=== PATIENT | female | born 1945 | race Caucasian/White ===

== ENCOUNTER 2023-01-17 17:56 | Emergency (ER) | payer MEDICARE, SELFPAY ==
--- NOTE | ~2023-01-17 | XR_ITS ---
EXAMINATION: XR hand RT min 3V INDICATION: Right hand pain TECHNIQUE: Three views of the right hand are obtained. COMPARISON: None available FINDINGS: No fracture is identified. 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 There is questionable scapholunate advanced collapse of the wrist. IMPRESSION: 1. No acute osseous abnormality. Reviewed, dictated and finalized at location F.
[2023-01-17 18:13] VITALS: BP 139/66; PULSE 92; RESP 18; TEMP 37; O2SAT 94
--- NOTE | 2023-01-17 18:23 | ED.FALL ---
HPI - Fall General Chief Complaint: Fall Stated Complaint: Fall Injury/Finger Injury Time Seen by Provider: 01/17/23 18:23 Source: patient Mode of arrival: ambulatory Limitations: no limitations History of Present Illness HPI Narrative: 77-year-old female presents with pain, swelling and bruising to middle and ring finger of right hand. Patient reports approximately 1 hour prior to arrival she was walking through [employer] to get hose and tripped. States she put right hand out in front of her to catch her fall. Denies hitting head. Also has a small abrasion to left knee. Was able to get up on her own. Ambulatory with steady gait. All systems reviewed and negative except as noted above. Related Data Home Medications Medication Instructions Recorded Confirmed amitriptyline 75 mg tablet 75 mg PO QHS 01/17/23 01/17/23 atorvastatin 20 mg tablet 20 mg PO QPM 01/17/23 01/17/23 citalopram 10 mg tablet 10 mg PO DAILY 01/17/23 01/17/23 losartan 50 mg tablet 50 mg PO DAILY 01/17/23 01/17/23 omeprazole 20 mg capsule,delayed 20 mg PO DAILY 01/17/23 01/17/23 release ropinirole 0.5 mg tablet 0.5 mg PO QPM 01/17/23 01/17/23 warfarin 2 mg tablet 1 mg PO DAILY 01/17/23 01/17/23 Allergies Allergy/AdvReac Type Severity Reaction Status Date / Time codeine AdvReac Mild Itching Verified 01/17/23 18:26 Review of Systems Review of Systems: CONSTITUTIONAL: Denies fever, chills, or sweats. EYES: Denies visual changes, redness, or discharge. ENT: Denies rhinorrhea, congestion, sore throat, or otalgia. CARDIOVASCULAR: Denies chest pain, palpitations, or edema. RESPIRATORY: Denies cough or dyspnea. GASTROINTESTINAL: Denies abdominal pain, nausea, vomiting, or diarrhea. GENITOURINARY: Denies dysuria or hematuria. SKIN: Denies rash or itching. MUSCULOSKELETAL: Reports pain and swelling to middle and ring finger of right hand. NEUROLOGIC: Denies headache, numbness, or weakness. PSYCHIATRIC: Denies anxiety or depression. All other systems reviewed are negative, except as documented in HPI. [facility] Comments At time of signature, agree with nursing past medical, surgical, social and family history. There is no relevant family history pertinent to the presenting complaint. Exam Narrative: GENERAL: This is a well-nourished, well-developed patient, in no apparent distress. HEAD: normocephalic, atraumatic. EYES: PERRL. Sclera clear/white. Vision is grossly intact. EARS: External ears normal NOSE: External nose normal NECK: Neck supple, non-tender without lymphadenopathy, masses or thyromegaly. CARDIOVASCULAR: Regular rate and rhythm without murmurs, gallops, or rubs. RESPIRATORY: Clear to auscultation. Breath sounds equal bilaterally. No wheezes, rales, or rhonchi. SKIN: warm, Dry, intact with no suspicious lesions or rash, good texture and turgor. NEURO: awake, alert, and oriented to person, place and time. There were no obvious focal neurologic abnormalities. EXTREMITIES: tenderness to proximal phalanx and PIP of middle and ring finger of R hand with bruising and swelling. no deformity noted. Course Course Level of Care: Express Care Visit Vital Signs Vital signs: Vital Signs Temperature 37.0 C 01/17/23 18:13 Pulse Rate 92 01/17/23 18:13 Respiratory Rate 18 01/17/23 18:13 Blood Pressure 139/66 01/17/23 18:13 Pulse Oximetry 94 01/17/23 18:13 Oxygen Delivery Room Air 01/17/23 18:13 Temperature 37.0 C 01/17/23 18:13 Pulse Rate 92 01/17/23 18:13 Respiratory Rate 18 01/17/23 18:13 Blood Pressure 139/66 01/17/23 18:13 Pulse Oximetry 94 01/17/23 18:13 Oxygen Delivery Room Air 01/17/23 18:13 Reviewed MDM - Fall MDM Narrative Medical decision making narrative: Patient is aware of diagnosis, understands and agrees to treatment plan. Anticipatory guidance given. Patient agrees to follow-up as directed and is aware of reasons to seek care at the emergency department. Por
[2023-01-17 18:25] VITALS: BP 139/66; PULSE 92; RESP 18; TEMP 37; O2SAT 94
== END 2023-01-17 19:05 | disposition home or self-care (01) ==
PROVIDERS: Emergency Provider Nurse Practitioner Family; PCP Internal Medicine Infectious Disease
DX: S80.212A Abrasion, left knee, initial encounter (principal); S63.612A Unspecified sprain of right middle finger, initial encounter; S63.614A Unspecified sprain of right ring finger, initial encounter; W01.0XXA Fall on same level from slipping, tripping and stumbling without subsequent striking against object, initial encounter; E78.00 Pure hypercholesterolemia, unspecified; I10 Essential (primary) hypertension; K21.9 Gastro-esophageal reflux disease without esophagitis; G25.81 Restless legs syndrome; Z95.5 Presence of coronary angioplasty implant and graft; F41.9 Anxiety disorder, unspecified; F32.A Depression, unspecified; Z79.01 Long term (current) use of anticoagulants
CPT/HCPCS: 29130 ×2; 73130; 99213; G0463

== ENCOUNTER 2023-05-25 17:22 | Emergency (ER) | payer MEDICARE, SELFPAY ==
--- NOTE | ~2023-05-25 | XR_ITS ---
EXAMINATION: XR ribs RT 2V DATE: 05/25/2023 18:05 INDICATION: Right rib pain. TECHNIQUE: 2 views of the right ribs on 4 radiographs were obtained. COMPARISON: None. FINDINGS: There is a diffuse interstitial pattern in the lungs. No right-sided pleural effusion or pn eumothorax. There are changes of heart valve replacement. There is a suture anchor in right humeral h ead. There is no rib fracture. IMPRESSION: 1. No rib fracture. 2. Diffuse interstitial pattern in the lungs, likely chronic interstitial lung disease. Reviewed, dictated and finalized at location E.
--- NOTE | ~2023-05-25 | XR_ITS ---
EXAMINATION: XR shoulder RT min 2V DATE: 05/25/2023 18:04 INDICATION: Right shoulder injury. TECHNIQUE: 4 views of right shoulder were obtained. COMPARISON: None. FINDINGS: Bone alignment is normal. There are likely changes of distal clavicle resection. There is m ild osteoarthritis of glenohumeral joint. There is a suture anchor in humeral head. There are changes of heart valve replacement. There is a diffuse interstitial pattern in the lungs. IMPRESSION: 1. Mild osteoarthritis of glenohumeral joint. 2. Diffuse interstitial pattern in the lungs, likely chronic interstitial lung disease. Reviewed, dictated and finalized at location E.
--- NOTE | 2023-05-25 17:28 | ED.UPPEXIN ---
HPI - Extremity Injury (Upper) General Chief Complaint: Extremity Injury, Upper Stated Complaint: Fall Injury/Right Shoulder Time Seen by Provider: 05/25/23 17:24 Source: patient Mode of arrival: ambulatory Limitations: no limitations History of Present Illness HPI narrative: Mallika is a 77-year-old female patient presenting to clinic today with complaints of right shoulder/right posterior ribs pain after falling. She reports she fell out of bed on Thursday when she went to reach for something off the bedside table. Is on Coumadin so as she does have some old bruising noted. Reports that the ribs hurt when she takes a deep breath and coughs. Is on Coumadin. Denies hitting her head or any loss of consciousness. History of rotator cuff repair on the right shoulder Related Data Home Medications Medication Instructions Recorded Confirmed amitriptyline 75 mg tablet 75 mg PO QHS 01/17/23 05/25/23 atorvastatin 20 mg tablet 20 mg PO QPM 01/17/23 05/25/23 citalopram 10 mg tablet 10 mg PO DAILY 01/17/23 05/25/23 losartan 50 mg tablet 50 mg PO DAILY 01/17/23 05/25/23 omeprazole 20 mg capsule,delayed 20 mg PO DAILY 01/17/23 05/25/23 release ropinirole 0.5 mg tablet 0.5 mg PO QPM 01/17/23 05/25/23 warfarin 2 mg tablet 1 mg PO DAILY 01/17/23 05/25/23 ergocalciferol (vitamin D2) 1,250 1,250 mcg PO DIRECTED 05/25/23 05/25/23 mcg (50,000 unit) capsule Allergies Allergy/AdvReac Type Severity Reaction Status Date / Time codeine AdvReac Mild Itching Verified 05/25/23 17:23 Review of Systems Review of Systems: Pertinent positives per HPI. Patient denies any fever, chills, rash, headache, visual changes, dizziness, cough, runny nose, sore throat, shortness of breath, chest pain, palpitations, nausea, vomiting, diarrhea, constipation, abdominal pain, or any urinary issues. [facility] Comments At the time of my signature, I reviewed and agree with the nursing past medical, surgical, social, and family history. There is no relevant family history pertinent to the patient complaint. Exam Narrative: General: Well-developed, overweight, in no apparent distress, frail appearing Head: Normocephalic, atraumatic. Cardio: Regular rate and rhythm, s1 and s2 normal, no murmur appreciated. Resp: Clear to auscultation bilaterally, no rhonchi, rales, wheezing or rubs. Musculoskeletal: No deformity, tender to palpation over the right upper posterior ribs and the right shoulder, old bruising noted over the right posterior ribs and the right lateral shoulder, grossly normal range of motion, muscle strength strong and equal, peripheral pulse strong, no edema, no cyanosis, normal gait and station Course Course Emergency Course: Portions of this record may have been created with voice recognition software. Level of Care: Express Care Visit Vital Signs Vital signs: Vital Signs Temperature 37.0 C 05/25/23 17:44 Pulse Rate 70 05/25/23 17:44 Respiratory Rate 20 05/25/23 17:44 Blood Pressure 144/71 H 05/25/23 17:44 Pulse Oximetry 98 05/25/23 17:44 Oxygen Delivery Room Air 05/25/23 17:44 Temperature 37.0 C 05/25/23 17:44 Pulse Rate 70 05/25/23 17:44 Respiratory Rate 20 05/25/23 17:44 Blood Pressure 144/71 H 05/25/23 17:44 Pulse Oximetry 98 05/25/23 17:44 Oxygen Delivery Room Air 05/25/23 17:44 Vital signs reviewed MDM - Extremity Injury (Upper) MDM Narrative Medical decision making narrative: At the time of visit patient is resting comfortably on the exam table. X-ray of the right shoulder and right ribs was performed and is negative for any sign of fracture or malalignment. I suspect patient has contusion to the right shoulder and ribs with strain of the shoulder. Supportive measures were discussed with the patient and the family member they voiced understanding the discharge instructions and agreed to the treatment plan. Differential Diagnosis Differential diagnosis: Likely dislocation of
[2023-05-25 17:44] VITALS: BP 144/71; PULSE 70; RESP 20; TEMP 37; O2SAT 98
== END 2023-05-25 18:22 | disposition home or self-care (01) ==
PROVIDERS: Emergency Provider Nurse Practitioner Family; PCP Internal Medicine Infectious Disease
DX: M25.511 Pain in right shoulder (principal); M19.011 Primary osteoarthritis, right shoulder; R07.81 Pleurodynia; Z79.01 Long term (current) use of anticoagulants; G25.81 Restless legs syndrome; E78.00 Pure hypercholesterolemia, unspecified; I10 Essential (primary) hypertension; K21.9 Gastro-esophageal reflux disease without esophagitis; I25.10 Atherosclerotic heart disease of native coronary artery without angina pectoris; Z95.5 Presence of coronary angioplasty implant and graft; F41.9 Anxiety disorder, unspecified; F32.A Depression, unspecified
CPT/HCPCS: 71100; 73030; 99214; G0463

== ENCOUNTER 2025-01-13 19:09 | Emergency (ER) | payer MEDICARE, SELFPAY ==
--- NOTE | 2025-01-13 19:11 | ED.WOUNDLAC ---
HPI - Wound/Laceration General Chief Complaint: Skin/Abscess/Foreign Body Stated Complaint: skin tear right hand Time Seen by Provider: 01/13/25 19:11 Source: patient Mode of arrival: ambulatory Limitations: no limitations History of Present Illness HPI narrative: Mallika is an 79-year-old female patient presenting to the clinic today with complaints of a skin tear to the right hand. Patient states that she hit the back of her hand with a door and this caused the skin tear. Tetanus shot up-to-date per patient-thinks she got one 4 years ago. Has a flap v-shaped skin tear. Bleeding is controlled. Related Data Home Medications ?Medication ?Instructions ?Recorded ?Confirmed ?Last Taken ?Type amitriptyline 75 mg tablet 75 mg PO QHS 01/17/23 05/25/23 Unknown History atorvastatin 20 mg tablet 20 mg PO QPM 01/17/23 05/25/23 Unknown History citalopram 10 mg tablet 10 mg PO DAILY 01/17/23 05/25/23 Unknown History losartan 50 mg tablet 50 mg PO DAILY 01/17/23 05/25/23 Unknown History omeprazole 20 mg capsule,delayed 20 mg PO DAILY 01/17/23 05/25/23 Unknown History release ropinirole 0.5 mg tablet 0.5 mg PO QPM 01/17/23 05/25/23 Unknown History warfarin 2 mg tablet 1 mg PO DAILY 01/17/23 05/25/23 Unknown History ergocalciferol (vitamin D2) 1,250 1,250 mcg PO DIRECTED 05/25/23 05/25/23 Unknown History mcg (50,000 unit) capsule carvedilol 3.125 mg tablet mg 01/13/25 Unknown History furosemide 20 mg tablet mg 01/13/25 Unknown History metolazone 2.5 mg tablet mg 01/13/25 Unknown History ropinirole 0.25 mg tablet mg 01/13/25 Unknown History Allergies Allergy/AdvReac Type Severity Reaction Status Date / Time codeine AdvReac Mild Itching Verified 01/13/25 19:21 Review of Systems Review of Systems: Pertinent positives per HPI. Patient denies any fever, chills, rash, headache, visual changes, dizziness, cough, runny nose, sore throat, shortness of breath, chest pain, palpitations, nausea, vomiting, diarrhea, constipation, abdominal pain, or any urinary issues. [facility] Comments At the time of my signature, I reviewed and agree with the nursing past medical, surgical, social, and family history. There is no relevant family history pertinent to the patient complaint. Exam Narrative: General: Well-developed, well nourished, in no apparent distress Head: Normocephalic, atraumatic. Cardio: Regular rate and rhythm, s1 and s2 normal, no murmur appreciated. Resp: Clear to auscultation bilaterally, no rhonchi, rales, wheezing or rubs. Integumentary: [place], warm, and dry, flapped v-shaped skin tear to the dorsal right hand Course Course Emergency Course: Portions of this record may have been created with voice recognition software. Level of Care: Express Care Visit Vital Signs Vital signs: Vital Signs Temperature 36.4 C 01/13/25 19:18 Pulse Rate 69 01/13/25 19:18 Respiratory Rate 16 01/13/25 19:18 Blood Pressure 137/75 01/13/25 19:18 Pulse Oximetry 98 01/13/25 19:18 Oxygen Delivery Room Air 01/13/25 19:18 Temperature 36.4 C 01/13/25 19:18 Pulse Rate 69 01/13/25 19:18 Respiratory Rate 16 01/13/25 19:18 Blood Pressure 137/75 01/13/25 19:18 Pulse Oximetry 98 01/13/25 19:18 Oxygen Delivery Room Air 01/13/25 19:18 Vital signs reviewed MDM - Wound/Laceration MDM Narrative Medical decision making narrative: At the time of visit patient is resting comfortably on the exam table. Patient appears to be nontoxic. Procedures: Wound was cleansed with antiseptic wound wash. Laceration repair was performed placing 3 Steri-Strips bringing wound edges well approximate. Patient tolerated well. Telfa and Coban applied Plan: Patient has V flap skin tear. Repair was performed using Steri-Strips. Patient tolerated well Supportive measures were discussed with the patient and they voiced understanding discharge instructions and agrees to treatment plan. Return precautions reviewed Differential Diagnosis Differential diagnosis: Likely laceration, abscess, abrasion, avulsion of skin and other (Skin tear) Discharge Plan Discharge Clinical Impression: Skin tear of right hand without complication Qualifiers: Encounter type: initial encounter Qualified Code(s): S61.411A - Laceration without foreign body of right hand, initial encounter Patient Disposition: Home Condition: Stable Instructions: Antibiotic Form, Skin Tear (ED) Additional Instructions: Leave bandage on for 24 hours then may remove and apply band aide covering as needed. Keep wound clean and dry Try to avoid getting hand wet Leave Steri-Strips in place and allow them to fall off on their own If Steri-Strips are starting to peel up may trim them using a pair of scissors Watch for signs and symptoms of infection-fever not controlled by Tylenol or Motrin, redness, streaking, swelling, purulent discharge, or increase in pain. Follow up with your PCP in 3 days for wound check Patient Language: Tuvaluan Prescriptions: No Action ergocalciferol (vitamin D2) 1,250 mcg (50,000 unit) capsule 1,250 mcg PO DIRECTED losartan 50 mg tablet 50 mg PO DAILY amitriptyline 75 mg tablet 75 mg PO QHS warfarin 2 mg tablet 1 mg PO DAILY omeprazole 20 mg capsule,delayed release(DR/EC) 20 mg PO DAILY atorvastatin 20 mg tablet 20 mg PO QPM citalopram 10 mg tablet 10 mg PO DAILY ropinirole 0.5 mg tablet 0.5 mg PO QPM metolazone 2.5 mg tablet carvedilol 3.125 mg tablet ropinirole 0.25 mg tablet furosemide 20 mg tablet Follow-up/Referrals: Lance,Ebenezer Dutton MD [Primary Care Provider] - Time of Disposition: 19:34 Quality NIHSS Nursing Documentation ED NIHSS nursing documentation: reviewed/agree
--- OUTSIDE RECORDS SUMMARY | 2025-01-13 19:12 | XMS_ITS | Encounter Summary ---
Author Organization [facility] Healthcare Address [address] [place] [address] Care Team Providers Care Production Finisher Name Role Phone Ebenezer Lucas MD Primary Care Provider [phone] Frank Webster MD Unavailable [phone] Aron Rodrigues MD Unavailable [phone] Conor Lala MD Unavailable [phone] Laura Renee MD Unavailable Marie Mendez MD Unavailable Marvin Isbell MD Unavailable [phone] Encounter Details Date Type Department Care Team (Late st Contact Info) Description 01/04/2025 Results Follow-Up [facility] [address] [place] [phone] Shahnaz Coleman MA Protime-INR Social History Tobacco Use Types Packs/Day Years Used Date Smoking Tobacco: Former Cigarettes 0.5 43 0 02/07/1965 - 02/08/2008 Smokeless Tobacco: Never Alcohol Use Standard Drinks/Week Comments No 0 (1 standard drink = 0.6 oz pur e alcohol) AUDIT-C Answer Date Recorded Q1: How often do you have a drink containing alc ohol? Monthly or less 04/20/2024 Q2: How many drinks containi ng alcohol do you have on a typical day when you are drinking? 1 or 2 04/20/2024 Q3: How often do you have si x or more drinks on one occasion? Never 04/20/2024 PHQ-2 Answer Date Recorded PHQ-2 Total Score (If total score is 3 or more points, staff should administer the PHQ-9) 0 04/20/2024 Personal Safety Answer Date Recorded Have you ever been in or are you currently in a harmful physical or emotional relationship or is someone making you feel afraid or unsafe? 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 Gender Identity Not on file Sexual Orientation Not on file Occupation Industry Job Start Date Job End Date Retired Not on file Not on file Not on file documented as of this encounter Plan of Treatment Not on file documented as of this encounter Visit Diagnoses Not on filedocumented in this encounter Care Teams Production Finisher Relationship Specialty Start Date End Date Ebenezer Lucas MD [address] [place] [address] PCP - General Internal Medicine 12/05/23 Frank Webster MD [address] [place] [address] Consulting Physician Cardiology 09/06/19 Aron Rodrigues MD [address] [place] [address] Surgeon Cardiothoracic Surgery 07/09/20 [place] [address] [address] [address] Consulting Physician Pulmonary Disease 05/23/20 Laura Renee MD [address] [place] [address] Locker Plant Attendant Obstetrics and Gynecology 06/10/23 Marie Mendez MD [address] [facility] [place] [address] Consulting Physician Sleep Medicine 10/12/23 Marvin Isbell MD [address] [place] [address] Surgeon Anesthesiology 03/10/24 documented as of this encounter
--- OUTSIDE RECORDS SUMMARY | 2025-01-13 19:12 | XMS_ITS | Clinical Summary ---
Author Organization [facility] Address [address] [place] [address] Phone Care Team Providers Care Straight Ruling Machine Operator Name Role Phone Dean Ewing MD Primary Care Provider [phone] Allergies Active Allergy Reactions Criticality Noted Date Comments Hydrocodone-Acetaminophen Unknown Montelukast Hives High 04/23/2012 Medications CITALOPRAM HYDROBROMIDE (CITALOPRAM ORAL) Take by mouth. Active ZOLPIDEM TARTRATE (AMBIEN ORAL) Take by mouth. Active aspirin (ECOTRIN EC) 81 mg Oral TbEC Take 81 mg by mouth. Active CARVEDILOL ORAL Take by mouth. Active lisinopril (PRINIVIL) 10 mg Oral tablet 03/19/2013 Active DIPHENHYDRAMINE HCL (BENADRYL ALLERGY ORAL) Take by mouth. 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 Family History Medical History Relation Name Comments Cancer Brother 1 Cancer Brother 2 Healthy Daughter Cancer Father Healthy Son Relation Name Status Comments Brother 1 Brother 2 Brother 3 Alive Brother 4 Alive Daughter Alive Father Alive Maternal Grandfather Maternal Grandmother Mother Alive Paternal Grandfather Paternal Grandmother Son Alive Social History Tobacco Use Types Packs/Day Years Used Date Smoking Tobacco: Former Smokeless Tobacco: Never Tobacco Cessation:Counseling Given: No Alcohol Use Standard Drinks/Week Comments No 0 (1 standard drink = 0.6 oz pur e alcohol) Comments No Sex and Gender Information Value Date Recorded Sex Assigned at Not on file Legal Sex Female 6:06 AM INSURANCE ACCOUNT REPRESENTATIVE Gender Identity Not on file Sexual Orientation Not on file Occupation Industry Job Start Date Job End Date Not on file Not on file Not on file Not on file Last Filed Vital Signs Vital Sign Reading Time Taken Comments Blood Pressure 137/70 08/24/2014 2:12 PM INSURANCE ACCOUNT REPRESENTATIVE Pulse 58 08/24/2014 2:12 PM INSURANCE ACCOUNT REPRESENTATIVE Temperature - - Respiratory Rate - - Oxygen Saturation - - Inhaled Oxygen Concentration - - Weight 61.2 kg (135 lb) 08/24/2014 2:12 PM INSURANCE ACCOUNT REPRESENTATIVE Height 153.7 cm (5' 0.5) 08/24/2014 2:12 PM INSURANCE ACCOUNT REPRESENTATIVE Body Mass Index 25.93 08/24/2014 2:12 PM INSURANCE ACCOUNT REPRESENTATIVE Plan of Treatment Health Maintenance Due Date Last Done Comments DTAP/TDAP/TD VACCINES (1 - Tdap) 10/23/1962 PNEUMOCOCCAL VACCINE 50+ YEARS (1 of 1 - PCV) 10/23/18 94 ZOSTER VACCINE (1 of 2) 10/23/1993 OSTEOPOROSIS SCREENING 10/23/2008 RSV VACCINE (60+ or ) (1 - 1-dose 75+ series) 10/23/2018 INFLUENZA VACCINE (#1) 2024 Insurance MEDICARE PART A AND B [facility] Care Teams Straight Ruling Machine Operator Relationship Specialty [place] [address] [place] [address] PCP - General Internal Medicine 10/23/11
--- OUTSIDE RECORDS SUMMARY | 2025-01-13 19:12 | XMS_ITS | Encounter Summary ---
Author Organization [facility] Healthcare Address [address] [place] [address] Care Team Providers Care Lunch Cook Name Role Phone Ebenezer Lucas MD Primary Care Provider [phone] Frank Webster MD Unavailable [phone] Aron Rodrigues MD Unavailable Conor Lala MD Unavailable [phone] Laura Renee MD Unavailable Marie Mendez MD Unavailable Marvin Isbell MD Unavailable Encounter Details Date Type Department Care Team (Late st Contact Info) Description 12/03/2024 Results Follow-Up [facility] [address] [place] [address] Ebenezer Lucas MD [address] [place] [address] Basic metabolic panel, Pro B-type natriuretic peptide, eGFR, US Arterial Doppler Lower Extremity Bilateral Social History Tobacco Use Types Packs/Day Years [...] on file 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 Gender Identity Not on file Sexual Orientation Not on file Occupation Industry Job Start Date Job End Date Retired Not on file Not on file Not on file documented as of this encounter Plan of Treatment Not on file documented as of this encounter Visit Diagnoses Not on filedocumented in this encounter Care Teams Lunch Cook Relationship Specialty Start Date End Date Ebenezer Lucas MD [address] [place] [address] PCP - General Internal Medicine 12/05/23 Frank Webster MD [address] [place] [address] Consulting Physician Cardiology 09/06/19 Aron Rodrigues MD [address] [place] [address] Surgeon Cardiothoracic Surgery 07/09/20 [place] [address] [address] Consulting Physician Pulmonary Disease 05/23/20 Laura Renee MD [address] [address] Manager Of Supply Chain Obstetrics and Gynecology 06/10/23 Marie Mendez MD [address] [facility] [place] [address] Consulting Physician Sleep Medicine 10/12/23 Marvin Isbell MD [address] [place] [address] Surgeon Anesthesiology 03/10/24 documented as of this encounter
--- OUTSIDE RECORDS SUMMARY | 2025-01-13 19:12 | XMS_ITS | Encounter Summary ---
Author Organization [facility] Healthcare Address [address] [place] [address] Care Team Providers Care Over The Horizon Targeting Supervisor Name Role Phone Ebenezer Lucas MD Primary Care Provider [phone] Frank Webster MD Unavailable [phone] Aron Rodrigues MD Unavailable [phone] Conor Lala MD Unavailable [phone] Laura Renee MD Unavailable Marie Mendez MD Unavailable Marvin Isbell MD Unavailable [phone] Encounter Details Date Type Department Care Team (Late st Contact Info) Description 12/19/2024 Results Follow-Up [facility] [employer] [facility] [address] [place] [address] Shahnaz Coleman MA Protime-INR Social History [...] on file 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 Gender Identity Not on file Sexual Orientation Not on file Occupation Industry Job Start Date Job End Date Retired Not on file Not on file Not on file documented as of this encounter Plan of Treatment Not on file documented as of this encounter Visit Diagnoses Not on filedocumented in this encounter Care Teams Over [employer] Horizon Targeting Supervisor Relationship Specialty Start Date End Date Ebenezer Lucas MD [address] [place] [address] PCP - General Internal Medicine 12/05/23 Frank Webster MD [address] [place] [address] Consulting Physician Cardiology 09/06/19 Aron Rodrigues MD [address] [place] [address] Surgeon Cardiothoracic Surgery 07/09/20 [place] [address] [address] [address] Consulting Physician Pulmonary Disease 05/23/20 Laura Renee MD [address] [place] [address] Circular Saw Edge Fuser Obstetrics and Gynecology 06/10/23 Marie Mendez MD [address] [facility] [place] [address] Consulting Physician Sleep Medicine 10/12/23 Marvin Isbell MD [address] [place] [address] Surgeon Anesthesiology 03/10/24 documented as of this encounter
--- OUTSIDE RECORDS SUMMARY | 2025-01-13 19:12 | XMS_ITS | Encounter Summary ---
Author Organization [facility] Healthcare Address [address] [place] [address] Care Team Providers Care Appellate Court Judge Name Role Phone Ebenezer Lucas MD Primary Care Provider [phone] Frank Webster MD Unavailable [phone] Aron Rodrigues MD Unavailable [phone] Conor Lala MD Unavailable [phone] Laura Renee MD Unavailable Marie Mendez MD Unavailable Marvin Isbell MD Unavailable [phone] Encounter Details Date Type Department Care Team (Late st Contact Info) Description 12/12/2024 Results Follow-Up [place] [facility] Research Worker [address] [place] [phone] Shahnaz Coleman MA Protime-INR Social History [...] on file 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 Gender Identity Not on file Sexual Orientation Not on file Occupation Industry Job Start Date Job End Date Retired Not on file Not on file Not on file documented as of this encounter Plan of Treatment Not on file documented as of this encounter Visit Diagnoses Not on filedocumented in this encounter Care Teams Appellate Court Judge Relationship Specialty Start Date End Date Ebenezer Lucas MD [address] [place] [address] PCP - General Internal Medicine 12/05/23 Frank Webster MD [address] [place] [address] Consulting Physician Cardiology 09/06/19 Aron Rodrigues MD [address] [place] [address] Surgeon Cardiothoracic Surgery 07/09/20 [place] [address] [address] [address] Consulting Physician Pulmonary Disease 05/23/20 Laura Renee MD [address] [place] [address] Pest Controller Obstetrics and Gynecology 06/10/23 Marie Mendez MD [address] [facility] [address] Consulting Physician Sleep Medicine 10/12/23 Marvin Isbell MD [address] [place] [address] Surgeon Anesthesiology 03/10/24 documented as of this encounter
--- OUTSIDE RECORDS SUMMARY | 2025-01-13 19:12 | XMS_ITS | Encounter Summary ---
Author Organization [facility] Healthcare Address [address] [place] [address] Care Team Providers Care Full Time Staff Interpreter Name Role Phone Ebenezer Lucas MD Primary Care Provider Frank Webster MD Unavailable [phone] Aron Rodrigues MD Unavailable [phone] Conor Lala MD Unavailable Laura Renee MD Unavailable Marie Mendez MD Unavailable Marvin Isbell MD Unavailable Encounter Details Date Type Department Care Team (Late st Contact Info) Description 12/09/2024 Results Follow-Up [facility] [address] [place] [address] Ebenezer Lucas MD [address] [place] [address] Basic metabolic panel, Pro B-type natriuretic peptide, eGFR Social History Tobacco Use Types Packs/Day Years [...] on file 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 Gender Identity Not on file Sexual Orientation Not on file Occupation Industry Job Start Date Job End Date Retired Not on file Not on file Not on file documented as of this encounter Plan of Treatment Not on file documented as of this encounter Visit Diagnoses Not on filedocumented in this encounter Care Teams Full Time Staff Interpreter Relationship Specialty Start Date End Date Ebenezer Lucas MD [address] [place] [address] PCP - General Internal Medicine 12/05/23 Frank Webster MD [address] [place] [address] Consulting Physician Cardiology 09/06/19 Aron Rodrigues MD [address] [place] [address] Surgeon Cardiothoracic Surgery 07/09/20 [place] [address] [address] [address] Consulting Physician Pulmonary Disease 05/23/20 Laura Renee MD [address] [place] [address] Glue Line Operator Obstetrics and Gynecology 06/10/23 Marie Mendez MD [address] [place] [address] Consulting Physician Sleep Medicine 10/12/23 Marvin Isbell MD [address] [place] [address] Surgeon Anesthesiology 03/10/24 documented as of this encounter
--- OUTSIDE RECORDS SUMMARY | 2025-01-13 19:12 | XMS_ITS | Continuity of Care Document ---
Author Organization [employer] Address [address] [place] [address] Phone Care Team Providers Care Trucker Hand Name Role Phone Dean Ewing MD Unavailable Unavailable Allergies, Adverse Reactions, Alerts Substance Reaction Status Criticality MONTELUKAST SODIUM Rash Active No Inform ation furosemide Other Active No Information diclofenac Other Active No Information Medications Medication Instructions Dosage Effective Dates (start - stop) Status Comments Gita 50,000 unit Cap take 1 capsule ([id number]) by oral route every week No Longer [...] Diagnoses Date Provider Providers Copied on Encounter [employer], [address], [place], [place], [address] , tel: [phone] [facility] No Information [address] Gild[address] Moran. [address] [place] [address], [address], [place], [place], [address], . tel:[phone] [employer] [facility], [address], [place], [place], [address] , tel: [phone] [facility] HeadacheNEED FOR PROPHYLACTIC VACCINATION AND INOCULATION, INFLUENZAElevated blood pressure reading without diagnosisInsomnia, unspecifiedDysthymi c disorder 2 Xavier Maria Del Rosario. [address] [facility] [address], [place], [place], [address]. tel:[phone] Referring Provider: Dean Ewing, [address] [place] [address] [address], [place], [address] . tel:[phone] [employer], [address], [place], [place], [address] , tel: [phone] [facility] Toe laceration 2 Gildardo Moran. [address] [place] [address], [address], [place], [place], [address], . tel:[phone] Referring Provider: Dean Ewing, [address] [place] [address] [address], [place], [address] . tel:[phone] [employer], [address], [place], [place], [address] , tel: [phone] [facility] OsteoporosisInsomni a, unspecifiedDysthymi c disorderOther primary cardiomyopathiesUns pecified late effects of cerebrovascular diseasePartial bilateral paralysis of vocal cords 2 Dave Sampson. [address] [place] [address], [address], [place], [place], [address], . tel:[phone] Referring Provider: Dean Ewing, [address] [place] [address] [address], [place], [address] . tel:[phone] [employer], [address], [place], [place], [address] , tel: [phone] [facility] Congestive heart failureDysthymic disorderUnspecified late effects of cerebrovascular diseaseInsomnia, unspecified 2 Dave Sampson. [address] [facility] [address], [place], [place], [address], . tel:[phone] [employer], [address], [place], [place], [address] , tel: [phone] [facility] Chest pain, localizedOsteoporos is, unspecified Apr-0 2 Dave Sampson. [address] [facility] [address], [place], [place], [address], . tel:[phone] Referring Provider: Dean Ewing, [address] [place] [address] [address], [place], [address] . tel:[phone] [employer], [address], [place], [address] , tel: [phone] [facility] Routine general medical examination at a health care facilityRoutine gynecological examinationPartial bilateral paralysis of vocal cordsInsomnia, unspecifiedOther and unspecified hyperlipidemiaDepre ssive disorder, not elsewhere classifiedAllergic rhinitis, cause unspecifiedOther nonspecific findings on examination of urineRoutine general medical examination at a health care facility 1 Dave Sampson. [address] [facility] [address], [place], [place], [address], . tel:[phone] Referring Provider: Dean Ewing, [address] [place] [address] [address], [place], [address] . tel:[phone] [employer], [address], [place], [place], [address] , tel: [phone] [facility] Partial bilateral paralysis of vocal cordsCongestive heart failureUnspecified late effects of cerebrovascular diseasePartial bilateral paralysis of vocal cordsHEMATURIA NOS 1 Gildardo Moran. [address] [place] [address], [address], [place], [place], [address], . tel:[phone] Referring Provider: Dean Ewing, [address] [place] [address] [address], [place], [address] . tel:[phone] [employer], [address], [place], [place], [address] , tel: [phone] [facility] Congestive heart failureDM Controlled, No ComplicationDepress slime disorder, not elsewhere classified 1 Gildardo Moran. [address] [place] [address], [address] , [place], [place], [address], . tel:[phone] Referring Provider: Dean Ewing, [address] [place] [address] [address], [place], [address] . tel:[phone] [employer], [address], [place], [place], [address] , tel: [phone] [facility] Disorder of bone and cartilage, unspecifiedDM Controlled, No Complication 1 Gildardo Moran. [address] [place] [address], [address] , [place], [place], [address], . tel:[phone] [employer], [address], [place], [place], [address] , tel: [phone] [facility] ACUTE URI NOS 1 Conversion Doctor. [address] [place] [address], [facility], . [employer], [address], [place], [place], [address] , tel: [phone] [facility] CHF NOSLATE EFFECT CV DIS NOSDEPRESSIVE DISORDER NECINSOMNIA NOS 1 Gildardo Moran. [address] [place] [address], [address] , [place], [place], [address], . tel:[phone] Family History Family Member Type Diagnosis Age At Onset Mother Problem (finding) congestive heart failur e Brother Problem (finding) cancer of colon Father Problem (finding) malignant neoplasm of p harynx Immunizations Vaccine Date Status Comments Fluzone administered Source: New Imm unization Record pneumo (2 yrs or older) (PPV23) administered Source: New Immuniza tion Record Payers Payer name Insurance type Covered republican ID Authoriza tion(s) MEDICARE [place] [id number] [facility] [id number] Social History Type Description Quantity Date Captured [...]
--- OUTSIDE RECORDS SUMMARY | 2025-01-13 19:13 | XMS_ITS | Encounter Summary ---
Author Organization [facility] Healthcare Address [address] [place] [address] Care Team Providers Care Medicare Nurse Name Role Phone Ebenezer Lucas MD Primary Care Provider [phone] Frank Webster MD Unavailable [phone] Aron Rodrigues MD Unavailable [phone] Conor Lala MD Unavailable [phone] Laura Renee MD Unavailable Marie Mendez MD Unavailable Marvin Isbell MD Unavailable [phone] Encounter Details Date Type Department Care Team (Late st Contact Info) Description 01/12/2025 2:35 PM CDT Lab [facility] [address] [place] [id number] Atrial fibrillation, unspecified type (HCC) Social History Tobacco Use Types Packs/Day Years [...] on file 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 Gender Identity Not on file Sexual Orientation Not on file Occupation Industry Job Start Date Job End Date Retired Not on file Not on file Not on file documented as of this encounter Plan of Treatment Not on file documented as of this encounter Procedures Procedure Name Priority Date/Time Associated Diagnosis Comments PROTIME-INR Routine 01/12/2025 2:34 PM CDT Atrial fibrillation, unspecified type (HCC) documented in this encounter Results * (ABNORMAL) Protime-INR (01/12/2025 2:34 PM CDT) PT 25.8(H) 9.7 - 13.0 sec Comment:Testing performed by : [address] [address] INR 2.35(H) 0.90 - 1.20 [facility] ([place]) Comment: Interpretive data Oral anticoagulant therapeutic ranges: Venous thromboembolism prophylaxis or treatment: 2.0-3.0 CARDIOLOGY Standard range: 2.0-3.0 High-intensity range: 2.5-3.5 Refer to indication-specific guidelines for appropriate target ranges for prosthetic heart valve replacement. Current interpretive data was last revised on 2019. Testing performed by: [address] [address] Blood 01/12/2025 2:34 PM CDT 01/13/2025 10:43 AM CDT Frank Webster MD LAB BLOOD ORDERABLES Final Res ult [facility] ([place]) 1 [facility] Department [place] [address] documented in this encounter Visit Diagnoses Diagnosis Atrial fibrillation, unspecified type (HCC) documented in this encounter Care Teams Medicare Nurse Relationship Specialty Start Date End Date Ebenezer Lucas MD [address] [place] [address] PCP - General Internal Medicine 12/05/23 Frank Webster MD [address] [place] [address] Consulting Physician Cardiology 09/06/19 Aron Rodrigues MD [address] [place] [address] Surgeon Cardiothoracic Surgery 07/09/20 [place] [address] [address] Consulting Physician Pulmonary Disease 05/23/20 Laura Renee MD [address] [place] [address] Metalizing Supervisor Obstetrics and Gynecology 06/10/23 Marie Mendez MD [address] [facility] [address] [place] [address] Consulting Physician Sleep Medicine 10/12/23 Marvin Isbell MD [address] [place] [address] Surgeon Anesthesiology 03/10/24 documented as of this encounter
--- OUTSIDE RECORDS SUMMARY | 2025-01-13 19:13 | XMS_ITS | Continuity of Care Document ---
Author Organization [employer] 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 Name Role Phone Maty MAURICE, Margaret Unavailable Unavailable Allergies, Adverse Reactions, Alerts Substance Reaction Status Criticality amlodipine Active No Information diclofenac Active No Information diphenhydramine Active No Informati on MONTELUKAST SODIUM Active No Inform ation HYDROCODONE BITARTRATE Active No In formation acetaminophen Active No Information Medications Medication Instructions Dosage Effective Dates (start - stop) Status Comments polyethylene glycol 1000 (bulk) powder once daily - Active benzonatate 200 mg capsule take 1 capsule by oral route 3 times every day as needed for cough 200 MG - Active acetaminophen 500 mg tablet take 2 tablet by oral route every 6 hours as needed 1000 MG - Active atorvastatin 20 mg tablet take 1 tablet by oral route every day 20 MG - Active biotin 2,500 mcg capsule take 1 capsule by oral route every day 1 capsule - Active calcium carb-vit D3-minerals 600 mg calcium-400 unit tablet once daily - Active cyanocobalamin (vitamin B-12) 1,000 mcg capsule once daily - Active ergocalciferol (vitamin D2) 1,250 mcg (50,000 unit) capsule take 1 capsule by oral route every week 1 capsule - Active losartan 25 mg tablet take 1 tablet by oral route every day 25 MG - Active omeprazole 20 mg capsule,delayed release take 1 capsule by oral route every day 30 minutes to 1 hour before a meal 20 MG - Active melatonin 5 mg capsule once daily - Active potassium chloride ER 20 mEq tablet,extended release take 1 tablet by oral route every day with food 20 MEQ - Active amitriptyline 75 mg tablet take 1 tablet by oral route every day at bedtime 75 MG - Active citalopram 40 mg tablet take 1 tablet (40MG) by oral route every day 40 MG - Active aspirin 81 mg tablet,delayed release take 1 tablet (81MG) by oral route every day 81 MG - Active Procedures Procedure Date No Charge Optomap Fundus Photos 024 Eye Exam, New Patient No Charge Refraction No Charge Refraction Eye Exam & Treatment No Charge Refraction Eye Exam & Treatment Eye Exam & Treatment Eye Exam & Treatment Eye Exam & Treatment Eye Exam & Treatment Post-op Follow-up Visit After Cataract Laser Surgery Eye Exam & Treatment Visual Field Examination(s) Eye Exam & Treatment Advance Directives Directive Yes / No Effective Date File Name No Information Encounters Encounter Description Practice Location Reason(s) For Visit Diagnoses Date Provider Providers Copied on [facility]counter [facility], [id number], [place], [place], [address], [place] tel:[phone] SEC J [place] Professional Complete Exam (chief complaint) Dry eyes, bilateralAlle rgic conjunctiviti s of both eyesCongenita l hypertrophy of retinal pigment epithelium of left eyeAsteroid hyalosis of left eyeBilateral artificial lens implantAnteri or basement membrane dystrophy of both eyes 4 Maty OD Margaret. [address], [address], [place], [place], [address], [place]. tel:[phone] Pb Webster. [facility], [address], [place], [place], [address], [place] tel:[phone] SEC [place] No Information 4 Maty OD Margaret. [id number] [place] [address], [address], [place], [place], [address], . tel:[phone] Specialist : Pb Orta, [address] [facility], [place], [address] . tel:[phone] cialist: Frank Webster, [address] [facility], [address] [place], [address]. tel:[phone] [facility], [address] [place] [address] [address], [place], [place], [address], tel:[phone] SEC J [place] Professional Refraction only (chief complaint) Bilateral artificial lens implant Oct- 8 Trevino Eladia. [address] [place], [address], . tel:[phone] Referring Provider: Pb Houser, [address] [place], [address] . tel:[phone] [facility], [address] [place] [address] [address], [place], [place], [address], tel:[phone] SEC [place] Professional Complete Exam (chief complaint) Pseudophakia of both eyesDry eyes, bilateralAste roid hyalosis of left eye 8 Trevino Eladia. [address] [place], [place], [facility], . tel:[phone] Referring Provider: Pb Houser, [address] [facility] [place], [address] . tel:[phone] [facility], [address] [place] [address] [address], [place], [place], [address], tel:[phone] SEC [place] Professional Complete Exam (chief complaint) Bilateral artificial lens implantPuncta te keratitis of left eye 6 You Ambriz. [address] [facility], [place], [address], . tel:[phone] Referring Provider: Pbsushma Teranjamarijayla Houser, [address] [facility] [address], [place], [address] . tel:[phone] [facility], [address], [place], [place], [address], [place] tel:[phone] SEC [place] Professional No Information 6 You Ambriz. [address] [facility], [address] [place], [address], . tel:[phone] [facility], [address], [place], [place], [address], tel:[phone] SEC [place] Professional Difficulty reading (chief complaint) No Information 5 You Ambriz. [address] [facility], [facility] [place], [address], . tel:[phone] Referring Provider: Pbsushma Houser, [address] [facility] [place], [address] . tel:[phone] [facility], [address], [place], [place], [address], [place] tel:[phone] SEC [place] Professional tearing and burning (chief complaint) No Information 0 4 You Ambriz. [address] [facility], [address] [place], [address], . tel:[phone] Referring Provider: Pbsushma Teranjamarijayla Houser, [address] [facility] [place], [address] . tel:[phone] [facility], [address], [place], [place], [address], [place] tel:[phone] SEC [place] Professional No Information 3 Wankjayla Ambriz. [address], [place], [place], [address], [place]. tel:[phone] Referring Provider: Pb Houser, [address], [place], [address] . tel:[phone] [facility], [address], [place], [place], [address], [place] tel:[phone] SEC J [place] Professional No Information 3 Wankum Pb. [address] [facility] [address], [address] [place], [address], [place]. tel:[phone] [facility], [address], [place], [place], [address], [place] tel:[phone] SEC J [place] Professional No Information 2 Wankjayla Ambriz. [address] [facility], [address] [place], [address], [place]. tel:[phone] Referring Provider: Pb Houser, [address], [place], [address] . tel:[phone] [facility], [address], [place], [place], [address], [place] tel:[phone] SEC J [place] Professional No Information 1 Wankjayla Pb. [address], [address] [place], [address], [place]. tel:[phone] Referring Provider: Pb Houser, [address], [place], [address] . tel:[phone] [facility], [address], [place], [place], [address], [place] tel:[phone] SEC J Carlos [place] Professional No Information 5-201 0 You Ambriz. [address] [place], [place], [address], . tel:[phone] Referring Provider: Pbsushma Houser, [address] [place], [address] . tel:[phone] [facility], [address] [place] [address] [address], [place], [address], tel:[phone] SEC J [place] Professional No Information 6-201 0 You Ambriz. [address] [place], [place], [address], . tel:[phone] Referring Provider: Pb Houser, [address] [place], [address] . tel:[phone] [facility], [address], [place], [address], tel:[phone] SEC J [place] Professional No Information 9-200 8 You Ambriz. [address] [facility], [facility] [place], [address], . tel:[phone] Family History Family Member Type Diagnosis Age At Onset No Information Payers Payer name Insurance type Covered green party ID Tatiana randhawa(s) [place] [id number] [facility] [id number] Social History Type Description Quantity Date Captured Comments Alcohol Use Details No Caffeine Use Details 1 cup per day Tobacco Use Status Ex-cigarette smoker 024 Smoking Status Former smoker Smoking Tobacco Use Details Cigarette: Age Started: 16, Age Stopped: 21, Years Used 5 Cigarette: No Details Available Sex Female Chief Complaint And Reason For Visit From encounter dated '02/03/2024 14:30'. Complete Exam (chief complaint). Description: The 78 year old patient presents for a complete exam ou. Patient is pseudo ou with yag caps ou. Patient c/o OS itches a lot x 3 weeks and patient states she is putting an OTC drop in and it helps. Patient is unsure what the drop is called. Reason For Referral Reason For Referral No Information Plan Of Treatment Date Type Action Status Goal Tobacco cessation counseling completed Goal Tobacco cessation counseling completed Appointment Carmen Ruggiero BOOKED Patient Education Dry Eyes: Care Instruct ions completed History Of Present Illness Encounter Date Complaint History Of Prese nt Illness Complete Exam The 78 year old patient presents for a complete exam ou. Patient is pseudo ou with yag caps ou. Patient c/o OS itches a lot x 3 weeks and patient states she is putting an OTC drop in and it helps. Patient is unsure what the drop is called. Refraction only The 71 year old female presents for evaluation of Refraction only in the right eye and left eye. Hx of PCIOL OU, YAG PC OU, MDG OU, KRIS OU, and Asteroid Hyalosis OS. Pt reports she has been using AFT TID OU, since last appt. Pt reports she would like to go get new gls. Pt reports she has been having a hard time reading small print up close, OU, x 6-12 mos. Complete Exam The 71 year old female presents for Complete Exam in the right eye and left eye. Patient is pseudo ou with yag caps ou. Patient c/o harder to read small print. Patient doesn't use any drops. Complete Exam The 70 year old female presents for Complete Exam in the right eye and left eye. Hx Phaco w/PCIOL, Yag PC. Pt states no changes to vision. Pt states her left eye feels like there is something in it, pt states its itcy, red and painful. Difficulty reading The 69 year o ld female presents for a complete exam. Patient is pseudo ou with yag caps ou. Patient c/o OS feels itchy in the am. tearing and burning Patient pres ents for a complete exam. Patient complains eyes water alot and c/o eyes are sore. Functional Status Date Functional Assessmen t No Information Instructions Date Instruction Additional Infor mariusz Impression/Plan Impression/Plan Return in 1 year helena Trevino M.D. for Complete Exam. Related to Pseudophakia of both eyes Pseudophakia of both eyes - Educational material provided Related to Pseudophakia of both eyes Impression/Plan - Re commend artificial tears QID OU. Related to Dry eyes, bilateral Impression/Plan - Co ndition appears stable OS, will monitor. 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 for Complete Exam. Related to Pseudophakia of both eyes Impression/Plan - Di scussed exam findings with patient. IOL's in good position. IOP is stable OU. RTC 1 year for complete exam or sooner with problems. Related to Pseudophakia of both eyes Follow up - Return i n 1 year with Pb Orta M.D. for Complete Exam. Impression/Plan - Di scussed diagnosis in detail with patient. IOL's in good position, open pc. No FB seen OS. SPK OS discussed in detail. Recommend artificial tears several times a day, start Pred 1% 1gtt OS QID x 5 days, BID x 5 days, then stop. ERx to [facility]. If still bothers patient return to clinic in 2 weeks. Otherwise return to clinic in 1 year for complete exam or sooner with any problems. I do not recommend rx for glasses today due to SPK OS. If patient would like to get rx in future will need refraction. Punctate keratitis o f left eye - Educational material provided Related to Punctate keratitis of left eye - Discussed stable I OLs and ocular health. Zaditor or Alaway were recommended for itching. RTC 1 year complete exam. 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
--- OUTSIDE RECORDS SUMMARY | 2025-01-13 19:13 | XMS_ITS | CONTINUITY OF CARE DOCUMENT ---
Author Name letha monae Address Unknown Organization [facility] Address [address] [facility] [address] [place] [address] Phone [phone] Care Team Providers Care Segmental Wall Installer Name Role Phone letha monae Unavailable Unavailable INSURANCE PROVIDERS Payer name Policy type / Coverage type [employer] red democrat ID [facility] [facility] HMO Other [id number]
--- OUTSIDE RECORDS SUMMARY | 2025-01-13 19:13 | XMS_ITS | Encounter Summary ---
Author Organization [facility] Address [address] [place] [address] Care Team Providers Care Animal Husbandry Teacher Name Role Phone Ebenezer Lucas MD Primary Care Provider [phone] Frank Webster MD Unavailable [phone] Aron Rodrigues MD Unavailable [phone] Conor Lala MD Unavailable [phone] Laura Renee MD Unavailable Marie Mendez MD Unavailable Marvin Isbell MD Unavailable [phone] Encounter Details Date Type Department Care Team (Late st Contact Info) Description 01/13/2025 Results Follow-Up [facility] Automatic Folder Seamer at [address] [place] [address] Shahnaz Coleman MA [employer] Social History Tobacco [...] on file 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 Gender Identity Not on file Sexual Orientation Not on file Occupation Industry Job Start Date Job End Date Retired Not on file Not on file Not on file documented as of this encounter Plan of Treatment Not on file documented as of this encounter Visit Diagnoses Not on filedocumented in this encounter Care Teams Animal Husbandry Teacher Relationship Specialty Start Date End Date Ebenezer Lucas MD [address] [place] [address] PCP - General Internal Medicine 12/05/23 Frank Webster MD [address] [place] [address] Consulting Physician Cardiology 09/06/19 Aron Rodrigues MD [address] [place] [address] Surgeon Cardiothoracic Surgery 07/09/20 [place] [address] [address] Consulting Physician Pulmonary Disease 05/23/20 Laura Renee MD [address] [place] [address] Marine Service Manager Obstetrics and Gynecology 06/10/23 Marie Mendez MD [address] [place] [address] Consulting Physician Sleep Medicine 10/12/23 Marvin Isbell MD [address] [place] [address] Surgeon Anesthesiology 03/10/24 documented as of this encounter
--- OUTSIDE RECORDS SUMMARY | 2025-01-13 19:13 | XMS_ITS | Clinical Summary ---
Author Organization [facility] al Address [address] [place] [address] Care Team Providers Care Assisted Living Associate Name Role Phone Sammy Fabian MD Primary Care Provider [phone] Khris Webster MD Unavailable [phone] Aron Rodrigues MD Unavailable Conor Lala MD Unavailable [phone] Laura Renee MD Unavailable Marie Mendez MD Unavailable Marvin Isbell MD Unavailable [phone] Allergies Active Allergy Reactions Criticality Noted Date Comments Amlodipine Itching Low Reaction: itching, Diclofenac Rash High Diclofenac Rash Medium 12/05/2023 Hydrocodone Itching,Other (See comments) Low Reaction: hands swelled, itching, , , Hydrocodone Itching Low 12/05/2023 Montelukast Itching,Rash,Swellin g,Hi ves High 04/23/2012 Reaction: itching, rash, swelling, , Montelukast Itching,Swelling Medium 12/05/2023 Medications polyethylene glycol (MIRALAX) 17 gram/dose powderIndicatio ns:Chronic constipation Take 17 g by mouth daily. 850 g 3 07/18/20 18 Active cyanocobalamin (Vitamin B-12) 1,000 mcg tabletIndicatio ns:Prevention of Vitamin B12 Deficiency Take 1 tablet (1,000 mcg total) by mouth daily Active biotin 2,500 mcg capsule Take 2,500 mcg by mouth daily Active calcium carbonate-vit D3-min 600 mg calcium- 200 unit tablet Take 1 tablet by mouth Active acetaminophen 500 mg capsule Take 2 capsules (1,000 mg total) by mouth every 6 (six) hours as needed for pain 30 tablet 07/20/20 20 Active traMADoL (ULTRAM) 50 mg tabletIndicatio ns:Acute pain of right shoulder Take 1 tablet (50 mg total) by mouth every 6 (six) hours as needed for pain 28 tablet 1 05/28/20 23 Active naloxone (NARCAN) 4 mg/actuation spray,non-aeros olIndications:r isk mitigation for opioid overdose Administer 1 spray into affected nostril(s) as needed for opioid reversal or respiratory depression Call 911. Administer a single spray in one nostril. Repeat every 3 minutes as needed if no or minimal response. 1 each 12/14/19 24 Active atorvastatin (LIPITOR) 20 mg tablet Take 1 tablet (20 mg total) by mouth nightly 90 tablet 3 02/29/20 24 025 Active carvediloL (COREG) 3.125 mg tabletIndicatio ns:Cerebrovascu lar accident (CVA) due to embolism of precerebral artery (HCC) Take 1 tablet (3.125 mg total) by mouth 2 (two) times a day with meals 180 tablet 3 03/15/20 24 025 Active furosemide (LASIX) 20 mg tabletIndicatio ns:Chronic combined systolic and diastolic heart failure (HCC) Take 1 tablet (20 mg total) by mouth daily as needed (Leg swelling.) 30 tablet 5 04/20/20 24 Active denosumab (PROLIA) 60 mg/mL syringeIndicati ons:Age-related osteoporosis with current pathological fracture with routine healing Inject 1 ml (60 mg total) under skin x 1 dose. Repeat every 6 months for 2 total injections in 12 month period. 1 mL 1 05/18/20 24 Active albuterol HFA (PROVENTIL HFA,VENTOLIN HFA,PROAIR HFA) 90 mcg/actuation inhalerIndicati ons:Bronchospas tic Pulmonary Disease Inhale 2 puffs every 6 (six) hours as needed for wheezing 07/01/20 24 Active melatonin 5 mg capsule Take 5 mg by mouth nightly Active warfarin (COUMADIN) 2 mg tabletIndicatio ns:Paroxysmal atrial fibrillation (HCC) Take 1.5 tablets (3 mg total) by mouth daily 45 tablet 11 07/22/20 24 025 Active amitriptyline (ELAVIL) 75 mg tablet Take 1 tablet (75 mg total) by mouth nightly 90 tablet 3 10/12/19 25 Active rOPINIRole (REQUIP) 0.25 mg tabletIndicatio ns:Periodic limb movement disorder Take 2 tablets (0.5 mg total) by mouth nightly as needed (Resless legs) 90 tablet 3 10/12/19 25 Active citalopram (CeleXA) 10 mg tablet Take 1 tablet (10 mg total) by mouth daily 90 tablet 1 11/01/19 25 Active omeprazole (PriLOSEC) 20 mg capsule Take 1 capsule (20 mg total) by mouth daily 90 capsule 1 11/01/19 25 Active ergocalciferol (VITAMIN D) 50,000 unit capsuleIndicati ons:Vitamin D deficiency Take 1 capsule by mouth once a week 12 capsule 11/04/19 25 Active metOLazone (ZAROXOLYN) 2.5 mg tabletIndicatio ns:Chronic combined systolic and diastolic heart failure (HCC) Take 1 tablet (2.5 mg total) by mouth every other day Take metolazone about 30 minutes before dose of furosemide. 15 tablet 1 12/04/19 25 Active losartan (COZAAR) 50 mg tablet Take 1 tablet by mouth once daily 90 tablet 3 01/11/20 25 Active losartan (COZAAR) 50 mg tablet Take 1 tablet by mouth once daily 90 tablet 3 01/05/20 24 025 Discontinued Active Problems Problem Noted Date Diagnosed Date Edema of both lower legs 12/01/2024 Assessment & Plan (12/01/2024 1:05 PM CDT): New complaint, but I believe she has dealt with some subacute to chronic swelling recently. Currently the swelling is a little more tense in the left leg than the right leg and there are early changes of chronic stasis, especially in the left leg including a small vesicle over the left lower byers and some mild inflammatory changes in both lower legs. There is no fever or warmth in the legs. We discussed the likely cause of her leg swelling (combined chronic systolic and diastolic heart failure.) A higher dose of her furosemide diuretic may be appropriate. We ordered a baseline basic metabolic panel to start with along with a BNP. It may also be appropriate to have her wear support hose for possible associated venous insufficiency, but she has no palpable pulses in the feet so we are getting arterial Dopplers first. Return early as needed, otherwise as scheduled in about two months. Arm bruise, right, subsequent encounter 07/01/20 Overview (07/01/2024): Mid-dorsal surface, associated with spreading ecchymosis, no history of trauma. On warfarin. Assessment & Plan (07/09/2024 3:39 PM ASSISTANT DISTRICT ATTORNEY): New problem as of about two weeks ago. The patient's arm bruise is essentially completely resolved with no residual discoloration and only a small subcutaneous nodule remaining. We will monitor clinically. Assessment & Plan (06/19/2024 6:27 AM ASSISTANT DISTRICT ATTORNEY): New problem, appears to be stable, although I did have recommendations for improved control. She developed a slightly tender swelling on the right midforearm dorsal surface about two weeks ago. There is no history of trauma or phlebotomy at this site. Over time some spreading ecchymosis developed. There is no redness or warmth. Exam shows a localized ballotable hematoma or possibly dilated vein. There is no significant tenderness. There is surrounding ecchymosis as described. No redness, induration or warmth suggestive of cellulitis. We recommended applying Coban as needed to keep pressure on the area. Follow-up in two weeks if not improving. 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 Age-related osteoporosis wit h current pathological fracture with routine healing 12/07/2023 Overview (05/07/2024): Fall at home with L2 compression fracture with retropulsion of bony fragments, [facility]. DEXA on 05/06/2024: LUMBAR SPINE L3-L4 T-score is -2.2, LEFT HIP T-score is - 2.0, FEMORAL NECK T-score is -2.6. Similar to DEXA from 2021. Assessment & Plan (10/21/2024 6:27 AM CDT): Chronic, diagnosed about a year ago, recommend continuing denosumab infusions. Assessment & Plan (05/15/2024 1:35 PM CDT): Chronic, present for decades. She reports taking Fosamax ordered by Dr. Cardona many years ago. She does not remember how long she took it. She did have a recent fall at home with a lumbar compression fracture. We discussed options going forward. Vitamin-D level recently is normal. We ordered denosumab to be given every six months at the infusion center, risks of medication discussed. She understands that this treatment is basically a lifelong commitment due to accelerated loss of calcium from the bones if treatment is discontinued. Assessment & Plan (04/24/2024 1:32 PM CDT): The osteoporotic fracture is a new diagnosis as of earlier this year. She fell at home and developed an L2 compression fracture treated with local injections. She has had partial pain relief. We recommended that she consider taking a medicine for osteoporosis such as alendronate. However, there could be contraindications given her history of heartburn requiring a PPI. We discussed this today and that there are other options. The decision is complicated so we will give her some time to think about it. In the meantime, she is on high-dose vitamin-D and a calcium replacement. We ordered a follow up DEXA scan. Assessment & Plan (12/12/2023 2:07 PM CDT): Chronic, unstable. She previously relied on calcium and vitamin-D to treat osteoporosis, and per endocrinology there was a slight improvement between her latest two DEXA scans. However, now she has had a fragility fracture (L2 compression) from a ground level fall and she should consider starting a medication to reduce the risk of further fragility fractures. We discussed this today but made no definite decisions pending further evaluation and treatment of the acute problem. Assessment & Plan (02/13/2023 11:55 AM CDT): History of osteoporosis treated with Fosamax for few years- duration unknown No fracture history. She is on calcium and vitamin D Bone density on 12/09/21 Spine -2.1 Hip -1.9 . Neck of femur -2.7 ( was -3.0) Labs on 11/28/22 GFR 52. Calcium 9.7 Vitamin D 50 Plan: Bone density and labs reviewed with patient Options of active treatment vs monitoring explained. Patient opted for continued monitoring since bone density relatively stable Continue calcium and vitamin D Repeat bone density in one year. Assessment & Plan (12/12/2022 12:00 PM CDT): Her bone density appears stable. She says she took Fosamax many years ago, but the duration of therapy is not known. She wondered about taking Reclast, but if she had the recommended duration of bisphosphonate therapy, I am uncertain of any additional benefit to be gained. We discussed all of this today. We referred her to endocrinology for their opinion and advice. Vitamin-D level checked recently was normal. She also takes a calcium supplement. Assessment & Plan (12/02/2021 2:06 PM CDT): She is no longer taking high-dose vitamin-D, but she does take an [id number] calcium and vitamin D3 supplement. Continue same. We will order a follow-up bone density. Assessment & Plan (05/23/2021 1:35 PM CDT): She is on high-dose vitamin-D replacement. We encouraged adequate calcium in her diet. Assessment & Plan (11/15/2020 3:08 PM CDT): She takes high-dose vitamin-D. Continue same, monitor bone density periodically. Assessment & Plan (02/03/2020 2:00 PM CDT): She continues on high-dose vitamin-D as well as a calcium supplement. We will check a vitamin-D level before her next visit in a month. Compression fracture of L2 vertebra with routine healing 12/07/2023 Overview (12/10/2023): Acute L2 compression fracture extending to the right pedicle with mild height loss and no osseous retropulsion. There is an ossific density posterior to the L2 vertebral body which could represent a calcified disc or a bony fragment. Assessment & Plan (12/12/2023 2:11 PM CDT): Acute, uncontrolled due to pain. She fell at home. She got up from her chair and lost her balance, possibly due to feeling dizzy or lightheaded. It is also possible that her foot was stuck on something. Details are a little unclear. She fell into a plant martin and TV stand, and hit her lower back suffering an L2 compression fracture. She also bruised up her left shoulder and arm. Evaluation in the [facility] emergency room was negative for any other serious injury. She was discharged on oxycodone. She took her last dose this morning. She says the pain is partially controlled on twice daily dosing. We increased the dose to oxycodone 5 mg 3 times daily as needed, risks of medication discussed including constipation, which is already a chronic problem for her and for which she uses MiraLax, as well as sedation and physical dependence. Hopefully her pain will improve fairly quickly and we can transition to nonnarcotic analgesics such as Tylenol. I did suggest that she try Tylenol instead of oxycodone if the pain is not too severe. We also discussed possible referral to pain management if severe pain persists, as she might benefit from a vertebroplasty, although data on the benefits of this procedure are somewhat equivocal. I think it is premature to refer her for physical therapy, but I did recommend that she try to stay active as tolerated. Fall with injury 12/04/2023 Overview (12/09/2023): See ER notes. Assessment & Plan (12/12/2023 2:16 PM CDT): New problem, uncontrolled. She had a fall at home described elsewhere. Eventually we will get her in with physical therapy to assess her risk and need for assistive devices such as a cane or walker. Type 2 diabetes mellitus wit h circulatory disorder, without long-term current use of insulin 11/28/2022 Overview (04/20/2024): Mild elevations of blood sugar, transitioned to diabetes as of 11/28/2022. Assessment & Plan (12/01/2024 1:08 PM CDT): New problem as of about 2 years ago, prior to that she had mild elevations of blood sugars. Currently I do not palpate any pulses in any extremity. We ordered arterial Dopplers of the legs to assess arterial circulation in to see if she could tolerate moderately aggressive compression hose. At the present time, clinical perfusion of hands and feet is adequate with no ischemic ulceration or gangrene. There is mild distal coolness in the feet. Additional evaluation of circulation may be appropriate depending on the clinical course. Assessment & Plan (10/21/2024 2:50 PM CDT): Chronic, present for 1-2 or more years, recommend continuing control with diabetic diet and periodic lab monitoring. Lab Results Component Value Date HGBA1C 6.6 (H) 10/20/2024 HGBA1C 6.5 (H) 12/14/2023 HGBA1C 6.6 (H) 11/28/2022 Lab Results Component Value Date LDLCALC 28 10/20/2024 CREATININE 1.19 (H) 10/20/2024 Assessment & Plan (04/24/2024 1:29 PM CDT): Chronic, present for a little over one year. Currently the condition is relatively mild and controllable with diet. She admits to liking sweets and baking a lot of apple cake recently. We encouraged attention to her diet. We ordered labs to be done before her next visit in six months. Lab Results Component Value Date HGBA1C 6.5 (H) 12/14/2023 HGBA1C 6.6 (H) 11/28/2022 HGBA1C 6.4 (H) 11/25/2021 Lab Results Component Value Date LDLCALC 49 12/14/2023 CREATININE 0.95 12/14/2023 Assessment & Plan (06/15/2023 1:29 PM ASSISTANT DISTRICT ATTORNEY): We encouraged attention to her diet. We ordered labs to be done before her next visit in six months. Lab Results Component Value Date HGBA1C 6.6 (H) 11/28/2022 Assessment & Plan (12/12/2022 12:00 PM CDT): Technically, HbA1c is in a diabetic range but we are monitoring as she tries to control this with diet. Lab Results Component Value Date HGBA1C 6.6 (H) 11/28/2022 Assessment & Plan (06/04/2022 2:06 PM CDT): We recommended that she avoid excessive carbohydrates, especially sweets. We will check follow-up labs before her next visit in six months. Assessment & Plan (12/02/2021 2:06 PM CDT): Her recent labs are consistent with borderline diabetes. We will continue to monitor periodically. Lab Results Component Value Date HGBA1C 6.4 (H) 11/25/2021 Assessment & Plan (05/23/2021 1:39 PM CDT): We are monitoring a sometimes mildly elevated blood sugar. We will check again in a week or two. Lab Results Component Value Date GLUCOSE 126 (H) 05/16/2021 CALCIUM 9.0 05/16/2021 SODIUM 137 05/16/2021 POTASSIUM 4.2 05/16/2021 CO2 32 05/16/2021 CHLORIDE 99 05/16/2021 BUNSER 19 05/16/2021 CREATININE 1.29 (H) 05/16/2021 ' Other thrombophilia 06/20/2022 Assessment & Plan (04/24/2024 1:27 PM CDT): Chronic, diagnosis entered into her record more than a year ago although details are currently lacking. It could be an erroneous entry. She is on warfarin primarily for paroxysmal atrial fibrillation. We will review the record for more details. Cerebrovascular accident (CV A) due to embolism of precerebral artery 06/20/2022 Assessment & Plan (09/20/2024 1:23 PM ASSISTANT DISTRICT ATTORNEY): Continue warfarin. Assessment & Plan (12/12/2023 2:08 PM CDT): Chronic, controlled. On evaluation of her recent fall and L2 compression fracture, there was concern for possible intracranial hemorrhage or new stroke due to warfarin. CT head only showed multiple old small strokes. Continue current therapy. Bilateral carotid artery stenosis 05/29/2022 Assessment & Plan (06/04/2022 2:09 PM CDT): She had carotid Dopplers recently showing a right greater than left stenosis, but nothing critical on carotid Dopplers. She saw a surgeon at [facility] who recommended a follow-up carotid Doppler in about six months. We discussed the signs and symptoms of TIA and stroke that she should look for, as any symptomatic manifestation might be an indication for surgery. Assessment & Plan (05/29/2022 11:31 AM CDT): Impression: Asymptomatic bilateral internal carotid artery stenosis right greater than left. Plan: No surgical intervention currently needed. Recommend following up in 6 months for re-evaluation with repeat carotid duplex surveillance. Dizziness 03/04/2022 Assessment & Plan (12/12/2023 2:14 PM CDT): Chronic, uncontrolled. She has a history of dizzy spells, possibly due to vertigo or orthostatic hypotension. Furosemide was continued in the recent past (due to concerns for intravascular volume depletion? ), but she is now experiencing some possible symptoms of fluid overload including increased shortness of breath and coughing as well as swelling in the right leg. There are some basilar crackles. We put her back on a low dose of furosemide for seven days. She has a follow-up with her securities trader, Dr. Webster, in early March. Assessment & Plan (03/04/2022 4:31 PM CDT): The patient reports this gait where she trips to the right. This led to her most recent fall. Check CT of the head. Mixed diabetic hyperlipidemi a associated with type 2 diabetes mellitus 03/04/2022 Assessment & Plan (10/21/2024 6:29 AM CDT): Chronic, present for many years, recommend continuing low saturated fat diet and atorvastatin 20 mg daily. Assessment & Plan (09/20/2024 1:24 PM ASSISTANT DISTRICT ATTORNEY): Continue atorvastatin. Assessment & Plan (04/20/2024 12:07 PM CDT): Chronic, controlled on atorvastatin 20 mg daily. We ordered lipids to be done before her next visit in six months. Assessment & Plan (03/15/2024 3:57 PM CDT): LDL goal is less than or equal to 70. Continue atorvastatin. Assessment & Plan (09/15/2023 4:43 PM ASSISTANT DISTRICT ATTORNEY): Continue atorvastatin. Assessment & Plan (06/15/2023 1:33 PM ASSISTANT DISTRICT ATTORNEY): She continues on Lipitor, tolerating well. We will check fasting lipids before her next visit in six months. Assessment & Plan (12/19/2022 12:53 PM CDT): Continue atorvastatin. Assessment & Plan (12/12/2022 12:02 PM CDT): She is tolerating generic Lipitor. Continue same. Lab Results Component Value Date CHOL 138 11/28/2022 CHOL 128 11/25/2021 CHOL 133 10/04/2020 Lab Results Component Value Date HDL 81 11/28/2022 HDL 73 11/25/2021 HDL 77 10/04/2020 Lab Results Component Value Date LDLCALC 46 11/28/2022 LDLCALC 46 11/25/2021 LDLCALC 41 10/04/2020 LDL 114 (H) 08/27/2018 LDL 110 (H) 09/09/2017 LDL 123 08/12/2016 LDLDIRECT 108 08/30/2012 Lab Results Component Value Date TRIG 56 11/28/2022 TRIG 47 11/25/2021 TRIG 74 10/04/2020 Lab Results Component Value Date ALT 14 11/28/2022 AST 26 11/28/2022 ALKPHOS 88 11/28/2022 BILITOT 0.6 11/28/2022 Assessment & Plan (09/09/2022 1:25 PM ASSISTANT DISTRICT ATTORNEY): Her last cholesterol was 128. Continue atorvastatin. Assessment & Plan (06/20/2022 10:34 AM ASSISTANT DISTRICT ATTORNEY): Continue atorvastatin. Assessment & Plan (06/04/2022 2:09 PM CDT): She is on generic Lipitor, tolerating well. Continue same and check lipids before her next visit in six months. Assessment & Plan (03/04/2022 4:32 PM CDT): Continue atorvastatin. Cellulitis of left lower extremity 10/15/2021 Assessment & Plan (10/15/2021 12:33 PM ASSISTANT DISTRICT ATTORNEY): Patient has area of warmth and erythema of LLE from the ankle to mid LE. She has started antibiotic therapy on 10/12/21 per urgent care for cellulitis. Patient reports pain and erythema have improved with antibiotic. She will complete antibiotic as prescribed and return for recheck early next week or sooner if needed. Cough 05/09/2021 Assessment & Plan (12/01/2024 1:02 PM CDT): Chronic, present for many years. She notes a cough especially in the evening. No fever. Her lung exam is at baseline and there is no fever. Oxygen saturation is adequate. Last CT imaging of her chest was about six months ago. She is a visit with her senior asic engineer, Dr. Hidalgo, in about a month. Assessment & Plan (06/04/2022 2:07 PM CDT): She has a somewhat chronic cough which has been a little worse lately. It is likely due to a number of different factors which can be reviewed in her chart including some chronic pulmonary fibrosis. Tessalon usually helps, so we sent in a refill. Assessment & Plan (12/22/2021 8:04 PM CDT): She has a somewhat chronic cough. She brings up yellowish phlegm. She denies fever or hemoptysis. Lungs are clear. She had an albuterol inhaler in the past when she had a pneumonia, and we refilled it today thinking it might help her cough up the phlegm a little better. She says Mucinex does not really help. I also suggested a follow- up with Dr. Wynn, her senior asic engineer. She has not seen him for awhile. Assessment & Plan (05/23/2021 1:38 PM CDT): She has a cough that developed about three weeks ago. She occasionally brings up clear sputum. There is no fever. She does have chronic heartburn. The famotidine is not controlling it. We will switch her to omeprazole. We will check with her in another week or two. She does have an issue with chronic sinus problems and was tested in the past for allergies. Only ragweed turned positive. It bothers her primarily in the late summer. She currently denies any sinus pain or drainage. She does have known pulmonary fibrosis of unknown cause. It is stable and mild. Oxygenation is normal. Consider referral to Pulmonary Medicine if the cough persists. LBBB (left bundle branch block) 10/26/2020 Assessment & Plan (03/15/2024 3:57 PM CDT): Stable no signs of complete heart block. Atrial fibrillation 10/26/2020 Overview (12/10/2023): Single episode after cardiac surgery in 2019. Event monitor in 2021 negative for Afib, but did show 17 beat run of Vtach. EKG at time of fall and L2 compression fracture, 12/07/2023: Likely atrial fibrillation with slow ventricular response, 45 BPM. Assessment & Plan (10/21/2024 2:47 PM CDT): Chronic, present for four or more years, recommend continue warfarin with periodic INR monitoring. Heart rhythm is currently regular. Assessment & Plan (09/20/2024 1:23 PM ASSISTANT DISTRICT ATTORNEY): Continue warfarin . Assessment & Plan (06/15/2024 1:52 PM ASSISTANT DISTRICT ATTORNEY): Chronic, present for four years, currently on warfarin and last INR was in the therapeutic range. I do not think we need to hold the warfarin for the current area of bruising on her right forearm. Lab Results Component Value Date INR 2.40 (H) 06/08/2024 INR 3.07 (H) 05/09/2024 INR 2.72 (H) 04/13/2024 Assessment & Plan (04/24/2024 1:24 PM CDT): Chronic, diagnosed more than four years ago. She is on warfarin managed by her securities trader, Dr. Webster. She also takes carvedilol 3.125 mg twice daily. Heart rhythm is regular today. Continue same. Assessment & Plan (12/12/2023 2:08 PM CDT): Chronic, uncontrolled. She has a history of atrial fibrillation during cardiac surgery in 2019. Event monitor in 2021 was negative for AFib. At her ER evaluation for a fall and L2 compression fracture, EKG was notable for l ikely atrial fibrillation with slow ventricular response of 45 beats per minute. This raises the possibility of sick sinus syndrome and the need for a pacemaker. I reviewed the matter with her securities trader Dr. Webster, who reviewed the ER EKG and states this is probably second-degree AV block. He will arrange for a 48 hour Holter monitor to see if there is severe bradycardia requiring a pacemaker. Assessment & Plan (06/15/2023 1:28 PM ASSISTANT DISTRICT ATTORNEY): She remains on warfarin for an episode of paroxysmal atrial fibrillation. Today heart rhythm is regular. She will keep her follow ups with Cardiology, Dr. Webster. Assessment & Plan (03/10/2023 1:23 PM CDT): In sinus rhythm today. Continue warfarin. Assessment & Plan (12/19/2022 12:55 PM CDT): Check INR. Assessment & Plan (09/09/2022 1:24 PM ASSISTANT DISTRICT ATTORNEY): The patient now is on Eliquis and doing well with no neurologic events. No changes recommended. Assessment & Plan (06/20/2022 10:35 AM ASSISTANT DISTRICT ATTORNEY): The patient's most recent 14 day monitor showed 1 brief run of atrial tachycardia but no atrial fibrillation. Again the distribution of her abnormalities on CT scan suggest am embolic source. She did have atrial fibrillation postop she is agreeable now to being on Eliquis 5 mg b.i.d.. Assessment & Plan (06/04/2022 2:05 PM CDT): She was noted to have a short run of atrial fibrillation on a monitor. We discussed the nature of atrial fibrillation and its treatment. She sees Dr. Webster in two weeks. We deferred any changes in therapy for now. Assessment & Plan (04/25/2022 2:43 PM CDT): The only documented atrial fibrillation was a day after heart surgery. She had been previously recommended Eliquis for an indeterminate rhythm a year ago but she never started due to the cost of the drug. I will place a 14 day monitor on the patient today and we again discussed the probable indication for oral anticoagulation. Assessment & Plan (10/26/2020 11:21 AM CDT): Recent ECG was of indeterminant rhythm. Eliquis was recommended but never started Today's ECG is SR with LBBB Will check 7 monitor with ZioXT SOB (shortness of breath) 10/04/2020 Assessment & Plan (06/04/2023 3:32 PM CDT): She is more short of breath than usual, mostly with exertion. At rest on room air oxygen saturation is 92%. Assessment & Plan (11/24/2020 4:45 PM CDT): She seems to be at her baseline. There is a question of possible atrial fibrillation recently as a contributing factor to shortness of breath. However, a recent event monitor was negative for atrial fibrillation. It showed normal rate and variability with some episodes of sinus tachycardia, PVCs, bigeminy, and two short runs of nonsustained V-tach. She is not taking Eliquis. None of this requires anticoagulation. She is still on Plavix and aspirin. She will keep her follow up with Dr. Webster next week. Assessment & Plan (10/04/2020 12:19 PM ASSISTANT DISTRICT ATTORNEY): Patient is reporting cough and shortness of breath. She has chronic shortness of breath, but she feels it may be worse recently. On exam lungs diminished in the bases and oxygen saturation was 90%, did recover to 95% with rest. Patient has had associated fever, chills and nausea. She was tested for COVID today in office and rapid test negative. She was sent for CXR which was reviewed with Dr. Fabian, and on preliminary review findings are suspicious for LLL pneumonia. Antibiotic therapy will be sent, recommendation is for levaquin which can cause QT prolongation in combination with celexa. Given that she is on very low dose of celexa she will hold it while on antibiotic. She will follow up in [address] Fabian or sooner if needed. Will have repeat imaging prior to that visit. History of atrial fibrillation 07/10/2020 Overview (10/13/2020): Seen on post-operative EKG, apparently evidence of SSS on telemetry as well, pacemaker scheduled but then cancelled when she improved. Assessment & Plan (03/15/2024 3:57 PM CDT): Continue oral anticoagulation with warfarin. Assessment & Plan (09/15/2023 4:43 PM ASSISTANT DISTRICT ATTORNEY): The patient is on warfarin for thromboembolic prophylaxis. S/P MVR (mitral valve repair) 07/09/2020 Overview (11/15/2020): DARIELA, 07/09/2020. Post repair echo: no significant MR. Assessment & Plan (03/15/2024 3:58 PM CDT): Continue to follow with annual echocardiograms. Hx of CABG 07/09/2020 Overview (09/05/2020): CABG x 1 and MV repair, DARIELA Carreon. Nonrheumatic aortic valve insufficiency 03/02/20 20 Overview (03/07/2020): See [facility] office echo report. Assessment & Plan (09/03/2021 1:14 PM ASSISTANT DISTRICT ATTORNEY): Stable. Assessment & Plan (03/07/2020 9:52 AM CDT): The recent echocardiogram in [facility] offices showed mild to moderate aortic insufficiency. No murmur is audible on exam. She will keep her follow ups with Cardiology. Normocytic anemia 01/26/2020 Overview (09/05/2020): Likely due to acute illness (CAP), see hospital records. Persists post CABG. Assessment & Plan (09/05/2020 11:18 AM ASSISTANT DISTRICT ATTORNEY): She has had a mild normocytic anemia since being in the hospital with pneumonia last January. It was probably somewhat exacerbated by her recent coronary artery bypass and mitral valve repair two months ago. The last CBC was stable. We will check another one before her follow-up in about three months. Lab Results Component Value Date WBC 8.1 07/25/2020 HGB 10.9 (L) 07/25/2020 HCT 34.2 (L) 07/25/2020 MCV 99.1 (H) 07/25/2020 LABPLAT 473 (H) 07/25/2020 Assessment & Plan (02/03/2020 2:03 PM CDT): She had a mild normocytic anemia in the hospital. It is likely due to the acute illness. We will check a follow-up at appropriate intervals. Pulmonary fibrosis 01/24/2020 Overview (07/01/2024): CT 06/22/2024 stable: Scattered subsegmental atelectasis and scarring, which is most significant the lung bases. No definite evidence of focal consolidation. Redemonstration of scattered reticulations with interlobular septal thickening and mild honeycombing, which is most significant in the periphery of the bilateral lower lobes, and overall grossly similar to the prior study, and findings remain concerning for chronic interstitial changes such as UIP. Redemonstration of multiple hypoattenuating thyroid nodules, which overall grossly unchanged in comparison to the prior study. Assessment & Plan (10/21/2024 2:48 PM CDT): Chronic, present for 4-5 or more years, recommend continuing albuterol 90 mcg rescue inhaler q.6 hours as needed and periodic follow-up with Pulmonary Medicine. Assessment & Plan (07/09/2024 3:40 PM ASSISTANT DISTRICT ATTORNEY): Chronic, present for more than four years, stable although she is significantly impaired from his condition. She had a follow-up CT recently that was stable overall. She uses an albuterol inhaler as needed and follows up with pulmonology at [facility]. Assessment & Plan (04/24/2024 1:29 PM CDT): Chronic, diagnosed four or five years ago, uncontrolled with persistent if not possibly progressive findings on imaging. She sees Dr. Hidalgo. A follow-up CT scan is planned before her next visit in Pulmonary Medicine. Currently lungs exhibit diffusely scattered rhonchi which is her baseline. Oxygen saturation at rest on room air is adequate at 95%. Assessment & Plan (12/12/2023 2:17 PM CDT): Chronic, uncontrolled with wheezing and borderline low oxygen saturation. She has chronic pulmonary fibrosis of uncertain cause. She saw her senior asic engineer, Dr. Griggs, recently. Currently she has moderate diffuse wheezing, but is not using her albuterol inhaler which may be e xpired . I sent in refills and encouraged her to use the inhaler. An early follow-up with Pulmonary Medicine may be appropriate. Assessment & Plan (06/28/2023 7:44 PM ASSISTANT DISTRICT ATTORNEY): We saw her last week for increasing pulmonary symptoms. Chest x-ray suggested increasing pulmonary fibrosis. This was confirmed on CT scan. There is nothing to suggest an infectious etiology in that she has no fever, although a chronic infection of some kind is possible such as mycobacterium avium complex. However, the process seems fairly indolent and probably not infectious. Oxygen saturation on room air is adequate. She has a follow-up with Pulmonary Medicine in about one month. Assessment & Plan (06/13/2023 6:19 AM CDT): She is coughing more than usual. It is nonproductive. Oxygen saturations are on the low side on room air. She has dyspnea on exertion. There is no fever or hemoptysis. She does have pleuritic type pain from falling out of bed about two weeks ago. Exam shows diffuse wheezes crackles and rhonchi but no friction rub. Chest x-ray last week showed increased pulmonary fibrosis. She is scheduled to follow-up with Pulmonary Medicine about one month from now. We will get a CT chest for better definition of possible progressive pulmonary fibrosis. Consider other testing such as pulmonary function studies. We will see her back in two weeks. Assessment & Plan (05/29/2023 10:19 AM CDT): Persistent cough noticed during appointment today. Patient is being seen in the office today for shoulder pain and says coughing is painful for her shoulder. Fine crackles noted throughout lung hsu on exam today. Chest xray today shows worsening scarring changes of the lungs. Patient has previously been diagnosed with pulmonary fibrosis, saw Dr. Griggs several years ago and would like to see him again. Referral initiated today. Rx for albuterol inhaler as she states this has provided some relief in the past. Rx for tramadol for shoulder pain Follow-up with Dr. SEBASTIAN 06/04 Assessment & Plan (03/18/2020 11:54 AM CDT): She has scattered pulmonary crackles in the mid to lower lung hsu. She was seen in Pulmonary Medicine recently and multiple serologies were obtained which are negative. She is oxygenating well. A follow-up chest x-ray shows no change. She will keep her follow ups with Pulmonary Medicine. Assessment & Plan (02/03/2020 2:04 PM CDT): She has had some chronic mild interstitial fibrosis for past seven years or so. It does not seem to be rapidly progressive, but on the recent imaging during her hospitalization there was a question of possible worsening of the chronic changes. We are referring her to Pulmonary Medicine for further evaluation. Assessment & Plan (01/24/2020 9:00 AM CDT): Seen on CT chest, also has changes potentially consistent with interstitial lung disease versus sarcoidosis. Will need outpatient pulmonology follow-up. Heart burn 05/10/2019 Overview (09/07/2019): Waterbrash, belching. Certain foods make it worse, deserts. Assessment & Plan (12/22/2021 8:05 PM CDT): She takes omeprazole daily. Continue same. Assessment & Plan (05/23/2021 1:38 PM CDT): Heartburn is not well controlled with Pepcid. We will switch her to omeprazole. We will check in with her in a couple weeks to see how she is doing. Assessment & Plan (09/18/2019 5:30 AM ASSISTANT DISTRICT ATTORNEY): For the past several months, she has been experiencing more heartburn than usual. It occurs intermittently as a bad taste in the back of her mouth and lots of belching. She takes Tums occasionally as needed which seems to help. She denies trouble swallowing. We will have her start taking some Pepcid as needed. We also discussed the foods that can make heartburn worse, but these do not seem to be a problem. She thinks her weight is part of the problem and she plans to discuss the ropinirole therapy with Dr. Mendez which she thinks is causing her to keep her weight high. 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 Dry eyes 09/28/2017 Overview (12/10/2023): [facility]ision. Pseudophakia of both eyes 09/28/2017 Overview (12/10/2023): [facility] Abnormal cytological findings in female genital organs 08/25/2017 Chronic constipation 09/10/2016 Overview (02/24/2018): Due to amitriptyline. Assessment & Plan (01/24/2020 9:01 AM CDT): Continue home Miralax. Assessment & Plan (03/13/2018 11:05 AM CDT): Since starting amitriptyline, she has had trouble with constipation. This is kept under control with MiraLax which she has been buying herself. It might be covered by her insurance, so we sent in a prescription. Punctate keratitis 07/08/2016 Overview (12/10/2023): SureVision. Bilateral artificial lens implant 07/08/2016 Overview (12/10/2023): Surevision Chronic combined systolic and diastolic heart fa ilure 11/16/2015 Overview (12/13/2022): Echo on 07/18/2020 post CABG and MV repair: Mild enlargement of left ventricle cavity. Mild concentric left ventricular hypertrophy. Moderate global left ventricular systolic dysfunction. Diastolic dysfunction is present. Ejection fraction is visually estimated at 35 %. Echo on 09/03/2021 in cardiology, report in progress note: Echo( 09/03/21): - Estimated ejection fraction 40% (mildly depressed) - Left ventricular chamber size is minimally enlarged. - The left atrium is mildly enlarged. - Mild aortic valve regurgitation. - An annular repair ring is visualized. - Mild mitral valve regurgitation. - Mild mitral stenosis, Mean Gradient 5 mm Hg. ALLAN 2.3 cm^2 - Moderate tricuspid valve regurgitation. - Mild pulmonary hypertension. Echo 12/05/2022: Normal left ventricular size. Mild concentric left ventricular hypertrophy. Moderate global left ventricular systolic dysfunction. Ejection fraction is measured at 33 %. There was wall motion abnormality in the left anterior descending artery territory, with akinesia of the anterior wall as well as distal septum. [place] is poorly visualized. Inferior wall and lateral wall are abl better. Normal right ventricular size. Normal right ventricular systolic function. There is mild enlargement of left atrium. Mitral valve leaflets appear mildly thickened. Annular region thickened with prior annuloplasty. Trivial regurgitation of the mitral valve. No evidence of hemodynamically significant aortic stenosis by Doppler. Aortic cusps appear mildly sclerotic. Trileaflet aortic valve. Mild aortic valve regurgitation. Normal structure of the tricuspid valve. Moderate pulmonary hypertension based on right ventricular systolic pressure. Estimated peak RVSP is 51 mmHg. Moderate tricuspid regurgitation. Normal pericardium with no significant pericardial effusion. Technically difficult study with suboptimal visualization. Valves in general are poorly visualized. Patient appears to be in atrial fibrillation during this study. Assessment & Plan (12/01/2024 1:01 PM CDT): Likely contributes to the swelling in her legs. She has an echocardiogram scheduled with her securities trader, Dr. Webster, in a few months. We ordered a BNP, consider additional evaluation early as needed. Assessment & Plan (10/21/2024 2:50 PM CDT): Chronic, present for 10 or more years, continue furosemide 20 mg daily as needed. Recent labs suggests a slight increase in creatinine compared to her baseline, possibly due to more regular use of furosemide for perceived increase in swelling. Exam shows trace bilateral pretibial pitting edema. Recommend she cut back on the diuretic and repeat a BMP before her next visit in about three months. Lab Results Component Value Date GLUCOSE 103 10/20/2024 CALCIUM 9.1 10/20/2024 SODIUM 140 10/20/2024 POTASSIUM 4.3 10/20/2024 CO2 27 10/20/2024 CHLORIDE 101 10/20/2024 BUNSER 24 10/20/2024 CREATININE 1.19 (H) 10/20/2024 Assessment & Plan (09/20/2024 1:24 PM ASSISTANT DISTRICT ATTORNEY): Last echocardiogram showed ejection fraction 40%. Continue carvedilol, losartan. Assessment & Plan (04/24/2024 1:25 PM CDT): Chronic, diagnosed a number of years ago, controlled on carvedilol 3.125 mg twice daily and losartan 50 mg daily. She has some trace edema in her legs. She just saw her securities trader, Dr. Webster, and forgot to ask about a diuretic. We had previously prescribed a short course to treat fluid accumulation in the legs. We sent in a refill of furosemide 20 mg daily as needed. Return in six months. Assessment & Plan (03/15/2024 3:58 PM CDT): Compensated. Continue carvedilol and losartan. Assessment & Plan (12/12/2023 2:09 PM CDT): Chronic, uncontrolled, worse. She reports feeling short of breath and having swelling in her right leg. Findings are confirmed on today's exam. DVT and PE are unlikely because she is on warfarin. However, there could be an exacerbation of heart failure. Diuretics were discontinued in the recent past, exact reasons unclear. We put her back on a low dose of furosemide for a week or so to see if this improves the swelling and shortness of breath. Assessment & Plan (09/15/2023 4:43 PM ASSISTANT DISTRICT ATTORNEY): No signs or symptoms of congestive heart failure. Continue losartan and carvedilol. Assessment & Plan (06/28/2023 7:41 PM ASSISTANT DISTRICT ATTORNEY): She has trace ankle and lower pretibial pitting edema. Echocardiogram about six months ago showed LV ejection fraction of about 33%. She does not currently take a beta-jovanny or diuretic. We will discuss with her securities trader, Dr. Webster. On the same echocardiogram, peak RVSP was 51 mmHg suggesting a degree of pulmonary hypertension which could be contributing to the edema. She had a sleep study that did show mild obstructive sleep apnea in addition to restless legs syndrome. She does not want a CPAP mask. She has a follow-up with Pulmonary Medicine in early July. Assessment & Plan (12/12/2022 12:01 PM CDT): She is well compensated on current therapy. She follows up with Dr. Webster next week. Assessment & Plan (06/20/2022 10:34 AM ASSISTANT DISTRICT ATTORNEY): Compensated. Assessment & Plan (06/04/2022 2:06 PM CDT): She seems to be pretty well compensated on current therapy with no swelling in her legs. Oxygen saturation is adequate. Assessment & Plan (05/23/2021 1:35 PM CDT): There is no swelling in her legs. She denies chest pains. She gets a little short of breath with exertion, but seems well compensated. Assessment & Plan (09/05/2020 11:24 AM ASSISTANT DISTRICT ATTORNEY): Her most recent echocardiogram shows an ejection fraction of about 35%. There is mild concentric LV hypertrophy. She does have a little swelling in her ankles later in the day. Currently there is no significant ankle edema. Lungs show scattered crackles as before, probably from scarring. Oxygen saturation on room air is normal. Continue current therapy. Assessment & Plan (03/07/2020 9:47 AM CDT): She had a recent echocardiogram in her securities trader's office. Ejection fraction was 40-50%. A follow-up stress test is planned. Currently she seems well compensated on carvedilol 6.25 mg twice a day and losartan 25 mg a day. Assessment & Plan (02/03/2020 2:00 PM CDT): She seems to be well compensated on beta-jovanny and losartan. She sees Dr. Wan periodically as well. Continue same. Assessment & Plan (01/24/2020 9:00 AM CDT): Continue home Coreg (well controlled as an outpatient, follows with Dr. Webster). Assessment & Plan (09/07/2019 9:25 AM ASSISTANT DISTRICT ATTORNEY): She seems to be well compensated on current therapy. She sees Dr. Sla about once a year. Continue same. Assessment & Plan (03/09/2019 11:49 AM CDT): She is doing well. No new symptoms reported. She sees Dr. Webster periodically. We are changing her afterload reduction from lisinopril to losartan because of a cough, otherwise continue current medications and follow up in six months. Assessment & Plan (09/01/2018 11:09 AM ASSISTANT DISTRICT ATTORNEY): She seems well compensated. She is on a good medical regimen. Labs are stable. She sees Dr. Webster periodically. Continue same. Assessment & Plan (08/26/2017 12:43 PM ASSISTANT DISTRICT ATTORNEY): She has mild systolic dysfunction on a recent echocardiogram done about a year ago in Dr. Webster's office. She takes Coreg, and this seems to be helping control if not potentially reverse her cardiomyopathy. Continue same. Psychophysiological insomnia 05/29/2015 Overview (11/13/2016): Psychophysiological insomnia Assessment & Plan (08/26/2017 12:39 PM ASSISTANT DISTRICT ATTORNEY): She is sleeping well now. She does occasionally have trouble with her restless legs, but the ropinirole helps. She ran out so we gave her a refill. She will keep her follow ups with Dr. Mendez. Currently, she does not use a CPAP mask, but uses position in bed to avoid obstructive sleep apnea symptoms. Cobalamin deficiency 05/29/2015 Overview (11/13/2016): B12 deficiency Periodic limb movement disorder 05/29/2015 Overview (09/05/2020): Sees Dr. Mendez, uses ropinirole as needed. Assessment & Plan (12/12/2023 2:16 PM CDT): Chronic, controlled. She uses ropinirole at nighttime only as needed. We corrected the medication list. Assessment & Plan (09/05/2020 11:17 AM ASSISTANT DISTRICT ATTORNEY): She is doing well. She takes ropinirole as needed. Continue same. Assessment & Plan (01/24/2020 9:02 AM CDT): Continue home ropinirole. Assessment & Plan (03/09/2019 11:51 AM CDT): She uses ropinirole if she senses that her restless legs are going to bother her. Continue same. Assessment & Plan (09/01/2018 11:11 AM ASSISTANT DISTRICT ATTORNEY): She continues on ropinirole. Tolerating well. Assessment & Plan (08/26/2017 12:40 PM ASSISTANT DISTRICT ATTORNEY): She does see Dr. Mendez periodically, but ran out of her Requip, so we gave her a refill today. She should keep her follow ups with Dr. Mendez. Obstructive sleep apnea syndrome 02/19/2015 Overview (03/08/2019): Sleep study read by Dr. Mendez: 1. Slight reduction in sleep efficiency. 2. Mild obstructive sleep apnea syndrome. This is primarily in the supine position dependent. 3. Mild to moderate intermittent snoring was noted. 4. Mild to moderate periodic limb movements are evident. Assessment & Plan (06/04/2022 2:09 PM CDT): She is not using CPAP. She did see Dr. Mendez recently. We discussed that untreated sleep apnea is a risk factor for atrial fibrillation. Assessment & Plan (03/09/2019 11:50 AM CDT): Her sleep apnea was mild, she does not use a CPAP. She does use ropinirole for restless leg syndrome, but not every day. Continue same. Vitamin B12 deficiency without anemia 01/12/2015 Overview (11/13/2016): Non anemic vitamin B12 deficiency Assessment & Plan (09/11/2020 12:41 PM ASSISTANT DISTRICT ATTORNEY): She takes daily oral vitamin B12. Vitamin D deficiency 01/12/2015 Overview (11/13/2016): Vitamin D deficiency Assessment & Plan (09/11/2020 12:41 PM ASSISTANT DISTRICT ATTORNEY): She takes high dose weekly vitamin D. Assessment & Plan (03/07/2020 9:57 AM CDT): She has been on high-dose replacement, and her vitamin-D level did come up to just above the normal threshold. We will keep her on the high-dose for another six months or so and then transition her back to [id number] maintenance. I did ask her to make sure she gets enough calcium in her diet ([id number] mg daily). Assessment & Plan (02/12/2020 11:14 AM CDT): She has been on high dose replacement. We are checking a follow up level before her next visit. Assessment & Plan (01/24/2020 9:02 AM CDT): Continue home vitamin-D supplement. Atopic rhinitis 04/24/2014 Overview (05/23/2021): Allergic rhinitis, tested, allergic to ragweed, allergy shots and nasal sprays did not help. Adjustment disorder with anxious mood 12/13/2013 Overview (11/14/2016): Adjustment disorder with anxious mood Assessment & Plan (03/13/2018 11:05 AM CDT): She is doing much better on amitriptyline taken at bedtime. It helps her sleep. It has controlled her headaches. She feels much better. Even though it is not necessarily recommended at her age, we will continue same. Headache 11/25/2013 Overview (11/14/2016): Headache Multiple thyroid nodules 09/02/2013 Overview (07/01/2024): Incidentally noted on CT: Heterogeneity of the thyroid gland with the focal nodular area of diminished attenuation in the left lobe. Confirmed on ultrasound. Fine- needle aspirate of 2.3 cm left thyroid nodule near isthmus 09/22/2013 negative for atypical cells. Assessment & Plan (07/09/2024 3:40 PM ASSISTANT DISTRICT ATTORNEY): Chronic, stable. Her recent chest CT for pulmonary fibrosis reported multiple thyroid nodules which are unchanged compared to prior scans. The thyroid nodules were evaluated about 10 years ago with a fine-needle aspirate of the largest 2.3 cm left thyroid nodule near the isthmus which was negative for atypical cells. We will continue to monitor clinically. Coronary artery disease invo lving [place] coronary artery of [place] heart without angina pectoris 05/09/2010 Overview (10/20/2024 4:52 AM CDT): On medical therapy. >>OVERVIEW FOR ISCHEMIC HEART DISEASE DUE TO CORONARY ARTERY OBSTRUCTION (HCC) WRITTEN ON 07/09/2020 8:29 AM BY SAMMY FABIAN MD [place] with cardiogenic shock, see [facility] records. Cardiac catheterization on 05/09/2010: 1. Left ventricular enlargement with severe left ventricular dysfunction. Ejection fraction is 30%. 2. Moderately severe mitral regurgitation. 3. Coronary artery disease with severe obstruction of the distal right coronary artery. Medical therapy recommended. Doing well. Sees Dr. Webster, Dr. Wan. Cardiac Cath 03/22/20): 1. Mild LV dysfunction due to wall motion abnormalities as described above. 2. One-vessel coronary artery disease 3. Grade 3/4 mitral insufficiency. 4. Mild aortic insufficiency. 5. Normal right heart hemodynamics. 6. No evidence of intracardiac shunt by oximetry. Assessment & Plan (10/21/2024 6:28 AM CDT): Chronic, present for many years, recommend continuing carvedilol 3.125 mg twice daily and atorvastatin 20 mg nightly. Antiplatelet therapy is contraindicated due to being on warfarin for atrial fibrillation. Assessment & Plan (10/20/2024 4:52 AM CDT): >>ASSESSMENT AND PLAN FOR ISCHEMIC HEART DISEASE DUE TO CORONARY ARTERY OBSTRUCTION (HCC) WRITTEN ON 08/26/2017 12:43 PM BY SAMMY FABIAN MD She sees Dr. Webster periodically. She is on minimal medication, primarily aspirin. I believe in the past she has failed statin therapy due to side effects. We will review the records. Currently she has no complaints of chest pain, and seems to be quite stable. Continue to monitor. Assessment & Plan (10/20/2024 4:52 AM CDT): >>ASSESSMENT AND PLAN FOR ISCHEMIC HEART DISEASE DUE TO CORONARY ARTERY OBSTRUCTION (HCC) WRITTEN ON 02/24/2018 10:53 AM BY SAMMY FABIAN MD She sees Dr. Webster. She gets occasional fleeting chest pains, nothing that concerns her. She is on a good medical regimen although not currently taking a cholesterol medicine, I believe because of past intolerance. Her HDL is quite high giving her some protection and other numbers look pretty good, so she is doing well with her diet. Continue same. Assessment & Plan (10/20/2024 4:52 AM CDT): >>ASSESSMENT AND PLAN FOR ISCHEMIC HEART DISEASE DUE TO CORONARY ARTERY OBSTRUCTION (HCC) WRITTEN ON 09/07/2019 9:33 AM BY SAMMY FABIAN MD She has known severe distal RCA disease which was not stented due to the anatomy. There was also LV systolic dysfunction. She has been successfully treated with medical therapy. She denies having chest pain. She will keep her follow ups with Dr. Webster annually. Assessment & Plan (10/20/2024 4:52 AM CDT): >>ASSESSMENT AND PLAN FOR ISCHEMIC HEART DISEASE DUE TO CORONARY ARTERY OBSTRUCTION (HCC) WRITTEN ON 01/24/2020 9:01 AM BY FRANCO BARON JR., MD Continue home cardiac regimen. Assessment & Plan (10/20/2024 4:52 AM CDT): >>ASSESSMENT AND PLAN FOR ISCHEMIC HEART DISEASE DUE TO CORONARY ARTERY OBSTRUCTION (HCC) WRITTEN ON 02/03/2020 2:02 PM BY SAMMY FABIAN MD Continue medical therapy. Follow-up with Dr. Wan as scheduled. Assessment & Plan (10/20/2024 4:52 AM CDT): >>ASSESSMENT AND PLAN FOR ISCHEMIC HEART DISEASE DUE TO CORONARY ARTERY OBSTRUCTION (HCC) WRITTEN ON 03/07/2020 9:49 AM BY SAMMY FABIAN MD She had a heart attack about 10 years ago. At that time she had moderate to severe LV dysfunction which has improved with medical therapy. No stents were placed due to the coronary anatomy at the time showing obstruction of the distal right coronary artery. A follow-up stress test is planned for next week. Currently she denies having any chest pain. She does have shortness of breath, especially with exertion. Assessment & Plan (10/20/2024 4:52 AM CDT): >>ASSESSMENT AND PLAN FOR ISCHEMIC HEART DISEASE DUE TO CORONARY ARTERY OBSTRUCTION (HCC) WRITTEN ON 09/05/2020 11:19 AM BY SAMMY FABIAN MD She recently underwent coronary artery bypass grafting at [facility]. She did amazingly well. Continue medical therapy. Assessment & Plan (10/20/2024 4:52 AM CDT): >>ASSESSMENT AND PLAN FOR ISCHEMIC HEART DISEASE DUE TO CORONARY ARTERY OBSTRUCTION (HCC) WRITTEN ON 11/15/2020 3:08 PM BY SAMMY FABIAN MD She had single-vessel bypass grafting several months ago. She denies chest pain or pressure. Continue medical therapy. Assessment & Plan (10/20/2024 4:52 AM CDT): >>ASSESSMENT AND PLAN FOR ISCHEMIC HEART DISEASE DUE TO CORONARY ARTERY OBSTRUCTION (HCC) WRITTEN ON 05/23/2021 1:39 PM BY SAMMY FABIAN MD She is doing well after mitral valve repair and coronary artery bypass last fall. She denies chest pain or pressure. Continue medical therapy. Assessment & Plan (10/20/2024 4:52 AM CDT): >>ASSESSMENT AND PLAN FOR ISCHEMIC HEART DISEASE DUE TO CORONARY ARTERY OBSTRUCTION (HCC) WRITTEN ON 12/02/2021 2:04 PM BY SAMMY FABIAN MD She is doing well on medical therapy. She denies any chest pain or pressure. She sees Dr. Webster and Dr. Rodrigues on a periodic basis. Assessment & Plan (10/20/2024 4:52 AM CDT): >>ASSESSMENT AND PLAN FOR ISCHEMIC HEART DISEASE DUE TO CORONARY ARTERY OBSTRUCTION (HCC) WRITTEN ON 06/04/2022 2:08 PM BY SAMMY FABIAN MD She denies chest pain or pressure. She is a good medical regimen. Continue same. Assessment & Plan (10/20/2024 4:52 AM CDT): >>ASSESSMENT AND PLAN FOR ISCHEMIC HEART DISEASE DUE TO CORONARY ARTERY OBSTRUCTION (HCC) WRITTEN ON 06/20/2022 10:34 AM BY KHRIS WEBSTER MD No angina. Assessment & Plan (10/20/2024 4:52 AM CDT): >>ASSESSMENT AND PLAN FOR ISCHEMIC HEART DISEASE DUE TO CORONARY ARTERY OBSTRUCTION (HCC) WRITTEN ON 09/09/2022 1:24 PM BY KHRIS WEBSTER MD The patient remains angina free. Continue aspirin 81 mg daily. Assessment & Plan (10/20/2024 4:52 AM CDT): >>ASSESSMENT AND PLAN FOR ISCHEMIC HEART DISEASE DUE TO CORONARY ARTERY OBSTRUCTION (HCC) WRITTEN ON 12/12/2022 12:01 PM BY SAMMY FABIAN MD She denies chest pain or pressure. She is on a decent medical regimen. She does not take anti-platelet medication due to being on warfarin for atrial fibrillation. Assessment & Plan (10/20/2024 4:52 AM CDT): >>ASSESSMENT AND PLAN FOR ISCHEMIC HEART DISEASE DUE TO CORONARY ARTERY OBSTRUCTION (HCC) WRITTEN ON 06/04/2023 3:30 PM BY SAMMY FABIAN MD She has some chest wall pain from falling out of bed about two weeks ago, but nothing that sounds anginal. Continue medical therapy. She is on warfarin, so she is not currently on anti-platelet medications. Assessment & Plan (10/20/2024 4:52 AM CDT): >>ASSESSMENT AND PLAN FOR ISCHEMIC HEART DISEASE DUE TO CORONARY ARTERY OBSTRUCTION (HCC) WRITTEN ON 06/15/2023 1:33 PM BY SAMMY FABIAN MD She denies chest pain or pressure. She is on generic Lipitor. She does not take aspirin due to being on warfarin. Assessment & Plan (06/14/2024 8:19 PM ASSISTANT DISTRICT ATTORNEY): Chronic, present for more than four years, being managed medically. Aspirin and other antiplatelet therapy is relatively contraindicated due to being on warfarin for atrial fibrillation. Assessment & Plan (04/20/2024 12:06 PM CDT): Chronic, diagnosed four or five years ago, controlled on medical therapy including atorvastatin 20 mg daily. Antiplatelet therapy is relatively contraindicated due to use of warfarin for atrial fibrillation. Assessment & Plan (03/10/2023 1:22 PM CDT): No angina status post coronary bypass grafting x1. Continue same medical therapy. Assessment & Plan (03/04/2022 4:31 PM CDT): She denies angina. Continue same meds. Assessment & Plan (09/03/2021 1:17 PM ASSISTANT DISTRICT ATTORNEY): No angina. Assessment & Plan (02/26/2021 6:50 PM CDT): Doing well with no symptoms of angina. I have recommended no change in her medical therapy. Assessment & Plan (10/26/2020 11:18 AM CDT): No angina. Vocal cord palsy 04/07/2010 Overview (11/13/2016): Vocal cord paralysis Nonrheumatic mitral valve regurgitation 02/08/20 10 Overview (11/15/2020): See scanned echo report, [facility], moderate to severe mitral regurgitation. Follow up 06/26/20, [facility] office, see scanned report for details: 1. Normal left ventricular systolic function. LV mildly enlarged with Grade 1 diastolic dysfunction 2. Mild aortic insufficiency. 3. Moderate mitral insufficiency. 4. Mild tricuspid insufficiency. Mitral valve repair, 07/09/2020, [facility]. Assessment & Plan (03/10/2023 1:22 PM CDT): Status post mitral valve repair. She is doing well with no symptoms of congestive heart failure.. Assessment & Plan (12/19/2022 12:52 PM CDT): Status post repair. Echo shows no significant MR. Assessment & Plan (09/09/2022 1:25 PM ASSISTANT DISTRICT ATTORNEY): The patient is status post mitral valve repair. She has no signs or symptoms of congestive heart failure. No changes recommended. Assessment & Plan (04/25/2022 2:42 PM CDT): Stable. Assessment & Plan (03/04/2022 4:30 PM CDT): Stable status post MV repair. Continue current therapy. Assessment & Plan (09/03/2021 1:16 PM ASSISTANT DISTRICT ATTORNEY): Mild MR by echo today Assessment & Plan (02/26/2021 6:51 PM CDT): Doing well now 8 months status post mitral valve repair. We will repeat the echocardiogram in 6 months. Assessment & Plan (11/15/2020 3:07 PM CDT): She had a mitral valve repair several months ago along with a single-vessel bypass graft. So far she has not noticed much improvement in exercise tolerance, but hopefully this will be realized over time. Continue current medical therapy. Assessment & Plan (10/26/2020 11:18 AM CDT): S/P MV repair. Stable/ Assessment & Plan (03/07/2020 9:51 AM CDT): She has a history moderate to severe mitral regurgitation which is not audible on exam. She seems to be well compensated. A follow-up echocardiogram about a week ago shows no overall change. History of stroke 08/20/2007 Overview (09/01/2018): Stroke at time of myocardial infarction with good recovery overall. Assessment & Plan (09/01/2018 11:10 AM ASSISTANT DISTRICT ATTORNEY): She has a minimal residual from a stroke about 10 years ago at the time of acute [place]. She takes a baby aspirin daily. Continue same. Assessment & Plan (08/30/2017 4:38 PM ASSISTANT DISTRICT ATTORNEY): She had multiple areas of stroke a number of years ago related to acute heart attack and other cardiac complications. She has made a very good recovery, but notes since her last visit that she tends to drift to the right when she walks. She has had several falls. Exam today shows no major ataxia. Perhaps there is a slight unsteadiness in her gait. I recommended that she walk with a cane to reduce the risk of falling, but she is not currently open to that option. I asked her to be very careful, and we will monitor periodically. She should call for early follow up of any new problems. Hypertension associated with type 2 diabetes indira litus 08/20/2007 Overview (11/14/2016): Hypertension Assessment & Plan (10/21/2024 6:29 AM CDT): Chronic, present for 15-20 years, recommend continuing losartan 50 mg daily and other medications listed elsewhere. Recommend checking follow-up labs periodically. Assessment & Plan (05/15/2024 1:39 PM CDT): Chronic, typically controlled at home, but systolic blood pressure readings have been running a little bit high in medical settings including initial BP in the office today. However, a follow up BP in the office is normal on her current regimen which includes carvedilol 3.125 mg twice daily, losartan 50 mg daily, and furosemide 20 mg daily as needed for leg swelling. Continue same. Assessment & Plan (04/24/2024 1:27 PM CDT): Chronic, diagnosed more than 15 years ago, generally acceptable, although systolic today is not at goal of less than 140 mm Hg. We are putting her on a low dose of furosemide to use as needed for fluid retention in her legs, and this may help lower blood pressure. She also takes carvedilol 3.125 mg twice daily and losartan 50 mg daily. Continue same and follow-up in six months. BP: 142/62 Assessment & Plan (06/28/2023 7:43 PM ASSISTANT DISTRICT ATTORNEY): Blood pressure is in a good range on current therapy consisting of losartan 50 mg daily. Continue same. We might add a beta jovanny, mostly for the low LVEF on her most recent echo, depending on cardiology input. Assessment & Plan (06/04/2023 3:30 PM CDT): Blood pressure is in a reasonable range. Continue current therapy. Assessment & Plan (03/10/2023 1:23 PM CDT): Continue losartan. Assessment & Plan (02/13/2023 11:56 AM CDT): Controlled with medication - continue current plan per PCP Assessment & Plan (12/12/2022 12:01 PM CDT): Blood pressure is well controlled. Kidney function stable. Continue same. Lab Results Component Value Date GLUCOSE 121 11/28/2022 CALCIUM 9.7 11/28/2022 SODIUM 141 11/28/2022 POTASSIUM 4.7 11/28/2022 CO2 29 11/28/2022 CHLORIDE 101 11/28/2022 BUNSER 18 11/28/2022 CREATININE 1.08 11/28/2022 Assessment & Plan (06/04/2022 2:07 PM CDT): Systolic blood pressure is borderline elevated. She may need a dose adjustment of losartan or other medication which we are deferring to her securities trader, Dr. Webster. She sees him in two weeks. Assessment & Plan (05/29/2022 11:31 AM CDT): Impression: Stable chronic hypertension. Plan: Medications reviewed and recommend continuing daily antihypertensive regimen as directed by patient's primary care physician. Assessment & Plan (12/02/2021 2:04 PM CDT): Blood pressure is in a good range on current therapy. Continue same. Follow-up in six months. Lab Results Component Value Date GLUCOSE 135 11/25/2021 CALCIUM 9.4 11/25/2021 SODIUM 141 11/25/2021 POTASSIUM 4.3 11/25/2021 CO2 25 11/25/2021 CHLORIDE 104 11/25/2021 BUNSER 12 11/25/2021 CREATININE 0.87 11/25/2021 Assessment & Plan (05/23/2021 1:38 PM CDT): Blood pressure is in a normal range on current therapy. Continue same. Follow-up in six months. Assessment & Plan (02/26/2021 6:51 PM CDT): Controlled on current medications. Assessment & Plan (09/05/2020 11:21 AM ASSISTANT DISTRICT ATTORNEY): Systolic blood pressure is mildly elevated. She is currently on losartan 50 mg daily and furosemide 40 mg daily. We will call her in a week or so to see what BP is running at home. She will have a follow-up cardiothoracic surgery in month or so so we will have another BP check at that time. Assessment & Plan (03/18/2020 11:51 AM CDT): Blood pressure is in a good range on current therapy. Recent labs are stable. We will see her back in six months. Lab Results Component Value Date GLUCOSE 106 01/28/2020 CALCIUM 9.0 01/28/2020 SODIUM 141 01/28/2020 POTASSIUM 3.9 01/28/2020 CO2 31 01/28/2020 CHLORIDE 101 01/28/2020 BUNSER 12 01/28/2020 CREATININE 0.79 01/28/2020 Assessment & Plan (02/03/2020 2:02 PM CDT): Blood pressure is in a good range. We refilled her carvedilol. She has adequate losartan supplies. Assessment & Plan (01/24/2020 9:01 AM CDT): Continue home losartan and Coreg. Assessment & Plan (09/07/2019 9:29 AM ASSISTANT DISTRICT ATTORNEY): Blood pressure is in a good range at this time. Continue current therapy. Check follow-up labs and return in six months. Assessment & Plan (03/09/2019 11:50 AM CDT): Blood pressure today is in a low normal range. When she checks at home, she usually gets 120-130 systolic over 70-80. This is certainly acceptable. We are changing from lisinopril to losartan because of a cough. She will report if the cough does not improve. Otherwise follow-up in six months with labs. Assessment & Plan (09/01/2018 11:09 AM ASSISTANT DISTRICT ATTORNEY): Blood pressure is in a good range. She is tolerating her medications. Labs are stable. Continue same. Assessment & Plan (02/24/2018 10:54 AM CDT): Blood pressure is in a good range. She has had some intermittent transient lightheadedness recently, but has checked her blood pressure and pulse at the time, and they are normal. She had a 24 hr Holter monitor which was normal. She saw Dr. Webster who said that if symptoms recur, he would order additional evaluation. She does describe the dizziness or lightheadedness like a near syncope, but there may be a spinning component as well, so it might be more vestibular in origin. She will keep in touch with me and/or Cardiology. Assessment & Plan (08/30/2017 4:37 PM ASSISTANT DISTRICT ATTORNEY): Blood pressure in the office today is somewhat borderline. She checks it at home and says that it fluctuates, sometimes normal, sometimes mildly elevated. She sees Dr. Erik Webster periodically for follow-up of her heart. I think for now, blood pressure control is adequate, but if there are any trends in her home blood pressure, she should let us know so we can adjust medications as needed. Chronic sinusitis 08/20/2007 Overview (11/14/2016): Sinusitis, chronic Persistent mood disorder 08/20/1989 Overview (11/14/2016): Depression Assessment & Plan (04/24/2024 1:28 PM CDT): Chronic, present for 30 or more years, currently controlled on low-dose amitriptyline 75 mg at bedtime which she also takes for insomnia. Continue same and follow-up in six months. Assessment & Plan (06/15/2023 1:33 PM ASSISTANT DISTRICT ATTORNEY): She says her mood is good on Celexa 10 mg daily. Assessment & Plan (12/02/2021 2:03 PM CDT): She says her mood is good. She is on Celexa. She also takes amitriptyline at nighttime which controls headaches. Assessment & Plan (05/23/2021 1:40 PM CDT): Her mood seems pretty positive. Continue medication and supportive care. Assessment & Plan (03/07/2020 9:52 AM CDT): She seems to be doing well on Celexa 10 mg daily. Continue same. Assessment & Plan (09/07/2019 9:33 AM ASSISTANT DISTRICT ATTORNEY): She has had trouble with depression in the past. Currently she is doing well on a low-dose of amitriptyline which she also takes for her headaches. Continue same. Assessment & Plan (03/09/2019 11:51 AM CDT): She is doing well on Elavil and Celexa. Mood seems quite stable and positive. Continue same. Assessment & Plan (09/01/2018 11:11 AM ASSISTANT DISTRICT ATTORNEY): She is on Celexa. Mood is cheerful in the office. She also takes amitriptyline to help control headaches. It is working well for her. Assessment & Plan (08/26/2017 12:39 PM ASSISTANT DISTRICT ATTORNEY): Her mood is quite cheerful. She has no new symptoms of concern. We will have her continue the Celexa. Resolved Problems Problem Noted Date Diagnosed Date Resolved Date Acute pain of right shoulder 05/22/2023 12/16/2023 Overview (05/28/2023): Due to a fall, seen at [facility]. Assessment & Plan (05/29/2023 9:16 AM CDT): Patient presents for right shoulder pain from a fall a week ago. See above documented HPI and PE. Patient reports right shoulder xray performed 05/22 at [facility] negative for fracture. She has limited use of her arm and is sleeping in recliner due to pain. Bruising is noted on top of shoulder and shoulder blade. During appointment, patient is observed to have a persistent cough. She says coughing is very painful. Has been using tylenol and ice with limited relief. Rx for tramadol for pain control Left leg pain 10/15/2021 12/16/2023 Overview (12/16/2023): Due to cellulitis, saw JEOVANY Mccoy. Improved with treatment. Assessment & Plan (12/02/2021 2:04 PM CDT): She saw JEOVANY Mccoy recently for cellulitis of the left lower leg after bumping her byers. It is much better. There is some swelling in both legs, likely due to her cardiac and/or pulmonary conditions. We will monitor clinically. Assessment & Plan (10/21/2021 9:50 AM CDT): Patient returns for follow up on LLE cellulitis and hematoma. Cellulitis appears resolved. No redness, warmth or pain noted. She has completed antibiotic. Small hematoma persistent of LLE mid tibial aspect. She has US at visit last week that showed, No sonographic evidence of deep or superficial venous thrombosis. Probable small subcutaneous hematoma within the medial and anterior lower leg measuring up to 2.6 cm. She has full ROM noted on exam and pain is improving each week. She was encourage to keep leg elevated at rest, wear compression and use ice. She will return as scheduled or sooner if needed. Assessment & Plan (10/15/2021 12:32 PM ASSISTANT DISTRICT ATTORNEY): Patient has left leg pain and swelling post fall and in the setting of cellulitis. She has an area of mild edema with possible hematoma noted above area of cellulitis. We will do US to r/o any possible DVT or abscess. She will continue with tylenol for pain. She will elevate leg at rest and use ice as needed. Elevated serum creatinine 05/15/2021 Overview (11/26/2021): Resolved on subsequent labs. Assessment & Plan (05/23/2021 1:41 PM CDT): She had a mild elevation of creatinine on her recent BMP. She has been having some cramps in her right foot, less often in the left foot. They happen unpredictably, perhaps every 2-3 weeks. Calcium and potassium were normal. We asked her to stay well hydrated and we will check a follow-up renal panel and magnesium in a week or so. Acute bilateral thoracic back pain 10/09/2020 12/16/2023 Overview (12/16/2023): Probably due to pneumonia, treated and resolved. Assessment & Plan (11/15/2020 3:09 PM CDT): She was seen about a month ago with acute bilateral thoracic pain. We ordered a CT of her chest which did not show any aneurysm or other major pathology. There was some possible new infiltrate. We treated her empirically and she has improved significantly. She will be seeing Dr. Webster next week. Dr. Rodrigues appointment follows thereafter. Assessment & Plan (10/09/2020 3:35 PM ASSISTANT DISTRICT ATTORNEY): Since her visit last week patient is reporting pain that is in between the shoulder blades that radiates to the left shoulder. Pain does not appear musculoskeletal as it is not made worse with movement, cough or palpation. EKG was done given her extensive cardiac history. EKG shows LBBB which is not new and appears to have a regular rate, no acute changes noted. Etiology of pain unclear at this time. There is concern for possible PE vs effusion vs pneumonia that could be contributing to her symptoms. Have discussed with Dr. Fabian who recommends CT of chest with contrast if BUN/Cr are stable. Further recommendations pending CT results. If no acute findings will refer back to cardiology for earlier follow up. She has follow up with pulmonary scheduled for next week which she will keep. Patient will follow up this week post testing. COVID-19 ruled out 10/04/2020 Overview (11/15/2020): See office note, JEOVANY Albarado. Assessment & Plan (10/04/2020 11:48 AM ASSISTANT DISTRICT ATTORNEY): Concern for COVID 19 with associated symptoms. Rapid testing completed and negative. Fever 10/04/2020 11/15/2020 Overview (11/15/2020): See office note and CT chest, resolving pneumonia. Assessment & Plan (10/04/2020 11:48 AM ASSISTANT DISTRICT ATTORNEY): Patient is reporting low grade fevers with associated chills, etiology unclear, but most likely viral in nature. We will do CBC to look for any leukocytosis and BMP to look for any dehydration or electrolyte disturbance. As noted rapid COVID testing negative. She is scheduled for COVID vaccine today and patient was recommended to delay, until symptoms improved. She will continue symptom management with tylenol and fluids. Will call or go to ER with worsening or persistent symptoms. Contusion of left foot 08/22/202011/15 Overview (11/15/2020): See office note. Assessment & Plan (09/11/2020 12:43 PM ASSISTANT DISTRICT ATTORNEY): She bumped her left foot dorsum going around the corner at the grocery store about two weeks ago. It was tender, bruised, and swollen for awhile. It is still somewhat discolored with a mild diffuse redness and warmth. She has not run a fever. There is no lymphangitis. There are also a few small superficial excoriated ulcers of the left foot and lower leg, probably were she is scratching at night. Findings in the left foot are consistent with a mild contusion, but there is no pain with weight- bearing so I do not think there is a fracture. We will monitor clinically. She will report any changes of concern before her next visit in three months. Mitral valve insufficiency 06/18/2020 0 11/26/2021 Overview (11/26/2021): Added automatically from request for surgery [id number], S/P MITRAL VALVE REPAIR; CORONARY ARTERY BYPASS [email or web address], DARIELA Carreon, 07/09/2020. Coronary artery disease invo lving tanacross heart without angina pectoris 06/18/2020 09/05/2020 Overview (09/05/2020): Added automatically from request for surgery [id number], CABG x 1 and MV repair on 07/09/2020, DARIELA Carreon. SSS (sick sinus syndrome) 06/18/2020 Overview (09/05/2020): Added automatically from request for surgery [id number], originally scheduled for pacemaker, but cancelled. Transient Afib post CABG. Coronary artery disease invo lving tanacross coronary artery of tanacross heart without angina pectoris 03/20/2020 09/05/2020 Overview (09/05/2020): Added automatically from request for surgery [id number], CABG x 1 and MV repair on 07/09/2020, DARIELA Carreon. Community acquired pneumonia 01/24/2020 03/06/2020 Overview (03/06/2020): See hospital and office notes, resolved. Assessment & Plan (02/12/2020 11:12 AM CDT): She became ill on Thursday with fever and chills. She had a cough and was bringing up yellow phlegm. She did not want to go to the emergency room but called the office on Thursday. We sent her to urgent care where her COVID -19 test was negative. Chest x-ray did show some patchy interstitial infiltrates. Due to significant symptoms, she was referred to the emergency room and admitted to the hospital. She received IV antibiotics. All of her microbiology and serology was negative for any identified pathogen. She is feeling improved. She is still coughing up fairly clear phlegm now. Oxygen saturation is adequate. She has completed her antibiotics. Follow-up in one month, or sooner if needed. Assessment & Plan (01/24/2020 9:03 AM CDT): Most likely Gram-positive. Presence of fever, chills, cough productive of yellow/green sputum, leukocytosis, and imaging findings are all consistent with diagnosis of pneumonia. COVID-19 test in the ED he was negative. Follow blood culture results. Will check urine bacterial antigens. Can de-escalate Zosyn to Rocephin and azithromycin. Supportive care. Osteopenia of multiple sites 03/13/2017 10/05/2019 Overview (10/05/2019): Progressed to osteoporosis of both hip and spine as of September 2019. Alteration in consciousness described by patient as funny turn 05/29/2015 02/23/2018 Overview (11/13/2016): Paroxysmal spells Encounters Date Type Department Care Team Description 01/13/2025 Results Follow-Up [place] [facility] at [address] [place] [phone] Shahnaz Coleman MA Protime-INR 01/12/2025 2:35 PM CDT Lab [facility] [address] [place] [address] Atrial fibrillation, unspecified type (HCC) 01/04/2025 Results Follow-Up [facility] [address] [place] [address] [place] [phone] Shahnaz Coleman MA Protime-INR 01/04/2025 Anticoagulation Visit [facility] [address] [place] [address] [address] [place] [address] Shahnaz Coleman MA Paroxysmal atrial fibrillation (HCC) (Primary Dx) 12/29/2024 1:05 PM CDT Lab [facility] [address] [employer] [place] [address] Atrial fibrillation, unspecified type (HCC) 12/19/2024 Results Follow-Up [facility] [address] [place] [address] [address] [place] [address] Shahnaz Coleman MA Protime-INR 12/19/2024 Anticoagulation Visit [facility] [address] [place] [address] [place] [phone] Shahnaz Coleman MA Paroxysmal atrial fibrillation (HCC) (Primary Dx) 12/15/2024 1:15 PM CDT Lab [facility] [address] [place] [address] Atrial fibrillation, unspecified type (HCC) 12/12/2024 Results Follow-Up [facility] [address] [place] [phone] Shahnaz Coleman MA Protime-INR 12/12/2024 Anticoagulation Visit [facility] [address] [place] [phone] Shahnaz Coleman MA Paroxysmal atrial fibrillation (HCC) (Primary Dx) 12/09/2024 Telephone [facility] [address] [place] [address] Sammy Fabian MD 12/09/2024 Results Follow-Up [facility] [address] [place] [address] Sammy Fabian MD Basic metabolic panel, Pro B-type natriuretic peptide, eGFR 12/08/2024 1:35 PM CDT Lab [facility] [address] [place] [address] Chronic combined systolic and diastolic heart failure (HCC) 12/08/2024 1:20 PM CDT Lab [facility] [address] [place] [phone] Atrial fibrillation, unspecified type (HCC) 12/03/2024 Telephone [facility] [address] [place] [address] Sammy Fabian MD 12/03/2024 Results Follow-Up [facility] [address] [place] [address] Sammy Fabian MD Basic metabolic panel, Pro B-type natriuretic peptide, eGFR, US Arterial Doppler Lower Extremity Bilateral 12/01/2024 3:00 PM CDT Ancillary Procedure [facility] at [address] [place] [address] Absent pedal pulses 12/01/2024 1:20 PM CDT Lab [facility] [address] [place] [address] Type 2 diabetes mellitus with other circulatory complication, without long-term current use of insulin (HCC); Edema of both lower legs 12/01/2024 11:45 AM CDT Office Visit [facility] [address] [facility] [address] [place] [address] Sammy Fabian MD Edema of both lower legs (Primary Dx); Chronic combined systolic and diastolic heart failure (HCC); Type 2 diabetes mellitus with other circulatory complication, without long-term current use of insulin (HCC); Other cough; Absent pedal pulses 11/25/2024 2:30 PM CDT Clinical Support [facility] [address] [facility] [address] [place] [address] Other osteoporosis with current pathological fracture, other site, subsequent encounter for fracture with routine healing (Primary Dx) 11/10/2024 Results Follow-Up [facility] [address] [facility] [address] [place] [address] Shahnaz Coleman MA Protime-INR 11/10/2024 Anticoagulation Visit [facility] [address] [place] [address] [address] [place] [address] Shahnaz Coleman MA Paroxysmal atrial fibrillation (HCC) (Primary Dx) 11/03/2024 1:15 PM CDT Lab [facility] [address] [place] [address] Atrial fibrillation, unspecified type (HCC) 10/25/2024 Results Follow-Up [facility] [address] [place] [address] [place] [phone] Shahnaz Coleman MA Protime-INR 10/25/2024 Anticoagulation Visit [facility] [address] [place] [phone] Shahnaz Coleman MA Paroxysmal atrial fibrillation (HCC) (Primary Dx) 10/22/2024 Results Follow-Up [facility] [address] [place] [phone] Sammy Fabian MD Hepatitis B core antibody, total Blood, Hepatitis B surface antibody (immune status) Blood, Hepatitis B Surface Antigen Blood, Additional followed-up results: 5 10/21/2024 2:00 PM CDT Office Visit [facility] [address] [place] [phone] Sammy Fabian MD Type 2 diabetes mellitus with other circulatory complication, without long-term current use of insulin (HCC) (Primary Dx); Coronary artery disease involving tanacross coronary artery of tanacross heart without angina pectoris; Paroxysmal atrial fibrillation (HCC); Age-related osteoporosis with current pathological fracture with routine healing; Hypertension associated with type 2 diabetes mellitus (HCC); Mixed diabetic hyperlipidemia associated with type 2 diabetes mellitus (HCC); Pulmonary fibrosis (HCC); Chronic combined systolic and diastolic heart failure (HCC) 10/20/2024 2:05 PM CDT Lab [facility] [address] [place] [address] Medicare annual wellness visit, subsequent; Need for hepatitis B screening test; Type 2 diabetes mellitus with other circulatory complication, without long-term current use of insulin (HCC); Mixed hyperlipidemia; Essential hypertension 10/20/2024 1:50 PM CDT Lab [facility] [address] [place] [phone] Atrial fibrillation, unspecified type (HCC) from Last 3 Months Immunizations Immunization Administration Dates Next Due Influenza, Quadrivalent, Hig h Dose, Preservative Free, Intrr 06/04/2023,06/04/2022,05/23/2021,05/29 Influenza, Split 08/29/2013 Influenza, Trivalent, High D ose, Split, Preservative Free, Intramuscular 04/20/2024,09/07/2019,06/07/2012 Influenza, Trivalent, IM (MDV) 06/26/2014,2013 Moderna SARS-CoV-2 Monovalen t Vaccination (12+ YRS) 11/07/2020,10/12/2020 Pneumococcal Conjugate PCV 13 02/19/2016 Pneumococcal Polysaccharide PPV23 03/10/2010 Tdap 03/07/2020 ZOSTER Recombinant 02/16/2023 Surgical History Surgery Date Site/Laterality Comments CHOLECYSTECTOMY 08/10/1986 - 08/09/1987 Cholecystectomy ROTATOR CUFF REPAIR 08/10/2008 - 08/09/2009 Right Details lacking COLPOSCOPY 08/10/2010 - 08/09/2011 LSIL: Colposcopy - ANNI I followed by negative Pap WRIST SURGERY Right Wrist fracture: removal of bone, details lacking GASTROSTOMY Feeding tube 2009 MAMMOGRAPHY 04/14/2018 Normal, [facility]. COLONOSCOPY 06/24/2011 Normal, Dr. Palomino, [facility]. CERVICAL BIOPSY W/ LOOP ELECTRODE EXCISION 08/10/2018 - 08/09/2019 ANNI 2 MAMMOGRAPHY 05/04/2019 Bilateral Negative, [facility]. CARDIAC CATHETERIZATION 05/09/2010 Left Severe distal RCA disease, severe LV dysfunction, moderate to severe mitral regurgitation. Dr. Lopes, [facility]. DEXA SCAN 10/04/2019 Osteoporosis at hip, see report, [facility]. DEXA SCAN 07/08/2011 Osteopenia of hip, osteoporosis of spine (-3.1). CATARACT EXTRACTION, BILATERAL CERVIX LESION DESTRUCTION CARDIAC CATHETERIZATION 03/22/2020 1. Mild LV dysfunction due to wall motion abnormalities as described above. 2. One-vessel coronary artery disease 3. Grade 3/4 mitral insufficiency. 4. Mild aortic insufficiency. 5. Normal right heart hemodynamics. 6. No evidence of intracardiac shunt by oximetry. MITRAL VALVE REPAIR 07/09/2020 MITRAL VALVE REPAIR; CORONARY ARTERY BYPASS [email or web address], Dr. Rodrigues, DARIELA CORONARY ARTERY BYPASS GRAFT 07/09/2020 MV repair and CABG x 1, DARIELA. MAMMOGRAPHY 05/16/2020 Bilateral Negative, [facility]. PAP SMEAR WITH HPV 05/10/2021 ASCUS, HPV+, Dr. Renee. MAMMOGRAPHY 05/21/2021 Bilateral Negative, [facility] CERVICAL BIOPSY 06/10/2021 Negative for malignancy, PAP SMEAR WITH HPV 05/14/2022 N/A Negative cytology, POSITIVE for one or more HPV types, Dr. Renee, [facility]. MAMMOGRAPHY 05/23/2022 Bilateral Negative, [facility]. PAP SMEAR WITH HPV 05/19/2023 HPV positive, Negative for intraepithelial lesion or malignancy, Dr. Renee. MAMMOGRAPHY 06/10/2023 Bilateral Negative, [facility]. ENDOMETRIAL BIOPSY 06/10/2023 N/A Endocervix with squamous metaplasia, Dr. Renee. CARDIAC SURGERY BIOPSY DEEP BONE 12/22/2023 Benign L2 biopsy, Dr. Isbell. DEXA SCAN 05/06/2024 N/A Osteoporosis at femoral neck. Medical History Medical History Date Comments Hypertension Hypertension Tension headache Headache, tensi on Sinusitis Sinusitis Alteration in consciousness described by patient as funny turn 05/29/2015 Paroxysmal spells Wrist fracture 1965 Details lacking. Migraine headache Cardiogenic shock (HCC) Cardioge dana shock Vocal cord paralysis Due to intu bation Chronic coronary artery disease Abnormal Pap smear of cervix LSI L; Comments: RED 03/04/2016 - Restless leg syndrome B12 deficiency Chicken pox 1950 Osteopenia of multiple sites 03/13/2017 Pro gressed to osteoporosis of both hip and spine as of September 2019. Community acquired pneumonia 01/24/2020 See hospital and office notes, resolved. Coronary artery disease invo lving tanacross coronary artery of tanacross heart without angina pectoris 05/09/2010 On medical therapy. Sleep apnea GERD (gastroesophageal reflux disease) Cataract Arthritis Mitral valve disorder Cerebrovascular accident (CVA) (HCC) 2009 Stroke w/ right sided weakness Myocardial infarction ([facility]) 2010 Myoc ardial infarction Coronary artery disease invo lving tanacross heart without angina pectoris 06/18/2020 Added automatical ly from request for surgery [id number], CABG x 1 and MV repair on 07/09/2020, DARIELA Carreon. Coronary artery disease invo lving tanacross coronary artery of tanacross heart without angina pectoris 03/20/2020 Added automatically from req uest for surgery [id number], CABG x 1 and MV repair on 07/09/2020, DARIELA Carreon. SSS (sick sinus syndrome) ([facility]) 06/18/2020 Added automatically from request for surgery [id number], originally scheduled for pacemaker, but cancelled. Transient Afib post CABG. COVID-19 ruled out 10/04/2020 See office no teVerena, JEOVANY. Fever 10/04/2020 See office note and CT chest, resolving pneumonia. Contusion of left foot 08/22/2020 See offic e note. Hyperglycemia 08/12/2016 Mild elevations of blood sugar Elevated serum creatinine 05/15/2021 Resolv ed on subsequent labs. Mitral valve insufficiency 06/18/2020 Added automatically from request for surgery [id number], S/P MITRAL VALVE REPAIR; CORONARY ARTERY BYPASS [email or web address], DARIELA Carreon, 07/09/2020. Age-related osteoporosis wit hout current pathological fracture 07/08/2011 Dexa at [facility], 10/04/2019, compared to study in 2010: LEFT FEMORAL NECK: T-score -3.0 LEFT TOTAL HIP: T-score -1.6 LUMBAR SPINE: T-score been a 0.3 (Typo, correction requested.) Dex at [facility], 07/08/2011: DXA LEFT HIP RESULTS SUMMARY:BMD (g/cm'b2) T-score Z-score Neck 0.587 -2.4 -0.7 Total 0.746 -1.6 -0.2 DXA L-SPINE RESULTS SUMMARY:BMD (g/cm'b2) T-score Z-score L1 0.633 -3.2 -1.5 L2 0.7 Acute bilateral thoracic back pain 10/09/2020 Probably due to pneumonia, treated and resolved. Acute pain of right shoulder 05/22/2023 Due to a fall, seen at [facility]. Left leg pain 10/15/2021 Due to celluliti s, saw JEOVANY Mccoy. Improved with treatment. Borderline diabetes 08/12/2016 Mild elevati ons of blood sugar Arm bruise, right, initial encounter 06/14/2024 Mid-dorsal surface, associated with spreading ecchymosis, no history of trauma. On warfarin. Family History Medical History Relation Name Comments Alcohol abuse Brother 2 #1 Alcoholism; Ca use of : Alcoholism Other Brother 3 #2 Cancer, metasta tic; Cause of : Cancer, metastatic Pancreatic cancer Brother 4 #3 Cancer, pa ncreas; Cause of : Cancer, pancreas Other Brother 5 #4 Cancer, stomach v. colon; Cause of : Cancer, stomach v. colon Pancreatic cancer Brother 6 Cancer, pa ncreas; Other Brother 7 stomach; Heart attack Brother 8 Myocardial infa rction; Cause of : Myocardial infarction Cancer Brother 9 Cancer, unknown ; Throat cancer Father Cancer -throat ; Cause of : Cancer -throat/Cancer, throat; Coronary artery disease Mother Bi nary artery disease; Cause of : Coronary artery disease Heart attack Mother Myocardial infa rction; Cause of : Myocardial infarction Hypertension Mother Hypertension; Migraines Mother migraines; Stroke Other Family history of Stroke; Relation Name Status Comments Brother 1 Brother 2 #1 (Age 45) Brother 3 #2 (Age 81) Brother 4 #3 (Age 30) Brother 5 #4 Brother 6 Brother 7 Brother 8 Brother 9 Father (Age 50) Mother Other Social History Tobacco Use Types Packs/Day Years Used Date Smoking Tobacco: Former Cigarettes 0.5 43 0 02/07/1965 - 02/08/2008 Smokeless Tobacco: Never Tobacco Cessation:Counseling Given: Not Answered Alcohol Use Standard Drinks/Week Comments No 0 [...] on file Legal Sex Female 9:25 AM [employer] Gender Identity Not on file Sexual Orientation Not on file Occupation Industry Job Start Date Job End Date Retired Not on file Not on file Not on file Obstetrics History Para Term AB IAB SAB Ectopic Multiple Livin g Live Births 2 2 2 0 0 0 0 0 Date Outcome GA Total Labor Labor//3rd Weight Sex Type Anes PTL Serena A1 A5 Name Clin Term Term Last Filed Vital Signs Vital Sign Reading Time Taken Comments Blood Pressure 124/54 12/01/2024 11:33 AM CDT Pulse 75 12/01/2024 11:33 AM CDT Temperature 36.5 C (97.7 F) 12/01/2024 11:33 AM CDT Respiratory Rate 16 12/01/2024 11:33 AM CDT Oxygen Saturation 95% 12/01/2024 11:33 AM CDT Inhaled Oxygen Concentration - - Weight 64.4 kg (142 lb) 12/01/2024 11:33 AM CDT Height 152.4 cm (5') 12/01/2024 11:33 AM CDT Body Mass Index 27.73 12/01/2024 11:33 AM CDT Plan of Treatment Health Maintenance Due Date Last Done Comments Dilated Eye Exam 1945 Zoster Vaccine (2 of 2) 04/13/2023 02/16/2023 Covid-19 Vaccine ( - 2023-2 5 season) 2024 11/21/2022, 09/10/2021, 11/07/2020, Additional history exists Depression Screening 04/20/2025 04/20/2024, 12/12/2022, 12/02/2021, Additional history exists Fall Risk Assessment 04/20/2025 04/20/2024, 12/12/2022, 12/02/2021, Additional history exists Well Visit 65+ 04/20/2025 04/20/2024, 05/0 12/2022, 12/02/2021, Additional history exists Hemoglobin A1C 04/22/2025 10/20/2024, 050 01/2024, 11/28/2022, Additional history exists Albumin Creatinine Ratio, Urine 10/20/2025 Lipid Panel 10/20/2025 10/20/2024, 05/0 01/2024, 11/28/2022, Additional history exists Foot Exam 10/21/2025 10/21/2024, 04/20/2024 eGFR 12/08/2025 12/08/2024, 11/09, 10/20/2024, Additional history exists Osteoporosis Screening-Bone Density Scan 05/06/2026 05/06/2024, 12/09/2021, 10/04/2019 DTaP/Tdap/Td Vaccine (2 - Td or Tdap) 03/07/2030 03/07/2020 Pneumococcal vaccine 65+ Completed 02/19/2016, 08/2009 Influenza Vaccine Completed 04/20/2024, , 06/04/2022, Additional history exists Hepatitis B Screening Completed 10/20/2024 Medical Devices Implanted Type Area Package Crimper Device Identifier Shelf Expiration Date Model / Serial / Lot [employer] [id number] hy-Cleary Imr Etlogix 28mm 3d Reduced Curvature - [id number] - [id number] Implanted:Qty: 1 on 07/09/2020 by Aron Rodrigues MD at [facility] N/A: Heart [employer] 04/22/2025 [id number] / [id number] / Procedures Procedure Name Priority Date/Time Associated Diagnosis Comments PROTIME-INR Routine 01/12/2025 2:34 PM CDT Atrial fibrillation, unspecified type (HCC) PROTIME-INR Routine 12/29/2024 1:07 PM CDT Atrial fibrillation, unspecified type (HCC) PROTIME-INR Routine 12/15/2024 1:11 PM CDT Atrial fibrillation, unspecified type (HCC) EGFR Routine 12/08/2024 1:21 PM CDT Chronic combined systolic and diastolic heart failure (HCC) PRO B-TYPE NATRIURETIC PEPTIDE Routine 12/08/2024 1:21 PM CDT Chronic combined systolic and diastolic heart failure (HCC) BASIC METABOLIC PANEL Routine 12/08/2024 1:21 PM CDT Chronic combined systolic and diastolic heart failure (HCC) PROTIME-INR Routine 12/08/2024 1:19 PM CDT Atrial fibrillation, unspecified type (HCC) US ARTERIAL DOPPLER LOWER EXTREMITY BILATERAL Schedule LOUIS, Read LOUIS (Appt Today, Awaiting Results) 12/01/2024 3:43 PM CDT Absent pedal pulses EGFR Routine 12/01/2024 1:51 PM CDT Type 2 diabetes mellitus with other circulatory complication, without long-term current use of insulin (HCC) PRO B-TYPE NATRIURETIC PEPTIDE Routine 12/01/2024 1:51 PM CDT Edema of both lower legs BASIC METABOLIC PANEL Routine 12/01/2024 1:51 PM CDT Type 2 diabetes mellitus with other circulatory complication, without long-term current use of insulin (HCC) PROTIME-INR Routine 11/03/2024 1:17 PM CDT Atrial fibrillation, unspecified type (HCC) EGFR Routine 10/20/2024 1:53 PM CDT Medicare annual wellness visit, subsequent Essential hypertension ALBUMIN CREATININE RATIO, URINE Routine 10/20/2024 1:53 PM CDT Medicare annual wellness visit, subsequent Type 2 diabetes mellitus with other circulatory complication, without long-term current use of insulin (HCC) COMPREHENSIVE METABOLIC PANEL Routine 10/20/2024 1:53 PM CDT Medicare annual wellness visit, subsequent Essential hypertension LIPID PANEL Routine 10/20/2024 1:53 PM CDT Medicare annual wellness visit, subsequent Mixed hyperlipidemia HEMOGLOBIN A1C Routine 10/20/2024 1:53 PM CDT Medicare annual wellness visit, subsequent Type 2 diabetes mellitus with other circulatory complication, without long-term current use of insulin (HCC) HEPATITIS B SURFACE ANTIGEN Routine 10/20/2024 1:53 PM CDT Medicare annual wellness visit, subsequent Need for hepatitis B screening test HEPATITIS B SURFACE ANTIBODY (IMMUNE STATUS) Routine 10/20/2024 1:53 PM CDT Medicare annual wellness visit, subsequent Need for hepatitis B screening test HEPATITIS B CORE ANTIBODY, TOTAL Routine 10/20/2024 1:53 PM CDT Medicare annual wellness visit, subsequent Need for hepatitis B screening test PROTIME-INR Routine 10/20/2024 1:47 PM CDT Atrial fibrillation, unspecified type (HCC) DEXA AXIAL SKELETON BONE DENSITY 1 OR MORE SITES Schedule Routine, Read Routine (OP Routine) 05/06/2024 2:02 PM CDT Age-related osteoporosis with current pathological fracture with routine healing Menopause from Last 3 Months or Most Recently Relevant to Health Maintenance Results * (ABNORMAL) Protime-INR (01/12/2025 2:34 PM CDT) PT 25.8(H) 9.7 - 13.0 sec Comment:Testing performed by : [address] [place] [address] INR 2.35(H) 0.90 - 1.20 TA THOMAS (TIFFANY) Comment: Interpretive data Oral anticoagulant therapeutic ranges: Venous thromboembolism prophylaxis or treatment: 2.0-3.0 CARDIOLOGY Standard range: 2.0-3.0 High-intensity range: 2.5-3.5 Refer to indication-specific guidelines for appropriate target ranges for prosthetic heart valve replacement. Current interpretive data was last revised on 2019. Testing performed by: [address] [place] [address] Blood 01/12/2025 2:34 PM CDT 01/13/2025 10:43 AM CDT Khris Webster MD LAB BLOOD ORDERABLES Final Res ult Performing Organization Address [facility] Co de Phone Number TA THOMAS (TIFFANY) [address] [facility] [place] [address] * (ABNORMAL) Protime-INR (12/29/2024 1:07 PM CDT) PT 28.1(H) 9.7 - 13.0 sec Comment:Testing performed by : [facility], [address] [place] [address], [id number] INR 2.55(H) 0.90 - 1.20 TA THOMAS (TIFFANY) Comment: Interpretive data Oral anticoagulant therapeutic ranges: Venous thromboembolism prophylaxis or treatment: 2.0-3.0 CARDIOLOGY Standard range: 2.0-3.0 High-intensity range: 2.5-3.5 Refer to indication-specific guidelines for appropriate target ranges for prosthetic heart valve replacement. Current interpretive data was last revised on 2019. Testing performed by: [facility], [address] [place] [address], [address] Blood 12/29/2024 1:07 PM CDT 12/29/2024 6:17 PM CDT Khris Webster MD LAB BLOOD ORDERABLES Final Res ult Performing Organization Address [facility] Co de Phone Number TA THOMAS (TIFFANY) [address] [place] [address] * (ABNORMAL) Protime-INR (12/15/2024 1:11 PM CDT) PT 19.1(H) 9.7 - 13.0 sec Comment:Testing performed by : [address], [address] INR 1.75(H) 0.90 - 1.20 TA THOMAS (TIFFANY) Comment: Interpretive data Oral anticoagulant therapeutic ranges: Venous thromboembolism prophylaxis or treatment: 2.0-3.0 CARDIOLOGY Standard range: 2.0-3.0 High-intensity range: 2.5-3.5 Refer to indication-specific guidelines for appropriate target ranges for prosthetic heart valve replacement. Current interpretive data was last revised on 2019. Testing performed by: [facility], [address] [place] [address]., [address] Blood 12/15/2024 1:11 PM CDT 12/15/2024 5:19 PM CDT us Khris Webster MD LAB BLOOD ORDERABLES Final Res ult TA WILLIAM (TIFFANY) [address] [facility] Department [place] [address] * (ABNORMAL) eGFR (12/08/2024 1:21 PM CDT) eGFR 47(L) >=60 mL/min/1. 73 m2 Comment: Interpretive Data Reference Interval Normal >/= 90 mL/min/1.73m2 Mildly decreased* 60 - 89 mL/min/1.73m2 Mildly to moderately decreased 45 - 59 mL/min/1.73m2 Moderately to severely decreased 30 - 44 mL/min/1.73m2 Severely decreased 15 - 29 mL/min/1.73m2 Kidney Failure < 15 mL/min/1.73m2 *Relative to young adult level Estimated glomerular filtration rate is determined by the 2020 CKD-EPI equation recommended by the National Kidney Foundation (A Unifying Approach to GFR Estimation: Recommendations of the NKF-ASK Task Force on Reassessing the Inclusion of Race in Diagnosing Kidney Disease, JASN 202). The CKD-EPI equation should not be used for patients with unstable renal function and has not been validated in children and those over 70. Current interpretive data was last reviewed 2021. Testing performed by: [address] [place] [address] Blood 12/08/2024 1:21 PM CDT 12/08/2024 5:46 PM CDT us Sammy Fabian MD LAB BLOOD ORDERABLES Final Re sult [facility] ([place]) 2 [facility] Department [place] [address] * (ABNORMAL) Pro B-type natriuretic peptide (12/08/2024 1:21 PM CDT) NT-proBNP 3,039(H) <=450 pg/mL Comment: Interpretive Comments: A. Dyspnea in Acute Care Setting All Ages: < 300 pg/ml, acute heart failure unlikely. < 50 yrs: 300 - 450 pg/ml, further investigation warranted. > 450 pg/ml, acute heart failure likely. 50 - 74 yrs: 300 - 900 pg/ml, further investigation warranted. > 900 pg/ml, acute heart failure likely . > or = 75 yrs: 450 - 1800 pg/ml, further investigation warranted. > 1800 pg/ml, acute heart failure likely. B. Non-acute Setting < 75 yrs < 125 pg/ml, rules out heart failure. > or = 125 pg/ml, further investigation warranted. > or = 75 yrs < 450 pg/ml, rules out heart failure. > or = 450 pg/ml, further investigation warranted. - Knowledge of each individual patient's NT-proBNP range may be more useful than using similar cut-points for every patient. Please note that marked elevations in NT-proBNP levels may be observed in state other than Left Ventricular Congestive Failure, including: acute coronary syndromes, right heart strain/failure (including pulmonary embolism and cor pulmonale), critical illness, renal failure, as well as advanced age. - References: 1. Karen SHEPARD et.al. Eur Heart J. 2006:27:330-337. 2. Keiko RW, Mahesh AM. J. AM Ed Cardiol: Cardiovasc Imag. 2009;2: 216- 225. Interpretive Data Last Revised Date: 2018. Testing performed by: [facility], [address] [place] [address], [place]., [address] Blood 12/08/2024 1:21 PM CDT 12/08/2024 5:44 PM CDT us Sammy Fabian MD LAB BLOOD ORDERABLES Final Re sult [facility] ([place]) 1 [facility] Department [place] [address] * (ABNORMAL) Basic metabolic panel (12/08/2024 1:21 PM CDT) Sodium 141 135 - 145 mmol/L Comment:Testing performed by : [facility], [address] [place] [address]., [address] Potassium, pl 4.1 3.3 - 4.9 mmol/L [facility] ([place]) Comment:Testing performed by : [facility], [address] [place] [address]., [address] Chloride 98 97 - 110 mmol/L [facility] ([place]) Comment:Testing performed by : [facility], [address] [place] [address]., [address] CO2 34(H) 22 - 32 mmol/L [facility] ([place]) Comment:Testing performed by : [facility], [address] [place] [address]., [address] Anion gap 9 2 - 15 mmol/L [facility] ([place]) Comment:Testing performed by : [facility], [address] [place] [address]., [address] BUN 26(H) 6 - 25 mg/dL [facility] ([place]) Comment:Testing performed by : [facility], [address] [place] [address]., [address] Creatinine 1.17(H) 0.60 - 1.10 mg/dL [facility] ([place]) Comment:Testing performed by : [address], [address] Glucose 124 70 - 199 mg/dL [facility] Comment: Interpretive Data Fasting glucose >/= 126 mg/dl is diagnostic for diabetes. Fasting is defined as no caloric intake for at least 8 hours. Fasting glucose between 100 mg/dl to 125 mg/dl is diagnostic of prediabetes. In a patient with classic symptoms of hyperglycemia or hyperglycemic crisis, a random glucose >/= 200 mg/dl is diagnostic for diabetes. In the absence of unequivocal hyperglycemia, results should be confirmed by repeat testing. The classification and Diagnosis of Diabetes Diabetes Care 2021; 46: S19-S40. Current interpretive data was last revised 2022. Testing performed by: [facility], [address] [place] [address]., [address] Calcium 9.9 8.5 - 10.3 mg/dL [facility] ([place]) Comment:Testing performed by : [facility], [address] [place] [address]., [address] Blood 12/08/2024 1:21 PM CDT 12/08/2024 5:44 PM CDT Narrative [facility] ([place]) - 12/08/2024 6:41 PM CDT Has the patient fasted?->No us Sammy Fabian MD LAB BLOOD ORDERABLES Final Re sult Performing Organization Address [facility]/ZIP Co de Phone Number [facility] ([place]) 1 [facility] Department [place] [address] * (ABNORMAL) Protime-INR (12/08/2024 1:19 PM CDT) PT 21.7(H) 9.7 - 13.0 sec Comment:Testing performed by : [facility], [address] [place] [address]., [address] INR 1.98(H) 0.90 - 1.20 [facility] ([place]) Comment: Interpretive data Oral anticoagulant therapeutic ranges: Venous thromboembolism prophylaxis or treatment: 2.0-3.0 CARDIOLOGY Standard range: 2.0-3.0 High-intensity range: 2.5-3.5 Refer to indication-specific guidelines for appropriate target ranges for prosthetic heart valve replacement. Current interpretive data was last revised on 2019. Testing performed by: [facility], [address] [place] [address]., [address] Blood 12/08/2024 1:19 PM CDT 12/08/2024 5:44 PM CDT us Khris Webster MD LAB BLOOD ORDERABLES Final Res ult [facility] [address] Department [place] [address] * US Arterial Doppler Lower Extremity Bilateral (12/01/2024 3:43 PM CDT) Anatomical Region Laterality Modality Vascular Bilateral Ultrasound 12/01/2024 3:08 PM CDT Narrative 12/02/2024 8:24 AM CDT [facility] [address] [facility] 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 INDICATIONS: Absent pulses. HISTORY: HTN. HLD. DM. CAD S/P CABG. Afib. CVA. Former smoker. COMPARISONS: No previous exams. MEASUREMENTS: Right Value Left Value Rt Brachial Pressure 179 mmHg Lt Brachial Pressure 169 mmHg Rt FEATHER SEPARATOR Pressure 176 mmHg Lt FEATHER SEPARATOR Pressure 175 mmHg Rt DPA Pressure 163 mmHg Lt DPA Pressure 164 mmHg Rt 1st Digit Pressure 51 mmHg Lt 1st Digit Pressure 71 mmHg Rt PT MANUELA Resting 0.98 Lt PT MANUELA Resting 0.98 Rt DP MANUELA Resting 0.91 Lt DP MANUELA Resting 0.92 Rt Digit 1/Arm Index 0.28 Lt Digit 1/Arm Index 0.4 FINDINGS: Right Common Femoral Artery Analysis: The common femoral artery waveform is triphasic. Right Popliteal Artery Analysis: The popliteal waveform is triphasic. Right Posterior Tibial Artery Analysis: The posterior tibial waveform is triphasic. Right Anterior Tibial Artery Analysis: The anterior tibial waveform is triphasic. Right Digits: The right digit waveform is dampened. Left Common Femoral Artery Analysis: The common femoral artery waveform is triphasic. Left Popliteal Artery Analysis: The popliteal waveform is triphasic. Left Posterior Tibial Artery Analysis: The posterior tibial waveform is triphasic. Left Anterior Tibial Artery Analysis: The anterior tibial waveform is biphasic. Left Digits: The left digit waveform is dampened. Provider Notification: Results called to Dr. Fabian at 15:40. CONCLUSIONS: 1. Ankle-brachial index of 0.9-1.3 is within normal limits in the bilateral lower extremities. ATTESTATION: I have reviewed and interpreted the pertinent images and measurements of this study. I attest to the conclusions in the final report that is provided above. Electronically Signed By: Juanito Syed MD 12/02/2024 8:24:02 AM CDT Procedure Note Juanito Syed MD - 12/02/2024 Vascular [facility] Ve[facility] [address] [place] [address] Lower Extremity Arterial Doppler Report Patient Name: CARMNE CORONA F : 1945 Study Date: 12/01/2024 3:08:00 PM Gender: F Air Traffic Control Manager: Theresa Holman Zayda Location: [facility] Provider: SAMMY FABIAN Quality: Adequate Order Provider: SAMMY FABIAN PROCEDURES: Arterial Report: Bilateral lower extremity arterial Doppler exam at rest. INDICATIONS: Absent pulses. HISTORY: HTN. HLD. DM. CAD S/P CABG. Afib. CVA. Former smoker. COMPARISONS: No previous exams. MEASUREMENTS: Right Value Left Value Rt Brachial Pressure 179 mmHg Lt Brachial Pressure 169 mmHg Rt FEATHER SEPARATOR Pressure 176 mmHg Lt FEATHER SEPARATOR Pressure 175 mmHg Rt DPA Pressure 163 mmHg Lt DPA Pressure 164 mmHg Rt 1st Digit Pressure 51 mmHg Lt 1st Digit Pressure 71 mmHg Rt PT MANUELA Resting 0.98 Lt PT MANUELA Resting 0.98 Rt DP MANUELA Resting 0.91 Lt DP MANUELA Resting 0.92 Rt Digit 1/Arm Index 0.28 Lt Digit 1/Arm Index 0.4 FINDINGS: Right Common Femoral Artery Analysis: The common femoral artery waveform is triphasic. Right Popliteal Artery Analysis: The popliteal waveform is triphasic. Right Posterior Tibial Artery Analysis: The posterior tibial waveform is triphasic. Right Anterior Tibial Artery Analysis: The anterior tibial waveform is triphasic. Right Digits: The right digit waveform is dampened. Left Common Femoral Artery Analysis: The common femoral artery waveform is triphasic. Left Popliteal Artery Analysis: The popliteal waveform is triphasic. Left Posterior Tibial Artery Analysis: The posterior tibial waveform is triphasic. Left Anterior Tibial Artery Analysis: The anterior tibial waveform is biphasic. Left Digits: The left digit waveform is dampened. Provider Notification: Results called to Dr. Fabian at 15:40. CONCLUSIONS: 1. Ankle-brachial index of 0.9-1.3 is within normal limits in thebilateral lower extremities. ATTESTATION: I have reviewed and interpreted the pertinent images and measurements ofthis study. I attest to the conclusions in the final report that is provided above. Electronically Signed By: Juanito Syed MD 12/02/2024 8:24:02 AM CDT Sammy Fabian MD IMG US PROCEDURES Final Resul t * (ABNORMAL) eGFR (12/01/2024 1:51 PM CDT) eGFR 57(L) >=60 mL/min/1. 73 m2 Comment: Interpretive Data Reference Interval Normal >/= 90 mL/min/1.73m2 Mildly decreased* 60 - 89 mL/min/1.73m2 Mildly to moderately decreased 45 - 59 mL/min/1.73m2 Moderately to severely decreased 30 - 44 mL/min/1.73m2 Severely decreased 15 - 29 mL/min/1.73m2 Kidney Failure < 15 mL/min/1.73m2 *Relative to young adult level Estimated glomerular filtration rate is determined by the 2020 CKD-EPI equation recommended by the National Kidney Foundation (A Unifying Approach to GFR Estimation: Recommendations of the NKF-ASK Task Force on Reassessing the Inclusion of Race in Diagnosing Kidney Disease, JASN 2020). The CKD-EPI equation should not be used for patients with unstable renal function and has not been validated in children and those over 70. Current interpretive data was last reviewed 2021. Testing performed by: [facility], [address] [place] [address]., [address] Blood 12/01/2024 1:51 PM CDT 12/01/2024 7:46 PM CDT Sammy Fabian MD LAB BLOOD ORDERABLES Final Re sult [facility] [address] [facility] [place] [address] * (ABNORMAL) Pro B-type natriuretic peptide (12/01/2024 1:51 PM CDT) NT-proBNP 3,155(H) <=450 pg/mL Comment: Interpretive Comments: A. Dyspnea in Acute Care Setting All Ages: < 300 pg/ml, acute heart failure unlikely. < 50 yrs: 300 - 450 pg/ml, further investigation warranted. > 450 pg/ml, acute heart failure likely. 50 - 74 yrs: 300 - 900 pg/ml, further investigation warranted. > 900 pg/ml, acute heart failure likely . > or = 75 yrs: 450 - 1800 pg/ml, further investigation warranted. > 1800 pg/ml, acute heart failure likely. B. Non-acute Setting < 75 yrs < 125 pg/ml, rules out heart failure. > or = 125 pg/ml, further investigation warranted. > or = 75 yrs < 450 pg/ml, rules out heart failure. > or = 450 pg/ml, further investigation warranted. - Knowledge of each individual patient's NT-proBNP range may be more useful than using similar cut-points for every patient. Please note that marked elevations in NT-proBNP levels may be observed in state other than Left Ventricular Congestive Failure, including: acute coronary syndromes, right heart strain/failure (including pulmonary embolism and cor pulmonale), critical illness, renal failure, as well as advanced age. - References: 1. Karen SHEPARD et.al. Eur Heart J. 2006:27:330-337. 2. Keiko RW, Mahesh AM. J. AM Ed Cardiol: Cardiovasc Imag. 2009;2: 216- 225. Interpretive Data Last Revised Date: 2018. Testing performed by: [address] [address] Blood 12/01/2024 1:51 PM CDT 12/01/2024 7:38 PM CDT us Sammy Fabian MD LAB BLOOD ORDERABLES Final Re sult [address] Department [place] [address] * (ABNORMAL) Basic metabolic panel (12/01/2024 1:51 PM CDT) Sodium 142 135 - 145 mmol/L Comment:Testing performed by : [address] [address] Potassium, pl 5.2(H) 3.3 - 4.9 mmol/L TA Comment:Testing performed by : [address] [address] Chloride 106 97 - 110 mmol/L TA Comment:Testing performed by : [address] [address] CO2 28 22 - 32 mmol/L [facility] Comment:Testing performed by : [address] [address] Anion gap 8 2 - 15 mmol/L [facility] Comment:Testing performed by : [address] [address] BUN 23 6 - 25 mg/dL [facility] Comment:Testing performed by : [address], [address] Creatinine 1.00 0.60 - 1.10 mg/dL [facility] Comment:Testing performed by : [address], [address] Glucose 74 70 - 199 mg/dL [facility] Comment: Interpretive Data Fasting glucose >/= 126 mg/dl is diagnostic for diabetes. Fasting is defined as no caloric intake for at least 8 hours. Fasting glucose between 100 mg/dl to 125 mg/dl is diagnostic of prediabetes. In a patient with classic symptoms of hyperglycemia or hyperglycemic crisis, a random glucose >/= 200 mg/dl is diagnostic for diabetes. In the absence of unequivocal hyperglycemia, results should be confirmed by repeat testing. The classification and Diagnosis of Diabetes Diabetes Care 202; 46: S19-S40. Current interpretive data was last revised 2022. Testing performed by: [address] [address] Calcium 9.1 8.5 - 10.3 mg/dL [facility] Comment:Testing performed by : [address], [address] Blood 12/01/2024 1:51 PM CDT 12/01/2024 7:38 PM CDT Narrative [facility] - 12/01/2024 8:12 PM CDT [facility] [place] us Sammy Fabian MD LAB BLOOD ORDERABLES Final Re sult [address] [place] [address] * (ABNORMAL) Protime-INR (11/03/2024 1:17 PM CDT) PT 24.0(H) 9.7 - 13.0 sec Comment:Testing performed by : [facility], [address] [place] [address]., [address] INR 2.19(H) 0.90 - 1.20 [facility] ([place]) Comment: Interpretive data Oral anticoagulant therapeutic ranges: Venous thromboembolism prophylaxis or treatment: 2.0-3.0 CARDIOLOGY Standard range: 2.0-3.0 High-intensity range: 2.5-3.5 Refer to indication-specific guidelines for appropriate target ranges for prosthetic heart valve replacement. Current interpretive data was last revised on 2019. Testing performed by: [facility], [address] [place] [address]., [address] Blood 11/03/2024 1:17 PM CDT 11/03/2024 6:08 PM CDT Khris Webster MD LAB BLOOD ORDERABLES Final Res ult [facility] ([place]) 1 [facility] Department [place] [address] * (ABNORMAL) eGFR (10/20/2024 1:53 PM CDT) eGFR 46(L) >=60 mL/min/1. 73 m2 Comment: Interpretive Data Reference Interval Normal >/= 90 mL/min/1.73m2 Mildly decreased* 60 - 89 mL/min/1.73m2 Mildly to moderately decreased 45 - 59 mL/min/1.73m2 Moderately to severely decreased 30 - 44 mL/min/1.73m2 Severely decreased 15 - 29 mL/min/1.73m2 Kidney Failure < 15 mL/min/1.73m2 *Relative to young adult level Estimated glomerular filtration rate is determined by the 2020 CKD-EPI equation recommended by the National Kidney Foundation (A Unifying Approach to GFR Estimation: Recommendations of the NKF-ASK Task Force on Reassessing the Inclusion of Race in Diagnosing Kidney Disease, JASN 2020). The CKD-EPI equation should not be used for patients with unstable renal function and has not been validated in children and those over 70. Current interpretive data was last reviewed 2021. Testing performed by: [facility], [address] [place] [address]., [address] Blood 10/20/2024 1:53 PM CDT 10/20/2024 7:16 PM CDT Sammy Fabian MD LAB BLOOD ORDERABLES Final Re sult Performing Organization Address City/[facility] Co de Phone Number TA [facility]OM[facility] ([place]) [address] [facility] [employer] [address] * (ABNORMAL) Albumin Creatinine Ratio, Urine (10/20/2024 1:53 PM CDT) Pathologist [facility] Albumin Ur 47.4 mg/L Comment: Interpretive Data No reference range established. Current interpretive data was last revised 2018. Testing performed by: [facility], [address] [place] [address]., [address] Creatinine Ur 66.1 mg/dL [facility] ([place]) Comment: Interpretive Data No reference range established. Current interpretive data was last revised 2018. Testing performed by: [facility], [address] [place] [address]., [address] Albumin Creatinine Ratio, Ur 72(H) 1 - 29 mg/g [facility] ([place]) Comment:Testing performed by : [facility], [address] [place] [address]., [address] Urine 10/20/2024 1:53 PM CDT 10/20/2024 6:58 PM CDT Sammy Fabian MD LAB URINE ORDERABLES Final Re sult Performing Organization Address [facility] Co de Phone Number TA [facility] ([place]) [address] [facility] [employer] [address] * Hepatitis B core antibody, total Blood (10/20/2024 1:53 PM CDT) Hep B core IgG/IgM Nonreactive Nonreactive Comment:Testing performed by : [facility], [address] [facility] [address] Blood 10/20/2024 1:53 PM CDT 10/20/2024 11:55 PM CDT Sammy Fabian MD LAB MICROBIOLOGY - GENERAL OR DERABLES Final Result Performing Organization Address City/[facility] Co de Phone Number [facility] ([place]) 1 [facility] [employer] [address] * Hepatitis B surface antibody (immune status) Blood (10/20/2024 1:53 PM CDT) HBsAb (immune status) Nonreactive Comment: Interpretive Data Nonreactive: This result is consistent with a lack of immunity to Hepatitis B Virus when used in the setting of routine screening. Equivocal: The immune status of the individual should be further assessed, if appropriate, after consideration of clinical status, risk factors, and additional diagnostic information. Reactive: This result is consistent with immunity to Hepatitis B Virus when used in the setting of routine screening. Current interpretive data was last revised on 19. Testing performed by: [address], [address] Blood 10/20/2024 1:53 PM CDT 10/20/2024 6:58 PM CDT us Sammy Fabian MD LAB MICROBIOLOGY - GENERAL OR DERABLES Final Result Performing Organization Address City/[facility] Co de Phone Number [facility] ([place]) 1 [facility] [employer] [address] * Hepatitis B Surface Antigen Blood (10/20/2024 1:53 PM CDT) HepBsAg Nonreactive Nonreactive Comment:Testing performed by : [address], [address] Blood 10/20/2024 1:53 PM CDT 10/20/2024 6:58 PM CDT Sammy Fabian MD LAB MICROBIOLOGY - GENERAL OR DERABLES Final Result [facility] ([place]) 1 [place] [address] * (ABNORMAL) Hemoglobin A1c (10/20/2024 1:53 PM CDT) Hgb A1C 6.6(H) 4.0 - 5.6 % Comment:Testing performed by : [address] [address] Estimated Average Glucose 143 mg/dL [facility] ([place]) Comment: The ADA recommends reporting an estimated Average Glucose (eAG) with all Hemoglobin A1c results using the equation derived from a study of 507 normal and diabetic adults. Minority populations were underrepresented and children were not included. (Diabetes Care 31:9337-3185, 2008). The eAG is not equivalent to a fasting glucose. Testing performed by: [facility], [address] [place] [address], [address] Blood 10/20/2024 1:53 PM CDT 10/20/2024 6:58 PM CDT Sammy Fabian MD LAB BLOOD ORDERABLES Final Re sult Performing Organization Address City/[facility]/ZIP Co de Phone Number TA [facility] ([place]) 1 [place] [address] * Lipid panel (10/20/2024 1:53 PM CDT) Cholesterol 113 30 - 199 mg/dL Comment: Interpretive Data Ages < or = 19 years Acceptable: <170 mg/dL Borderline high: 170-199 mg/dL High: >or= 200 mg/dL Ages > or = 20 years Desirable: <200 mg/dL Borderline high: 200-239 mg/dL High: >or= 240 mg/dL Literature References: 1. Expert Panel on Integrated Guidelines for Cardiovascular Health and Risk Reduction in Children and Adolescents. Pediatrics 2011;128:S213 2. NCEP Expert Panel. Circulation 2004;110:227 Current Interpretive Data was last revised on 2018. Testing performed by: [facility], [address] [place] [address]., [address] Triglycerides 66 <=149 mg/dL [facility] ([place]) Comment: Interpretive Data Ages < or = 9 years Acceptable: <75 mg/dL Borderline high: 75-99 mg/dL High: >or= 100 mg/dL Ages 10 to 20 years Acceptable: <90 mg/dL Borderline high: 90-129 mg/dL High: >or= 130 mg/dL Ages > or = 20 years Desirable: <150 mg/dL Borderline high: 150-199 mg/dL High: 200-499 mg/dL Very high: >or= 499 mg/dL Literature References: 1. Expert Panel on Integrated Guidelines for Cardiovascular Health and Risk Reduction in Children and Adolescents. Pediatrics 2011;128:S213 2. NCEP Expert Panel. Circulation 2004;110:227 Current Interpretive Data was last revised on 2018. Testing performed by: [facility], [address] [place] [address]., [address] HDL 71 >=40 mg/dL [facility] ([place]) Comment: Interpretive Data Ages < or = 19 years Acceptable: >45 mg/dL Borderline low: 40-45 mg/dL Low: <40 mg/dL Ages > or = 20 years Desirable: >or= 60 mg/dL Low: <40 mg/dL Literature References: 1. Expert Panel on Integrated Guidelines for Cardiovascular Health and Risk Reduction in Children and Adolescents. Pediatrics 2011;128:S213 2. NCEP Expert Panel. Circulation 2004;110:227 Current Interpretive Data was last revised on 2018. Testing performed by: [facility], [address] [place] [address]., [address] LDL, calculated 28 <=129 mg/dL [facility] ([place]) Comment: Interpretive Data Ages < or = 19 years Acceptable: <110 mg/dL Borderline high: 110-129 mg/dL High: >or= 130 mg/dL Ages > or = 20 years Optimal: <100 mg/dL Near optimal: 100-129 mg/dL Borderline high: 130-159 mg/dL High: >160 mg/dL Calculated using the Parmar LDL-C estimating equation. This equation was implemented on 2024. Prior to this date LDL-C was estimated using the Friedewald equation. Literature References: 1. Expert Panel on Integrated Guidelines for Cardiovascular Health and Risk Reduction in Children and Adolescents. Pediatrics 2011;128:S213 2. NCEP Expert Panel. Circulation 2004;110:227 3. Ghulam M et al. BRE Cardiol. 2020 December 08;5(5):540-548. doi: 10.1001/[email or web address].2020.0013 Current Interpretive Data was last revised on 2024. Testing performed by: [address] [address] Non-HDL Cholesterol 42 mg/dL [facility] ([place]) Comment: Interpretive Data Ages < or = 19 years Acceptable: <120 mg/dL Borderline high: 120-144 mg/dL High: >145 mg/dL Ages > or = 20 years When triglycerides are >200 mg/dL, Non-HDL cholesterol is a secondary target of therapy with treatment goals that are 30 mg/dL greater than the LDL cholesterol target. Literature References: 1. Expert Panel on Integrated Guidelines for Cardiovascular Health and Risk Reduction in Children and Adolescents. Pediatrics 2011;128:S213 2. NCEP Expert Panel. Circulation 2004;110:227 Current Interpretive Data was last revised on 2018. Testing performed by: [address] [address] Chol/HDL ratio 2 BHAVYA THOMAS ([place]FF[place]) Comment:Testing performed by : [address] [address] Blood 10/20/2024 1:53 PM CDT 10/20/2024 6:58 PM CDT us Sammy Fabian MD LAB BLOOD ORDERABLES Final Re sult TA THOMAS ([place]FF[place]) 1 [facility] Department of Laboratories [place], [place] [id number] * (ABNORMAL) Comprehensive metabolic panel (10/20/2024 1:53 PM CDT) Sodium 140 135 - 145 mmol/L Comment:Testing performed by : [address] [address] Potassium, pl 4.3 3.3 - 4.9 mmol/L [facility] ([place]) Comment:Testing performed by : [facility], [address] [place] [address]., [address] Chloride 101 97 - 110 mmol/L [facility] ([place]) Comment:Testing performed by : [facility], [address] [place] [address]., [address] CO2 27 22 - 32 mmol/L [facility] ([place]) Comment:Testing performed by : [address], [address] Anion gap 12 2 - 15 mmol/L [facility] ([place]) Comment:Testing performed by : [facility], [address] [place] [address], [address] BUN 24 6 - 25 mg/dL [facility] ([place]) Comment:Testing performed by : [facility], [address] [place] [address], [address] Creatinine 1.19(H) 0.60 - 1.10 mg/dL [facility] ([place]) Comment:Testing performed by : [address], [address] Glucose 103 70 - 199 mg/dL [facility] ([place]) Comment: Interpretive Data Fasting glucose >/= 126 mg/dl is diagnostic for diabetes. Fasting is defined as no caloric intake for at least 8 hours. Fasting glucose between 100 mg/dl to 125 mg/dl is diagnostic of prediabetes. In a patient with classic symptoms of hyperglycemia or hyperglycemic crisis, a random glucose >/= 200 mg/dl is diagnostic for diabetes. In the absence of unequivocal hyperglycemia, results should be confirmed by repeat testing. The classification and Diagnosis of Diabetes Diabetes Care 2021; 46: S19-S40. Current interpretive data was last revised 2022. Testing performed by: [facility], [address] [place] [address]., [address] Calcium 9.1 8.5 - 10.3 mg/dL [facility] ([place]) Comment:Testing performed by : [address] [address] Bilirubin, total 0.7 0.1 - 1.2 mg/dL [facility] ([place]) Comment:Testing performed by : [address] [address] Protein, pl 7.5 6.5 - 8.5 g/dL [facility] ([place]) Comment:Testing performed by : [facility], [address] [place] [address], [address] Albumin 3.9 3.5 - 5.0 g/dL [facility] ([place]) Comment:Testing performed by : [facility], [address] [place] [address], [address] Alk phos 85 40 - 130 Units/L [facility] ([place]FF[place]) Comment:Testing performed by : [facility], [address] [place] [address], [address] ALT 11 7 - 45 Units/L [facility] ([place]) Comment:Testing performed by : [address], [address] AST 19 10 - 45 Units/L [facility] ([place]) Comment:Testing performed by : [address], [address] Blood 10/20/2024 1:53 PM CDT 10/20/2024 6:58 PM CDT us Sammy Fabian MD LAB BLOOD ORDERABLES Final Re sult TA THOMAS ([place]) 1 [facility] Department [place] [address] * (ABNORMAL) Protime-INR (10/20/2024 1:47 PM CDT) PT 21.2(H) 9.7 - 13.0 sec Comment:Testing performed by : [address], [address] INR 1.94(H) 0.90 - 1.20 [facility] (TIFFANY) Comment: Interpretive data Oral anticoagulant therapeutic ranges: Venous thromboembolism prophylaxis or treatment: 2.0-3.0 CARDIOLOGY Standard range: 2.0-3.0 High-intensity range: 2.5-3.5 Refer to indication-specific guidelines for appropriate target ranges for prosthetic heart valve replacement. Current interpretive data was last revised on 2019. Testing performed by: [address] [place] [address] Blood 10/20/2024 1:47 PM CDT 10/20/2024 6:49 PM CDT us Khris Webster MD LAB BLOOD ORDERABLES Final Res ult TA [facility]OMAS [place] 1 [facility] Department [place] [employer] [place] [address] * Dexa Axial Skeleton Bone Density 1 or 2 Site (05/06/2024 2:02 PM CDT) Anatomical Region Laterality Modality Body N/A Other 05/06/2024 9:52 PM CDT Narrative 05/06/2024 10:09 PM CDT EXAM DESCRIPTION: DEXA AXIAL SKELETON BONE DENSITY 1 OR MORE SITES REASON FOR STUDY: 78 y/o year old F with given history of: menopause screening Package Crimper/Model: [employer] (S/N [id number]) CLINICAL INFORMATION: Current height: 58.3 inches Maximum height: 60 inches Weight: 141 pounds Risk factors: Postmenopausal COMPARISON: 12/09/2021 Dissimilar scan types or analysis methods precludes assessment for calculating a significant change. FINDINGS: AP LUMBAR SPINE L3-L4: Total BMD is 0.854 g/cm2 T-score is -2.2 LEFT HIP: Total BMD is 0.693 g/cm2 T-score is -2.0 Femoral neck BMD is 0.566 g/cm2 T-score is -2.6 FRAX: FRAX not reported due to T-scores of hip, femoral neck and/or spine being at or below -2.5 (Osteoporosis). IMPRESSION: Osteoporosis. REFERENCE: Bone mineral density: T-Score: Normal (T-score above or = -1.0) Low bone mass (T-score between -1.0 and -2.5) replaces the previously used term osteopenia Osteoporosis (T-score = or below -2.5) Z-Score: Within the expected range for age (Z-score above -2.0) Below the expected range for age (Z-score is -2.0 or below) Please see below follow up recommendations. Medical evaluation for secondary causes of low bone mineral density may be appropriate. FRAX is a World Health Organization validated fracture risk assessment tool that calculates a person's 10 year probability of a major osteoporosis related fracture and hip fracture. According to the National Osteoporosis Foundation guidelines, postmenopausal women and men age 50 or older with low bone mass and a 10 year probability of a major osteoporosis related fracture = or greater than 20% or a 10 year probability of a hip fracture = or greater than 3% should be considered for pharmacological treatment for the prevention of osteoporosis. For further information, including treatment recommendations, please refer to the 2019 ISCD Official Positions (http://www.iscd.org) and the NOF's Clinician's Guide to Prevention and Treatment of Osteoporosis (http://www.nof.org/professionals/clinical-guidelines) THIS IS AN ELECTRONICALLY VERIFIED FINAL REPORT 05/06/2024 10:09 PM - Electronically signed by Zach Barrios M.D. MF: DYLON Report ID: [id number] Reading Location: [id number] Procedure Note Zach Barrios MD - 05/06/2024 EXAM DESCRIPTION: DEXA AXIAL SKELETON BONE DENSITY 1 OR MORE SITES REASON FOR STUDY: 78 y/o year old F with given history of: menopause screening Package Crimper/Model: [employer] (S/N [id number]) CLINICAL INFORMATION: Current height: 58.3 inches Maximum height: 60 inches Weight: 141 pounds Risk factors: Postmenopausal COMPARISON: 12/09/2021 Dissimilar scan types or analysis methods precludes assessment for calculating a significant change. FINDINGS: AP LUMBAR SPINE L3-L4: Total BMD is 0.854 g/cm2 T-score is -2.2 LEFT HIP: Total BMD is 0.693 g/cm2 T-score is -2.0 Femoral neck BMD is 0.566 g/cm2 T-score is -2.6 FRAX: FRAX not reported due to T-scores of hip, femoral neck and/or spine beingat or below -2.5 (Osteoporosis). IMPRESSION: Osteoporosis. REFERENCE: Bone mineral density: T-Score: Normal (T-score above or = -1.0) Low bone mass (T-score between -1.0 and -2.5) replaces thepreviously used term osteopenia Osteoporosis (T-score = or below -2.5) Z-Score: Within the expected range for age (Z-score above -2.0) Below the expected range for age (Z-score is -2.0 or below) Please see below follow up recommendations. Medical evaluation forsecondary causes of low bone mineral density may be appropriate. FRAX is a World Health Organization validated fracture risk assessmenttool that calculates a person's 10 year probability of a major osteoporosisrelated fracture and hip fracture. According to the National OsteoporosisFoundation guidelines, postmenopausal women and men age 50 or older with low bonemass and a 10 year probability of a major osteoporosis related fracture = or greater than 20% or a 10 year probability of a hip fracture = or greaterthan 3% should be considered for pharmacological treatment for the preventionof osteoporosis. For further information, including treatment recommendations, please referto the 2019 ISCD Official Positions (http://www.iscd.org) and the NOF's Clinician's Guide to Prevention and Treatment of Osteoporosis (http://www.nof.org/professionals/clinical-guidelines) THIS IS AN ELECTRONICALLY VERIFIED FINAL REPORT 05/06/2024 10:09 PM - Electronically signed by Zach Barrios M.D. MF: DYLON Report ID: [id number] Reading Location: [place] [address] Sammy Fabian MD IM DXA PROCEDURES Final Resu lt from Last 3 Months or Most Recently Relevant to Health Maintenance [place] [id number] COMMERCIAL GENERIC MEDICARE MEDICARE COMMERCIAL [facility] MEDICARE COMMERCIAL GENERIC MEDICARE [facility] INSURANCE MEDICARE COMMERCIAL [facility] MEDICARE MEDICARE COMMERCIAL GENERIC MEDICARE Advance Directives For more information, please contact: [phone] * Full Code (Latest Code Status on File) Date Activated Date Inactivated Comments 07/09/2020 3:57 PM 07/20/2020 4:29 PM * Full Code Date Activated Date Inactivated Comments 01/23/2020 4:22 PM 01/28/2020 4:33 PM Care Teams Assisted Living Associate Relationship Specialty Start Date End Date Sammy Fabian MD [address] [place] [address] PCP - General Internal Medicine 12/05/23 Khris Webster MD [address] [place] [id number] Consulting Physician Cardiology 09/06/19 Aron Rodrigues MD [address] [place] [id number] Surgeon Cardiothoracic Surgery 07/09/20 [place] [id number] [address] Consulting Physician Pulmonary Disease 05/23/20 Laura Renee MD [address] [place] [id number] [employer] Paralegal Obstetrics and Gynecology 06/10/23 Marie Mendez MD [address] [facility] [place] [id number] Consulting Physician Sleep Medicine 10/12/23 Marvin Isbell MD [address] [place] [id number] Surgeon Anesthesiology 03/10/24
--- OUTSIDE RECORDS SUMMARY | 2025-01-13 19:13 | XMS_ITS | Referral Summary ---
Author Organization [facility] al Address [address] [place] [address] Care Team Providers Care Packing Machine Pilot Can Router Name Role Phone Sammy Fabian MD Primary Care Provider [phone] Khris Webster MD Unavailable [phone] Aron Rodrigues MD Unavailable Conor Lala MD Unavailable Laura Renee MD Unavailable Marie Mendez MD Unavailable Marvin Isbell MD Unavailable [phone] Encounters Date Type Department Care Team Description 01/13/2025 Results Follow-Up [facility] at [address] [place] [address] Shahnaz Coleman MA Protime-INR 01/12/2025 2:35 PM CDT Lab [facility] [address] [place] [address] Atrial fibrillation, unspecified type (HCC) 01/04/2025 Results Follow-Up [facility] [address] [facility] [address] [place] [address] Shahnaz Coleman MA Protime-INR 01/04/2025 Anticoagulation Visit [facility] [address] [place] [phone] Shahnaz Coleman MA Paroxysmal atrial fibrillation (HCC) (Primary Dx) 12/29/2024 1:05 PM CDT Lab [facility] [address] [place] [address] Atrial fibrillation, unspecified type (HCC) 12/19/2024 Results Follow-Up [facility] [address] [place] [address] [place] [phone] Shahnaz Coleman MA Protime-INR 12/19/2024 Anticoagulation Visit [facility] [address] [place] [phone] Shahnaz Coleman MA Paroxysmal atrial fibrillation (HCC) (Primary Dx) 12/15/2024 1:15 PM CDT Lab [facility] [address] [place] [address] Atrial fibrillation, unspecified type (HCC) 12/12/2024 Results Follow-Up [facility] [address] [place] [phone] Shahnaz Coleman MA Protime-INR 12/12/2024 Anticoagulation Visit [facility] [address] [place] [phone] Shahnaz Coleman MA Paroxysmal atrial fibrillation (HCC) (Primary Dx) 12/09/2024 Telephone [facility] [address] [place] [phone] Sammy Fabian MD 12/09/2024 Results Follow-Up [facility] [address] [place] [phone] Sammy Fabian MD Basic metabolic panel, Pro B-type natriuretic peptide, eGFR 12/08/2024 1:35 PM CDT Lab [facility] [address] [place] [address] Chronic combined systolic and diastolic heart failure (HCC) 12/08/2024 1:20 PM CDT Lab [facility] [address] [place] [address] Atrial fibrillation, unspecified type (HCC) 12/03/2024 Telephone [facility] [address] [place] [address] Sammy Fabian MD 12/03/2024 Results Follow-Up [facility] [address] [place] [address] Sammy Fabian MD Basic metabolic panel, Pro B-type natriuretic peptide, eGFR, US Arterial Doppler Lower Extremity Bilateral 12/01/2024 1:20 PM CDT Lab [facility] [address] [facility] [address] [place] [address] Type 2 diabetes mellitus with other circulatory complication, without long-term current use of insulin (HCC); Edema of both lower legs 12/01/2024 3:00 PM CDT Ancillary Procedure [facility] at [address] [place] [address] Absent pedal pulses 12/01/2024 11:45 AM CDT Office Visit [facility] [address] [facility] [address] [place] [address] Sammy Fabian MD Edema of both lower legs (Primary Dx); Chronic combined systolic and diastolic heart failure (HCC); Type 2 diabetes mellitus with other circulatory complication, without long-term current use of insulin (HCC); Other cough; Absent pedal pulses 11/25/2024 2:30 PM CDT Clinical Support [facility] [address] [facility] [address] [place] [address] Other osteoporosis with current pathological fracture, other site, subsequent encounter for fracture with routine healing (Primary Dx) 11/10/2024 Results Follow-Up [facility] [address] [place] [phone] Shahnaz Coleman MA Protime-INR 11/10/2024 Anticoagulation Visit [facility] [address] [place] [phone] Shahnaz Coleman MA Paroxysmal atrial fibrillation (HCC) (Primary Dx) 11/03/2024 1:15 PM CDT Lab [facility] [address] [place] [address] Atrial fibrillation, unspecified type (HCC) 10/25/2024 Results Follow-Up [facility] [address] [place] [phone] Shahnaz Coleman MA Protime-INR 10/25/2024 Anticoagulation Visit [facility] [address] [place] [phone] Shahnaz Coleman MA Paroxysmal atrial fibrillation (HCC) (Primary Dx) 10/22/2024 Results Follow-Up [facility] [address] [place] [phone] Sammy Fabian MD Hepatitis B core antibody, total Blood, Hepatitis B surface antibody (immune status) Blood, Hepatitis B Surface Antigen Blood, Additional followed-up results: 5 10/21/2024 2:00 PM CDT Office Visit [facility] [address] [place] [phone] Sammy Fabian MD Type 2 diabetes mellitus with other circulatory complication, without long-term current use of insulin (HCC) (Primary Dx); Coronary artery disease involving dot lake coronary artery of dot lake heart without angina pectoris; Paroxysmal atrial fibrillation (HCC); Age-related osteoporosis with current pathological fracture with routine healing; Hypertension associated with type 2 diabetes mellitus (HCC); Mixed diabetic hyperlipidemia associated with type 2 diabetes mellitus (HCC); Pulmonary fibrosis (HCC); Chronic combined systolic and diastolic heart failure (HCC) 10/20/2024 2:05 PM CDT Lab [facility] [address] [place] [address] Medicare annual wellness visit, subsequent; Need for hepatitis B screening test; Type 2 diabetes mellitus with other circulatory complication, without long-term current use of insulin (HCC); Mixed hyperlipidemia; Essential hypertension 10/20/2024 1:50 PM CDT Lab [facility] [address] [place] [address] Atrial fibrillation, unspecified type (HCC) from Last 3 Months Allergies Active Allergy Reactions Criticality Noted Date [...] g by mouth daily. 850 g 3 02/25/20 18 Active cyanocobalamin (Vitamin B-12) 1,000 mcg [...] a small vesicle over the left lower byres and some mild inflammatory changes in both [...] warfarin. Assessment & Plan (07/09/2024 3:39 PM ONLINE SERVICES MANAGER): New problem as of about two weeks ago. The patient's arm bruise is essentially completely resolved with no residual discoloration and only a small subcutaneous nodule remaining. We will monitor clinically. Assessment & Plan (06/19/2024 6:27 AM ONLINE SERVICES MANAGER): New problem, appears to be stable, although [...] compression fracture with retropulsion of bony fragments, [facility]. DEXA on 05/06/2024: LUMBAR SPINE L3-L4 T-score [...] femur -2.7 ( was -3.0) Labs on 4/21/23 GFR 52. Calcium 9.7 Vitamin D 50 [...] high-dose vitamin-D, but she does take an dyfk-byy-zqpnkak calcium and vitamin D3 supplement. Continue same. [...] left shoulder and arm. Evaluation in the [facility] emergency room was negative for any other [...] 12/14/2023 Assessment & Plan (06/15/2023 1:29 PM ONLINE SERVICES MANAGER): We encouraged attention to her diet. We [...] 06/20/2022 Assessment & Plan (09/20/2024 1:23 PM ONLINE SERVICES MANAGER): Continue warfarin. Assessment & Plan (12/12/2023 2:08 [...] carotid Dopplers. She saw a surgeon at [facility] who recommended a follow-up carotid Doppler [...] days. She has a follow-up with her cloth sander, Dr. Webster, in early March. Assessment & [...] daily. Assessment & Plan (09/20/2024 1:24 PM ONLINE SERVICES MANAGER): Continue atorvastatin. Assessment & Plan (04/20/2024 12:07 PM CDT): Chronic, controlled on atorvastatin 20 mg daily. We ordered lipids to be done before her next visit in six months. Assessment & Plan (03/15/2024 3:57 PM CDT): LDL goal is less than or equal to 70. Continue atorvastatin. Assessment & Plan (09/15/2023 4:43 PM ONLINE SERVICES MANAGER): Continue atorvastatin. Assessment & Plan (06/15/2023 1:33 PM ONLINE SERVICES MANAGER): She continues on Lipitor, tolerating well. We [...] 11/28/2022 Assessment & Plan (09/09/2022 1:25 PM ONLINE SERVICES MANAGER): Her last cholesterol was 128. Continue atorvastatin. Assessment & Plan (06/20/2022 10:34 AM ONLINE SERVICES MANAGER): Continue atorvastatin. Assessment & Plan (06/04/2022 2:09 PM CDT): She is on generic Lipitor, tolerating well. Continue same and check lipids before her next visit in six months. Assessment & Plan (03/04/2022 4:32 PM CDT): Continue atorvastatin. Cellulitis of left lower extremity 10/15/2021 Assessment & Plan (10/15/2021 12:33 PM ONLINE SERVICES MANAGER): Patient has area of warmth and erythema [...] ago. She is a visit with her assessment specialist, Dr. Hidalgo, in about a month. Assessment [...] a follow- up with Dr. Wynn, her assessment specialist. She has not seen him for awhile. [...] regular. Assessment & Plan (09/20/2024 1:23 PM ONLINE SERVICES MANAGER): Continue warfarin . Assessment & Plan (06/15/2024 1:52 PM ONLINE SERVICES MANAGER): Chronic, present for four years, currently on [...] She is on warfarin managed by her cloth sander, Dr. Webster. She also takes carvedilol 3.125 [...] pacemaker. I reviewed the matter with her cloth sander Dr. Webster, who reviewed the ER EKG and states this is probably second-degree AV block. He will arrange for a 48 hour Holter monitor to see if there is severe bradycardia requiring a pacemaker. Assessment & Plan (06/15/2023 1:28 PM ONLINE SERVICES MANAGER): She remains on warfarin for an episode of paroxysmal atrial fibrillation. Today heart rhythm is regular. She will keep her follow ups with Cardiology, Dr. Webster. Assessment & Plan (03/10/2023 1:23 PM CDT): In sinus rhythm today. Continue warfarin. Assessment & Plan (12/19/2022 12:55 PM CDT): Check INR. Assessment & Plan (09/09/2022 1:24 PM ONLINE SERVICES MANAGER): The patient now is on Eliquis and doing well with no neurologic events. No changes recommended. Assessment & Plan (06/20/2022 10:35 AM ONLINE SERVICES MANAGER): The patient's most recent 14 day monitor [...] week. Assessment & Plan (10/04/2020 12:19 PM ONLINE SERVICES MANAGER): Patient is reporting cough and shortness of [...] warfarin. Assessment & Plan (09/15/2023 4:43 PM ONLINE SERVICES MANAGER): The patient is on warfarin for thromboembolic prophylaxis. S/P MVR (mitral valve repair) 07/09/2020 Overview (11/15/2020): DARIELA, 07/09/2020. Post repair echo: no significant MR. Assessment & Plan (03/15/2024 3:58 PM CDT): Continue to follow with annual echocardiograms. Hx of CABG 07/09/2020 Overview (09/05/2020): CABG x 1 and MV repair, DARIELA Carreon. Nonrheumatic aortic valve insufficiency 03/02/20 20 Overview (03/07/2020): See [facility] office echo report. Assessment & Plan (09/03/2021 1:14 PM ONLINE SERVICES MANAGER): Stable. Assessment & Plan (03/07/2020 9:52 AM CDT): The recent echocardiogram in [facility] offices showed mild to moderate aortic insufficiency. No murmur is audible on exam. She will keep her follow ups with Cardiology. Normocytic anemia 01/26/2020 Overview (09/05/2020): Likely due to acute illness (CAP), see hospital records. Persists post CABG. Assessment & Plan (09/05/2020 11:18 AM ONLINE SERVICES MANAGER): She has had a mild normocytic anemia [...] Medicine. Assessment & Plan (07/09/2024 3:40 PM ONLINE SERVICES MANAGER): Chronic, present for more than four years, stable although she is significantly impaired from his condition. She had a follow-up CT recently that was stable overall. She uses an albuterol inhaler as needed and follows up with pulmonology at [facility]. Assessment & Plan (04/24/2024 1:29 PM [...] fibrosis of uncertain cause. She saw her assessment specialist, Dr. Griggs, recently. Currently she has moderate diffuse wheezing, but is not using her albuterol inhaler which may be e xpired . I sent in refills and encouraged her to use the inhaler. An early follow-up with Pulmonary Medicine may be appropriate. Assessment & Plan (06/28/2023 7:44 PM ONLINE SERVICES MANAGER): We saw her last week for increasing [...] doing. Assessment & Plan (09/18/2019 5:30 AM ONLINE SERVICES MANAGER): For the past several months, she has [...] anterior wall as well as distal septum. [place] is poorly visualized. Inferior wall and lateral wall are bal better. Normal right ventricular size. Normal right [...] She has an echocardiogram scheduled with her cloth sander, Dr. Webster, in a few months. We [...] 10/20/2024 Assessment & Plan (09/20/2024 1:24 PM ONLINE SERVICES MANAGER): Last echocardiogram showed ejection fraction 40%. Continue carvedilol, losartan. Assessment & Plan (04/24/2024 1:25 PM CDT): Chronic, diagnosed a number of years ago, controlled on carvedilol 3.125 mg twice daily and losartan 50 mg daily. She has some trace edema in her legs. She just saw her cloth sander, Dr. Webster, and forgot to ask about [...] breath. Assessment & Plan (09/15/2023 4:43 PM ONLINE SERVICES MANAGER): No signs or symptoms of congestive heart failure. Continue losartan and carvedilol. Assessment & Plan (06/28/2023 7:41 PM ONLINE SERVICES MANAGER): She has trace ankle and lower pretibial pitting edema. Echocardiogram about six months ago showed LV ejection fraction of about 33%. She does not currently take a beta-jovanny or diuretic. We will discuss with her cloth sander, Dr. Webster. On the same echocardiogram, peak [...] week. Assessment & Plan (06/20/2022 10:34 AM ONLINE SERVICES MANAGER): Compensated. Assessment & Plan (06/04/2022 2:06 PM [...] compensated. Assessment & Plan (09/05/2020 11:24 AM ONLINE SERVICES MANAGER): Her most recent echocardiogram shows an ejection [...] She had a recent echocardiogram in her cloth sander's office. Ejection fraction was 40-50%. A follow-up [...] Webster). Assessment & Plan (09/07/2019 9:25 AM ONLINE SERVICES MANAGER): She seems to be well compensated on current therapy. She sees Dr. Sal about once a year. Continue same. Assessment & Plan (03/09/2019 11:49 AM CDT): She is doing well. No new symptoms reported. She sees Dr. Webster periodically. We are changing her afterload reduction from lisinopril to losartan because of a cough, otherwise continue current medications and follow up in six months. Assessment & Plan (09/01/2018 11:09 AM ONLINE SERVICES MANAGER): She seems well compensated. She is on a good medical regimen. Labs are stable. She sees Dr. Webster periodically. Continue same. Assessment & Plan (08/26/2017 12:43 PM ONLINE SERVICES MANAGER): She has mild systolic dysfunction on a recent echocardiogram done about a year ago in Dr. Webster's office. She takes Coreg, and this seems to be helping control if not potentially reverse her cardiomyopathy. Continue same. Psychophysiological insomnia 05/29/2015 Overview (11/13/2016): Psychophysiological insomnia Assessment & Plan (08/26/2017 12:39 PM ONLINE SERVICES MANAGER): She is sleeping well now. She does [...] list. Assessment & Plan (09/05/2020 11:17 AM ONLINE SERVICES MANAGER): She is doing well. She takes ropinirole as needed. Continue same. Assessment & Plan (01/24/2020 9:02 AM CDT): Continue home ropinirole. Assessment & Plan (03/09/2019 11:51 AM CDT): She uses ropinirole if she senses that her restless legs are going to bother her. Continue same. Assessment & Plan (09/01/2018 11:11 AM ONLINE SERVICES MANAGER): She continues on ropinirole. Tolerating well. Assessment & Plan (08/26/2017 12:40 PM ONLINE SERVICES MANAGER): She does see Dr. Mendez periodically, but [...] deficiency Assessment & Plan (09/11/2020 12:41 PM ONLINE SERVICES MANAGER): She takes daily oral vitamin B12. Vitamin D deficiency 01/12/2015 Overview (11/13/2016): Vitamin D deficiency Assessment & Plan (09/11/2020 12:41 PM ONLINE SERVICES MANAGER): She takes high dose weekly vitamin D. Assessment & Plan (03/07/2020 9:57 AM CDT): She has been on high-dose replacement, and her vitamin-D level did come up to just above the normal threshold. We will keep her on the high-dose for another six months or so and then transition her back to vouq-eka-tldzzbt maintenance. I did ask her to make sure she gets enough calcium in her diet (6902-0286 mg daily). Assessment & Plan (02/12/2020 11:14 [...] cells. Assessment & Plan (07/09/2024 3:40 PM ONLINE SERVICES MANAGER): Chronic, stable. Her recent chest CT for pulmonary fibrosis reported multiple thyroid nodules which are unchanged compared to prior scans. The thyroid nodules were evaluated about 10 years ago with a fine-needle aspirate of the largest 2.3 cm left thyroid nodule near the isthmus which was negative for atypical cells. We will continue to monitor clinically. Coronary artery disease invo lving dot lake coronary artery of [place] heart without angina pectoris 05/09/2010 Overview (10/20/2024 4:52 AM CDT): On medical therapy. >>OVERVIEW FOR ISCHEMIC HEART DISEASE DUE TO CORONARY ARTERY OBSTRUCTION (HCC) WRITTEN ON 07/09/2020 8:29 AM BY SAMMY FABIAN MD [place] with cardiogenic shock, see [facility] records. Cardiac catheterization on 05/09/2010: 1. Left ventricular enlargement with severe left ventricular dysfunction. Ejection fraction is 30%. 2. Moderately severe mitral regurgitation. 3. Coronary artery disease with severe obstruction of the distal right coronary artery. Medical therapy recommended. Doing well. Sees Dr. Savage Soto. Cardiac Cath 03/22/20): 1. Mild LV dysfunction [...] recently underwent coronary artery bypass grafting at [facility]. She did amazingly well. Continue medical [...] warfarin. Assessment & Plan (06/14/2024 8:19 PM ONLINE SERVICES MANAGER): Chronic, present for more than four years, [...] meds. Assessment & Plan (09/03/2021 1:17 PM ONLINE SERVICES MANAGER): No angina. Assessment & Plan (02/26/2021 6:50 PM CDT): Doing well with no symptoms of angina. I have recommended no change in her medical therapy. Assessment & Plan (10/26/2020 11:18 AM CDT): No angina. Vocal cord palsy 04/07/2010 Overview (11/13/2016): Vocal cord paralysis Nonrheumatic mitral valve regurgitation 02/08/20 10 Overview (11/15/2020): See scanned echo report, [facility], moderate to severe mitral regurgitation. Follow up 06/26/20, [facility] office, see scanned report for details: [...] MR. Assessment & Plan (09/09/2022 1:25 PM ONLINE SERVICES MANAGER): The patient is status post mitral valve repair. She has no signs or symptoms of congestive heart failure. No changes recommended. Assessment & Plan (04/25/2022 2:42 PM CDT): Stable. Assessment & Plan (03/04/2022 4:30 PM CDT): Stable status post MV repair. Continue current therapy. Assessment & Plan (09/03/2021 1:16 PM ONLINE SERVICES MANAGER): Mild MR by echo today Assessment & [...] overall. Assessment & Plan (09/01/2018 11:10 AM ONLINE SERVICES MANAGER): She has a minimal residual from a stroke about 10 years ago at the time of acute [place]. She takes a baby aspirin daily. Continue same. Assessment & Plan (08/30/2017 4:38 PM ONLINE SERVICES MANAGER): She had multiple areas of stroke a [...] Hypertension associated with type 2 diabetes indira clarisa 08/20/2007 Overview (11/14/2016): Hypertension Assessment & Plan [...] 142/62 Assessment & Plan (06/28/2023 7:43 PM ONLINE SERVICES MANAGER): Blood pressure is in a good range [...] medication which we are deferring to her cloth sander, Dr. Webster. She sees him in two [...] medications. Assessment & Plan (09/05/2020 11:21 AM ONLINE SERVICES MANAGER): Systolic blood pressure is mildly elevated. She [...] Coreg. Assessment & Plan (09/07/2019 9:29 AM ONLINE SERVICES MANAGER): Blood pressure is in a good range [...] labs. Assessment & Plan (09/01/2018 11:09 AM ONLINE SERVICES MANAGER): Blood pressure is in a good range. [...] Cardiology. Assessment & Plan (08/30/2017 4:37 PM ONLINE SERVICES MANAGER): Blood pressure in the office today is [...] months. Assessment & Plan (06/15/2023 1:33 PM ONLINE SERVICES MANAGER): She says her mood is good on [...] same. Assessment & Plan (09/07/2019 9:33 AM ONLINE SERVICES MANAGER): She has had trouble with depression in the past. Currently she is doing well on a low-dose of amitriptyline which she also takes for her headaches. Continue same. Assessment & Plan (03/09/2019 11:51 AM CDT): She is doing well on Elavil and Celexa. Mood seems quite stable and positive. Continue same. Assessment & Plan (09/01/2018 11:11 AM ONLINE SERVICES MANAGER): She is on Celexa. Mood is cheerful in the office. She also takes amitriptyline to help control headaches. It is working well for her. Assessment & Plan (08/26/2017 12:39 PM ONLINE SERVICES MANAGER): Her mood is quite cheerful. She has no new symptoms of concern. We will have her continue the Celexa. Resolved Problems Problem Noted Date Diagnosed Date Resolved Date Acute pain of right shoulder 05/22/2023 12/16/2023 Overview (05/28/2023): Due to a fall, seen at [facility] [place]. Assessment & Plan (05/29/2023 9:16 AM CDT): Patient presents for right shoulder pain from a fall a week ago. See above documented HPI and PE. Patient reports right shoulder xray performed 05/22 at [facility] [place] negative for fracture. She has limited use [...] needed. Assessment & Plan (10/15/2021 12:32 PM ONLINE SERVICES MANAGER): Patient has left leg pain and swelling [...] thereafter. Assessment & Plan (10/09/2020 3:35 PM ONLINE SERVICES MANAGER): Since her visit last week patient is [...] Albarado. Assessment & Plan (10/04/2020 11:48 AM ONLINE SERVICES MANAGER): Concern for COVID 19 with associated symptoms. Rapid testing completed and negative. Fever 10/04/2020 11/15/2020 Overview (11/15/2020): See office note and CT chest, resolving pneumonia. Assessment & Plan (10/04/2020 11:48 AM ONLINE SERVICES MANAGER): Patient is reporting low grade fevers with [...] note. Assessment & Plan (09/11/2020 12:43 PM ONLINE SERVICES MANAGER): She bumped her left foot dorsum going [...] (11/26/2021): Added automatically from request for surgery [id number], S/P MITRAL VALVE REPAIR; CORONARY ARTERY BYPASS [id number], DARIELA Carreon, 07/09/2020. Coronary artery disease invo lving [place] heart without angina pectoris 06/18/2020 09/05/2020 Overview (09/05/2020): Added automatically from request for surgery [id number], CABG x 1 and MV repair on 07/09/2020, DARIELA Carreon. SSS (sick sinus syndrome) 06/18/2020 Overview (09/05/2020): Added automatically from request for surgery [id number], originally scheduled for pacemaker, but cancelled. Transient Afib post CABG. Coronary artery disease invo lving [place] coronary artery of [place] heart without angina pectoris 03/20/2020 09/05/2020 Overview (09/05/2020): Added automatically from request for surgery [id number], CABG x 1 and MV repair on [...] turn 05/29/2015 02/23/2018 Overview (11/13/2016): Paroxysmal spells Immunizations Immunization Administration Dates Next Due Influenza, Quadrivalent, Hig h Dose, Preservative Free, Intrr 06/04/2023,06/04/2022,05/23/2021,05/29 Influenza, Split 08/29/2013 Influenza, Trivalent, High D ose, Split, Preservative Free, Intramuscular 04/20/2024,09/07/2019,06/07/2012 Influenza, Trivalent, IM (MDV) 06/26/2014,2013 Moderna SARS-CoV-2 Monovalen t Vaccination (12+ YRS) 11/07/2020,10/12/2020 Pneumococcal Conjugate PCV 13 02/19/2016 Pneumococcal Polysaccharide PPV23 03/10/2010 Tdap 03/07/2020 ZOSTER Recombinant 02/16/2023 Social History Tobacco Use Types Packs/Day Years [...] on file Legal Sex Female 9:25 AM ONLINE SERVICES MANAGER Gender Identity Not on file Sexual [...] 12/01/2024 11:33 AM CDT Plan of Treatment Not on file Medical Devices Implanted 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 Device Identifier Shelf Expiration Date Model / Serial / Lot [employer]ite[employer] Lif[employer]iences [id number] Louise-Harish hy-Cleary Imr Etlogix 28mm 3d Reduced Curvature - [id number] - [id number] Implanted:Qty: 1 on 07/09/2020 by Aron Rodrigues MD at [facility] N/A: Heart [employer] 04/22/2025 [id number] / [id number] / Procedures Procedure Name Priority Date/Time Associated [...] - 13.0 sec Comment:Testing performed by : [facility], [address] [place] [address]., [address] INR 2.35(H) 0.90 - 1.20 TA THOMAS (TIFFANY) Comment: Interpretive data Oral anticoagulant therapeutic ranges: Venous thromboembolism prophylaxis or treatment: 2.0-3.0 CARDIOLOGY Standard range: 2.0-3.0 High-intensity range: 2.5-3.5 Refer to indication-specific guidelines for appropriate target ranges for prosthetic heart valve replacement. Current interpretive data was last revised on 2019. Testing performed by: [facility], [address] [place] [address]., [address] Blood 01/12/2025 2:34 PM CDT 01/13/2025 10:43 AM CDT Khris Webster MD LAB BLOOD ORDERABLES Final Res ult TA THOMAS (TIFFANY) 1 [facility] [place] [address] * (ABNORMAL) Protime-INR (12/29/2024 1:07 PM CDT) PT 28.1(H) 9.7 - 13.0 sec Comment:Testing performed by : [address], [address] INR 2.55(H) 0.90 - 1.20 TA THOMAS (TIFFANY) Comment: Interpretive data Oral anticoagulant therapeutic ranges: Venous thromboembolism prophylaxis or treatment: 2.0-3.0 CARDIOLOGY Standard range: 2.0-3.0 High-intensity range: 2.5-3.5 Refer to indication-specific guidelines for appropriate target ranges for prosthetic heart valve replacement. Current interpretive data was last revised on 2019. Testing performed by: [address], [address] Blood 12/29/2024 1:07 PM CDT 12/29/2024 6:17 PM CDT Khris Webster MD LAB BLOOD ORDERABLES Final Res ult Performing Organization Address City/[facility]/ZIP Co de Phone Number TA THOMAS (CORAL) 1 [facility] [place] [address] * (ABNORMAL) Protime-INR (12/15/2024 1:11 PM CDT) PT 19.1(H) 9.7 - 13.0 sec Comment:Testing performed by : [address], [address] INR 1.75(H) 0.90 - 1.20 TA THOMAS (TIFFANY) Comment: Interpretive data Oral anticoagulant therapeutic ranges: Venous thromboembolism prophylaxis or treatment: 2.0-3.0 CARDIOLOGY Standard range: 2.0-3.0 High-intensity range: 2.5-3.5 Refer to indication-specific guidelines for appropriate target ranges for prosthetic heart valve replacement. Current interpretive data was last revised on 2019. Testing performed by: [facility], [address] [place] [address]., [address] Blood 12/15/2024 1:11 PM CDT 12/15/2024 5:19 PM CDT us Khris Webster MD LAB BLOOD ORDERABLES Final Res ult Performing Organization Address [facility] de Phone Number [facility] (TIFFANY) [address] [place] [address] Department [place] [address] * (ABNORMAL) eGFR (12/08/2024 1:21 PM CDT) [...] was last reviewed 2021. Testing performed by: [facility], [address] [place] [address], [place]., [address] Blood 12/08/2024 1:21 PM CDT 12/08/2024 5:46 PM CDT us Sammy Fabian MD LAB BLOOD ORDERABLES Final Re sult Performing Organization Address [facility] Co de Phone Number TA WILLIAM (TIFFANY) 1 [facility] Department [place] [address] * (ABNORMAL) Pro B-type natriuretic peptide (12/08/2024 [...] Heart J. 2006:27:330-337. 2. Keiko RW, Mahesh MOTLEY. J. AM Ed Cardiol: Cardiovasc Imag. 2009;2: 216- 225. Interpretive Data Last Revised Date: 2018. Testing performed by: [facility], [address] [place] [address], [place]., [address] Blood 12/08/2024 1:21 PM CDT 12/08/2024 5:44 PM CDT us Sammy Fabian MD LAB BLOOD ORDERABLES Final Re sult TA THOMAS (CORAL) 1 [facility] Department [place] [address] * (ABNORMAL) Basic metabolic panel (12/08/2024 1:21 PM CDT) Sodium 141 135 - 145 mmol/L Comment:Testing performed by : [facility], [address] [place] [address]., [address] Potassium, pl 4.1 3.3 - 4.9 mmol/L [facility] (TIFFANY) Comment:Testing performed by : [facility], [address] [place] [address]., [address] Chloride 98 97 - 110 mmol/L [facility] (ITFF[place]) Comment:Testing performed by : [facility], [address] [place] [address]., [address] CO2 34(H) 22 - 32 mmol/L [facility] (TIFF[place]) Comment:Testing performed by : [address], [address] Anion gap 9 2 - 15 mmol/L [facility] (TIFFANY) Comment:Testing performed by : [facility], [address] [place] [address]., [address] BUN 26(H) 6 - 25 mg/dL [facility] (TIFF[place]) Comment:Testing performed by : [address] [address] Creatinine 1.17(H) 0.60 - 1.10 mg/dL [facility] ([place]FF[place]) Comment:Testing performed by : [address] [address] Glucose 124 70 - 199 mg/dL [facility] (TIFFANY) [...] was last revised 2022. Testing performed by: [address], [address] Calcium 9.9 8.5 - 10.3 mg/dL TA THOMAS (TIFFANY) Comment:Testing performed by : [facility], [address] [place] [address], [address] Blood 12/08/2024 1:21 PM CDT 12/08/2024 5:44 PM CDT Narrative TA THOMAS (TIFFANY) - 12/08/2024 6:41 PM CDT Has the patient fasted?->No us Sammy Fabian MD LAB BLOOD ORDERABLES Final Re sult Performing Organization Address City/[facility]/ZIP Co de Phone Number TA [facility] (CORAL) 1 [facility] [place] [address] * (ABNORMAL) Protime-INR (12/08/2024 1:19 PM CDT) PT 21.7(H) 9.7 - 13.0 sec Comment:Testing performed by : [facility], [address] [place] [address], [address] INR 1.98(H) 0.90 - 1.20 TA THOMAS (TIFFANY) Comment: Interpretive data Oral anticoagulant therapeutic ranges: Venous thromboembolism prophylaxis or treatment: 2.0-3.0 CARDIOLOGY Standard range: 2.0-3.0 High-intensity range: 2.5-3.5 Refer to indication-specific guidelines for appropriate target ranges for prosthetic heart valve replacement. Current interpretive data was last revised on 2019. Testing performed by: [facility], [address] [place] [address], [address] Blood 12/08/2024 1:19 PM CDT 12/08/2024 5:44 PM CDT Khris Webster MD LAB BLOOD ORDERABLES Final Res ult TA THOMAS (CORAL) 1 [facility] [place] [address] * US Arterial Doppler Lower Extremity Bilateral (12/01/2024 3:43 PM CDT) Anatomical Region Laterality Modality Vascular Bilateral Ultrasound 12/01/2024 3:08 PM CDT Narrative 12/02/2024 8:24 AM CDT Vascular & Vein Surgery [address] [facility] [place] [address] Lower Extremity Arterial Doppler Report Patient Name: CARMEN CORONA F : 1945 Study Date: 12/01/2024 3:08:00 PM Gender: F Driver Supervisor: Theresa Holman RVZayda Location: [facility] Ref Provider: SAMMY FABIAN Quality: Adequate Order Provider: SAMMY FABIAN PROCEDURES: Arterial Report: Bilateral lower extremity arterial Doppler exam at rest. INDICATIONS: Absent pulses. HISTORY: HTN. HLD. DM. CAD S/P CABG. Afib. CVA. Former smoker. COMPARISONS: No previous exams. MEASUREMENTS: Right Value Left Value Rt Brachial Pressure 179 mmHg Lt Brachial Pressure 169 mmHg Rt GENETICS PHYSICIAN Pressure 176 mmHg Lt GENETICS PHYSICIAN Pressure 175 mmHg Rt DPA Pressure 163 [...] MD - 12/02/2024 Vascular & Vein Surgery [address] [place] [address] Lower Extremity Arterial Doppler Report Patient Name: CARMEN CORONA F : 1945 Study Date: 12/01/2024 3:08:00 PM Gender: F Driver Supervisor: Theresa Holman T Location: [facility] Provider: SAMMY FABIAN Quality: Adequate Order Provider: SAMMY FABIAN PROCEDURES: Arterial Report: Bilateral lower extremity arterial Doppler exam at rest. INDICATIONS: Absent pulses. HISTORY: HTN. HLD. DM. CAD S/P CABG. Afib. CVA. Former smoker. COMPARISONS: No previous exams. MEASUREMENTS: Right Value Left Value Rt Brachial Pressure 179 mmHg Lt Brachial Pressure 169 mmHg Rt GENETICS PHYSICIAN Pressure 176 mmHg Lt GENETICS PHYSICIAN Pressure 175 mmHg Rt DPA Pressure 163 [...] Juanito Syed MD 12/02/2024 8:24:02 AM CDT us Sammy Fabian MD IM US PROCEDURES Final Resul t * (ABNORMAL) [...] was last reviewed 2021. Testing performed by: [facility], [address] [place] [address]., [facility] Blood 12/01/2024 1:51 PM CDT 12/01/2024 7:46 PM CDT us Sammy Fabian MD [place] [address] [facility] [place] [address] * (ABNORMAL) Pro B-type natriuretic peptide (12/01/2024 [...] Heart J. 2006:27:330-337. 2. Keiko RW, Mahesh MOTLEY. J. AM Ed Cardiol: Cardiovasc Imag. 2009;2: 216- 225. Interpretive Data Last Revised Date: 2018. Testing performed by: [address] [address] Blood 12/01/2024 1:51 PM CDT 12/01/2024 7:38 PM CDT us Sammy Fabian MD LAB BLOOD ORDERABLES Final Re sult [address] [place] [address] * (ABNORMAL) Basic metabolic panel (12/01/2024 1:51 PM CDT) Sodium 142 135 - 145 mmol/L Comment:Testing performed by : [address] [address] Potassium, pl 5.2(H) 3.3 - 4.9 mmol/L TA Comment:Testing performed by : [address], [address] Chloride 106 97 - 110 mmol/L TA Comment:Testing performed by : [address], [address] CO2 28 22 - 32 mmol/L TA Comment:Testing performed by : [address], [address] Anion gap 8 2 - 15 mmol/L [facility] Comment:Testing performed by : [address] [address] BUN 23 6 - 25 mg/dL [facility] Comment:Testing performed by : [address] [address] Creatinine 1.00 0.60 - 1.10 mg/dL [facility] Comment:Testing performed by : [address] [address] Glucose 74 70 - 199 mg/dL [facility] Comment: Interpretive Data Fasting glucose >/= 126 [...] was last revised 2022. Testing performed by: [address] [address] Calcium 9.1 8.5 - 10.3 mg/dL [facility] Comment:Testing performed by : [address] [address] Blood 12/01/2024 1:51 PM CDT 12/01/2024 7:38 PM CDT Narrative [facility] - 12/01/2024 8:12 PM CDT [facility] Eidson us Sammy Fabian MD LAB BLOOD ORDERABLES Final Re sult [address] [place] [address] * (ABNORMAL) Protime-INR (11/03/2024 1:17 PM CDT) PT 24.0(H) 9.7 - 13.0 sec Comment:Testing performed by : [address] [address] INR 2.19(H) 0.90 - 1.20 TA THOMAS (CORAL) Comment: Interpretive data Oral anticoagulant therapeutic ranges: Venous thromboembolism prophylaxis or treatment: 2.0-3.0 CARDIOLOGY Standard range: 2.0-3.0 High-intensity range: 2.5-3.5 Refer to indication-specific guidelines for appropriate target ranges for prosthetic heart valve replacement. Current interpretive data was last revised on 2019. Testing performed by: [address] [address] Blood 11/03/2024 1:17 PM CDT 11/03/2024 6:08 PM CDT us Khris Webster MD LAB BLOOD ORDERABLES Final Res ult TA THOMAS (CORAL) 1 [facility] Department [place] [address] * (ABNORMAL) eGFR (10/20/2024 1:53 PM CDT) [...] was last reviewed 2021. Testing performed by: [address] [address] Blood 10/20/2024 1:53 PM CDT 10/20/2024 7:16 PM CDT Sammy Fabian MD LAB BLOOD ORDERABLES Final Re sult Performing Organization Address [facility] Co de Phone Number TA THOMAS (TIFFANY) 1 [place] [address] * (ABNORMAL) Albumin Creatinine Ratio, Urine (10/20/2024 1:53 PM CDT) Pathologist [facility] Albumin Ur 47.4 mg/L Comment: Interpretive Data No reference range established. Current interpretive data was last revised 2018. Testing performed by: [facility], [address] [place] [address], [address] Creatinine Ur 66.1 mg/dL [facility] (TIFFANY) Comment: Interpretive Data No reference range established. Current interpretive data was last revised 2018. Testing performed by: [facility], [address] [place] [address]., [address] Albumin Creatinine Ratio, Ur 72(H) 1 - 29 mg/g [facility] (TIFFANY) Comment:Testing performed by : [facility], [address] [place] [address]., [address] Urine 10/20/2024 1:53 PM CDT 10/20/2024 6:58 PM CDT Sammy Fabian MD LAB URINE ORDERABLES Final Re sult Performing Organization Address [facility]/ZIP Co de Phone Number TA THOMAS (TIFFANY) 1 [facility] [place] [address] * Hepatitis B core antibody, total Blood (10/20/2024 1:53 PM CDT) Pathologist [facility] Hep B core IgG/IgM Nonreactive Nonreactive Comment:Testing performed by : [facility], [address] [place]., [address] Blood 10/20/2024 1:53 PM CDT 10/20/2024 11:55 PM CDT Sammy Fabian MD LAB MICROBIOLOGY - GENERAL OR DERABLES Final Result TA THOMAS (CORAL) 1 [facility] [place] [address] * Hepatitis B surface antibody (immune status) [...] last revised on 19. Testing performed by: [address] [address] Blood 10/20/2024 1:53 PM CDT 10/20/2024 6:58 PM CDT Sammy Fabian MD LAB MICROBIOLOGY - GENERAL OR DERABLES Final Result Performing Organization Address [facility] Co de Phone Number TA THOMAS (CORAL) 1 [facility] [place] [address] * Hepatitis B Surface Antigen Blood (10/20/2024 1:53 PM CDT) HepBsAg Nonreactive Nonreactive Comment:Testing performed by : [address] [address] Blood 10/20/2024 1:53 PM CDT 10/20/2024 6:58 PM CDT Sammy Fabian MD LAB MICROBIOLOGY - GENERAL OR DERABLES Final Result TA THOMAS (CORAL) 1 [facility] [place] [address] * (ABNORMAL) Hemoglobin A1c (10/20/2024 1:53 PM CDT) Hgb A1C 6.6(H) 4.0 - 5.6 % Comment:Testing performed by : [facility], [address] [place] [address]., [address] Estimated Average Glucose 143 mg/dL TA THOMAS (TIFFANY) Comment: The ADA recommends reporting an estimated Average Glucose (eAG) with all Hemoglobin A1c results using the equation derived from a study of 507 normal and diabetic adults. Minority populations were underrepresented and children were not included. (Diabetes Care 31:2267-3225, 2008). The eAG is not equivalent to a fasting glucose. Testing performed by: [facility], [address] [place] [address]., [address] Blood 10/20/2024 1:53 PM CDT 10/20/2024 6:58 PM CDT Sammy Fabian MD LAB BLOOD ORDERABLES Final Re sult [facility] (CORAL) 1 [place] [address] * Lipid panel (10/20/2024 1:53 PM CDT) [facility] Cholesterol 113 30 - 199 mg/dL Comment: [...] last revised on 2018. Testing performed by: [facility], [address] [place] [address], [place]., [address] Triglycerides 66 <=149 mg/dL TA THOMAS (TIFFANY) [...] last revised on 2018. Testing performed by: [facility], [address] [place] [address]., [address] HDL 71 >=40 mg/dL TA [facility] (TIFFANY) [...] last revised on 2018. Testing performed by: [facility], [address] [place] [address]., [address] LDL, calculated 28 <=129 mg/dL TA THOMAS (TIFFANY) Comment: Interpretive Data Ages < or = 19 years Acceptable: <110 mg/dL Borderline high: 110-129 mg/dL High: >or= 130 mg/dL Ages > or = 20 years Optimal: <100 mg/dL Near optimal: 100-129 mg/dL Borderline high: 130-159 mg/dL High: >160 mg/dL Calculated using the Ghulam LDL-C estimating equation. This equation was implemented on 2024. Prior to this date LDL-C was estimated using the Friedewald equation. Literature References: 1. Expert Panel on Integrated Guidelines for Cardiovascular Health and Risk Reduction in Children and Adolescents. Pediatrics 2011;128:S213 2. NCEP Expert Panel. Circulation 2004;110:227 3. Ghulam Calderon et al. BRE Cardiol. 2020 December 08;5(5):540-548. doi: 10.1001/jamacardio.2020.0013 Current Interpretive Data was last revised on 2024. Testing performed by: [address] [address] Non-HDL Cholesterol 42 mg/dL TA THOMAS (TIFFANY) [...] last revised on 2018. Testing performed by: [address] [address] Chol/HDL ratio 2 BHAVYA THOMAS (TIFFANY) Comment:Testing performed by : [address] [address] Blood 10/20/2024 1:53 PM CDT 10/20/2024 6:58 PM CDT us Sammy Fabian MD LAB BLOOD ORDERABLES Final Re sult TA THOMAS (TIFFANY) 1 [facility] Department [place] [address] * (ABNORMAL) Comprehensive metabolic panel (10/20/2024 1:53 PM CDT) Sodium 140 135 - 145 mmol/L Comment:Testing performed by : [address] [address] Potassium, pl 4.3 3.3 - 4.9 mmol/L TA THOMAS (TIFFANY) Comment:Testing performed by : [address] [address] Chloride 101 97 - 110 mmol/L [facility] (TIFF[place]) Comment:Testing performed by : [facility], [address] [place] [address]., [address] CO2 27 22 - 32 mmol/L [facility] (TIFF[place]) Comment:Testing performed by : [facility], [address] [place] [address]., [address] Anion gap 12 2 - 15 mmol/L [facility] (TIFF[place]) Comment:Testing performed by : [address] [address] BUN 24 6 - 25 mg/dL [facility] ([place]) Comment:Testing performed by : [address] [address] Creatinine 1.19(H) 0.60 - 1.10 mg/dL [facility] (TIFF[place]) Comment:Testing performed by : [address], [address] Glucose 103 70 - 199 mg/dL CERNER [...] was last revised 2022. Testing performed by: [address] [address] Calcium 9.1 8.5 - 10.3 mg/dL [facility] (TIFF[place]) Comment:Testing performed by : [address] [address] Bilirubin, total 0.7 0.1 - 1.2 mg/dL [facility] (TI[place]) Comment:Testing performed by : [address] [address] Protein, pl 7.5 6.5 - 8.5 g/dL [facility] (TIFF[place]) Comment:Testing performed by : [address] [address] Albumin 3.9 3.5 - 5.0 g/dL [facility] (TIFF[place]) Comment:Testing performed by : [facility], [address] [place] [address], [address] Alk phos 85 40 - 130 Units/L [facility] (TIFFANY) Comment:Testing performed by : [facility], [address] [place] [address], [address] ALT 11 7 - 45 Units/L [facility] (TIFFANY) Comment:Testing performed by : [facility], [address] [place] [address], [address] AST 19 10 - 45 Units/L [facility] (TIFFANY) Comment:Testing performed by : [address], [address] Blood 10/20/2024 1:53 PM CDT 10/20/2024 6:58 PM CDT Sammy Fabian MD LAB BLOOD ORDERABLES Final Re sult TA WILLIAM (CORAL) 1 [facility] Department [place] [address] * (ABNORMAL) Protime-INR (10/20/2024 1:47 PM CDT) PT 21.2(H) 9.7 - 13.0 sec Comment:Testing performed by : [address], [address] INR 1.94(H) 0.90 - 1.20 TA THOM[facility] (TIFFANY) Comment: Interpretive data Oral anticoagulant therapeutic ranges: Venous thromboembolism prophylaxis or treatment: 2.0-3.0 CARDIOLOGY Standard range: 2.0-3.0 High-intensity range: 2.5-3.5 Refer to indication-specific guidelines for appropriate target ranges for prosthetic heart valve replacement. Current interpretive data was last revised on 2019. 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 MF: DYLON Report ID: [id number] Reading Location: [place] [address] Sammy Fabian MD IMG DXA PROCEDURES Final Resu lt from Last 3 Months or Most Recently Relevant to Health Maintenance Insurance COMMERCIAL GENERIC MEDICARE MEDICARE COMMERCIAL GENERIC MEDICARE COMMERCIAL GENERIC MEDICARE [facility] INSURANCE MEDICARE COMMERCIAL GENERIC MEDICARE MEDICARE COMMERCIAL GENERIC MEDICARE Advance Directives For more information, please contact: [phone] * Full Code (Latest Code Status on File) Date Activated Date Inactivated Comments 07/09/2020 3:57 PM 07/20/2020 4:29 PM * Full Code Date Activated Date Inactivated Comments 01/23/2020 4:22 PM 01/28/2020 4:33 PM Care Teams Packing Machine Pilot Can Router Relationship Specialty Start Date End Date Sammy Fabian MD [address] [id number] PCP - General Internal Medicine 12/05/23 Khris Webster MD [address] [address] Consulting Physician Cardiology 09/06/19 Aron Rodrigues MD [address] [place] [address] Surgeon Cardiothoracic Surgery 07/09/20 [place] [address] [address] Consulting Physician Pulmonary Disease 05/23/20 Laura Renee MD [address] [place] [address] Reception Specialist Obstetrics and Gynecology 06/10/23 Marie Mendez MD [address] [facility] [place] [address] Consulting Physician Sleep Medicine 10/12/23 Marvin Isbell MD [address] [place] [address] Surgeon Anesthesiology 03/10/24
--- OUTSIDE RECORDS SUMMARY | 2025-01-13 19:13 | XMS_ITS | Encounter Summary ---
Author Organization [facility] Address [address] [place] [address] Phone Care Team Providers Care Airplane Pilot Crop Dusting Name Role Phone Ebenezer Lucas MD Primary Care Provider [phone] Frank Webster MD Unavailable [phone] Aron Rodrigues MD Unavailable [phone] Conor Lala MD Unavailable [phone] Laura Renee MD Unavailable Marie Mendez MD Unavailable Marvin Isbell MD Unavailable [phone] Encounter Details Date Type Department Care Team (Late st Contact Info) Description 01/11/2024 Treatment [facility] Ophthalmology [facility] 3rd Floor [address] [place] [address] Davina Hinds MD [address] [place] [address] [address] [place] [address] ERRONEOUS ENCOUNTER--DISREGARD (Primary Dx) Social History Tobacco Use Types Packs/Day Years Used Date Smoking Tobacco: Former Cigarettes 0.5 43 0 02/07/1965 - 02/08/2008 Smokeless Tobacco: Never Alcohol Use Standard Drinks/Week Comments No 0 (1 standard drink = 0.6 oz pur e alcohol) PHQ-2 Answer Date Recorded PHQ-2 Total Score (If total score is 3 or more points, staff should administer the PHQ-9) 0 12/12/2022 Personal Safety Answer Date Recorded Have you ever been in or are you currently in a harmful physical or emotional relationship or is someone making you feel afraid or unsafe? 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 Gender Identity Not on file Sexual Orientation Not on file Occupation Industry Job Start Date Job End Date Retired Not on file Not on file Not on file documented as of this encounter Plan of Treatment Not on file documented as of this encounter Visit Diagnoses Diagnosis ERRONEOUS ENCOUNTER--DISREGARD- Primary documented in this encounter Eye Exam Visual Acuity Right eye Left eye Dist sc btl btl Tonometry (Palpation) Right eye Left eye Pressure soft soft Pupils Dilated, no dyscoria Care Teams Airplane Pilot Crop Dusting Relationship Specialty Start Date End Date Ebenezer Lucas MD [address] [place] [address] PCP - General Internal Medicine 12/05/23 Frank Webster MD [address] [place] [address] Consulting Physician Cardiology 09/06/19 Aron Rodrigues MD [address] [place] [address] Surgeon Cardiothoracic Surgery 07/09/20 [place] [address] [address] Consulting Physician Pulmonary Disease 05/23/20 Laura Renee MD [address] [place] [address] Buggy Man Obstetrics and Gynecology 06/10/23 Marie Mendez MD [address] [facility] [place] [address] Consulting Physician Sleep Medicine 10/12/23 Marvin Isbell MD [address] [place] [address] Surgeon Anesthesiology 03/10/24 documented as of this encounter
--- OUTSIDE RECORDS SUMMARY | 2025-01-13 19:16 | XMS_ITS | Continuity of Care Document ---
Author Organization [employer] [facility] Address [address] [facility] [address] [place] [address] Phone Care Team Providers Care Newspaper Library Manager Name Role Phone Maty MAURICE, Margaret Unavailable [...] Diagnoses Date Provider Providers Copied on [facility]counter [facility], [address], [place], [place], [address], [place] tel:[phone] SEC J Carlos [place] Professional Complete Exam (chief complaint) Dry eyes, bilateralAlle rgic conjunctiviti s of both eyesCongenita l hypertrophy of retinal pigment epithelium of left eyeAsteroid hyalosis of left eyeBilateral artificial lens implantAnteri or basement membrane dystrophy of both eyes 4 Maty OD Margaret. [address], [address], [place], [place], [address], [place]. tel:[phone] Pb Webster. [facility], [address], [place], [place], [address], [place] tel:[phone] SEC [place] No Information 4 Maty OD Margaret. [address] [place] [address], [address], [place], [place], [address], . tel:[phone] Specialist : Pb Orta, [address] [facility], [place], [address] . tel:[phone] cialist: Frank Webster, [address] [facility], [address] [place], [address]. tel:[phone] [facility], [address] [place] [address] [address], [place], [place], [address], tel:[phone] SEC J [place] Professional Refraction only (chief complaint) Bilateral artificial lens implant Oct- 8 Trevino Eladia. [address] [place], [address], . tel:[phone] Referring Provider: Pb Houser, [address] [place], [address] . tel:[phone] [facility], [address] [place] [address] [address], [place], [place], [address], tel:[phone] SEC J [place] Professional Complete Exam (chief complaint) Pseudophakia of both eyesDry eyes, bilateralAste roid hyalosis of left eye 8 Trevino Eladia. [address] [place], [place], [facility], . tel:[phone] Referring Provider: Pb Houser, [address] [facility] [place], [address] . tel:[phone] [facility], [address] [place] [address] [address], [place], [place], [address], tel:[phone] SEC J [place] Professional Complete Exam (chief complaint) Bilateral artificial lens implantPuncta te keratitis of left eye 6 You Ambriz. [address] [facility], [place], [address], . tel:[phone] Referring Provider: Pbsushma Teranjamarijayla Houser, [address] [facility] [address], [place], [address] . tel:[phone] [facility], [address], [place], [place], [address], [place] tel:[phone] SEC [place] Professional No Information 6 You Ambriz. [address] [facility], [address] [place], [address], . tel:[phone] [facility], [address], [place], [place], [address], tel:[phone] SEC J [place] Professional Difficulty reading (chief complaint) No Information 5 You Ambriz. [address] [facility], [facility] [place], [address], . tel:[phone] Referring Provider: Pbsushma Houser, [address] [facility] [place], [address] . tel:[phone] [facility], [address], [place], [place], [address], [place] tel:[phone] SEC [place] Professional tearing and burning (chief complaint) No Information 0 4 You Ambriz. [address] [facility], [address] [place], [address], . tel:[phone] Referring Provider: Pbsushma Teranjamarijayla Houser, [address] [facility] [place], [address] . tel:[phone] [facility], [address], [place], [place], [address], [place] tel:[phone] SEC J [place] Professional No Information 3 Wankjayla Ambriz. [address], [place], [place], [address], [place]. tel:[phone] Referring Provider: Pb Houser, [address], [place], [address] . tel:[phone] [facility], [address], [place], [place], [address], [place] tel:[phone] SEC J Carlos [place] Professional No Information 3 Wankum Pb. [address] [facility], [address] [place], [address], [place]. tel:[phone] [facility], [address], [place], [place], [address], [place] tel:[phone] SEC J Carlos [place] Professional No Information 2 Wankjayla Ambriz. [address] [facility], [address] [place], [address], [place]. tel:[phone] Referring Provider: Pb Houser, [address], [place], [address] . tel:[phone] [facility], [address], [place], [place], [address], [place] tel:[phone] SEC J Carlos [place] Professional No Information 1 Wankjayla Pb. [address], [address] [place], [address], [place]. tel:[phone] Referring Provider: Pb Houser, [address], [place], [address] . tel:[phone] [facility], [address], [place], [place], [address], [place] tel:[phone] SEC J Carlos NGUYEN Professional No Information 5-201 0 You Ambriz. [address] [place], [place], [address], . tel:[phone] Referring Provider: Pbsushma Houser, [address] [place], [address] . tel:[phone] [facility], [address] [place] [address] [address], [place], [address], tel:[phone] SEC J Carlos [place] Professional No Information 6-201 0 You Ambriz. [address] [place], [place], [address], . tel:[phone] Referring Provider: Pb Houser, [address] [place], [address] . tel:[phone] [facility], [address], [place], [address], tel:[phone] SEC J Carlos [place] Professional No Information 9-200 8 You Ambriz. [address] [facility], [facility] [place], [address], . tel:[phone] Family History Family Member Type Diagnosis Age At Onset No Information Payers Payer name Insurance type Covered republican ID Tatiana randhawa(s) [place] [id number] [facility] [id number] Social History Type Description Quantity Date Captured [...] x 5 days, then stop. ERx to [facility]. If still bothers patient return to [...]
--- OUTSIDE RECORDS SUMMARY | 2025-01-13 19:16 | XMS_ITS | Continuity of Care Document ---
Author Organization [employer] Address [address] [place] [address] Phone Care Team Providers Care Economic Analyst Name Role Phone Dean Ewing MD Unavailable Unavailable Allergies, Adverse Reactions, Alerts Substance Reaction Status Criticality MONTELUKAST SODIUM Rash Active No Inform ation furosemide Other Active No Information diclofenac Other Active No Information Medications Medication Instructions Dosage Effective Dates (start - stop) Status Comments Gita 50,000 unit Cap take 1 capsule ([id number]) by oral route every week No Longer [...] Diagnoses Date Provider Providers Copied on Encounter [employer], [address], [place], [place], [address] , tel: [phone] [facility] No Information 4 Gildardo Moran. [address] [place] [address], [address], [place], [place], [address], . tel:[phone] [employer], [address], [place], [place], [address] , tel: [phone] [facility] HeadacheNEED FOR PROPHYLACTIC VACCINATION AND INOCULATION, INFLUENZAElevated blood pressure reading without diagnosisInsomnia, unspecifiedDysthymi c disorder 2 Xavier Maria Del Rosario. [address] [facility], [place], [place], [address]. tel:[phone] Referring Provider: Dean Ewing, [address] [place] [address] [address], [place], [address] . tel:[phone] [employer], [address], [place], [place], [address] , tel: [phone] [facility] Toe laceration 2 Gildardo Moran. [address] [place] [address], [address], [place], [place], [address], . tel:[phone] Referring Provider: Dean Ewing, [address] [place] [address] [address], [place], [address] . tel:[phone] [employer], [address], [place], [place], [address] , tel: [phone] [facility] OsteoporosisInsomni a, unspecifiedDysthymi c disorderOther primary cardiomyopathiesUns pecified late effects of cerebrovascular diseasePartial bilateral paralysis of vocal cords 2 Dave Sampson. [address] [place] [address], [address], [place], [place], [address], . tel:[phone] Referring Provider: Dean Ewing, [address] [place] [address] [address], [place], [address] . tel:[phone] [employer], [address], [place], [place], [address] , tel: [phone] [facility] Congestive heart failureDysthymic disorderUnspecified late effects of cerebrovascular diseaseInsomnia, unspecified 2 Dave Sampson. [address] [facility], [address], [place], [place], [address], . tel:[phone] [employer], [address], [place], [place], [address] , tel: [phone] [facility] Chest pain, localizedOsteoporos is, unspecified Apr-0 2 Dave Sampson. [address] [facility], [address], [place], [place], [address], . tel:[phone] Referring Provider: Dean Ewing, [address] [place] [address] [address], [place], [address] . tel:[phone] [employer], [address], [place], [place], [address] , tel: [phone] [facility] Routine general medical examination at a health care facilityRoutine gynecological examinationPartial bilateral paralysis of vocal cordsInsomnia, unspecifiedOther and unspecified hyperlipidemiaDepre ssive disorder, not elsewhere classifiedAllergic rhinitis, cause unspecifiedOther nonspecific findings on examination of urineRoutine general medical examination at a health care facility 1 Dave Sampson. [address] [facility], [address], [place], [place], [address], . tel:[phone] Referring Provider: Dean Ewing, [address] [place] [address] [address], [place], [address] . tel:[phone] [employer], [address], [place], [place], [address] , tel: [phone] [facility] Partial bilateral paralysis of vocal cordsCongestive heart failureUnspecified late effects of cerebrovascular diseasePartial bilateral paralysis of vocal cordsHEMATURIA NOS 1 Gildardo Moran. [address] [place] [address], [address], [place], [place], [address], . tel:[phone] Referring Provider: Dean Ewing, [address] [place] [address] [address], [place], [address] . tel:[phone] [employer], [address], [place], [place], [address] , tel: [phone] [facility] Congestive heart failureDM Controlled, No ComplicationDepress slime disorder, not elsewhere classified 1 Gildardo Moran. [address] [place] [address], [address] , [place], [place], [address], . tel:[phone] Referring Provider: Dean Ewing, [address] [place] [address] [address], [place], [address] . tel:[phone] [employer], [address], [place], [place], [address] , tel: [phone] [facility] Disorder of bone and cartilage, unspecifiedDM Controlled, No Complication 1 Gildardo Moran. [address] [place] [address], [address] , [place], [place], [address], . tel:[phone] [employer], [address], [place], [place], [address] , tel: [phone] [facility] ACUTE URI NOS 1 Conversion Doctor. [address] [place] [address], [facility], . [employer], [address], [place], [place], [address] , tel: [phone] [facility] CHF NOSLATE EFFECT CV DIS NOSDEPRESSIVE DISORDER NECINSOMNIA NOS 1 Gildardo Moran. [address] [place] [address], [address] , [place], [place], [address], . tel:[phone] Family History Family Member Type Diagnosis Age At Onset Mother Problem (finding) congestive heart failur e Brother Problem (finding) cancer of colon Father Problem (finding) malignant neoplasm of p harynx Immunizations Vaccine Date Status Comments Fluzone administered Source: New Imm unization Record pneumo (2 yrs or older) (PPV23) administered Source: New Immuniza tion Record Payers Payer name Insurance type Covered alliance party ID Authoriza tion(s) MEDICARE [place] [id number] [facility] [place] [id number] Social History Type Description Quantity Date Captured [...]
--- OUTSIDE RECORDS SUMMARY | 2025-01-13 19:17 | XMS_ITS | CONTINUITY OF CARE DOCUMENT ---
Author Name letha monae Address Unknown Organization [facility] Address [address] [facility] [address] [place] [address] Phone [phone] Care Team Providers Care Educational Programming Director Name Role Phone letha monae Unavailable Unavailable INSURANCE PROVIDERS Payer name Policy type / Coverage type Webster red republican ID [facility] H[facility] Other [id number]
[2025-01-13 19:18] VITALS: BP 137/75; PULSE 69; RESP 16; TEMP 36.4; O2SAT 98
== END 2025-01-13 19:38 | disposition home or self-care (01) ==
PROVIDERS: Emergency Provider Nurse Practitioner Family; PCP Internal Medicine Infectious Disease
DX: S61.411A Laceration without foreign body of right hand, initial encounter (principal); W22.8XXA Striking against or struck by other objects, initial encounter; I10 Essential (primary) hypertension; E78.00 Pure hypercholesterolemia, unspecified; K21.9 Gastro-esophageal reflux disease without esophagitis; G25.81 Restless legs syndrome; F41.9 Anxiety disorder, unspecified; F32.A Depression, unspecified; Z95.5 Presence of coronary angioplasty implant and graft
CPT/HCPCS: 99212; G0463

== ENCOUNTER 2025-03-31 19:10 | Emergency (ER) | payer MEDICARE, SELFPAY ==
--- OUTSIDE RECORDS SUMMARY | 2013-12-09 08:35 | XMS_ITS | Continuity of Care Document ---
Author Organization [facility] Address [address] [place] [address] Phone Care Team Providers Care [employer] Supervisor Name Role Phone Dean Ewing MD Unavailable Unavailable Allergies, Adverse Reactions, Alerts Substance Reaction Status Criticality MONTELUKAST SODIUM Rash Active No Inform ation furosemide Other Active No Information diclofenac Other Active No Information Medications Medication Instructions Dosage Effective Dates (start - stop) Status Comments Gita 50,000 unit Cap take 1 capsule ([id number]) by oral route every week No Longer Active aspirin 81 mg tablet,delayed release take 1 tablet (81MG) by oral route every day 81 MG No Longer Active Ambien 10 mg Tab take 1 tablet (10MG) by oral route every day at bedtime 10 MG No Longer Active losartan 25 mg tablet take 1 tablet (25MG) by oral route every day 25 MG No Longer Active carvedilol 6.25 mg tablet take 1 tablet (6.25MG) by oral route 2 times every day No Longer Active citalopram 40 mg tablet take 1 tablet (40MG) by oral route every day 40 MG No Longer Active Advance Directives Directive Yes / No Effective Date File Name No Information Encounters Encounter Description Practice Location Reason(s) For Visit Diagnoses Date Provider Providers Copied on Encounter [facility], [address], [place], [place], [id number] , tel: [phone] [facility] No Information 4 Gildardo Moran. [address] [place] [address], [address], [place], [place], [address], . tel:[phone] [employer] [facility] [employer], [address], [place], [place], [address] , tel: [phone] [facility] HeadacheNEED FOR PROPHYLACTIC VACCINATION AND INOCULATION, INFLUENZAElevated blood pressure reading without diagnosisInsomnia, unspecifiedDysthymi c disorder 2 Xavier Maria Del Rosario. [address] [facility], [address], [place], [place], [address]. tel:[phone] Referring Provider: Dean Ewing, [address] [place] [address] [address], [place], [address] . tel:[phone] [employer], [address], [place], [place], [address] , tel: [phone] [facility] Toe laceration 2 Gildardo Moran. [address] [place] [address], [address], [place], [place], [address], . tel:[phone] Referring Provider: Dean Ewing, [address] [place] [address] [address], [place], [address] . tel:[phone] [facility], [address], [place], [place], [address] , tel: [phone] [facility] OsteoporosisInsomni a, unspecifiedDysthymi c disorderOther primary cardiomyopathiesUns pecified late effects of cerebrovascular diseasePartial bilateral paralysis of vocal cords 2 Dave Sampson. [address] [place] [address], [address], [place], [place], [address], . tel:[phone] Referring Provider: Dean Ewing, [address] [place] [address] [address], [place], [address] . tel:[phone] [facility], [address], [place], [place], [address] , tel: [phone] [facility] Congestive heart failureDysthymic disorderUnspecified late effects of cerebrovascular diseaseInsomnia, unspecified 2 Dave Sampson. [address] [facility], [address], [place], [place], [address], . tel:[phone] [facility], [address], [place], [place], [address] , tel: [phone] [facility] Chest pain, localizedOsteoporos is, unspecified Apr-0 2 Dave Sampson. [address] [facility], [address], [place], [place], [address], . tel:[phone] Referring Provider: Dean Ewing, [address] [place] [address] [address], [place], [address] . tel:[phone] [facility], [address], [place], [place], [address] , tel: [phone] [facility] Routine general medical examination at a health care facilityRoutine gynecological examinationPartial bilateral paralysis of vocal cordsInsomnia, unspecifiedOther and unspecified hyperlipidemiaDepre ssive disorder, not elsewhere classifiedAllergic rhinitis, cause unspecifiedOther nonspecific findings on examination of urineRoutine general medical examination at a health care facility 1 Dave Sampson. [address] [facility], [address], [place], [place], [address], . tel:[phone] Referring Provider: Dean Ewing, [address] [place] [address] [address], [place], [address] . tel:[phone] [facility], [address], [place], [place], [address] , tel: [phone] [facility] Partial bilateral paralysis of vocal cordsCongestive heart failureUnspecified late effects of cerebrovascular diseasePartial bilateral paralysis of vocal cordsHEMATURIA NOS 1 Gildardo Moran. [address] [place] [address], [address], [place], [place], [address], . tel:[phone] Referring Provider: Dean Ewing, [address] [place] [address] [address], [place], [address] . tel:[phone] [facility], [address], [place], [place], [address] , tel: [phone] [facility] Congestive heart failureDM Controlled, No ComplicationDepress slime disorder, not elsewhere classified 1 Gildardo Moran. [address] [place] [address], [address] , [place], [place], [address], . tel:[phone] Referring Provider: Dean Ewing, [address] [place] [address] [address], [place], [address] . tel:[phone] [facility], [address], [place], [place], [address] , tel: [phone] [facility] Disorder of bone and cartilage, unspecifiedDM Controlled, No Complication 1 Gildardo Moran. [address] [place] [address], [address] , [place], [place], [address], . tel:[phone] [facility], [address], [place], [place], [address] , tel: [phone] [facility] ACUTE URI NOS 1 [facility]. [address] [place] [address], [facility], . [facility], [address], [place], [place], [address] , tel: [phone] [facility] CHF NOSLATE EFFECT CV DIS NOSDEPRESSIVE DISORDER NECINSOMNIA NOS 1 Gildardo Moran. [address] [place] [address], [address] , [place], [place], [address], . tel:[phone] Family History Family Member Type Diagnosis Age At Onset Mother Problem (finding) congestive heart failur e Brother Problem (finding) cancer of colon Father Problem (finding) malignant neoplasm of p harynx Immunizations Vaccine Date Status Comments Fluzone administered Source: New Imm unization Record pneumo (2 yrs or older) (PPV23) administered Source: New Immuniza tion Record Payers Payer name Insurance type Covered green party ID Authoriza tion(s) MEDICARE [place] [id number] [facility] [id number] Social History Type Description Quantity Date Captured Comments Alcohol Use Details Unknown Caffeine Use Details Unknown Tobacco Use Status No Information Smoking Status Never smoker Sex Female Chief Complaint And Reason For Visit No Information Reason For Referral Reason For Referral No Information History Of Present Illness Encounter Date Complaint History Of Prese nt Illness No Information Functional Status Date Functional Assessmen t No Information Instructions Date Instruction Additional Infor mation No Information Assessments Type Assessment Date No Information Patient Care Teams Name Effective Dates (start - stop) Status Members No Information
--- OUTSIDE RECORDS SUMMARY | 2025-02-03 05:00 | XMS_ITS | Continuity of Care Document ---
Author Organization [employer] Address [address] [facility] utitadeo Reid [address] [place] [phone] Phone Care Team Providers Care Stamp Classifier Name Role Phone Maty MAURICE, Margaret Unavailable [...] - Active Procedures Procedure Date No Charge Refraction No Charge GDX Retina No Charge Optomap Fundus Photos 025 Eye Exam & Treatment No Charge Optomap Fundus Photos 024 Eye [...] Yes / No Effective Date File Name Other Directive No N/A N/A WARNING:The information contained in this section is historical and is provided for information only and does not constitute a legal document or any assurance that the information is still accurate. Please verify the information with the martin of the legal document before using it for clinical purposes. Encounters Encounter Description Practice Location Reason(s) For Visit Diagnoses Date Provider Providers Copied on Encounter [facility], [address], [place], [place], [address], [place] tel:[phone] SEC J Carlos NGUYEN Professional Complete Exam (chief complaint) Dry eyes, bilateralAlle rgic conjunctiviti s of both eyesCongenita l hypertrophy of retinal pigment epithelium of left eyeAsteroid hyalosis of left eyePseudophak ia of both eyesAnterior basement membrane dystrophy of both eyesUnspecifi ed visual loss 5 Maty OD Margaret. [address] [place], [place] [address]cre[employer] [facility], [address], [place], [place], [address], . tel:[phone] Pb Orta.Ángel Webster. [facility], [address] [place] [address] [address], [place], [place], [address], [place] tel:[phone] SEC [place] Professional Complete Exam (chief complaint) Dry eyes, bilateralAlle rgic conjunctiviti s of both eyesCongenita l hypertrophy of retinal pigment epithelium of left eyeAsteroid hyalosis of left eyeBilateral artificial lens implantAnteri or basement membrane dystrophy of both eyes 4 Maty OD Margaret. [address] [place], [place] [address]cre[employer] [facility], [address], [place], [place], [address], [place]. tel:[phone] Pb Webster. [facility], [address] [place] [address] [address], [place], [place], [address], [place] tel:[phone] [place] No Information Oct- 4 Maty OD Margaret. [address] [place] [address] [employer] [facility], [address], [place], [place], [address], [place]. tel:[phone] Specialist : Pb Orta, [address] [place] [address], [address] . tel:[phone] cialist: Frank Webster, [address] [facility], [address] [place], [address]. tel:[phone] [facility], [address] [place] [address] [address], [place], [place], [address], [place] tel:[phone] SEC J [place] Professional Refraction only (chief complaint) Bilateral artificial lens implant Mar-0 - 8 Trevino Eladia. [address] [place] [address], [address], . tel:[phone] Referring Provider: Pb Houser [address] [facility] A, [place], [address] . tel:[phone] [facility], [address], [place], [place], [address], [place] tel:[phone] SEC [place] Professional Complete Exam (chief complaint) Pseudophakia of both eyesDry eyes, bilateralAste roid hyalosis of left eye 8 Uriel Montilla. [address] [facility], [place], [address], . tel:[phone] Referring Provider: Pb Houser, [address] [place] [address] A, [place], [address] . tel:[phone] [facility], [address], [place], [place], [address], [phone] [place] Professional Complete Exam (chief complaint) Bilateral artificial lens implantPuncta te keratitis of left eye 6 You Ambriz. [address] [facility] [place], [place], [address], [place]. tel:[phone] Referring Provider: Pb Houser, [address] [facility] [address], [place], [address] . tel:[phone] [facility], [address], [place], [place], [address], [place] [phone] SEC [place] Professional No Information 6 Wankum Pb. [address] [facility] [address], [place], [place], [address], [place]. tel:[phone] [facility], [address], [place], [place], [address], [place] [phone] [place] Professional Difficulty reading (chief complaint) No Information 5 Wankum Pb. [address] [facility], Suite [place], [address], . tel:[phone] Referring Provider: Pb Houser, [address] [facility] A, [place], [address] . tel:[phone] [facility], [address], [place], [place], [address], tel:[phone] SEC [place] Professional tearing and burning (chief complaint) No Information 0 4 You Ambriz. [address] [facility], [facility] [place], [place], [address], . tel:[phone] Referring Provider: Pb Houser, [address] [facility] [place], [address] . tel:[phone] [facility], [address], [place], [place], [address], tel:[phone] [place] Professional No Information 3 You Ambriz. [address] [facility], [facility] [place], [place], [address], . tel:[phone] Referring Provider: Pb Houser, [address] [facility] [place], [address] . tel:[phone] [facility], [address], [place], [place], [address], [place] tel:[phone] [place] Professional No Information 3 You Ambriz. [address] [facility], [facility] [place], [address], . tel:[phone] [facility], [address], [place], [place], [address], [place] tel:[phone] SEC J [place] Professional No Information 2 You Ambriz. [address] [facility], Suite [place], [address], . tel:[phone] Referring Provider: Pb Houser, [address], [place], [address] . tel:[phone] [facility], [address], [place], [place], [address], tel:[phone] SEC J Carlos NGUYEN Professional No Information 1 Wandarin Ambriz. [address] [facility], Suite [place], [address], . tel:[phone] Referring Provider: Pb Houser, [address] [facility] [place], [address] . tel:[phone] [facility], [address], [place], [place], [address], tel:[phone] SEC J Carlos NGUYEN Professional No Information 0 You Ambriz. [address] [facility], [address] [place], [address], . tel:[phone] Referring Provider: Pb Houser, [address] [facility], [address] . tel:[phone] [facility], [address], [place], [place], [address], tel:[phone] SEC [place] Professional No Information 0 You Ambriz. [address] [facility], [address] [place], [address], . tel:[phone] Referring Provider: Pb Houser, [address] [facility], [address] . tel:[phone] [facility], [address], [place], [place], [address], [place] tel:[phone] SEC J Carlos NGUYEN Professional No Information 200 8 You Ambriz. [address] [facility], [address], [place], [place], [address], [place]. tel:[phone] Family History Family Member Type Diagnosis Age At Onset No Information Payers Payer name Insurance type Covered green party ID Authoriza tion(s) Medicare [facility] [id number] [facility] [id number] Social History Type Description Quantity Date Captured Comments Alcohol Use Details No Caffeine Use Details 1 cup per day Tobacco Use Status Ex-cigarette smoker 025 Smoking Status Former smoker Smoking Tobacco Use Details Cigarette: Age Started: 16, Age Stopped: 21, Years Used 5 Cigarette: No Details Available Sex Female Chief Complaint And Reason For Visit From encounter dated '02/03/2025 10:00'. Complete Exam (chief complaint). Description: The 79 year old patient presents for evaluation of Complete Exam in the right eye and left eye. Pt states no changes in OU since last visit. Pt got new glasses since last visit. Pt using ATs prn OU Reason For Referral Reason For Referral No Information Plan Of Treatment Date Type Action Status Goal Tobacco cessation counseling completed Goal Tobacco cessation counseling completed Goal Tobacco cessation counseling completed Appointment Carmen Ruggiero BOOKED Patient Education Dry Eyes: Care Instruct ions completed Patient Education Dry Eyes: Care Instruct ions completed History Of Present Illness Encounter Date Complaint History Of Prese nt Illness Complete Exam The 79 year old patient presents for evaluation of Complete Exam in the right eye and left eye. Pt states no changes in OU since last visit. Pt got new glasses since last visit. Pt using ATs prn OU Complete Exam The 78 year old patient [...] Date Instruction Additional Infor mariusz Impression/Plan Impression/Plan Impression/Plan Return in 1 year helena [...] x 5 days, then stop. ERx to [facility]. 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
--- OUTSIDE RECORDS SUMMARY | 2025-03-31 19:16 | XMS_ITS | Clinical Summary ---
Author Organization [facility] Facility Address [address] [facility] [place] [address] [place] [address] Care Team Providers Care Hand Tufter Name Role Phone Thompson Lucas MD Primary Care Provider Encounters Date Type Department Care Team Description 01/30/2025 Documentation Only [facility]. [address] [facility] [address] [place] [address] Ebenezer Saavedra MD from Last 3 Months Social History Tobacco Use Types Packs/Day Years Used Date Smoking Tobacco: Never Assessed Comments Unknown Sex and Gender Information Value Date Recorded Sex Assigned at Not on file Legal Sex Female 1:16 PM EDT Gender Identity Not on file Sexual Orientation Not on file Plan of Treatment Health Maintenance Due Date Last Done Comments Diabetes: Hemoglobin A1C 01/30/2025 10/20/2024 Diabetes: Pedal Pulse Checked 01/30/2025 Diabetes: Sensory Foot Exam 01/30/2025 Diabetes: Visual Foot Exam 01/30/2025 Diabetes: Ophthalmology Exam 02/02/2025 02/03/2024 Influenza Vaccine (#1) 2025 4, 09/07/2019, 08/29/2013, Additional history exists Pneumococcal Vaccine: 50+ Years Completed 02/19/2016, 03/10/2010 Hepatitis B Vaccine Aged Out No longe r eligible based on patient's age to complete this topic Care Teams Hand Tufter Relationship Specialty Start Date End Date Thompson Lucas MD [address], [address] [place] [address] PCP - General Infectious Diseases 01/30/25
--- OUTSIDE RECORDS SUMMARY | 2025-03-31 19:16 | XMS_ITS | Encounter Summary ---
Author Organization [facility] Healthcare Address [address] [place] [address] Care Team Providers Care Oracle Hrms Developer Name Role Phone Ebenezer Lucas MD Primary Care Provider [phone] Frank Webster MD Unavailable [phone] Aron Rodrigues MD Unavailable Conor Lala MD Unavailable [phone] Laura Renee MD Unavailable Marie Mendez MD Unavailable Marvin Isbell MD Unavailable [phone] Lucille Tobin RN Unavailable Encounter Details Date Type Department Care Team (Late st Contact Info) Description 03/13/2025 Results Follow-Up [employer] Supervisor [address] [address] Shahnaz Coleman MA Protime-INR Social History Tobacco Use Types Packs/Day Years Used Date Smoking Tobacco: Former Cigarettes 0.5 43 0 02/07/1965 - 02/08/2008 Smokeless Tobacco: Never Alcohol Use Standard Drinks/Week Comments No 0 (1 standard drink = 0.6 oz pur e alcohol) [facility] Utilities Answer Date Recorded In the past 12 months has th e electric, gas, oil, or water [employer] threatened to shut off services in your home? No 02/24/2025 Social Connection and Isolation Panel Answer Date Recorded In a typical week, how many times do you talk on the phone with family, friends, or neighbors? Twice a week 02/24/2025 How often do you get togethe r with friends or relatives? Once a week 02/24/2025 How often do you attend chur or mandaen services? More than 4 times per year 02/24/2025 Do you belong to any clubs o r organizations such as lutheran groups, unions, fraternal or athletic groups, or school groups? No 02/24/2025 How often do you attend meet ings of the clubs or organizations you belong to? Never 02/24/2025 Are you , , di vorced, , never , or living with a partner? 02/24/2025 AUDIT-C Answer Date Recorded Q1: How often do you have a drink containing alcohol? Never 02/21/2025 Q2: How many drinks containi ng alcohol do you have on a typical day when you are drinking? Patient does not drink Q3: How often do you have si x or more drinks on one occasion? Never 02/21/2025 Overall Financial Resource Strain (CARDIA) Answe r Date Recorded How hard is it for you to pa y for the very basics like food, housing, medical care, and heating? Not hard at all 02/24/2025 PHQ-2 Answer Date Recorded PHQ-2 Total Score (If total score is 3 or more points, staff should administer the PHQ-9) 0 03/02/2025 Hunger Vital Sign Answer Date Recorded Within the past 12 months, y ou worried that your food would run out before you got the money to buy more. Never true 02/25/20 25 Within the past 12 months, t he food you bought just didn't last and you didn't have money to get more. Never true 02/24/2025 PRAPARE - Transportation Answer Date Re corded In the past 12 months, has l ack of transportation kept you from medical appointments or from getting medications? No 02/07 In the past 12 months, has l ack of transportation kept you from meetings, work, or from getting things needed for daily living? No 02/24/2025 Housing Stability Vital Sign Answer Rhys e Recorded In the last 12 months, was t here a time when you were not able to pay the mortgage or rent on time? No 02/24/2025 In the past 12 months, how m any times have you moved where you were living? 0 02/24/2025 At any time in the past 12 m [facility], were you homeless or living in a snf (including now)? No 02/24/2025 Personal Safety Answer Date Recorded Have you ever been in or are you currently in a harmful physical or emotional relationship or is someone making you feel afraid or unsafe? 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 Gender Identity Not on file Sexual Orientation Not on file Occupation Industry Job Start Date Job End Date Retired Not on file Not on file Not on file documented as of this encounter Plan of Treatment Not on file documented as of this encounter Visit Diagnoses Not on filedocumented in this encounter Care Teams Oracle Hrms Developer Relationship Specialty Start Date End Date Ebenezer Lucas MD [address] [place] [address] PCP - General Internal Medicine 12/05/23 Frank Webster MD [address] [place] [address] Consulting Physician Cardiology 09/06/19 Aron Rodrigues MD [address] [place] [address] Surgeon Cardiothoracic Surgery 07/09/20 [place] [address] [address] [address] Consulting Physician Pulmonary Disease 05/23/20 Laura Renee MD [address] [place] [address] Nuclear Medicine Officer Obstetrics and Gynecology 06/10/23 Marie Mendez MD [address] [place] [address] Consulting Physician Sleep Medicine 10/12/23 Marvin Isbell MD [address] [place] [address] Surgeon Anesthesiology 03/10/24 Lucille Tobin, RN [address] [place] [address] [address] [place] [address] Tmd Teacher 02/24/25 03/29/25 documented as of this encounter
--- OUTSIDE RECORDS SUMMARY | 2025-03-31 19:16 | XMS_ITS | Clinical Summary ---
Author Organization [facility] Address [address] [place] [address] Phone Care Team Providers Care Hand Molder Meat Name Role Phone Dean Ewing MD Primary Care Provider [phone] Allergies Active Allergy Reactions Criticality Noted Date [...] on file Legal Sex Female 6:06 AM FREQUENCY CHECKER Gender Identity Not on file Sexual Orientation Not on file Occupation Industry Job Start Date Job End Date Not on file Not on file Not on file Not on file Last Filed Vital Signs Vital Sign Reading Time Taken Comments Blood Pressure 137/70 08/24/2014 2:12 PM FREQUENCY CHECKER Pulse 58 08/24/2014 2:12 PM FREQUENCY CHECKER Temperature - - Respiratory Rate - - Oxygen Saturation - - Inhaled Oxygen Concentration - - Weight 61.2 kg (135 lb) 08/24/2014 2:12 PM FREQUENCY CHECKER Height 153.7 cm (5' 0.5) 08/24/2014 2:12 PM FREQUENCY CHECKER Body Mass Index 25.93 08/24/2014 2:12 PM FREQUENCY CHECKER Plan of Treatment Health Maintenance Due Date Last Done Comments DTAP/TDAP/TD VACCINES (1 - Tdap) 10/23/1962 PNEUMOCOCCAL VACCINE 50+ YEARS (1 of 1 - PCV) 10/23/18 94 ZOSTER VACCINE (1 of 2) 10/23/1993 OSTEOPOROSIS SCREENING 10/23/2008 RSV VACCINE (60+ or ) (1 - 1-dose 75+ series) 10/23/2018 INFLUENZA VACCINE (#1) 2025 Insurance MEDICARE PART A AND B [facility] Care Teams Hand Molder Meat Relationship Specialty [place] [address] [place] [address] PCP - General Internal Medicine 10/23/11
--- OUTSIDE RECORDS SUMMARY | 2025-03-31 19:16 | XMS_ITS | Encounter Summary ---
Author Organization [facility] Healthcare Address [address] [place] [address] Care Team Providers Care Steel Placer Name Role Phone Ebenezer Lucas MD Primary Care Provider [phone] Frank Webster MD Unavailable [phone] Aron Rodrigues MD Unavailable [phone] Conor Lala MD Unavailable [phone] Laura Renee MD Unavailable Marie Mendez MD Unavailable Marvin Isbell MD Unavailable [phone] Lucille Tobin RN Unavailable Encounter Details Date Type Department Care Team (Late st Contact Info) Description 01/31/2025 Results Follow-Up [facility] [address] [place] [id number] Ebenezer Lucas MD [address] [place] [address] Urinalysis reflex to microscopic, Basic metabolic panel, Urinalysis, microscopic only, Additional followed-up results: 3 Social History Tobacco Use Types Packs/Day Years [...] on file 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 Gender Identity Not on file Sexual Orientation Not on file Occupation Industry Job Start Date Job End Date Retired Not on file Not on file Not on file documented as of this encounter Plan of Treatment Not on file documented as of this encounter Visit Diagnoses Not on filedocumented in this encounter Care Teams Steel Placer Relationship Specialty Start Date End Date Ebenezer Lucas MD [address] [place] [address] PCP - General Internal Medicine 12/05/23 Frank Webster MD [address] [place] [address] Consulting Physician Cardiology 09/06/19 Aron Rodrigues MD [address] [place] [address] Surgeon Cardiothoracic Surgery 07/09/20 [place] [address] [address] Consulting Physician Pulmonary Disease 05/23/20 Laura Renee MD [address] [place] [address] [employer] Obstetrics and Gynecology 06/10/23 Marie Mendez MD [address] [address] Consulting Physician Sleep Medicine 10/12/23 Marvin Isbell MD [address] [place] [address] Surgeon Anesthesiology 03/10/24 Lucille Tobin, RN [address] [place] [address] [address] [place] [address] Master Rigger 02/24/25 03/29/25 documented as of this encounter
--- OUTSIDE RECORDS SUMMARY | 2025-03-31 19:17 | XMS_ITS | Clinical Summary ---
Author Organization [facility] al Address [address] [place] [address] Care Team Providers Care Assessment Coordinator Name Role Phone Sammy Fabian MD Primary Care Provider [phone] Khris Webster MD Unavailable [phone] Aron Rodrigues MD Unavailable Conor Lala MD Unavailable [phone] Laura Renee MD Unavailable Marie Mendez MD Unavailable Marvin Isbell MD Unavailable [phone] Allergies Active Allergy Reactions Criticality Noted Date Comments Allopurinol Other (See comments) 02/17/2025 Mouth sores Amlodipine Itching Low Reaction: itching, Diclofenac Rash High Diclofenac Rash Medium 12/05/2023 Hydrocodone Itching,Other (See comments) Low Reaction: hands swelled, itching, , , Hydrocodone Itching Low 12/05/2023 Montelukast Itching,Rash,Swellin g,Hi ves High 04/23/2012 Reaction: itching, rash, swelling, , Montelukast Itching,Swelling Medium 12/05/2023 Medications polyethylene glycol (MIRALAX) 17 gram/dose powderIndication s:Chronic constipation Take 17 g by mouth daily. 850 g 3 02/25/20 18 Active cyanocobalamin (Vitamin B-12) 1,000 mcg tabletIndication s:Prevention of Vitamin B12 Deficiency Take 1 tablet (1,000 mcg total) by mouth daily Active biotin 2,500 mcg capsule Take 2,500 mcg by mouth daily Active calcium carbonate-vit D3-min 600 mg calcium- 200 unit tablet Take 1 tablet by mouth Active furosemide (LASIX) 20 mg tabletIndication s:Chronic combined systolic and diastolic heart failure (HCC) Take 1 tablet (20 mg total) by mouth daily as needed (Leg swelling.) 30 tablet 5 04/20/20 24 Active denosumab (PROLIA) 60 mg/mL syringeIndicatio ns:Age-related osteoporosis with current pathological fracture with routine healing Inject 1 ml (60 mg total) under skin x 1 dose. Repeat every 6 months for 2 total injections in 12 month period. 1 mL 1 05/18/20 24 Active albuterol HFA (PROVENTIL HFA,VENTOLIN HFA,PROAIR HFA) 90 mcg/actuation inhalerIndicatio ns:Bronchospasti c Pulmonary Disease Inhale 2 puffs every 6 (six) hours as needed for wheezing 07/01/20 24 Active melatonin 5 mg capsule Take 5 mg by mouth nightly Active warfarin (COUMADIN) 2 mg tabletIndication s:Paroxysmal atrial fibrillation (HCC) Take 1.5 tablets (3 mg total) by mouth daily 45 tablet 11 07/22/20 24 025 Active amitriptyline (ELAVIL) 75 mg tablet Take 1 tablet (75 mg total) by mouth nightly 90 tablet 3 10/12/19 25 Active citalopram (CeleXA) 10 mg tablet Take 1 tablet (10 mg total) by mouth daily 90 tablet 1 11/01/19 25 Active omeprazole (PriLOSEC) 20 mg capsule Take 1 capsule (20 mg total) by mouth daily 90 capsule 1 11/01/19 25 Active acetaminophen (TYLENOL) 500 mg tablet Take 100 mg by mouth every 8 (eight) hours as needed for pain 01/24/20 25 Active rOPINIRole (REQUIP) 0.25 mg tablet Take 2 tablets (0.5 mg total) by mouth nightly Active ergocalciferol (VITAMIN D) 50,000 unit capsule Take 1 capsule (50,000 Units total) by mouth once a week On Sundays Active atorvastatin (LIPITOR) 20 mg tabletIndication s:Coronary artery disease involving [place] coronary artery of [place] heart without angina pectoris Take 1 tablet (20 mg total) by mouth nightly 90 tablet 3 03/02/20 25 026 Active dapagliflozin propanediol (FARXIGA) 10 mg tabletIndication s:Heart Failure Take 1 tablet (10 mg total) by mouth daily 30 tablet 03/06/20 25 Active isosorbide mononitrate ER (IMDUR) 30 mg 24 hr tabletIndication s:Hypertension associated with type 2 diabetes mellitus (HCC) Take 1 tablet (30 mg total) by mouth daily 30 tablet 1 03/09/20 25 Active naloxone (NARCAN) 4 mg/actuation spray,non-aeroso lIndications:ris k mitigation for opioid overdose Administer 1 spray into affected nostril(s) as needed for opioid reversal or respiratory depression Call 911. Administer a single spray in one nostril. Repeat every 3 minutes as needed if no or minimal response. 1 each 12/14/19 24 025 Discontinu ed(No longer taking - Do not display on AVS) atorvastatin (LIPITOR) 20 mg tablet Take 1 tablet (20 mg total) by mouth nightly 90 tablet 3 02/29/20 24 025 Discontinu ed(Reorder ) dapagliflozin propanediol (FARXIGA) 10 mg tabletIndication s:Heart Failure Take 1 tablet (10 mg total) by mouth daily 30 tablet 02/25/20 25 025 Discontinu ed(Reorder ) Active Problems Problem Noted Date Diagnosed Date Acute systolic heart failure 02/23/2025 Gastroesophageal reflux disease without esophagi tis 02/21/2025 Overweight (BMI 25.0-29.9) 02/21/2025 Hyperglycemia 02/21/2025 KALEB (acute kidney injury) 02/21/2025 Anemia 02/21/2025 Biventricular cardiac pacemaker in situ 02/22/20 25 Assessment & Plan (03/20/2025 4:00 PM CDT): Continue quarterly remote pacer checks. Complete heart block 02/17/2025 Assessment & Plan (03/20/2025 4:00 PM CDT): Status post recent pacemaker Assessment & Plan (03/02/2025 2:06 PM CDT): See [facility] HPI/AP. Edema of both lower legs 12/01/2024 Assessment [...] warfarin. Assessment & Plan (07/09/2024 3:39 PM MANAGER BANKING): New problem as of about two weeks ago. The patient's arm bruise is essentially completely resolved with no residual discoloration and only a small subcutaneous nodule remaining. We will monitor clinically. Assessment & Plan (06/19/2024 6:27 AM MANAGER BANKING): New problem, appears to be stable, although [...] compression fracture with retropulsion of bony fragments, [facility]. DEXA on 05/06/2024: LUMBAR SPINE L3-L4 T-score is -2.2, LEFT HIP T-score is - 2.0, FEMORAL NECK T-score is -2.6. Similar to DEXA from 2021. Assessment & Plan (01/23/2025 4:43 AM CDT): See [facility] HPI/AP. Assessment & Plan (10/21/2024 6:27 AM CDT): [...] high-dose vitamin-D, but she does take an [id number] calcium and vitamin D3 supplement. Continue same. [...] left shoulder and arm. Evaluation in the [facility] emergency room was negative for any other [...] diabetes as of 11/28/2022. Assessment & Plan (01/23/2025 4:44 AM CDT): See [facility] HPI/AP. Assessment & Plan (12/01/2024 1:08 PM CDT): [...] 12/14/2023 Assessment & Plan (06/15/2023 1:29 PM MANAGER BANKING): We encouraged attention to her diet. We [...] of precerebral artery 06/20/2022 Assessment & Plan (01/23/2025 4:43 AM CDT): See [facility] HPI/AP. Antiplatelet therapy is relatively contraindicated due to being on warfarin. Assessment & Plan (09/20/2024 1:23 PM MANAGER BANKING): Continue warfarin. Assessment & Plan (12/12/2023 2:08 [...] carotid Dopplers. She saw a surgeon at [facility] who recommended a follow-up carotid Doppler [...] days. She has a follow-up with her construction inspector, Dr. Webster, in early March. Assessment & Plan (03/04/2022 4:31 PM CDT): The patient reports this gait where she trips to the right. This led to her most recent fall. Check CT of the head. Mixed diabetic hyperlipidemi a associated with type 2 diabetes mellitus 03/04/2022 Assessment & Plan (01/23/2025 4:44 AM CDT): See [facility] HPI/AP. Assessment & Plan (10/21/2024 6:29 AM CDT): Chronic, present for many years, recommend continuing low saturated fat diet and atorvastatin 20 mg daily. Assessment & Plan (09/20/2024 1:24 PM MANAGER BANKING): Continue atorvastatin. Assessment & Plan (04/20/2024 12:07 PM CDT): Chronic, controlled on atorvastatin 20 mg daily. We ordered lipids to be done before her next visit in six months. Assessment & Plan (03/15/2024 3:57 PM CDT): LDL goal is less than or equal to 70. Continue atorvastatin. Assessment & Plan (09/15/2023 4:43 PM MANAGER BANKING): Continue atorvastatin. Assessment & Plan (06/15/2023 1:33 PM MANAGER BANKING): She continues on Lipitor, tolerating well. We [...] 11/28/2022 Assessment & Plan (09/09/2022 1:25 PM MANAGER BANKING): Her last cholesterol was 128. Continue atorvastatin. Assessment & Plan (06/20/2022 10:34 AM MANAGER BANKING): Continue atorvastatin. Assessment & Plan (06/04/2022 2:09 PM CDT): She is on generic Lipitor, tolerating well. Continue same and check lipids before her next visit in six months. Assessment & Plan (03/04/2022 4:32 PM CDT): Continue atorvastatin. Cellulitis of left lower extremity 10/15/2021 Assessment & Plan (10/15/2021 12:33 PM MANAGER BANKING): Patient has area of warmth and erythema of LLE from the ankle to mid LE. She has started antibiotic therapy on 10/12/21 per urgent care for cellulitis. Patient reports pain and erythema have improved with antibiotic. She will complete antibiotic as prescribed and return for recheck early next week or sooner if needed. Elevated serum creatinine 05/15/2021 Overview (01/24/2025): Resolved on subsequent labs. Recurrent in 2024 with moderately aggressive diuresis for lower extremity edema, Assessment & Plan (05/23/2021 1:41 PM CDT): [...] and magnesium in a week or so. Cough 05/09/2021 Assessment & Plan (12/01/2024 1:02 PM CDT): Chronic, present for many years. She notes a cough especially in the evening. No fever. Her lung exam is at baseline and there is no fever. Oxygen saturation is adequate. Last CT imaging of her chest was about six months ago. She is a visit with her beverage steward, Dr. Hidalgo, in about a month. Assessment [...] a follow- up with Dr. Wynn, her beverage steward. She has not seen him for awhile. [...] bundle branch block) 10/26/2020 Assessment & Plan (03/20/2025 3:59 PM CDT): Bi V pacing. Assessment & Plan (03/15/2024 3:57 PM CDT): Stable no signs of complete heart block. Atrial fibrillation 10/26/2020 Overview (12/10/2023): Single episode after cardiac surgery in 2019. Event monitor in 2021 negative for Afib, but did show 17 beat run of Vtach. EKG at time of fall and L2 compression fracture, 12/07/2023: Likely atrial fibrillation with slow ventricular response, 45 BPM. Assessment & Plan (03/20/2025 3:59 PM CDT): Continue warfarin Assessment & Plan (03/02/2025 2:06 PM CDT): See [facility] HPI/AP. Assessment & Plan (01/23/2025 4:43 AM CDT): See [facility] HPI/AP. Assessment & Plan (10/21/2024 2:47 PM CDT): Chronic, present for four or more years, recommend continue warfarin with periodic INR monitoring. Heart rhythm is currently regular. Assessment & Plan (09/20/2024 1:23 PM MANAGER BANKING): Continue warfarin . Assessment & Plan (06/15/2024 1:52 PM MANAGER BANKING): Chronic, present for four years, currently on [...] She is on warfarin managed by her construction inspector, Dr. Webster. She also takes carvedilol 3.125 [...] pacemaker. I reviewed the matter with her construction inspector Dr. Webster, who reviewed the ER EKG and states this is probably second-degree AV block. He will arrange for a 48 hour Holter monitor to see if there is severe bradycardia requiring a pacemaker. Assessment & Plan (06/15/2023 1:28 PM MANAGER BANKING): She remains on warfarin for an episode of paroxysmal atrial fibrillation. Today heart rhythm is regular. She will keep her follow ups with Cardiology, Dr. Webster. Assessment & Plan (03/10/2023 1:23 PM CDT): In sinus rhythm today. Continue warfarin. Assessment & Plan (12/19/2022 12:55 PM CDT): Check INR. Assessment & Plan (09/09/2022 1:24 PM MANAGER BANKING): The patient now is on Eliquis and doing well with no neurologic events. No changes recommended. Assessment & Plan (06/20/2022 10:35 AM MANAGER BANKING): The patient's most recent 14 day monitor [...] week. Assessment & Plan (10/04/2020 12:19 PM MANAGER BANKING): Patient is reporting cough and shortness of [...] warfarin. Assessment & Plan (09/15/2023 4:43 PM MANAGER BANKING): The patient is on warfarin for thromboembolic prophylaxis. S/P MVR (mitral valve repair) 07/09/2020 Overview (11/15/2020): DARIELA, 07/09/2020. Post repair echo: no significant MR. Assessment & Plan (03/15/2024 3:58 PM CDT): Continue to follow with annual echocardiograms. Hx of CABG 07/09/2020 Overview (09/05/2020): CABG x 1 and MV repair, DARIELA Carreon. Nonrheumatic aortic valve insufficiency 03/02/20 20 Overview (03/07/2020): See [facility] office echo report. Assessment & Plan (09/03/2021 1:14 PM MANAGER BANKING): Stable. Assessment & Plan (03/07/2020 9:52 AM CDT): The recent echocardiogram in [facility] offices showed mild to moderate aortic insufficiency. No murmur is audible on exam. She will keep her follow ups with Cardiology. Normocytic anemia 01/26/2020 Overview (09/05/2020): Likely due to acute illness (CAP), see hospital records. Persists post CABG. Assessment & Plan (09/05/2020 11:18 AM MANAGER BANKING): She has had a mild normocytic anemia [...] to the prior study. Assessment & Plan (03/02/2025 2:06 PM CDT): See [facility] HPI/AP. Assessment & Plan (10/21/2024 2:48 PM CDT): Chronic, present for 4-5 or more years, recommend continuing albuterol 90 mcg rescue inhaler q.6 hours as needed and periodic follow-up with Pulmonary Medicine. Assessment & Plan (07/09/2024 3:40 PM MANAGER BANKING): Chronic, present for more than four years, stable although she is significantly impaired from his condition. She had a follow-up CT recently that was stable overall. She uses an albuterol inhaler as needed and follows up with pulmonology at [facility]. Assessment & Plan (04/24/2024 1:29 PM CDT): [...] fibrosis of uncertain cause. She saw her beverage steward, Dr. Griggs, recently. Currently she has moderate diffuse wheezing, but is not using her albuterol inhaler which may be e xpired . I sent in refills and encouraged her to use the inhaler. An early follow-up with Pulmonary Medicine may be appropriate. Assessment & Plan (06/28/2023 7:44 PM MANAGER BANKING): We saw her last week for increasing [...] doing. Assessment & Plan (09/18/2019 5:30 AM MANAGER BANKING): For the past several months, she has [...] anterior wall as well as distal septum. Alloway is poorly visualized. Inferior wall and lateral [...] fibrillation during this study. Assessment & Plan (01/23/2025 4:43 AM CDT): See [facility] HPI/AP. Assessment & Plan (12/01/2024 1:01 PM CDT): Likely contributes to the swelling in her legs. She has an echocardiogram scheduled with her construction inspector, Dr. Webster, in a few months. We [...] 10/20/2024 Assessment & Plan (09/20/2024 1:24 PM MANAGER BANKING): Last echocardiogram showed ejection fraction 40%. Continue carvedilol, losartan. Assessment & Plan (04/24/2024 1:25 PM CDT): Chronic, diagnosed a number of years ago, controlled on carvedilol 3.125 mg twice daily and losartan 50 mg daily. She has some trace edema in her legs. She just saw her construction inspector, Dr. Webster, and forgot to ask about [...] breath. Assessment & Plan (09/15/2023 4:43 PM MANAGER BANKING): No signs or symptoms of congestive heart failure. Continue losartan and carvedilol. Assessment & Plan (06/28/2023 7:41 PM MANAGER BANKING): She has trace ankle and lower pretibial pitting edema. Echocardiogram about six months ago showed LV ejection fraction of about 33%. She does not currently take a beta-jovanny or diuretic. We will discuss with her construction inspector, Dr. Webster. On the same echocardiogram, peak [...] week. Assessment & Plan (06/20/2022 10:34 AM MANAGER BANKING): Compensated. Assessment & Plan (06/04/2022 2:06 PM [...] compensated. Assessment & Plan (09/05/2020 11:24 AM MANAGER BANKING): Her most recent echocardiogram shows an ejection [...] She had a recent echocardiogram in her construction inspector's office. Ejection fraction was 40-50%. A follow-up [...] Webster). Assessment & Plan (09/07/2019 9:25 AM MANAGER BANKING): She seems to be well compensated on [...] months. Assessment & Plan (09/01/2018 11:09 AM MANAGER BANKING): She seems well compensated. She is on a good medical regimen. Labs are stable. She sees Dr. Webster periodically. Continue same. Assessment & Plan (08/26/2017 12:43 PM MANAGER BANKING): She has mild systolic dysfunction on a recent echocardiogram done about a year ago in Dr. Webster's office. She takes Coreg, and this seems to be helping control if not potentially reverse her cardiomyopathy. Continue same. Psychophysiological insomnia 05/29/2015 Overview (11/13/2016): Psychophysiological insomnia Assessment & Plan (08/26/2017 12:39 PM MANAGER BANKING): She is sleeping well now. She does [...] list. Assessment & Plan (09/05/2020 11:17 AM MANAGER BANKING): She is doing well. She takes ropinirole as needed. Continue same. Assessment & Plan (01/24/2020 9:02 AM CDT): Continue home ropinirole. Assessment & Plan (03/09/2019 11:51 AM CDT): She uses ropinirole if she senses that her restless legs are going to bother her. Continue same. Assessment & Plan (09/01/2018 11:11 AM MANAGER BANKING): She continues on ropinirole. Tolerating well. Assessment & Plan (08/26/2017 12:40 PM MANAGER BANKING): She does see Dr. Mendez periodically, but [...] deficiency Assessment & Plan (09/11/2020 12:41 PM MANAGER BANKING): She takes daily oral vitamin B12. Vitamin D deficiency 01/12/2015 Overview (11/13/2016): Vitamin D deficiency Assessment & Plan (09/11/2020 12:41 PM MANAGER BANKING): She takes high dose weekly vitamin D. Assessment & Plan (03/07/2020 9:57 AM CDT): She has been on high-dose replacement, and her vitamin-D level did come up to just above the normal threshold. We will keep her on the high-dose for another six months or so and then transition her back to [id number] maintenance. I did ask her to make sure she gets enough calcium in her diet ([id number] mg daily). Assessment & Plan (02/12/2020 11:14 [...] cells. Assessment & Plan (07/09/2024 3:40 PM MANAGER BANKING): Chronic, stable. Her recent chest CT for pulmonary fibrosis reported multiple thyroid nodules which are unchanged compared to prior scans. The thyroid nodules were evaluated about 10 years ago with a fine-needle aspirate of the largest 2.3 cm left thyroid nodule near the isthmus which was negative for atypical cells. We will continue to monitor clinically. Coronary artery disease invo lving [place] coronary artery of [place] heart without angina pectoris 05/09/2010 Overview (10/20/2024 4:52 AM CDT): On medical therapy. >>OVERVIEW FOR ISCHEMIC HEART DISEASE DUE TO CORONARY ARTERY OBSTRUCTION (HCC) WRITTEN ON 07/09/2020 8:29 AM BY SAMMY FABIAN MD [place] with cardiogenic shock, see [place] records. Cardiac catheterization on 05/09/2010: 1. Left [...] intracardiac shunt by oximetry. Assessment & Plan (03/20/2025 4:00 PM CDT): No angina. Continue medical therapy. Assessment & Plan (03/02/2025 2:06 PM CDT): See [facility] HPI/AP. Assessment & Plan (01/23/2025 4:44 AM CDT): See [facility] HPI/AP. Antiplatelet therapy is relatively contraindicated due to being on warfarin. Assessment & Plan (10/21/2024 6:28 AM CDT): [...] recently underwent coronary artery bypass grafting at [facility]. She did amazingly well. Continue medical therapy. [...] warfarin. Assessment & Plan (06/14/2024 8:19 PM MANAGER BANKING): Chronic, present for more than four years, [...] meds. Assessment & Plan (09/03/2021 1:17 PM MANAGER BANKING): No angina. Assessment & Plan (02/26/2021 6:50 PM CDT): Doing well with no symptoms of angina. I have recommended no change in her medical therapy. Assessment & Plan (10/26/2020 11:18 AM CDT): No angina. Vocal cord palsy 04/07/2010 Overview (11/13/2016): Vocal cord paralysis Nonrheumatic mitral valve regurgitation 02/08/20 10 Overview (11/15/2020): See scanned echo report, [facility], moderate to severe mitral regurgitation. Follow up 06/26/20, [facility] office, see scanned report for [...] MR. Assessment & Plan (09/09/2022 1:25 PM MANAGER BANKING): The patient is status post mitral valve repair. She has no signs or symptoms of congestive heart failure. No changes recommended. Assessment & Plan (04/25/2022 2:42 PM CDT): Stable. Assessment & Plan (03/04/2022 4:30 PM CDT): Stable status post MV repair. Continue current therapy. Assessment & Plan (09/03/2021 1:16 PM MANAGER BANKING): Mild MR by echo today Assessment & [...] overall. Assessment & Plan (09/01/2018 11:10 AM MANAGER BANKING): She has a minimal residual from a stroke about 10 years ago at the time of acute [place]. She takes a baby aspirin daily. Continue same. Assessment & Plan (08/30/2017 4:38 PM MANAGER BANKING): She had multiple areas of stroke a [...] 08/20/2007 Overview (11/14/2016): Hypertension Assessment & Plan (01/23/2025 4:44 AM CDT): See [facility] HPI/AP. Assessment & Plan (10/21/2024 6:29 AM CDT): [...] 142/62 Assessment & Plan (06/28/2023 7:43 PM MANAGER BANKING): Blood pressure is in a good range [...] medication which we are deferring to her construction inspector, Dr. Webster. She sees him in two [...] medications. Assessment & Plan (09/05/2020 11:21 AM MANAGER BANKING): Systolic blood pressure is mildly elevated. She [...] Coreg. Assessment & Plan (09/07/2019 9:29 AM MANAGER BANKING): Blood pressure is in a good range [...] labs. Assessment & Plan (09/01/2018 11:09 AM MANAGER BANKING): Blood pressure is in a good range. [...] Cardiology. Assessment & Plan (08/30/2017 4:37 PM MANAGER BANKING): Blood pressure in the office today is [...] months. Assessment & Plan (06/15/2023 1:33 PM MANAGER BANKING): She says her mood is good on [...] same. Assessment & Plan (09/07/2019 9:33 AM MANAGER BANKING): She has had trouble with depression in the past. Currently she is doing well on a low-dose of amitriptyline which she also takes for her headaches. Continue same. Assessment & Plan (03/09/2019 11:51 AM CDT): She is doing well on Elavil and Celexa. Mood seems quite stable and positive. Continue same. Assessment & Plan (09/01/2018 11:11 AM MANAGER BANKING): She is on Celexa. Mood is cheerful in the office. She also takes amitriptyline to help control headaches. It is working well for her. Assessment & Plan (08/26/2017 12:39 PM MANAGER BANKING): Her mood is quite cheerful. She has no new symptoms of concern. We will have her continue the Celexa. Resolved Problems Problem Noted Date Diagnosed Date Resolved Date Acute pain of right shoulder 05/22/2023 12/16/2023 Overview (05/28/2023): Due to a fall, seen at [facility]. Assessment & Plan (05/29/2023 9:16 AM CDT): Patient presents for right shoulder pain from a fall a week ago. See above documented HPI and PE. Patient reports right shoulder xray performed 05/22 at [facility] negative for fracture. She has [...] needed. Assessment & Plan (10/15/2021 12:32 PM MANAGER BANKING): Patient has left leg pain and swelling post fall and in the setting of cellulitis. She has an area of mild edema with possible hematoma noted above area of cellulitis. We will do US to r/o any possible DVT or abscess. She will continue with tylenol for pain. She will elevate leg at rest and use ice as needed. Acute bilateral thoracic back pain 10/09/2020 12/16/2023 [...] thereafter. Assessment & Plan (10/09/2020 3:35 PM MANAGER BANKING): Since her visit last week patient is [...] Albarado. Assessment & Plan (10/04/2020 11:48 AM MANAGER BANKING): Concern for COVID 19 with associated symptoms. Rapid testing completed and negative. Fever 10/04/2020 11/15/2020 Overview (11/15/2020): See office note and CT chest, resolving pneumonia. Assessment & Plan (10/04/2020 11:48 AM MANAGER BANKING): Patient is reporting low grade fevers with [...] note. Assessment & Plan (09/11/2020 12:43 PM MANAGER BANKING): She bumped her left foot dorsum going [...] (11/26/2021): Added automatically from request for surgery [id number], S/P MITRAL VALVE REPAIR; CORONARY ARTERY BYPASS [id number], DARIELA Carreon, 07/09/2020. Coronary artery disease invo lving [place] heart without angina pectoris 06/18/2020 09/05/2020 Overview (09/05/2020): Added automatically from request for surgery [id number], CABG x 1 and MV repair on 07/09/2020, DARIELA Carreon. SSS (sick sinus syndrome) 06/18/2020 Overview (09/05/2020): Added automatically from request for surgery [id number], originally scheduled for pacemaker, but cancelled. Transient Afib post CABG. Coronary artery disease invo lving [place] coronary artery of [place] heart without angina pectoris 03/20/2020 09/05/2020 Overview (09/05/2020): Added automatically from request for surgery [id number], CABG x 1 and MV repair on [...] Encounters Date Type Department Care Team Description 5 1:30 PM CDT Office Visit [place] Supervisor [facility] [address] [place] [phone] Khris Webster MD Paroxysmal atrial fibrillation (HCC) (Primary Dx); LBBB (left bundle branch block); Complete heart block (HCC); Coronary artery disease involving [place] coronary artery of [place] heart without angina pectoris; S/P MVR (mitral valve repair); Biventricular cardiac pacemaker in situ 5 [facility] Outreach [address] [phone] Lucille Tobin RN 5 Anticoagulation Visit [place] [address] [place] [phone] Shahnaz Coleman MA Paroxysmal atrial fibrillation (HCC) (Primary Dx) 5 Results Follow-Up [facility] [address] [place] [phone] Shahnaz Coleman MA Protime-INR 5 3:25 PM CDT Lab [facility] Laboratory [address] [place] [address] History of atrial fibrillation 5 Telephone [facility] [address] [place] [phone] Sammy Fabian MD Hypertension 5 Telephone [facility] [address] [place] [phone] Sammy Fabian MD [facility] paperwork 5 11:45 AM CDT Ancillary Procedure [facility] [address] [place] [phone] Pacemaker reprogramming/chec k (Primary Dx); Paroxysmal atrial fibrillation (HCC); Chronic combined systolic and diastolic heart failure (HCC); LBBB (left bundle branch block); Biventricular cardiac pacemaker in situ 5 11:45 AM CDT Office Visit [place] [id number] [place] [address] [address] [place] [address] Jeferson Gomez MD Chronic combined systolic and diastolic heart failure (HCC) (Primary Dx) 5 Orders Only [facility] [address] [place] [address] [address] [place] [address] Khris Webster MD Atrial fibrillation, unspecified type (HCC) (Primary Dx) 5 2:00 PM CDT Office Visit [facility] [address] [facility] [address] [place] [address] Aron Rordigues MD S/P MVR (mitral valve repair) (Primary Dx) 5 Telephone [facility] [address] [place] [phone] Sammy Fabian MD patient assistance forms [facility] 5 1:30 PM CDT Office Visit [facility] [address] [place] [phone] Sammy Fabian MD Complete heart block (HCC) (Primary Dx); Paroxysmal atrial fibrillation (HCC); Coronary artery disease involving [place] coronary artery of [place] heart without angina pectoris; Pulmonary fibrosis (HCC) 5 ACO Outreach [facility] Accountable Care Organization [address] [place] [phone] Lucille Tobin RN 5 Telephone [facility] [address] [place] [phone] Sammy Fabian MD Spoke With Home Health Provider 5 Orders Only [facility] [phone] [place] [address] [address] [place] [address] Justine Funez MA Paroxysmal atrial fibrillation (HCC) (Primary Dx); Chronic combined systolic and diastolic heart failure (HCC); LBBB (left bundle branch block); Biventricular cardiac pacemaker in situ; Pacemaker reprogramming/chec k 5 1:36 PM CDT Anesthesia Event [facility] Electrophysiology Lab [address] [place] [address] Martin Esposito MD Selimovic, Asmir, JERILYN 5 1:00 PM CDT - 5 4:45 PM CDT Surgery [facility] Electrophysiology Lab [address] [place] [address] Jeferson Gomez MD INSERT LV LEAD FOR PACEMAKER (PPM) OR IMPLANTABLE CARDIOVERTER-DEFIB RILLATOR (ICD) EXISTING DEVICE (+) [id number] 5 7:07 PM CDT - 5 1:55 PM [place] [address] Mayela Griffin MD Paruchuri, Tharun, MD Hultgren, MD Lc Costa Mitchell Joseph, DO Complete heart block (HCC) [I44.2] (Primary Dx); Paroxysmal atrial fibrillation (HCC) [I48.0]; Complete heart block (HCC); Biventricular cardiac pacemaker in situ [Z95.0]; Acute systolic heart failure (HCC) [I50.21]; Weakness Discharge Disposition: Discharge to home, home health skilled care 5 6:15 PM CDT - 5 7:50 PM CDT Surgery [facility] Cardiac Catheterization Lab [address] [place] [address] Alvaro Wan MD INSERTION TEMPORARY PACEMAKER 5 3:19 PM CDT - 5 6:07 PM CDT Emergency [facility] Emergency Department [address] [place] [address] Dean Pineda MD Heart block AV complete (HCC) (Primary Dx); Acute systolic congestive heart failure (HCC) Discharge Disposition: Discharge to a short term hospital for IP 5 3:00 PM CDT - 5 3:15 PM CDT Emergency [facility] Emergency Department [address] [place] [address] Alvaro Wan MD Complete heart block (HCC) [I44.2] (Primary Dx) Discharge Disposition: Discharge to a short term hospital for IP 5 1:50 PM CDT - 5 11:59 PM CDT Hospital Encounter [facility] Emergency, Room R Discharge Disposition: Discharge to home or self care 5 Telephone [facility] [address] [place] [address] Sammy Fabian MD 5 1:25 PM CDT Lab [facility] Laboratory [address] [place] [phone] History of atrial fibrillation 5 Orders Only [facility] [address] [phone] Khris Webster MD History of atrial fibrillation (Primary Dx) 5 Orders Only [facility] [address] [place] [address] Sammy Fabian MD 5 Telephone [facility] [address] [place] [address] Sammy Fabian MD 5 Results Follow-Up [facility] [address] [place] [address] Sammy Fabian MD Urinalysis reflex to microscopic, Basic metabolic panel, Urinalysis, microscopic only, Additional followed-up results: 3 5 4:20 PM CDT Lab [facility] [address] [place] [phone] Elevated serum creatinine; Hyperkalemia; Myoglobinuria 5 3:45 PM CDT Ancillary Procedure [facility] [address] [place] [address] Elevated serum creatinine; Elevated BUN 5 Telephone [facility] [address] [place] [address] Sammy Fabian MD 5 Results Follow-Up [facility] [address] [facility] [address] [place] [phone] Sammy Fabian MD Basic metabolic panel, eGFR 5 2:40 PM CDT Lab [facility] [address] [facility] [address] [place] [phone] Type 2 diabetes mellitus with other circulatory complication, without long-term current use of insulin (HCC); Mixed diabetic hyperlipidemia associated with type 2 diabetes mellitus (HCC); Hypertension associated with type 2 diabetes mellitus (HCC) 5 2:00 PM CDT Office Visit [facility] [address] [facility] [address] [place] [address] Sammy Fabian MD Paroxysmal atrial fibrillation (HCC) (Primary Dx); 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); Chronic combined systolic and diastolic heart failure (HCC); Coronary artery disease involving [place] coronary artery of [place] heart without angina pectoris; Type 2 diabetes mellitus with other circulatory complication, without long-term current use of insulin (HCC); Mixed diabetic hyperlipidemia associated with type 2 diabetes mellitus (HCC); Hypertension associated with type 2 diabetes mellitus (HCC); Age-related osteoporosis with current pathological fracture with routine healing 5 Orders Only [facility] Medicine Surgery [address] [facility] [address] [place] [address] Aron Rodrigues MD Nonrheumatic mitral valve regurgitation (Primary Dx) 5 Anticoagulation Visit [place] [facility] [address] [facility] [address] [place] [address] Shahnaz Coleman MA Paroxysmal atrial fibrillation (HCC) (Primary Dx) 5 Results Follow-Up [place] [facility] at [address] [place] [address] Shahnaz Coleman MA Protime-INR 5 2:35 PM CDT Lab [facility] Laboratory [address] [place] [phone] Atrial fibrillation, unspecified type (HCC) 5 Results Follow-Up [facility] [address] [place] [phone] Shahnaz Coleman MA Protime-INR 5 Anticoagulation Visit [place] [facility] [address] [place] [phone] Shahnaz Coleman MA Paroxysmal atrial fibrillation (HCC) (Primary Dx) 5 1:05 PM CDT Lab [facility] [address] [place] [address] Atrial fibrillation, unspecified type (HCC) from Last 3 Months Immunizations Immunization Administration Dates Next Due Influenza, Quadrivalent, Hig h Dose, Preservative Free, Intrr 06/04/2023,06/04/2022,05/23/2021,05/29 Influenza, Split 08/29/2013 Influenza, Trivalent, High D ose, Split, Preservative Free, Intramuscular 04/20/2024,09/07/2019,06/07/2012 Influenza, Trivalent, IM (MDV) 06/26/2014,2013 Moderna SARS-CoV-2 Monovalen t Vaccination (12+ YRS) 11/07/2020,10/12/2020 Pneumococcal Conjugate PCV 13 02/19/2016 Pneumococcal Polysaccharide PPV23 03/10/2010 RSV Vaccine, Pref, Recombina nt, Subunit, Adjuvanted, PF, IM (Arexvy) 01/14/2025 Tdap 03/07/2020 ZOSTER Recombinant 01/14/2025,02/16/2023 Surgical History Surgery Date Site/Laterality Comments CHOLECYSTECTOMY 08/10/1986 - 08/09/1987 Cholecystectomy ROTATOR CUFF REPAIR 08/10/2008 - 08/09/2009 Right Details lacking COLPOSCOPY 08/10/2010 - 08/09/2011 LSIL: Colposcopy - ANNI I followed by negative Pap WRIST SURGERY Right Wrist fracture: removal of bone, details lacking GASTROSTOMY Feeding tube 2009 MAMMOGRAPHY 04/14/2018 Normal, [facility]. COLONOSCOPY 06/24/2011 Normal, Dr. Palomino, [facility]. CERVICAL BIOPSY W/ LOOP ELECTRODE EXCISION 08/10/2018 - 08/09/2019 ANNI 2 MAMMOGRAPHY 05/04/2019 Bilateral Negative, [facility]. CARDIAC CATHETERIZATION 05/09/2010 Left Severe distal RCA disease, severe LV dysfunction, moderate to severe mitral regurgitation. Dr. Lopes, [facility]. DEXA SCAN 10/04/2019 Osteoporosis at hip, see [...] VALVE REPAIR; CORONARY ARTERY BYPASS [email or web address], Dr. Rodrigues [facility] CORONARY ARTERY BYPASS GRAFT 07/09/2020 MV repair [...] SCAN 05/06/2024 N/A Osteoporosis at femoral neck. CARDIAC ELECTROPHYSIOLOGY PROCEDURE 02/20/2025 Chest/N/A Procedure: INSERT LV LEAD FOR PACEMAKER (PPM) OR IMPLANTABLE CARDIOVERTER-DEFIBRILLATOR (ICD) EXISTING DEVICE (+) [id number]; Surgeon: Jeferson Gomez MD; Location: EP LAB; Service: Cardiovascular; Laterality: N/A; Medical devices from this surgery are in the Medical Devices section. Medical History Medical History Date Comments Hypertension [...] notes, resolved. Coronary artery disease invo lving [place] coronary artery of [place] heart without angina pectoris 05/09/2010 On medical therapy. Sleep apnea GERD (gastroesophageal reflux disease) Cataract Arthritis Mitral valve disorder Cerebrovascular accident (CVA) ([facility]) 2009 Stroke w/ right sided weakness Myocardial infarction ([facility]) 2009 Myoc ardial infarction Coronary artery disease invo lving [place] heart without angina pectoris 06/18/2020 Added automatical ly from request for surgery [id number], CABG x 1 and MV repair on 07/09/2020, DARIELA Carreon. Coronary artery disease invo lving [place] coronary artery of [place] heart without angina pectoris 03/20/2020 Added automatically from re uest for surgery [id number], CABG x 1 and MV repair on 07/09/2020, DARIELA Carreon. SSS (sick sinus syndrome) ([facility]) 06/18/2020 Added automatically from request for surgery [id number], originally scheduled for pacemaker, but cancelled. Transient Afib post CABG. COVID-19 ruled out 10/04/2020 See office no Verena aceves ANP. Fever 10/04/2020 See office note and CT chest, resolving pneumonia. Contusion of left foot 08/22/2020 See offic e note. Hyperglycemia 08/12/2016 Mild elevations of blood sugar Elevated serum creatinine 05/15/2021 Resol ed on subsequent labs. Mitral valve insufficiency 06/18/2020 Added automatically from request for surgery [id number], S/P MITRAL VALVE REPAIR; CORONARY ARTERY BYPASS [email or web address], Dr. Rodrigues EVELIN, 07/09/2020. Age-related osteoporosis wit hout current pathological fracture 07/08/2011 Dexa at [facility], 10/04/2019, compared to study in 2010: LEFT FEMORAL NECK: T-score -3.0 LEFT TOTAL HIP: T-score -1.6 LUMBAR SPINE: T-score been a 0.3 (Typo, correction requested.) Dex at [facility], 07/08/2011: DXA LEFT HIP RESULTS SUMMARY:BMD (g/cm'b2) T-score Z-score Neck 0.587 -2.4 -0.7 Total 0.746 -1.6 -0.2 DXA L-SPINE RESULTS SUMMARY:BMD (g/cm'b2) T-score Z-score L1 0.633 -3.2 -1.5 L2 0.7 Acute bilateral thoracic back pain 10/09/2020 Probably due to pneumonia, treated and resolved. Acute pain of right shoulder 05/22/2023 Due to a fall, seen at [facility]. Left leg pain 10/15/2021 Due [...] drink = 0.6 oz pur e alcohol) [facility] Utilities Answer Date Recorded In the past 12 months has e electric, gas, oil, or water company threatened to shut off services in your home? No 02/24/2025 Social Connection and Isolation Panel Answer Date Recorded In a typical week, how many times do you talk on the phone with family, friends, or neighbors? Twice a week 02/24/2025 How often do you get togethe r with friends or relatives? Once a week 02/24/2025 How often do you attend chur ch or pentecostal services? More than 4 times per year 02/24/2025 Do you belong to any clubs o r organizations such as uatsdin groups, unions, fraternal or athletic groups, or [...] any time in the past 12 [facility], were you homeless or living in a intermediate (including now)? No 02/24/2025 Personal Safety Answer Date Recorded Have you ever been in or are you currently in a harmful physical or emotional relationship or is someone making you feel afraid or unsafe? Denies 02/19/2025 Comments No Sex and Gender Information Value Date Recorded Sex Assigned at Not on file Legal Sex Female 9:25 AM [employer] Gender Identity Not on file Sexual Orientation Not on file Occupation Industry Job Start Date Job End Date Retired Not on file Not on file Not on file Obstetrics History Para Term AB IAB SAB Ectopic Multiple Livin g Live Births 2 2 2 0 0 0 0 0 Date Outcome GA Total Labor Labor/2nd/3rd Weight Sex Type Anes PTL Serena A1 A5 Name Clin Term Term Last Filed Vital Signs Vital Sign Reading Time Taken Comments Blood Pressure 167/64 03/20/2025 1:19 PM CDT Pulse 71 03/20/2025 1:19 PM CDT Temperature 36.5 C (97.7 F) 03/02/2025 1:21 PM CDT Respiratory Rate 16 03/20/2025 1:19 PM CDT Oxygen Saturation 92% 03/20/2025 1:19 PM CDT Inhaled Oxygen Concentration - - Weight 60.8 kg (134 lb) 03/20/2025 1:19 PM CDT Height 152.4 cm (5') 03/07/2025 2:03 PM CDT Body Mass Index 26.17 03/07/2025 2:03 PM CDT Plan of Treatment Health Maintenance Due Date Last Done Comments Dilated Eye Exam 1945 Covid-19 Vaccine (2023-2 5 season) 2024 11/21/2022, 09/10/2021, 11/07/2020, Additional history exists Influenza Vaccine (#1) 2025 , 06/04/2023, 06/04/2022, Additional history exists Well Visit 65+ 04/20/2025 04/20/2024, 05/0 12/2022, 12/02/2021, Additional history exists Hemoglobin A1C 04/22/2025 10/20/2024, 05/0 01/2024, 11/28/2022, Additional history exists Albumin Creatinine Ratio, Urine 10/20/2025 Lipid Panel 10/20/2025 10/20/2024, 05/0 01/2024, 11/28/2022, Additional history exists Foot Exam 10/21/2025 10/21/2024, 04/20/2024 Fall Risk Assessment 02/23/2026 02/23/2025, 04/20/2024, 12/12/2022, Additional history exists eGFR 02/23/2026 02/23/2025, 07/1 01/2025, 02/21/2025, Additional history exists Depression Screening 03/02/2026 03/02/2025, 04/20/2024, 12/12/2022, Additional history exists Osteoporosis Screening-Bone Density Scan 05/06/2026 05/06/2024, 12/09/2021, 10/04/2019 DTaP/Tdap/Td Vaccine (2 - Td or Tdap) 03/07/2030 03/07/2020 Pneumococcal vaccine 65+ Completed 02/19/2016, 08/0 08/2009 Hepatitis B Screening Completed 10/20/2024 Zoster Vaccine Completed 01/14/2025, 02/16/2023 Medical Devices Implanted Type Area Vice President Lending Device Identifier Shelf Expiration Date Model / Serial / Lot Benitez Lifesciences [id number] Louise-Harish hy-Cleary Imr Etlogix 28mm 3d Reduced Curvature - [id number] - [id number] Implanted:Qty: 1 on 07/09/2020 by Aron Rodrigues MD at [facility] N/A: Heart [employer] 04/22/2025 [id number] / [id number] / [employer] Maverick Lead [id number] Endocardial Pacing Mr Is-1 Bipolar Connection 7841 - [id number] - [id number] Implanted:Qty: 1 on 02/20/2025 by Jeferson Gomez MD at [facility] [email or web address] 12/19/2026 [id number] / [id number] / [employer] Maverick Lead [id number] Endocardial Pacing Mr Is-1 Bipolar Connection 7840 - [id number] - [id number] Implanted:Qty: 1 on 02/20/2025 by Jeferson Gomez MD at [facility] [email or web address] 07/12/2025 7840 / [id number] / [employer] Maverick Tined Fixation Coated Andreafski Iridium Is 4 Connector Latex Free Sterile Left Ventricular Left Ventricular Acuity 4675 - [id number] - [id number] Implanted:Qty: 1 on 02/20/2025 by Jeferson Gomez MD at [facility] [email or web address] 12/19/2026 4675 / [id number] / Med[employer] Tyrx Absorbable Antibacterial Envelope Med 2.7x2.5in [id number] - [id number] Implanted:Qty: 1 on 02/20/2025 by Jeferson Gomez MD at [facility] Medtronic [facility] 09/14/2025 [id number] / [id number] [email or web address] Pacemaker Single Chamber Security Controls Assessor P Visionist 0.75x4.45x6.17cm U228 - [id number] - [id number] Implanted:Qty: 1 on 02/20/2025 by Jeferson Gomez MD at [facility] 11/11/2026 [id number] / [id number] / Procedures Procedure Name Priority Date/Time Associated Diagnosis Comments PROTIME-INR Routine 03/10/2025 3:23 PM CDT History of atrial fibrillation DEVICE CHECK - IN OFFICE Routine 03/08/2025 11:37 AM CDT Paroxysmal atrial fibrillation (HCC) Chronic combined systolic and diastolic heart failure (HCC) LBBB (left bundle branch block) Biventricular cardiac pacemaker in situ POCT GLUCOSE DEVICE Routine 02/23/2025 12:55 PM CDT POCT GLUCOSE DEVICE Routine 02/23/2025 9 :17 AM CDT EGFR Routine 02/23/2025 3:34 AM CDT PHOSPHORUS Routine 02/23/2025 3:34 AM CDT MAGNESIUM Routine 02/23/2025 3:34 AM CDT BASIC METABOLIC PANEL Routine 02/23/2025 3:34 AM CDT CBC WITHOUT DIFFERENTIAL Routine 02/23/2025 3:34 AM CDT POCT GLUCOSE DEVICE Routine 02/22/2025 9 :18 PM CDT POCT GLUCOSE DEVICE Routine 02/22/2025 6 :06 PM CDT POCT GLUCOSE DEVICE Routine 02/22/2025 12:59 PM CDT POCT GLUCOSE DEVICE Routine 02/22/2025 7 :24 AM CDT EGFR Routine 02/22/2025 5:08 AM CDT PROTIME-INR Routine 02/22/2025 5:08 AM CDT PHOSPHORUS Routine 02/22/2025 5:08 AM CDT MAGNESIUM Routine 02/22/2025 5:08 AM CDT BASIC METABOLIC PANEL Routine 02/22/2025 5:08 AM CDT CBC WITHOUT DIFFERENTIAL Routine 02/22/2025 5:08 AM CDT POCT GLUCOSE DEVICE Routine 02/21/2025 9 :19 PM CDT POCT GLUCOSE DEVICE Routine 02/21/2025 5 :50 PM CDT POCT GLUCOSE DEVICE Routine 02/21/2025 12:43 PM CDT POCT GLUCOSE DEVICE Routine 02/21/2025 7 :54 AM CDT EGFR Routine 02/21/2025 7:27 AM CDT PROTIME-INR Routine 02/21/2025 7:27 AM CDT PHOSPHORUS Routine 02/21/2025 7:27 AM CDT MAGNESIUM Routine 02/21/2025 7:27 AM CDT BASIC METABOLIC PANEL Routine 02/21/2025 7:27 AM CDT CBC WITHOUT DIFFERENTIAL Routine 02/21/2025 7:27 AM CDT POCT GLUCOSE DEVICE Routine 02/20/2025 8 :27 PM CDT ECG 12-LEAD Routine 02/20/2025 4:02 PM CDT XR CHEST 1 VIEW IP Routine 02/20/2025 3:58 PM CDT INSERT LV LEAD/ EXISTING DEVICE Routine 02/20/2025 3:25 PM CDT Complete heart block (HCC) POCT GLUCOSE DEVICE Routine 02/20/2025 3 :00 PM CDT POCT GLUCOSE DEVICE Routine 02/20/2025 9 :27 AM CDT CRITICAL CARE Routine 02/20/2025 7:00 AM CDT Complete heart block (HCC) [I44.2] EGFR Routine 02/20/2025 4:49 AM CDT PROTIME-INR Routine 02/20/2025 4:49 AM CDT PHOSPHORUS Routine 02/20/2025 4:49 AM CDT MAGNESIUM Routine 02/20/2025 4:49 AM CDT BASIC METABOLIC PANEL Routine 02/20/2025 4:49 AM CDT CBC WITHOUT DIFFERENTIAL Routine 02/20/2025 4:49 AM CDT CRITICAL CARE Routine 02/19/2025 11:57 PM CDT Complete heart block (HCC) [I44.2] POCT GLUCOSE DEVICE Routine 02/19/2025 8 :10 PM CDT POCT GLUCOSE DEVICE Routine 02/19/2025 4 :42 PM CDT POCT GLUCOSE DEVICE Routine 02/19/2025 11:18 AM CDT POCT GLUCOSE DEVICE Routine 02/19/2025 8 :07 AM CDT CRITICAL CARE Routine 02/19/2025 7:00 AM CDT Complete heart block (HCC) [I44.2] EGFR Routine 02/19/2025 4:38 AM CDT PROTIME-INR Routine 02/19/2025 4:38 AM CDT PHOSPHORUS Routine 02/19/2025 4:38 AM CDT MAGNESIUM Routine 02/19/2025 4:38 AM CDT BASIC METABOLIC PANEL Routine 02/19/2025 4:38 AM CDT CBC WITHOUT DIFFERENTIAL Routine 02/19/2025 4:38 AM CDT POCT GLUCOSE DEVICE Routine 02/18/2025 7 :54 PM CDT POCT GLUCOSE DEVICE Routine 02/18/2025 4 :40 PM CDT POCT GLUCOSE DEVICE Routine 02/18/2025 12:04 PM CDT TRANSTHORACIC ECHO (TTE) COMPLETE W DOPPLER/CF W CONTRAST STAT 02/18/2025 11:49 AM CDT POCT GLUCOSE DEVICE Routine 02/18/2025 7 :59 AM CDT CRITICAL CARE Routine 02/18/2025 7:00 AM CDT Complete heart block (HCC) [I44.2] EGFR Routine 02/18/2025 5:40 AM CDT PROTIME-INR Routine 02/18/2025 5:40 AM CDT PHOSPHORUS Routine 02/18/2025 5:40 AM CDT MAGNESIUM Routine 02/18/2025 5:40 AM CDT BASIC METABOLIC PANEL Routine 02/18/2025 5:40 AM CDT CBC WITHOUT DIFFERENTIAL Routine 02/18/2025 5:40 AM CDT URINALYSIS, MICROSCOPIC ONLY STAT 02/18/2025 12:45 AM CDT URINE CULTURE STAT 02/18/2025 12:45 AM CDT URINALYSIS AND REFLEX TO MICROSCOPIC AND CULTURE STAT 02/18/2025 12:45 AM CDT POCT GLUCOSE DEVICE Routine 02/18/2025 12:43 AM CDT ECG 12-LEAD STAT 02/17/2025 11:10 PM CDT CRITICAL CARE Routine 02/17/2025 9:26 PM CDT EGFR STAT 02/17/2025 8:03 PM CDT CBC WITHOUT DIFFERENTIAL STAT 02/17/2025 8:03 PM CDT LACTATE STAT 02/17/2025 8:03 PM CDT PHOSPHORUS STAT 02/17/2025 8:03 PM CDT MAGNESIUM STAT 02/17/2025 8:03 PM CDT BASIC METABOLIC PANEL STAT 02/17/2025 8:03 PM CDT POCT GLUCOSE DEVICE Routine 02/17/2025 7 :16 PM CDT CARDIAC CATHETERIZATION Routine 02/17/2025 6:36 PM CDT INSERTION TEMPORARY PACEMAKER 02/17/2025 6:20 PM CDT STEMI UT CRITICAL CARE ILL/INJURED PATIENT INIT 30-74 MIN Routine 02/17/2025 5:44 PM CDT APTT STAT 02/17/2025 5:44 PM CDT PROTIME-INR STAT 02/17/2025 5:44 PM CDT XR CHEST 1 VIEW ED 02/17/2025 4:52 PM CDT ECG 12-LEAD STAT 02/17/2025 4:40 PM CDT EGFR STAT 02/17/2025 3:44 PM CDT DIFFERENTIAL AUTO STAT 02/17/2025 3:4 4 PM CDT THYROID FUNCTION CASCADE Add-On 02/17/2025 3:44 PM CDT MAGNESIUM Routine 02/17/2025 3:44 PM CDT PRO B-TYPE NATRIURETIC PEPTIDE STAT 02/17/2025 3:44 PM CDT TROPONIN T HIGH-SENSITIVITY SERIES (BASELINE, 2HR, 4HR, 6HR) STAT 02/17/2025 3:44 PM CDT COMPREHENSIVE METABOLIC PANEL STAT 02/17/2025 3:44 PM CDT CBC WITH AUTO DIFFERENTIAL STAT 02/17/2025 3:44 PM CDT ECG 12-LEAD STAT 02/17/2025 3:26 PM CDT PROTIME-INR Routine 02/08/2025 1:49 PM CDT History of atrial fibrillation US KIDNEY COMPLETE Schedule Routine, Read Routine (OP Routine) 01/30/2025 4:15 PM CDT Elevated serum creatinine Elevated BUN CREATINE KINASE (CK), TOTAL Routine 01/30/2025 3:38 PM CDT Myoglobinuria EGFR Routine 01/30/2025 3:38 PM CDT Elevated serum creatinine Hyperkalemia URINALYSIS, MICROSCOPIC ONLY Routine 01/30/2025 3:38 PM CDT Elevated serum creatinine BASIC METABOLIC PANEL Routine 01/30/2025 3:38 PM CDT Elevated serum creatinine Hyperkalemia URINALYSIS AND REFLEX TO MICROSCOPIC Routine 01/30/2025 3:38 PM CDT Elevated serum creatinine EGFR Routine 01/23/2025 2:39 PM CDT Type 2 diabetes mellitus with other circulatory complication, without long-term current use of insulin (HCC) Mixed diabetic hyperlipidemia associated with type 2 diabetes mellitus (HCC) Hypertension associated with type 2 diabetes mellitus (HCC) BASIC METABOLIC PANEL Routine 01/23/2025 2:39 PM CDT Type 2 diabetes mellitus with other circulatory complication, without long-term current use of insulin (HCC) Mixed diabetic hyperlipidemia associated with type 2 diabetes mellitus (HCC) Hypertension associated with type 2 diabetes mellitus (HCC) PROTIME-INR Routine 01/12/2025 2:34 PM CDT Atrial fibrillation, unspecified type (HCC) PROTIME-INR Routine 12/29/2024 1:07 PM CDT Atrial fibrillation, unspecified type (HCC) HEMOGLOBIN A1C Routine 10/20/2024 1:53 PM CDT Medicare annual wellness visit, subsequent Type 2 diabetes mellitus with other circulatory complication, without long-term current use of insulin (HCC) LIPID PANEL Routine 10/20/2024 1:53 PM CDT Medicare annual wellness visit, subsequent Mixed hyperlipidemia ALBUMIN CREATININE RATIO, URINE Routine 10/20/2024 1:53 PM CDT Medicare annual wellness visit, subsequent Type 2 diabetes mellitus with other circulatory complication, without long-term current use of insulin (HCC) DEXA AXIAL SKELETON BONE DENSITY 1 OR MORE SITES Schedule Routine, Read Routine (OP Routine) 05/06/2024 2:02 PM CDT Age-related osteoporosis with current pathological fracture with routine healing Menopause from Last 3 Months or Most Recently Relevant to Health Maintenance Results * (ABNORMAL) Protime-INR (03/10/2025 3:23 PM CDT) PT 21.3(H) 9.7 - 13.0 sec Comment:Testing performed by : [facility], [address] [place] [address]., [id number] INR 1.95(H) 0.90 - 1.20 TA THOMAS ([place]) Comment: Interpretive data Oral anticoagulant therapeutic ranges: Venous thromboembolism prophylaxis or treatment: 2.0-3.0 CARDIOLOGY Standard range: 2.0-3.0 High-intensity range: 2.5-3.5 Refer to indication-specific guidelines for appropriate target ranges for prosthetic heart valve replacement. Current interpretive data was last revised on 2019. Testing performed by: [address] [id number] Blood 03/10/2025 3:23 PM CDT 03/10/2025 7:40 PM CDT Khris Webster MD LAB BLOOD ORDERABLES Final Res ult TA [facility] ([place]) 1 [facility] Department of Laboratories [place] [id number] * DEVICE CHECK - IN OFFICE (03/08/2025 11:37 AM CDT) Anatomical Region Laterality Modality Other Narrative 03/09/2025 2:03 PM CDT Images from the original result were not included. 03/08/2025 [facility] in-office device check The complete report is attached to this Result Text in Drafting Layout Worker Khris Webster MD CV CARDIAC SERVICES PROCEDURES Final Result * POCT glucose (02/23/2025 12:55 PM CDT) Glucose, POC 92 70 - 199 mg/dL POC Performer [id number] TA Blood 02/23/2025 12:5 5 PM CDT 02/23/2025 12:55 PM CDT Artemio Platt LAB POCT ORDERABLES - DEVICE Final Result TA [place] [address] [address] [place] [address] * POCT glucose (02/23/2025 9:17 AM CDT) Glucose, POC 132 70 - 199 mg/dL POC Performer [id number] [facility] Blood 02/23/2025 9:17 AM CDT 02/23/2025 9:17 AM CDT Artemio Platt DO [facility] POCT ORDERABLES - DEVICE Final Result Performing Organization Address [facility] Co de Phone Number TA [place] [address] [address] Department [place] [address] * (ABNORMAL) eGFR (02/23/2025 3:34 AM CDT) eGFR 47(L) >=60 mL/min/1. 73 m2 [...] Current interpretive data was last reviewed 2021. Blood 02/23/2025 3:34 AM CDT 02/23/2025 3:49 AM CDT Cayla LARA LAB BLOOD ORDERABLES Final R esult Performing Organization Address [facility] [place] [address] [address] [place] [address] * (ABNORMAL) CBC without differential (02/23/2025 3:34 AM CDT) WBC 7.03 3.80 - 9.90 K/cumm Hgb 12.3 11.9 - 15.5 g/dL [facility] Hct 39.6 35.6 - 45.5 % [facility] Plt 170 150 - 400 K/cumm [facility] MPV 9.8 9.1 - 12.3 fL [facility] RBC 4.20 3.90 - 5.20 M/cumm [facility] CH MCV 94.3 81.3 - 96.4 fL [facility] MCH 29.3 27.1 - 33.3 pg [facility] MCHC 31.1(L) 32.3 - 35.7 g/dL [facility] RDW CV 16.0(H) 11.1 - 14.9 % [facility] CH RDW SD 55.6(H) 35.7 - 48.1 fL [facility] NRBC abs 0.00 0.00 - 0.01 K/cumm [facility] Blood 02/23/2025 3:34 AM CDT 02/23/2025 3:50 AM CDT Cayla LARA LAB BLOOD ORDERABLES Final R esult Performing Organization Address [facility] de Phone Number TA [place] [address] [address] Department [place] [address] * Phosphorus (02/23/2025 3:34 AM CDT) Phosphorus, pl 3.3 2.3 - 4.5 mg/dL Blood 02/23/2025 3:34 AM CDT 02/23/2025 3:49 AM CDT Cayla LARA LAB BLOOD ORDERABLES Final R esult Performing Organization Address City/[facility] Co de Phone Number TA [place] [address] [address] Department [place] [address] * Magnesium (02/23/2025 3:34 AM CDT) Magnesium 1.7 1.4 - 2.5 mg/dL Blood 02/23/2025 3:34 AM CDT 02/23/2025 3:49 AM CDT Cayla LARA LAB BLOOD ORDERABLES Final R esult Performing Organization Address City/[facility] Co de Phone Number TA [place] [address] [address] Department [place] [address] * (ABNORMAL) Basic metabolic panel (02/23/2025 3:34 AM CDT) Pathologist [facility] Sodium 140 135 - 145 mmol/L Potassium, pl 4.5 3.3 - 4.9 mmol/L [facility] Chloride 101 97 - 110 mmol/L [facility] CO2 29 22 - 32 mmol/L [facility] Anion gap 10 2 - 15 mmol/L [facility] BUN 26(H) 6 - 25 mg/dL [facility] Creatinine 1.16(H) 0.60 - 1.10 mg/dL [facility] Glucose 100 70 - 199 mg/dL [facility] Comment: Interpretive Data Fasting glucose >/= 126 [...] Current interpretive data was last revised 2022. Calcium 9.1 8.5 - 10.3 mg/dL [facility] Blood 02/23/2025 3:34 AM CDT 02/23/2025 3:49 AM CDT us Cayla Macias DC LAB BLOOD ORDERABLES Final R esult TA [place] [address] [address] [facility] [place] [address] * POCT glucose (02/22/2025 9:18 PM CDT) Glucose, POC 117 70 - 199 mg/dL POC Performer [id number] [facility] Blood 02/22/2025 9:18 PM CDT 02/22/2025 9:18 PM CDT Artemio Nick Lc [facility] POCT ORDERABLES - DEVICE Final Result Performing Organization Address [facility] Co de Phone Number TA [place] [address] [address] [facility] [place] [address] * POCT glucose (02/22/2025 6:06 PM CDT) Glucose, POC 119 70 - 199 mg/dL POC Performer [id number] [facility] Blood 02/22/2025 6:06 PM CDT 02/22/2025 6:06 PM CDT Artemio Platt DO [facility] POCT ORDERABLES - DEVICE Final Result Performing Organization Address [facility] Co de Phone Number MORENITATENZIN [place] [address] [address] [facility] [place] [address] * POCT glucose (02/22/2025 12:59 PM CDT) Glucose, POC 107 70 - 199 mg/dL POC Performer [id number] [facility] Blood 02/22/2025 12:5 9 PM CDT 02/22/2025 12:59 PM CDT Artemio Nick Lc LAB POCT ORDERABLES - DEVICE Final Result Performing Organization Address [facility] Co de Phone Number TA [place] [address] [address] [facility] [place] [address] * POCT glucose (02/22/2025 7:24 AM CDT) Glucose, POC 106 70 - 199 mg/dL POC Performer [id number] TA MILTON Blood 02/22/2025 7:24 AM CDT 02/22/2025 7:24 AM CDT Artemio Platt DO LAB POCT ORDERABLES - DEVICE Final Result Performing Organization Address City/[facility]/[place] [address] [address] [facility] [place] [address] * eGFR (02/22/2025 5:08 AM CDT) eGFR 62 >=60 mL/min/1. 73 m2 Comment: Interpretive Data [...] Current interpretive data was last reviewed 2021. Blood 02/22/2025 5:08 AM CDT 02/22/2025 5:38 AM CDT Cayla Macias PA LAB BLOOD ORDERABLES Final R esult [place] [address] [address] [facility] [place] [address] * (ABNORMAL) Protime-INR (02/22/2025 5:08 AM CDT) Pathologist [facility] PT 14.4(H) 9.7 - 13.0 sec INR 1.33(H) 0.90 - 1.20 [facility] Comment: Interpretive data Oral anticoagulant therapeutic ranges: Venous thromboembolism prophylaxis or treatment: 2.0-3.0 CARDIOLOGY Standard range: 2.0-3.0 High-intensity range: 2.5-3.5 Refer to indication-specific guidelines for appropriate target ranges for prosthetic heart valve replacement. Current interpretive data was last revised on 2019. Blood 02/22/2025 5:08 AM CDT 02/22/2025 5:38 AM CDT Narrative [facility] - 02/22/2025 5:52 AM CDT While on warfarin us Eliza Mehta MD LAB BLOOD ORDERABLES F inal Result [facility] [address] [address] Department [place] [address] * (ABNORMAL) CBC without differential (02/22/2025 5:08 AM CDT) [facility] WBC 5.52 3.80 - 9.90 K/cumm Hgb 10.6(L) 11.9 - 15.5 g/dL [facility] Hct 34.4(L) 35.6 - 45.5 % [facility] Plt 162 150 - 400 K/cumm [facility] MPV 9.9 9.1 - 12.3 fL [facility] RBC 3.64(L) 3.90 - 5.20 M/cumm [facility] MCV 94.5 81.3 - 96.4 fL [facility] MCH 29.1 27.1 - 33.3 pg [facility] MCHC 30.8(L) 32.3 - 35.7 g/dL [facility] RDW CV 15.9(H) 11.1 - 14.9 % [facility] RDW SD 54.3(H) 35.7 - 48.1 fL [facility] NRBC abs 0.00 0.00 - 0.01 K/cumm [facility] Blood 02/22/2025 5:08 AM CDT 02/22/2025 5:39 AM CDT Cayla Macias PA LAB BLOOD ORDERABLES Final R esult Performing Organization Address [facility] de Phone Number TA [place] [address] [address] [facility] [place] [address] * Phosphorus (02/22/2025 5:08 AM CDT) Phosphorus, pl 2.6 2.3 - 4.5 mg/dL Blood 02/22/2025 5:08 AM CDT 02/22/2025 5:38 AM CDT Paulajames Borregojohn LARA LAB BLOOD ORDERABLES Final R esult Performing Organization Address [facility] de Phone Number MORENITATENZIN [place] [address] [address] Department [place] [address] * Magnesium (02/22/2025 5:08 AM CDT) Magnesium 1.6 1.4 - 2.5 mg/dL Blood 02/22/2025 5:08 AM CDT 02/22/2025 5:38 AM CDT Cayla Macias MARCO LAB BLOOD ORDERABLES Final R esult Performing Organization Address [facility] de Phone Number TA [place] [address] [address] Department [place] [address] * Basic metabolic panel (02/22/2025 5:08 AM CDT) Sodium 138 135 - 145 mmol/L Potassium, pl 4.9 3.3 - 4.9 mmol/L [facility] Chloride 102 97 - 110 mmol/L [facility] CO2 29 22 - 32 mmol/L [facility] Anion gap 7 2 - 15 mmol/L [facility] BUN 22 6 - 25 mg/dL [facility] Creatinine 0.93 0.60 - 1.10 mg/dL [facility] Glucose 115 70 - 199 mg/dL [facility] Comment: Interpretive Data Fasting glucose >/= 126 [...] Current interpretive data was last revised 2022. Calcium 8.5 8.5 - 10.3 mg/dL [facility] Blood 02/22/2025 5:08 AM CDT 02/22/2025 5:38 AM CDT us Cayla LARA LAB BLOOD ORDERABLES Final R esult Performing Organization Address City/[facility]/[place] [address] [address] [place] [address] * POCT glucose (02/21/2025 9:19 PM CDT) Glucose, POC 121 70 - 199 mg/dL POC Performer [id number] [facility] Blood 02/21/2025 9:19 PM CDT 02/21/2025 9:19 PM CDT Eliza Mehta MD LAB POCT ORDERABLES - DEVICE Final Result [facility] [address] [address] [place] [address] * POCT glucose (02/21/2025 5:50 PM CDT) Glucose, POC 119 70 - 199 mg/dL POC Performer [id number] [facility] Blood 02/21/2025 5:50 PM CDT 02/21/2025 5:50 PM CDT Eliza Mehta MD LAB POCT ORDERABLES - DEVICE Final Result Performing Organization Address [facility] de Phone Number TA [place] [address] [address] [facility] [place] [address] * POCT glucose (02/21/2025 12:43 PM CDT) Glucose, POC 99 70 - 199 mg/dL POC Performer [id number] [facility] Blood 02/21/2025 12:4 3 PM CDT 02/21/2025 12:43 PM CDT Eliza Mehta MD LAB POCT ORDERABLES - DEVICE Final Result Performing Organization Address [facility] de Phone Number TA [place] [address] [address] [facility] [place] [address] * POCT glucose (02/21/2025 7:54 AM CDT) Glucose, POC 96 70 - 199 mg/dL POC Performer [id number] [facility] Blood 02/21/2025 7:54 AM CDT 02/21/2025 7:54 AM CDT Eliza Mehta MD LAB POCT ORDERABLES - DEVICE Final Result Performing Organization Address [facility] de Phone Number TA [place] [address] [address] [facility] [place] [address] * eGFR (02/21/2025 7:27 AM CDT) eGFR 62 >=60 mL/min/1. 73 m2 Comment: Interpretive Data [...] Current interpretive data was last reviewed 2021. Blood 02/21/2025 7:27 AM CDT 02/21/2025 7:53 AM CDT Cayla LARA LAB BLOOD ORDERABLES Final R esult Performing Organization Address [facility] Co de Phone Number TA [place] [address] [place] [address] * (ABNORMAL) Protime-INR (02/21/2025 7:27 AM CDT) PT 14.1(H) 9.7 - 13.0 sec INR 1.30(H) 0.90 - 1.20 TA [place]TON Comment: Interpretive data Oral anticoagulant therapeutic ranges: Venous thromboembolism prophylaxis or treatment: 2.0-3.0 CARDIOLOGY Standard range: 2.0-3.0 High-intensity range: 2.5-3.5 Refer to indication-specific guidelines for appropriate target ranges for prosthetic heart valve replacement. Current interpretive data was last revised on 2019. Blood 02/21/2025 7:27 AM CDT 02/21/2025 7:53 AM CDT Cayla LARA LAB BLOOD ORDERABLES Final R esult Performing Organization Address City/[facility]/ZIP Co de Phone Number TA [place] [address] [place] [address] * (ABNORMAL) CBC without differential (02/21/2025 7:27 AM CDT) WBC 5.56 3.80 - 9.90 K/cumm Hgb 10.7(L) 11.9 - 15.5 g/dL [facility] Hct 35.0(L) 35.6 - 45.5 % [facility] Plt 157 150 - 400 K/cumm [facility] MPV 10.1 9.1 - 12.3 fL [facility] RBC 3.64(L) 3.90 - 5.20 M/cumm [facility] MCV 96.2 81.3 - 96.4 fL [facility] MCH 29.4 27.1 - 33.3 pg [facility] MCHC 30.6(L) 32.3 - 35.7 g/dL [facility] RDW CV 15.8(H) 11.1 - 14.9 % [facility] RDW SD 55.8(H) 35.7 - 48.1 fL [facility] NRBC abs 0.00 0.00 - 0.01 K/cumm [facility] Blood 02/21/2025 7:27 AM CDT 02/21/2025 7:53 AM CDT us Cayla LARA LAB BLOOD ORDERABLES Final R esult [place] [address] [employer] [place], [place] [id number] * Phosphorus (02/21/2025 7:27 AM CDT) Phosphorus, pl 2.8 2.3 - 4.5 mg/dL Blood 02/21/2025 7:27 AM CDT 02/21/2025 7:53 AM CDT Cayla LARA LAB BLOOD ORDERABLES Final R ult MORENITATENZIN [place] [address] [address] Department [place] [address] * Magnesium (02/21/2025 7:27 AM CDT) Magnesium 1.8 1.4 - 2.5 mg/dL Blood 02/21/2025 7:27 AM CDT 02/21/2025 7:53 AM CDT Cayla LARA LAB BLOOD ORDERABLES Final R esult Performing Organization Address City/[facility]/[place] [address] [address] [facility] [place] [address] * Basic metabolic panel (02/21/2025 7:27 AM CDT) Sodium 138 135 - 145 mmol/L Potassium, pl 4.9 3.3 - 4.9 mmol/L [facility] Chloride 102 97 - 110 mmol/L [facility] CO2 30 22 - 32 mmol/L [facility] Anion gap 6 2 - 15 mmol/L [facility] BUN 15 6 - 25 mg/dL [facility] Creatinine 0.93 0.60 - 1.10 mg/dL [facility] Glucose 83 70 - 199 mg/dL [facility] Comment: Interpretive Data Fasting glucose >/= 126 [...] Current interpretive data was last revised 2022. Calcium 8.5 8.5 - 10.3 mg/dL [facility] Blood 02/21/2025 7:27 AM CDT 02/21/2025 7:53 AM CDT Cayla LARA LAB BLOOD ORDERABLES Final R esult TA [place] [address] [address] Department [place] [address] * POCT glucose (02/20/2025 8:27 PM CDT) Glucose, POC 102 70 - 199 mg/dL POC Performer [id number] TA Blood 02/20/2025 8:27 PM CDT 02/20/2025 8:27 PM CDT us Mayela Griffin MD LAB POCT ORDERABLES - D EVICE Final Result Performing Organization Address City/[facility] [place] [address] [address] Department [place] [address] * ECG 12 lead (02/20/2025 4:02 PM CDT) 02/20/2025 4:02 PM CDT Narrative [facility] - 02/20/2025 7:09 PM CDT Vent Rate: 69 bpm RR Interval: 867 msec UT Interval: 129 msec QRS Duration: 140 msec QT Interval: 414 msec QTC Interval: 433 msec P-R-T [place]: -24 - -69 - -52 degrees IMPRESSION: ELECTRONIC VENTRICULAR PACEMAKER ABNORMAL RHYTHM ECG NO CHANGE FROM PREVIOUS TRACING NOTED Electronically Signed By: Alvaro Wan MD Jeferson Gomez MD ECG ORDERABLES Final Result Performing Organization Address [facility] de Phone Number [facility] * XR Chest 1 Vw Portable (02/20/2025 3:58 PM CDT) Anatomical Region Laterality Modality Body, Chest N/A Computed Radiogr aphy 02/20/2025 4:10 PM CDT Impressions 02/20/2025 4:10 PM CDT Pacer leads are intact. Poststernotomy changes. No pneumothorax or pleural effusion. Cardiomediastinal silhouette within normal limits. There is pulmonary vascular congestion with similar interstitial markings in the perihilar region. No acute osseous abnormality. Electronically signed by: Dean Rajan II, D.O. Narrative 02/20/2025 4:10 PM CDT EXAMINATION: XR CHEST 1 VIEW DATE: 02/20/2025 3:45 PM INDICATION: Status post biventricular pacemaker. COMPARISON: None. Procedure Note Dean Rajan II, DO - 02/20/2025 EXAMINATION: XR CHEST 1 VIEW DATE: 02/20/2025 3:45 PM INDICATION: Status post biventricular pacemaker. COMPARISON: None. IMPRESSION: Pacer leads are intact. Poststernotomy changes. No pneumothorax or pleural effusion. Cardiomediastinal silhouette within normal limits. There is pulmonary vascular congestion with similar interstitial markings in the perihilar region. No acute osseous abnormality. Electronically signed by: Dean Rajan II, D.O. Jeferson Gomez MD IMG XR PROCEDURES Sherie l Result * INSERT LV LEAD/ EXISTING DEVICE (02/20/2025 3:25 PM CDT) Anatomical Region Laterality Modality X-Ray Angiograph y 02/20/2025 Narrative 02/22/2025 9:38 AM CDT [employer] Job ID: [id number] [employer] Document ID: [id number] Dictated date/time: [id number] BIVENTRICULAR PACEMAKER IMPLANTATION An 79-year-old patient with ischemic cardiomyopathy, presented with complete heart block and ejection fraction estimated at 37%, referred for a biventricular pacemaker. REFERRING PHYSICIAN Dr. Wan. IMPLANTING PHYSICIAN Dr. Gomez. PROCEDURES 1. Implantation of a biventricular pacemaker system, [employer]. 2. Venogram. 3. Insertion of a Tyrx pouch. 4. Removal of the temporary pacemaker. PROCEDURE She was brought to the labor economics professor. Left neck subclavicular was prepped in the usual sterile fashion. 1% lidocaine with epi was used. Venogram obtained. Pacemaker pocket was created. Access obtained axillary subclavian vein. Two J wires and a Glidewire was advanced. Over the first J-wire, a 6 SafeSheath was advanced. Over the second J-wire a 6 SafeSheath was advanced. Over the Glidewire, a 9-Citizen Of [place] standard Gurwinder sheath was advanced. All the sheaths were flushed confirming venous return. Through the 6 sheath, a [employer] RV pacing lead [id number] was placed in the mid ventricular septum and screwed in place. Through the other 6 sheath, a right atrial pacing lead from [employer] [id number] was placed in the atrial appendage and screwed in place. The coronary sinus was entered with the help of a Glidewire and the Gurwinder sheath. A venogram obtained, selected anterolateral branch that was wired with a Whisper EDS wire over which a coronary sinus lead from [employer] [id number] was placed in the distal part of the vein. After adequate thresholds were confirmed, the Gurwinder sheath was carefully split. The leads were secured to subcutaneous tissue using 0 Ethibond connected to a biventricular pacemaker generator from [employer] [id number], noted to be pacing and sensing appropriately. The pocket was irrigated with antibiotic solution. The generator was placed in the pocket with 0 Ethibond header stitch and a Tyrx pouch. Deep tissues 2-0 Monocryl, superficial 4-0 Monocryl and topical Dermabond was applied. Chest x-ray, ECG will be obtained. Pain medications were ordered. THRESHOLDS Right atrium 1 mV, 1.2 V, 1 millisecond, 505 ohms, RV 0.8 V, 0.4 millisecond, 807 ohms, LV 1.2 V at 0.4 millisecond, 962 ohms. IMPRESSIONS 1. Successful biventricular pacemaker implantation. 2. Venogram. 3. Insertion of a Tyrx pouch. 4. Removal of the temporary transvenous pacemaker at the end of the procedure. Job ID/Internal Job ID: [id number] us Florentino Hwang NP CV ELECTROPHYSIOLOGY PROCS F inal Result * POCT glucose (02/20/2025 3:00 PM CDT) [facility] Signature Glucose, POC 157 70 - 199 mg/dL POC Performer [id number] TA [place]TON Blood 02/20/2025 3:00 PM CDT 02/20/2025 3:00 PM CDT us Mayela Griffin MD LAB POCT ORDERABLES - D EVICE Final Result TA [place] [address] [address] Department [place] [address] * POCT glucose (02/20/2025 9:27 AM CDT) Glucose, POC 105 70 - 199 mg/dL POC Performer [id number] TA MILTON Blood 02/20/2025 9:27 AM CDT 02/20/2025 9:27 AM CDT us Mayela Griffin MD LAB POCT ORDERABLES - D EVICE Final Result [place] [address] [address] Department [place] [address] * Critical Care (02/20/2025 7:00 AM CDT) Narrative Kaykay Simon MD - 02/20/2025 7:00 AM CDT Kaykay Simon MD 02/20/2025 5:42 PM Critical Care Performed by: Marianna Edwards NP Authorized by: Marianna Edwards NP CRITICAL CARE: Team: DARIELA Shift: AM Level of Billing: Critical Care My time spent with this patient was 45 minutes: Critical Provider Statement: I have seen and examined the patient on this day of service. I have reviewed and confirmed the history, physical exam, laboratory and radiologic data as documented in the signed ICU note. I have reviewed and discussed my treatment plan with the ICU team and other medical/systems security consultant staff, making frequent assessments and decisions regarding this patient's complex medical care. Critical Care time was exclusive of time spent performing separately billed procedures, treating other patients, and teaching. This time was in addition to and separate from critical care provided by other practitioners in my group on this day of service. Critical Care was necessary to treat or prevent imminent or life-threatening deterioration of the following conditions: I spent time talking to this patient's surrogate decision maker to determine treatment plans due to patient's inability to participate in decision making, I spent time talking to this patient's relatives to obtain additional medical history due to patient's inabililty to provide history, I spent time documenting in the medical record, I spent time discussing the management of this critically ill patient with consultants and the medical staff and I spent time reviewing and interpreting data from bedside monitors, laboratory results, and imaging us Marianna Edwards ASSISTANT ACTIVITIES DIRECTOR IN CLINIC/BEDSIDE RANJITH CLINECARITO Final Result * (ABNORMAL) eGFR (02/20/2025 4:49 AM CDT) eGFR 59(L) >=60 mL/min/1. 73 m2 Comment: Interpretive Data [...] Current interpretive data was last reviewed 2021. Blood 02/20/2025 4:49 AM CDT 02/20/2025 5:34 AM CDT us Cayla LARA LAB BLOOD ORDERABLES Final R esult TA [place] [address] Department [place] [address] * (ABNORMAL) Protime-INR (02/20/2025 4:49 AM CDT) PT 14.3(H) 9.7 - 13.0 sec INR 1.32(H) 0.90 - 1.20 TA MILTON Comment: Interpretive data Oral anticoagulant therapeutic ranges: Venous thromboembolism prophylaxis or treatment: 2.0-3.0 CARDIOLOGY Standard range: 2.0-3.0 High-intensity range: 2.5-3.5 Refer to indication-specific guidelines for appropriate target ranges for prosthetic heart valve replacement. Current interpretive data was last revised on 2019. Blood 02/20/2025 4:49 AM CDT 02/20/2025 5:35 AM CDT Cayla LARA LAB BLOOD ORDERABLES Final R esult Performing Organization Address City/[facility]/ZIP Co de Phone Number TA Thomson [address] Department [place] [address] * (ABNORMAL) CBC without differential (02/20/2025 4:49 AM CDT) Pathologist [facility] WBC 7.13 3.80 - 9.90 K/cumm Hgb 10.0(L) 11.9 - 15.5 g/dL [facility] Hct 32.7(L) 35.6 - 45.5 % [facility] Plt 141(L) 150 - 400 K/cumm [facility] MPV 10.9 9.1 - 12.3 fL [facility] RBC 3.40(L) 3.90 - 5.20 M/cumm [facility] MCV 96.2 81.3 - 96.4 fL [facility] MCH 29.4 27.1 - 33.3 pg [facility] MCHC 30.6(L) 32.3 - 35.7 g/dL [facility] RDW CV 16.0(H) 11.1 - 14.9 % [facility] RDW SD 56.5(H) 35.7 - 48.1 fL [facility] NRBC abs 0.00 0.00 - 0.01 K/cumm [facility] Blood 02/20/2025 4:49 AM CDT 02/20/2025 5:36 AM CDT us Cayla LARA LAB BLOOD ORDERABLES Final R esult TA [address] Department of [employer] [place], [place] [id number] * Phosphorus (02/20/2025 4:49 AM CDT) Pathologist [facility] Phosphorus, pl 2.5 2.3 - 4.5 mg/dL Blood 02/20/2025 4:49 AM CDT 02/20/2025 5:34 AM CDT Cayla LARA LAB BLOOD ORDERABLES Final R esult Performing Organization Address City/[facility] [place] [address] [place] [address] * Magnesium (02/20/2025 4:49 AM CDT) [facility] Magnesium 1.9 1.4 - 2.5 mg/dL Blood 02/20/2025 4:49 AM CDT 02/20/2025 5:34 AM CDT Paulajames Colleen LARA LAB BLOOD ORDERABLES Final R [facility] Performing Organization Address [facility] [place] [address] [place] [address] * (ABNORMAL) Basic metabolic panel (02/20/2025 4:49 AM CDT) Pathologist [facility] Sodium 138 135 - 145 mmol/L Potassium, pl 5.0(H) 3.3 - 4.9 mmol/L [facility] Chloride 104 97 - 110 mmol/L [facility] CO2 27 22 - 32 mmol/L [facility] Anion gap 7 2 - 15 mmol/L [facility] BUN 17 6 - 25 mg/dL [facility] Creatinine 0.96 0.60 - 1.10 mg/dL [facility] Glucose 117 70 - 199 mg/dL [facility] Comment: Interpretive Data Fasting glucose >/= 126 [...] Current interpretive data was last revised 2022. Calcium 8.2(L) 8.5 - 10.3 mg/dL TA MILTON Blood 02/20/2025 4:49 AM CDT 02/20/2025 5:34 AM CDT Cayla LARA [place] [address] [address] Department [place] [address] * Critical Care (02/19/2025 11:57 PM CDT) Narrative Reed Hodge MD - 02/19/2025 11:57 PM CDT Reed Hodge MD 02/20/2025 2:22 AM Critical Care Performed by: Cayla Macias PA Authorized by: Cayla Macias PA CRITICAL CARE: Team: DRAIELA Shift: PM Level of Billing: Critical Care My time spent with this patient was 45 minutes: Critical Provider Statement: I have seen and examined the patient on this day of service. I have reviewed and confirmed the history, physical exam, laboratory and radiologic data as documented in the signed ICU note. I have reviewed and discussed my treatment plan with the ICU team and other medical/systems security consultant staff, making frequent assessments and decisions regarding this patient's complex medical care. Critical Care time was exclusive of time spent performing separately billed procedures, treating other patients, and teaching. This time was in addition to and separate from critical care provided by other practitioners in my group on this day of service. Critical Care was necessary to treat or prevent imminent or life-threatening deterioration of the following conditions: I spent time reviewing and interpreting data from bedside monitors, laboratory results, and imaging, I spent time discussing the management of this critically ill patient with consultants and the medical staff and I spent time documenting in the medical record Cayla LARA IN CLINIC/BEDSIDE ORDERABLES Final Result * POCT glucose (02/19/2025 8:10 PM CDT) Glucose, POC 145 70 - 199 mg/dL POC Performer [id number] CERNER CH Blood 02/19/2025 8:10 PM CDT 02/19/2025 8:10 PM CDT Mayela Griffin MD LAB POCT ORDERABLES - D EVICE Final Result Performing Organization Address [facility] Co de Phone Number MORENITATENZIN [place] [address] [facility] [place] [address] * POCT glucose (02/19/2025 4:42 PM CDT) Glucose, POC 105 70 - 199 mg/dL POC Performer [id number] CERNER CH Blood 02/19/2025 4:42 PM CDT 02/19/2025 4:42 PM CDT Mayela Griffin MD LAB POCT ORDERABLES - D EVICE Final Result Performing Organization Address [facility] Co de Phone Number MORENITATENZIN [place] [address] [facility] [place] [address] * (ABNORMAL) POCT glucose (02/19/2025 11:18 AM CDT) Glucose, POC 219(H) 70 - 199 mg/dL POC Performer [id number] CERNER CH Blood 02/19/2025 11:1 8 AM CDT 02/19/2025 11:18 AM CDT Mayela Griffin MD LAB POCT ORDERABLES - D EVICE Final Result Performing Organization Address [facility] Co de Phone Number TA [place] [address] [address] [facility] [place] [address] * POCT glucose (02/19/2025 8:07 AM CDT) Glucose, POC 120 70 - 199 mg/dL POC Performer [id number] CERNER CH Blood 02/19/2025 8:07 AM CDT 02/19/2025 8:07 AM CDT us Mayela Griffin MD LAB POCT ORDERABLES [place] [address] [address] Department [place] [address] * Critical Care (02/19/2025 7:00 AM CDT) Narrative Ninfa Crews MD - 02/19/2025 7:00 AM CDT Ninfa Crews MD 02/20/2025 7:06 AM Critical Care Performed by: Marianna Edwards NP Authorized by: Marianna Edwards NP CRITICAL CARE: Team: DARIELA Shift: AM Level of Billing: Critical Care My time spent with this patient was 60 minutes: Critical Provider Statement: I have seen and examined the patient on this day of service. I have reviewed and confirmed the history, physical exam, laboratory and radiologic data as documented in the signed ICU note. I have reviewed and discussed my treatment plan with the ICU team and other medical/systems security consultant staff, making frequent assessments and decisions regarding this patient's complex medical care. Critical Care time was exclusive of time spent performing separately billed procedures, treating other patients, and teaching. This time was in addition to and separate from critical care provided by other practitioners in my group on this day of service. Critical Care was necessary to treat or prevent imminent or life-threatening deterioration of the following conditions: I spent time talking to this patient's surrogate decision maker to determine treatment plans due to patient's inability to participate in decision making, I spent time talking to this patient's relatives to obtain additional medical history due to patient's inabililty to provide history, I spent time documenting in the medical record, I spent time discussing the management of this critically ill patient with consultants and the medical staff and I spent time reviewing and interpreting data from bedside monitors, laboratory results, and imaging us Marianna Edwards NP IN CLINIC/BEDSIDE RANJITH ALVARADO Final Result * (ABNORMAL) eGFR (02/19/2025 4:38 AM CDT) eGFR 49(L) >=60 mL/min/1. 73 m2 Comment: Interpretive Data [...] Current interpretive data was last reviewed 2021. Blood 02/19/2025 4:38 AM CDT 02/19/2025 5:20 AM CDT Cayla LARA LAB BLOOD ORDERABLES Final R esult TA [place] [address] Department [place] [address] * (ABNORMAL) Protime-INR (02/19/2025 4:38 AM CDT) PT 20.4(H) 9.7 - 13.0 sec INR 1.87(H) 0.90 - 1.20 TA MILTON Comment: Interpretive data Oral anticoagulant therapeutic ranges: Venous thromboembolism prophylaxis or treatment: 2.0-3.0 CARDIOLOGY Standard range: 2.0-3.0 High-intensity range: 2.5-3.5 Refer to indication-specific guidelines for appropriate target ranges for prosthetic heart valve replacement. Current interpretive data was last revised on 2019. Blood 02/19/2025 4:38 AM CDT 02/19/2025 5:22 AM CDT Cayla LARA LAB BLOOD ORDERABLES Final R esult TA [address] Department [place] [address] * (ABNORMAL) CBC without differential (02/19/2025 4:38 AM CDT) WBC 7.40 3.80 - 9.90 K/cumm Hgb 9.7(L) 11.9 - 15.5 g/dL CERNER CH Hct 31.6(L) 35.6 - 45.5 % CERNER CH Plt 122(L) 150 - 400 K/cumm [facility] MPV 11.2 9.1 - 12.3 fL [facility] RBC 3.29(L) 3.90 - 5.20 M/cumm [facility] CH MCV 96.0 81.3 - 96.4 fL [facility] MCH 29.5 27.1 - 33.3 pg [facility] MCHC 30.7(L) 32.3 - 35.7 g/dL [facility] CH RDW CV 16.1(H) 11.1 - 14.9 % [facility] CH RDW SD 56.4(H) 35.7 - 48.1 fL [facility] NRBC abs 0.00 0.00 - 0.01 K/cumm [facility] Blood 02/19/2025 4:38 AM CDT 02/19/2025 5:23 AM CDT Cayla LARA LAB BLOOD ORDERABLES Final R esult TA [address] Department [place] [address] * Phosphorus (02/19/2025 4:38 AM CDT) Phosphorus, pl 3.2 2.3 - 4.5 mg/dL Blood 02/19/2025 4:38 AM CDT 02/19/2025 5:20 AM CDT Cayla LARA LAB BLOOD ORDERABLES Final R esult Performing Organization Address City/[facility]/ZIP Co de Phone Number TA [place] [address] [place] [address] * Magnesium (02/19/2025 4:38 AM CDT) Magnesium 1.9 1.4 - 2.5 mg/dL Blood 02/19/2025 4:38 AM CDT 02/19/2025 5:20 AM CDT Cayla LARA LAB BLOOD ORDERABLES Final Adryan ferrera Performing Organization Address [facility] de Phone Number TA [place] [address] [place] [address] * (ABNORMAL) Basic metabolic panel (02/19/2025 4:38 AM CDT) Sodium 140 135 - 145 mmol/L Potassium, pl 5.0(H) 3.3 - 4.9 mmol/L CERNER Chloride 105 97 - 110 mmol/L CERNER CH CO2 27 22 - 32 mmol/L [facility] Anion gap 8 2 - 15 mmol/L [facility] BUN 24 6 - 25 mg/dL [facility] Creatinine 1.13(H) 0.60 - 1.10 mg/dL [facility] Glucose 118 70 - 199 mg/dL [facility] Comment: Interpretive Data Fasting glucose >/= 126 [...] Current interpretive data was last revised 2022. Calcium 8.6 8.5 - 10.3 mg/dL [facility] Blood 02/19/2025 4:38 AM CDT 02/19/2025 5:20 AM CDT Cayla LARA LAB BLOOD ORDERABLES Final R esult Performing Organization Address [facility] Co de Phone Number TA [place] [address] [address] [facility] [place] [address] * POCT glucose (02/18/2025 7:54 PM CDT) Glucose, POC 121 70 - 199 mg/dL POC Performer [id number] CERNER CH Blood 02/18/2025 7:54 PM CDT 02/18/2025 7:54 PM CDT Mayela Griffin MD LAB POCT ORDERABLES - D EVICE Final Result Performing Organization Address [facility] Co de Phone Number TA [place] [address] [address] [facility] [place] [address] * POCT glucose (02/18/2025 4:40 PM CDT) Glucose, POC 166 70 - 199 mg/dL POC Performer [id number] CERNER CH Blood 02/18/2025 4:40 PM CDT 02/18/2025 4:40 PM CDT Mayela Griffin MD LAB POCT ORDERABLES - D EVICE Final Result Performing Organization Address [facility] Co de Phone Number TA [place] [address] [address] [facility] [place] [address] * POCT glucose (02/18/2025 12:04 PM CDT) Glucose, POC 143 70 - 199 mg/dL POC Performer [id number] CERNER CH Blood 02/18/2025 12:0 4 PM CDT 02/18/2025 12:04 PM CDT Mayela Griffin MD LAB POCT ORDERABLES - D WILLIAM Final Result TA [facility]33 [facility] Department of Laboratories [place] [phone] * TRANSTHORACIC ECHO (TTE) COMPLETE W DOPPLER/CF W CONTRAST (02/18/2025 11:49 AM CDT) Estimated EF 35-40 % CONS SCIMAGE EF Mod BP 40 % CONS SCIMAGE Anatomical Region Laterality Modality Ultrasound 02/18/2025 10:4 5 AM CDT Narrative 02/19/2025 8:54 [place] [address] Echocardiogram Report Patient Name: CARMEN CORONA F : 1945 Study Date: 02/18/2025 10:45:10 AM Gender: F Tech: [place] Location: [id number] Ref Provider: ALVARO WAN Height(Cm): 152 BSA: 1.69 Weight(Kg): 67.9 Heart Rate: 87 BP: 91 / 71 Quality: Technically Difficult Study Order Provider: ALVARO WAN PROCEDURES: Echocardiographic Report: Transthoracic echocardiogram with complete 2D, M-Mode, color Doppler examination and contrast. INDICATIONS: Atrial Fibrillation. MEASUREMENTS: 2D/MM Value Range Doppler Value Range EF Teich 2D 49.8 percent [ 54.0 - 74.0 ] ALLAN Vmax 2.15 cm2 EF Mod BP 40 % [ 54 - 74 ] AV Mean PG 4 mmHg Estimated EF 35-40 % AV Peak Itz 1.53 m/s [ 1.00 - 1.70 ] LVIDd 2D 5.32 cm [ 3.80 - 5.20 ] AV VTI 27.71 cm LVIDs 2D 3.97 cm [ 2.20 - 3.50 ] LVOT Diam 1.97 cm LVPWd 2D 1.05 cm [ 0.60 - 0.90 ] LVOT Peak Itz 1.07 m/s [ 0.70 - 1.10 ] IVSd 2D 1.31 cm [ 0.60 - 0.90 ] LVOT VTI 22.83 cm LA Dimension 2D 4.70 cm [ 2.70 - 3.80 ] SI LVOT 42.2 ml/m2 [ >= 35.0 ] LA Dimension MM 4.90 cm [ 2.70 - 3.80 ] MV E Peak Itz 1.34 m/s [ 0.60 - 1.30 ] AoR Diam 2D 2.79 cm [ 2.70 - 3.70 ] MV A Peak Itz 0.84 m/s [ 1.00 - 1.20 ] AoR Diam MM 2.73 cm [ 2.70 - 3.70 ] MV Mean PG 5 mmHg LA Volume Index 55.60 cc/m2 [ 16.00 - 34.00 ] MV PHT 69 msec [ 20 - 100 ] ACS MM 2.02 cm MVA PHT 3.19 cm2 MV Decel Time 238 msec [ 104 - 258 ] PV Peak Itz 0.87 m/s [ 0.40 - 0.80 ] TR Peak Itz 3.77 m/s [ 1.00 - 2.80 ] TR Peak PG 57 mmHg E` 0.03 m/s E/E` 14.95 2D/MM Value Range Doppler Value Range - FINDINGS: Atrial Septum: Normal atrial septum. Left Ventricle: Mild enlargement of left ventricle cavity. Optison contrast agent used to visually enhance endocardial wall motion and contractility. Normal left ventricular wall thickness. Diastolic dysfunction is present. Ejection Fraction is visually estimated to be 35-40 %. Left Atrium: There is mild enlargement of left atrium. Right Ventricle: Mild enlargement of right ventricle. Mild right ventricular hypokinesis. Right Atrium: The right atrium is normal in size. Aortic Valve: Trileaflet aortic valve. Aortic cusps appear mildly sclerotic. No evidence of hemodynamically significant aortic stenosis by Doppler. Mild aortic valve regurgitation. Mitral Valve: There is no hemodynamically significant mitral stenosis by Doppler. Mild mitral valve regurgitation. Annular region thickened with prior annuloplasty. Mean gradient of 5 mmHg. Pulmonic Valve: Normal structure of the pulmonic valve. No evidence of pulmonic regurgitation. Tricuspid Valve: Normal structure of the tricuspid valve. Estimated peak RVSP is 62 mmHg. Moderate tricuspid regurgitation. Pericardium: Normal pericardium with no significant pericardial effusion. Aorta: Sinus of Valsalva is normal. IVC: Normal size and normal respiratory collapse consistent with normal right atrial pressure (<5 mmHg). Pulmonary Artery: Normal pulmonary artery size. CONCLUSIONS: Mild enlargement of left ventricle cavity. Optison contrast agent used to visually enhance endocardial wall motion and contractility. Normal left ventricular wall thickness. Diastolic dysfunction is present. Ejection Fraction is visually estimated to be 35-40 %. Mild enlargement of right ventricle. Mild right ventricular hypokinesis. There is mild enlargement of left atrium. There is no hemodynamically significant mitral stenosis by Doppler. Mild mitral valve regurgitation. Annular region thickened with prior annuloplasty. Mean gradient of 5 mmHg. Trileaflet aortic valve. Aortic cusps appear mildly sclerotic. No evidence of hemodynamically significant aortic stenosis by Doppler. Mild aortic valve regurgitation. Estimated peak RVSP is 62 mmHg. Moderate tricuspid regurgitation. Electronically Signed By: Dr. Gonzalez Olvera [facility] 02/19/2025 8:53:57 AM CDT Procedure Note Gonzalez Olvera MD - 02/19/2025 [place] [address] Echocardiogram Report Patient Name: CARMEN CORONA F : 1945 Study Date: 02/18/2025 10:45:10 AM Gender: F Tech: [place] Location: [id number] Ref Provider: ALVARO WAN Height(Cm): 152 BSA: 1.69 Weight(Kg): 67.9 Heart Rate: 87 BP: 91 / 71 Quality: Technically Difficult Study Order Provider: ALVARO WAN PROCEDURES: Echocardiographic Report: Transthoracic echocardiogram with complete 2D, M-Mode, color Dopplerexamination and contrast. INDICATIONS: Atrial Fibrillation. MEASUREMENTS: 2D/MM Value Range DopplerValue Range EF Teich 2D 49.8 percent [ 54.0 - 74.0 ] ALLAN Vmax2.15 cm2 EF Mod BP 40 % [ 54 - 74 ] AV Mean PG 4mmHg Estimated EF 35-40 % AV Peak Vel1.53 m/s [ 1.00 - 1.70 ] LVIDd 2D 5.32 cm [ 3.80 - 5.20 ] AV VTI27.71 cm LVIDs 2D 3.97 cm [ 2.20 - 3.50 ] LVOT Diam1.97 cm LVPWd 2D 1.05 cm [ 0.60 - 0.90 ] LVOT Peak Vel1.07 m/s [ 0.70 - 1.10 ] IVSd 2D 1.31 cm [ 0.60 - 0.90 ] LVOT VTI22.83 cm LA Dimension 2D 4.70 cm [ 2.70 - 3.80 ] SI LVOT42.2 ml/m2 [ >= 35.0 ] LA Dimension MM 4.90 cm [ 2.70 - 3.80 ] MV E Peak Vel1.34 m/s [ 0.60 - 1.30 ] AoR Diam 2D 2.79 cm [ 2.70 - 3.70 ] MV A Peak Vel0.84 m/s [ 1.00 - 1.20 ] AoR Diam MM 2.73 cm [ 2.70 - 3.70 ] MV Mean PG 5mmHg LA Volume Index 55.60 cc/m2 [ 16.00 - 34.00 ] MV PHT69 msec [ 20 - 100 ] ACS MM 2.02 cm MVA PHT3.19 cm2 MV Decel Time 238 msec [ 104 - 258 ] PV Peak Itz 0.87 m/s [ 0.40 - 0.80 ] TR Peak Itz 3.77 m/s [ 1.00 - 2.80 ] TR Peak PG 57 mmHg E` 0.03 m/s E/E` 14.95 2D/MM Value Range DopplerValue Range - FINDINGS: Atrial Septum: Normal atrial septum. Left Ventricle: Mild enlargement of left ventricle cavity. Optison contrast agent used tovisually enhance endocardial wall motion and contractility. Normal left ventricularwall thickness. Diastolic dysfunction is present. Ejection Fraction is visuallyestimated to be 35-40 %. Left Atrium: There is mild enlargement of left atrium. Right Ventricle: Mild enlargement of right ventricle. Mild right ventricular hypokinesis. Right Atrium: The right atrium is normal in size. Aortic Valve: Trileaflet aortic valve. Aortic cusps appear mildly sclerotic. No evidenceof hemodynamically significant aortic stenosis by Doppler. Mild aortic valveregurgitation. Mitral Valve: There is no hemodynamically significant mitral stenosis by Doppler. Mildmitral valve regurgitation. Annular region thickened with prior annuloplasty. Meangradient of 5 mmHg. Pulmonic Valve: Normal structure of the pulmonic valve. No evidence of pulmonicregurgitation. Tricuspid Valve: Normal structure of the tricuspid valve. Estimated peak RVSP is 62 mmHg.Moderate tricuspid regurgitation. Pericardium: Normal pericardium with no significant pericardial effusion. Aorta: Sinus of Valsalva is normal. IVC: Normal size and normal respiratory collapse consistent with normal rightatrial pressure (<5 mmHg). Pulmonary Artery: Normal pulmonary artery size. CONCLUSIONS: Mild enlargement of left ventricle cavity. Optison contrast agent used tovisually enhance endocardial wall motion and contractility. Normal left ventricularwall thickness. Diastolic dysfunction is present. Ejection Fraction is visuallyestimated to be 35-40 %. Mild enlargement of right ventricle. Mild right ventricular hypokinesis. There is mild enlargement of left atrium. There is no hemodynamically significant mitral stenosis by Doppler. Mildmitral valve regurgitation. Annular region thickened with prior annuloplasty. Meangradient of 5 mmHg. Trileaflet aortic valve. Aortic cusps appear mildly sclerotic. No evidenceof hemodynamically significant aortic stenosis by Doppler. Mild aortic valveregurgitation. Estimated peak RVSP is 62 mmHg. Moderate tricuspid regurgitation. Electronically Signed By: Dr. Gonzalez Olvera [facility] 02/19/2025 8:53:57 AM CDT us Alvaro Wan MD CV ECHO PROCEDURES Final Result * POCT glucose (02/18/2025 7:59 AM CDT) Glucose, POC 99 70 - 199 mg/dL POC Performer [id number] TA YOAN Blood 02/18/2025 7:59 AM CDT 02/18/2025 7:59 AM CDT us Mayela Griffin MD LAB POCT ORDERABLES - D EVICE Final Result TA [place] [address] [address] Department [place] [address] * Critical Care (02/18/2025 7:00 AM CDT) Narrative Ninfa Crews MD - 02/18/2025 7:00 AM CDT Ninfa Crews MD 02/18/2025 5:45 PM Critical Care Performed by: Marianna Edwards NP Authorized by: Marianna Edwards NP CRITICAL CARE: Team: DARIELA Shift: AM Level of Billing: Critical Care My time spent with this patient was 75 minutes: Critical Provider Statement: I have seen and examined the patient on this day of service. I have reviewed and confirmed the history, physical exam, laboratory and radiologic data as documented in the signed ICU note. I have reviewed and discussed my treatment plan with the ICU team and other medical/systems security consultant staff, making frequent assessments and decisions regarding this patient's complex medical care. Critical Care time was exclusive of time spent performing separately billed procedures, treating other patients, and teaching. This time was in addition to and separate from critical care provided by other practitioners in my group on this day of service. Critical Care was necessary to treat or prevent imminent or life-threatening deterioration of the following conditions: I spent time talking to this patient's relatives to obtain additional medical history due to patient's inabililty to provide history, I spent time talking to this patient's surrogate decision maker to determine treatment plans due to patient's inability to participate in decision making, I spent time documenting in the medical record, I spent time discussing the management of this critically ill patient with consultants and the medical staff and I spent time reviewing and interpreting data from bedside monitors, laboratory results, and imaging us Marianna Edwards ASSISTANT ACTIVITIES DIRECTOR IN CLINIC/BEDSIDE JASMEETRyan CHRISTIANO Final Result * (ABNORMAL) eGFR (02/18/2025 5:40 AM CDT) eGFR 36(L) >=60 mL/min/1. 73 m2 Comment: Interpretive Data [...] Current interpretive data was last reviewed 2021. Blood 02/18/2025 5:40 AM CDT 02/18/2025 5:52 AM CDT us Cayla LARA LAB BLOOD ORDERABLES Final R esult TA MILTON [address] Department of Laboratories [place], [place] [id number] * (ABNORMAL) Protime-INR (02/18/2025 5:40 AM CDT) PT 37.8(H) 9.7 - 13.0 sec INR 3.41(H) 0.90 - 1.20 TA MILTON Comment: Interpretive data Oral anticoagulant therapeutic ranges: Venous thromboembolism prophylaxis or treatment: 2.0-3.0 CARDIOLOGY Standard range: 2.0-3.0 High-intensity range: 2.5-3.5 Refer to indication-specific guidelines for appropriate target ranges for prosthetic heart valve replacement. Current interpretive data was last revised on 2019. Blood 02/18/2025 5:40 AM CDT 02/18/2025 5:53 AM CDT us Cayla LARA LAB BLOOD ORDERABLES Final R esult Performing Organization Address City/[facility]/ZIP Co de Phone Number TA [address] [place] [address] * (ABNORMAL) CBC without differential (02/18/2025 5:40 AM CDT) WBC 7.59 3.80 - 9.90 K/cumm Hgb 9.5(L) 11.9 - 15.5 g/dL [facility] Hct 30.6(L) 35.6 - 45.5 % [facility] Plt 128(L) 150 - 400 K/cumm [facility] MPV 11.3 9.1 - 12.3 fL [facility] RBC 3.23(L) 3.90 - 5.20 M/cumm [facility] MCV 94.7 81.3 - 96.4 fL [facility] MCH 29.4 27.1 - 33.3 pg [facility] MCHC 31.0(L) 32.3 - 35.7 g/dL [facility] CH RDW CV 16.0(H) 11.1 - 14.9 % [facility] CH RDW SD 55.3(H) 35.7 - 48.1 fL [facility] NRBC abs 0.00 0.00 - 0.01 K/cumm [facility] Blood 02/18/2025 5:40 AM CDT 02/18/2025 5:53 AM CDT us Cayla LARA LAB BLOOD ORDERABLES Final R esult Performing Organization Address City/[facility]/ZIP Co de Phone Number TA [address] Department of [employer] [place], [place] [id number] * Phosphorus (02/18/2025 5:40 AM CDT) Phosphorus, pl 3.3 2.3 - 4.5 mg/dL Blood 02/18/2025 5:40 AM CDT 02/18/2025 5:52 AM CDT Cayla Macias DC LAB BLOOD ORDERABLES Final R esult Performing Organization Address [facility] Co de Phone Number TA [place] [address] [facility] [place] [address] * Magnesium (02/18/2025 5:40 AM CDT) Magnesium 1.9 1.4 - 2.5 mg/dL Blood 02/18/2025 5:40 AM CDT 02/18/2025 5:52 AM CDT Cayla Macias DC LAB BLOOD ORDERABLES Final R esult Performing Organization Address [facility] de Phone Number TA [place] [address] [place] [address] * (ABNORMAL) Basic metabolic panel (02/18/2025 5:40 AM CDT) Sodium 140 135 - 145 mmol/L Potassium, pl 4.6 3.3 - 4.9 mmol/L [facility] Chloride 107 97 - 110 mmol/L [facility] CO2 22 22 - 32 mmol/L [facility] Anion gap 11 2 - 15 mmol/L [facility] BUN 36(H) 6 - 25 mg/dL [facility] Creatinine 1.45(H) 0.60 - 1.10 mg/dL [facility] Glucose 93 70 - 199 mg/dL [facility] Comment: Interpretive Data Fasting glucose >/= 126 [...] Current interpretive data was last revised 2022. Calcium 8.0(L) 8.5 - 10.3 mg/dL [facility] Blood 02/18/2025 5:40 AM CDT 02/18/2025 5:52 AM CDT Cayla LARA LAB BLOOD ORDERABLES Final R esult [facility] [address] Department [place] [address] * (ABNORMAL) Urinalysis reflex to microscopic and culture Urine (02/18/2025 12:45 AM CDT) Color, ur Yellow Yellow Clarity, ur Turbid(A) Clear [facility] Specific gravity, ur 1.019 1.003 - 1.030 [facility] pH, urine 5.0 [facility] Comment: Interpretive Data U rine pH is affected by diet, medications, systemic acid-base disturbances, and renal tubular function. pH may affect urinary stone formation. For example, urine pH below 6.0 may help reduce the tendency for calcium phosphate stones and pH greater than 6.0 may reduce the tendency for uric acid stone formation. Source: [facility] Current Interpretive Data was last revised on 2017 Protein, ur ql 1+(A) Negative [facility] Glucose, ur ql Negative Negative [facility] Ketones, ur Negative Negative [facility] Bilirubin, ur Negative Negative [facility] Blood, ur 3+(A) Negative [facility] Urobilinogen, ur <2.0 <2.0 mg/dL [facility] Nitrite, ur Negative Negative [facility] Leukocyte esterase, ur 3+(A) Negative [facility] UA reflex comment Reflex to microscopic UA will be performed. [facility] Urine 02/18/2025 12:4 5 AM CDT 02/18/2025 1:22 AM CDT Cayla LARA LAB MICROBIOLOGY - GENERAL O RDERABLES Final Result [facility] [address] [place] [address] * (ABNORMAL) Urinalysis, microscopic only (02/18/2025 12:45 AM CDT) WBC, ur 21-50(A) 0 - 5 /HPF RBC, ur 21-50(A) 0 - 2 /HPF [facility] Epithelial cells, squamous, ur 1-5 0 - 5 /HPF [facility] Bacteria, ur Trace(A) [facility] Mucous, ur Present(A) [facility] Culture Reflex Comment Reflex to urine culture will be performed. [facility] Urine 02/18/2025 12:4 5 AM CDT 02/18/2025 1:22 AM CDT Cayla LARA LAB URINE ORDERABLES Final R esult Performing Organization Address [facility] [place] [address] [place] [address] * Urine culture Urine (02/18/2025 12:45 AM CDT) Report Final Report: Less than 100,000 colonies/mL (clinically insignificant growth based on current clinical standards) Comment:Testing performed by : [facility], [address] [place]., [address] Organism (CLINICALLY INSIGNIFICANT GROWTH [facility] Urine 02/18/2025 12:4 5 AM CDT 02/18/2025 3:53 AM CDT Narrative [facility] - 02/19/2025 8:05 AM CDT Urine culture reflexed based upon urinalysis results. Testing performed by [facility] Microbiology Laboratory ([phone]) Cayla LARA LAB MICROBIOLOGY - [place] [address] [place] [address] * POCT glucose (02/18/2025 12:43 AM CDT) Glucose, POC 126 70 - 199 mg/dL POC Performer [phone] MORENITATENZIN MILTON Blood 02/18/2025 12:4 3 AM CDT 02/18/2025 12:43 AM CDT Mayela Griffin MD LAB POCT ORDERABLES - D EVICE Final Result Performing Organization Address City/[facility] Co de Phone Number TA [place] [address] Department [place] [address] * ECG 12 lead (02/17/2025 11:10 PM CDT) 02/17/2025 11:1 0 PM CDT Narrative [facility] - 02/18/2025 10:17 AM CDT Vent Rate: 80 bpm RR Interval: 750 msec UT Interval: 0 msec QRS Duration: 233 msec QT Interval: 498 msec QTC Interval: 533 msec P-R-T [place]: 0 - -66 - 110 degrees IMPRESSION: ELECTRONIC VENTRICULAR PACEMAKER ABNORMAL RHYTHM ECG Compared to prior EKG, ventricular pacing is now present Electronically Signed By: Alvaro Wan MD Cayla LARA ECG ORDERABLES Final Result Performing Organization Address [facility] de Phone Number [facility] [employer] [facility] * Critical Care (02/17/2025 9:26 PM CDT) Narrative Reed Hodge MD - 02/17/2025 9:26 PM CDT Reed Hodge MD 02/18/2025 1:19 AM Critical Care Performed by: Cayla Macias PA Authorized by: Cayla Macias PA CRITICAL CARE: Team: DARIELA Shift: PM Level of Billing: Critical Care My time spent with this patient was 90 minutes: Critical Provider Statement: I have seen and examined the patient on this day of service. I have reviewed and confirmed the history, physical exam, laboratory and radiologic data as documented in the signed ICU note. I have reviewed and discussed my treatment plan with the ICU team and other medical/systems security consultant staff, making frequent assessments and decisions regarding this patient's complex medical care. Critical Care time was exclusive of time spent performing separately billed procedures, treating other patients, and teaching. This time was in addition to and separate from critical care provided by other practitioners in my group on this day of service. Critical Care was necessary to treat or prevent imminent or life-threatening deterioration of the following conditions: I spent time reviewing and interpreting data from bedside monitors, laboratory results, and imaging, I spent time discussing the management of this critically ill patient with consultants and the medical staff and I spent time documenting in the medical record Cayla ALRA IN CLINIC/BEDSIDE ORDERABLES Edited Result - Final * Lactate (02/17/2025 8:03 PM CDT) Lactate 0.8 0.7 - 2.0 mmol/L Blood 02/17/2025 8:03 PM CDT 02/17/2025 8:09 PM CDT Cayla LARA [place] [address] [address] [place] [address] * (ABNORMAL) eGFR (02/17/2025 8:03 PM CDT) eGFR 33(L) >=60 mL/min/1. 73 m2 Comment: Interpretive Data [...] Current interpretive data was last reviewed 2021. Blood 02/17/2025 8:03 PM CDT 02/17/2025 8:10 PM CDT Cayla LARA LAB BLOOD ORDERABLES Final R esult Performing Organization Address City/[facility]/ZIP Co de Phone Number TA [address] [place] [address] * (ABNORMAL) CBC without differential (02/17/2025 8:03 PM CDT) Pathologist [facility] WBC 6.99 3.80 - 9.90 K/cumm Hgb 11.5(L) 11.9 - 15.5 g/dL [facility] Hct 36.1 35.6 - 45.5 % [facility] Plt 141(L) 150 - 400 K/cumm [facility] MPV 10.9 9.1 - 12.3 fL [facility] RBC 3.86(L) 3.90 - 5.20 M/cumm [facility] MCV 93.5 81.3 - 96.4 fL [facility] MCH 29.8 27.1 - 33.3 pg [facility] MCHC 31.9(L) 32.3 - 35.7 g/dL [facility] RDW CV 16.3(H) 11.1 - 14.9 % [facility] RDW SD 55.5(H) 35.7 - 48.1 fL [facility] NRBC abs 0.00 0.00 - 0.01 K/cumm [facility] Blood 02/17/2025 8:03 PM CDT 02/17/2025 8:10 PM CDT Cayla LARA LAB BLOOD ORDERABLES Final R esult TA [place] [address] Department [place] [address] * Phosphorus (02/17/2025 8:03 PM CDT) Phosphorus, pl 4.1 2.3 - 4.5 mg/dL Blood 02/17/2025 8:03 PM CDT 02/17/2025 8:10 PM CDT Cayla Colleen LARA LAB BLOOD ORDERABLES Final R esult Performing Organization Address City/[facility]/ZIP Co de Phone Number TA [place] [address] [facility] [place] [address] * Magnesium (02/17/2025 8:03 PM CDT) Pathologist [facility] Magnesium 2.3 1.4 - 2.5 mg/dL Blood 02/17/2025 8:03 PM CDT 02/17/2025 8:10 PM CDT Cayla Borregojohn DC LAB BLOOD ORDERABLES Final R esult Performing Organization Address [facility] de Phone Number TA [place] [address] [place] [address] * (ABNORMAL) Basic metabolic panel (02/17/2025 8:03 PM CDT) Pathologist [facility] Sodium 140 135 - 145 mmol/L Potassium, pl 5.1(H) 3.3 - 4.9 mmol/L [facility] Chloride 105 97 - 110 mmol/L [facility] CO2 24 22 - 32 mmol/L [facility] Anion gap 11 2 - 15 mmol/L [facility] BUN 40(H) 6 - 25 mg/dL [facility] Creatinine 1.56(H) 0.60 - 1.10 mg/dL [facility] Glucose 177 70 - 199 mg/dL [facility] Comment: Interpretive Data Fasting glucose >/= 126 [...] Current interpretive data was last revised 2022. Calcium 8.7 8.5 - 10.3 mg/dL [facility] Blood 02/17/2025 8:03 PM CDT 02/17/2025 8:10 PM CDT Cayla LARA LAB BLOOD ORDERABLES Final R esult Performing Organization Address City/[facility] [place] [address] [place] [address] * (ABNORMAL) POCT glucose (02/17/2025 7:16 PM CDT) [facility] Signature Glucose, POC 201(H) 70 - 199 mg/dL POC Performer [phone] [facility] Blood 02/17/2025 7:16 PM CDT 02/17/2025 7:16 PM CDT Mayela Griffin MD LAB POCT ORDERABLES - D EVICE Final Result Performing Organization Address [facility] Co de Phone Number [facility] [address] [place] [address] * Cardiac Catheterization (02/17/2025 6:36 PM CDT) Anatomical Region Laterality Modality X-Ray Angiograph y 02/17/2025 Narrative 02/19/2025 1:42 PM CDT [employer] Job ID: [id number] [employer] Document ID: [id number] Dictated date/time: [id number] TEMPORARY VENOUS PACEMAKER INSERTION REPORT An 79-year-old with history of mitral valve repair, presented with syncope. She has a history of paroxysmal atrial fibrillation on coumadin therapy. EKG showed complete heart block . She was transferred emergently. INDICATION FOR PROCEDURE Complete heart block. PROCEDURE PERFORMED Insertion of transvenous temporary pacemaker. After obtaining informed consent, patient was brought to the cardiac labor economics professor suite. She was prepped and draped in usual fashion. No Sedation was given. Total procedure time was 14 minutes. A 5-Citizen [place] sheath was inserted in the right femoral vein. A 5-[place]izen [place] balloon tipped pacemaker was advanced under fluoroscopy into the right ventricle with difficulty given her significant bradycardia. The pacemaker was in stable position. The pacing threshold was measured at less than 1 mA. The pacemaker was set at a rate of 80, sensitivity 2 and output of 5 mA. It was sutured in place. The patient transferred to the intensive care unit. IMPRESSION Successful insertion of transvenous temporary pacemaker via the right femoral vein with good capture. CARE PLAN Management in the ICU. Reversal of anticoagulation and arrange for permanent pacemaker insertion. Alvaro Wan MD Job ID/Internal Job ID: [id number] us Alvaro Wan MD CV CARDIAC CATH PROCEDURES Sherie l Result * [facility] CRITICAL CARE ILL/INJURED PATIENT INIT 30-74 MIN (02/17/2025 5:44 PM CDT) Narrative Dean Pineda MD - 02/17/2025 5:44 PM CDT Dean Pineda MD 02/17/2025 5:45 PM Critical Care Performed by: Dean Pineda MD Authorized by: Dean Pineda MD Critical care provider statement: As reflected in the history, physical exam, orders, notes, and/or MDM, I was personally present while the patient was critically ill and provided critical care services for 48 minutes, excluding time involved in separately billable procedures. Critical care was necessary to treat or prevent imminent or life-threatening deterioration of the following condition(s): unstable vital signs acute congestive heart failure excerbation (CHF), severe cardiac condition, tachy/huang arrhythmic event and cardiogenic shock Critical care was time spent by me providing the following: continuous telemetry, continuous pulse oximetry, continuous capnography, interpretation of bedside monitors, imaging, and arterial/venous lab draws and serial bedside patient exams initiation and active titration of vasoactive medications, initiation of inotropic medication and cardiac pacing supplemental oxygen I provided emergent necessary critical care medicine services to this patient. I ordered and reviewed test results and/or imaging studies. I spent time discussing the management of this critically ill patient with consultants and the medical staff. I spent time discussing the management and therapeutic options for this critically ill patient with the patient themselves or with the appropriate designated surrogate decision-maker. I spent time documenting in the medical record. us Dean Pineda MD IN CLINIC/BEDSIDE ORDERABLE S Final Result * (ABNORMAL) aPTT (02/17/2025 5:44 PM CDT) aPTT 42(H) 28 - 38 sec TA THOMAS ([place]) Comment: Interpretive Data Heparin therapeutic range: 66.0 - 100.0 seconds. Range based on correlation with therapeutic heparin activity range of 0.3 - 0.7 Units/mL. Current interpretive data was last revised on 2023. Blood 02/17/2025 5:44 PM CDT 02/17/2025 5:46 PM CDT Dean Pineda MD LAB BLOOD ORDERABLES Final Result Performing Organization Address [facility] Co de Phone Number TA [facility] ([place]) [address] [place] [address] * (ABNORMAL) Protime-INR (02/17/2025 5:44 PM CDT) PT 38.7(H) 9.7 - 13.0 sec TA [facility]OM[facility] ([place]) INR 3.49(H) 0.90 - 1.20 TA THOMAS ([place]) Comment: Interpretive data Oral anticoagulant therapeutic ranges: Venous thromboembolism prophylaxis or treatment: 2.0-3.0 CARDIOLOGY Standard range: 2.0-3.0 High-intensity range: 2.5-3.5 Refer to indication-specific guidelines for appropriate target ranges for prosthetic heart valve replacement. Current interpretive data was last revised on 2019. Blood 02/17/2025 5:44 PM CDT 02/17/2025 5:46 PM CDT Dean Pineda MD LAB BLOOD ORDERABLES Final Result Performing Organization Address [facility] Co de Phone Number TA WILLIAM ([place]) [address] [place] [address] * XR Chest 1 Vw Portable (02/17/2025 4:52 PM CDT) Anatomical Region Laterality Modality Body, Chest N/A Computed Radiogr aphy 02/17/2025 5:30 PM CDT Narrative 02/17/2025 5:34 PM CDT EXAM DESCRIPTION: XR CHEST 1 VIEW REASON FOR STUDY: syncope Complaints of passing out several times since Yesterday. Patient visitor states she did it 3-4 times on the car ride in. RN witnessed episode in triage, where patient slumped over was at baseline to verbal stimulation after approx 10 seconds. Ex-Smoker CAD CVA GERD Hypertension Hx of [place] TECHNIQUE: 1 radiographic view(s) of the chest. COMPARISON: 12/05/2023 FINDINGS: LUNGS: No focal opacity, pleural effusion, or pneumothorax. Stable interstitial fibrotic changes bilaterally, left greater than right. No acute superimposed infiltrates. HEART/MEDIASTINUM: Cardiac silhouette normal in size. Mediastinal and hilar contours appear normal. Thoracic aorta is moderately calcified. Median sternotomy and valvular replacement. LINES/TUBES: None. BONES: No acute osseous abnormality. IMPRESSION: No acute cardiopulmonary abnormality. THIS IS AN ELECTRONICALLY VERIFIED FINAL REPORT 02/17/2025 5:34 PM - Electronically signed by Nehemiah Marie M.D. KT: JIE Report ID: [id number] Reading Location: [id number] Procedure Note Nehemiah Marie MD - 02/17/2025 EXAM DESCRIPTION: XR CHEST 1 VIEW REASON FOR STUDY: syncope Complaints of passing out several times since Yesterday. Patientvisitor states she did it 3-4 times on the car ride in. RN witnessed episode in triage, where patient slumped over was at baseline to verbal stimulation after approx 10 seconds. Ex-Smoker CAD CVA GERD Hypertension Hxof [place] TECHNIQUE: 1 radiographic view(s) of the chest. COMPARISON: 12/05/2023 FINDINGS: LUNGS: No focal opacity, pleural effusion, or pneumothorax. Stable interstitial fibrotic changes bilaterally, left greater than right. Noacute superimposed infiltrates. HEART/MEDIASTINUM: Cardiac silhouette normal in size. Mediastinal andhilar contours appear normal. Thoracic aorta is moderately calcified. Median sternotomy and valvular replacement. LINES/TUBES: None. BONES: No acute osseous abnormality. IMPRESSION: No acute cardiopulmonary abnormality. THIS IS AN ELECTRONICALLY VERIFIED FINAL REPORT 02/17/2025 5:34 PM - Electronically signed by Nehemiah Marie M.D. KT: KT Report ID: [id number] Reading Location: [id number] Dean Pineda MD IMG XR PROCEDURES Final Res ult * ECG 12 lead (02/17/2025 4:40 PM CDT) 02/17/2025 4:40 PM CDT Narrative [facility] - 02/18/2025 8:05 AM CDT Vent Rate: 30 bpm RR Interval: 1946 msec UT Interval: 158 msec QRS Duration: 161 msec QT Interval: 559 msec QTC Interval: 424 msec P-R-T [place]: -65 - -25 - 58 degrees IMPRESSION: Baseline artifact, probable complete heart block with escape rhythm LEFT BUNDLE BRANCH BLOCK [120+ ms QRS DURATION, 80+ ms Q/S IN V1/V2, 85+ ms R IN I/aVL/V5/V6] PROLONGED QT INTERVAL CRITICAL TEST RESULT Compared to prior EKG, ventricular pacing is no longer present Electronically Signed By: Alvaro Wan MD Dean Pineda MD ECG ORDERABLES Final Resul t [facility] * (ABNORMAL) Troponin T high-sensitivity series (baseline, 2hr, 4hr, 6hr) (02/17/2025 3:44 PM CDT) Trop T hs 39(H) <=14 ng/L Comment: Interpretive Data For further hscTnT resources including the diagnostic algorithm and an aid in interpretation, copy and paste this link: https://nrl.testcatalog.org/show/hsTrop Current Interpretive Data last revised 2020. Blood 02/17/2025 3:44 PM CDT 02/17/2025 3:47 PM CDT Dean Pineda MD LAB BLOOD ORDERABLES Final Result Performing Organization Address City/[facility]/ZIP Co de Phone Number TA TOHMAS ([place]) [address] [place] [address] * (ABNORMAL) eGFR (02/17/2025 3:44 PM CDT) eGFR 30(L) >=60 mL/min/1. 73 m2 Comment: Interpretive Data [...] Current interpretive data was last reviewed 2021. Blood 02/17/2025 3:44 PM CDT 02/17/2025 3:47 PM CDT Dean Pineda MD LAB BLOOD ORDERABLES Final Result TA THOMAS ([place]) [address] [place] [address] * Differential, auto (02/17/2025 3:44 PM CDT) Neutrophil abs 4.01 1.50 - 6.50 K/cumm Imm gran abs 0.03 0.00 - 0.10 K/cumm [facility] ([place]) Lymphocyte abs 2.03 0.80 - 3.30 K/cumm [facility] ([place]) Monocyte abs 0.55 0.20 - 0.80 K/cumm [facility] ([place]) Eosinophil abs 0.10 0.00 - 0.50 K/cumm [facility] ([place]) Basophil abs 0.07 0.00 - 0.10 K/cumm [facility] ([place]) Neutrophil pct 59.1 % [facility] ([place]) Comment: Interpretive Data Percent cell count reference ranges are not reported, since discordance with absolute values may lead to misinterpretation of CBC data. Current Interpretive Data was last revised on 2017. Imm gran pct 0.4 % [facility] ([place]) Comment: Interpretive Data Percent cell count reference ranges are not reported, since discordance with absolute values may lead to misinterpretation of CBC data. Current Interpretive Data was last revised on 2017. Lymphocyte pct 29.9 % [facility] ([place]) Comment: Interpretive Data Percent cell count reference ranges are not reported, since discordance with absolute values may lead to misinterpretation of CBC data. Current Interpretive Data was last revised on 2017. Monocyte pct 8.1 % [facility] ([place]) Comment: Interpretive Data Percent cell count reference ranges are not reported, since discordance with absolute values may lead to misinterpretation of CBC data. Current Interpretive Data was last revised on 2017. Eosinophil pct 1.5 % [facility] ([place]) Comment: Interpretive Data Percent cell count reference ranges are not reported, since discordance with absolute values may lead to misinterpretation of CBC data. Current Interpretive Data was last revised on 2017. Basophil pct 1.0 % [facility] ([place]) Comment: Interpretive Data Percent cell count reference ranges are not reported, since discordance with absolute values may lead to misinterpretation of CBC data. Current Interpretive Data was last revised on 2017. Blood 02/17/2025 3:44 PM CDT 02/17/2025 3:47 PM CDT us Dean Pineda MD LAB BLOOD ORDERABLES Final Result TA THOMAS ([place]) 1 [facility] Department [place] [address] * (ABNORMAL) Pro B-type natriuretic peptide (02/17/2025 3:44 PM CDT) NT-proBNP 5,276(H) <=450 pg/mL Comment: Interpretive Comments: A. Dyspnea [...] 225. Interpretive Data Last Revised Date: 2018. Blood 02/17/2025 3:44 PM CDT 02/17/2025 3:47 PM CDT us Dean Pineda MD LAB BLOOD ORDERABLES Final Result [facility] ([place]) 1 [facility] Department [place] [address] * Thyroid Function [place] (02/17/2025 3:44 PM CDT) [facility] TSH 3.51 0.30 - 4.20 mcIUnit/mL Blood 02/17/2025 3:44 PM CDT 02/17/2025 3:47 PM CDT Dean Pineda MD LAB BLOOD ORDERABLES Final Result TA THOMAS ([place]) 1 [facility] Department [place] [address] * (ABNORMAL) CBC with auto differential (02/17/2025 3:44 PM CDT) [facility] WBC 6.79 3.80 - 9.90 K/cumm Hgb 11.5(L) 11.9 - 15.5 g/dL [facility] ([place]) Hct 36.1 35.6 - 45.5 % [facility] ([place]) Plt 180 150 - 400 K/cumm [facility] ([place]) MPV 11.4 9.1 - 12.3 fL [facility] ([place]) RBC 3.87(L) 3.90 - 5.20 M/cumm [facility] ([place]) MCV 93.3 81.3 - 96.4 fL [facility] ([place]) MCH 29.7 27.1 - 33.3 pg [facility] ([place]) MCHC 31.9(L) 32.3 - 35.7 g/dL [facility] ([place]) RDW CV 16.5(H) 11.1 - 14.9 % [facility] ([place]) RDW SD 55.7(H) 35.7 - 48.1 fL [facility] ([place]) NRBC abs 0.00 0.00 - 0.01 K/cumm [facility] ([place]) Blood 02/17/2025 3:44 PM CDT 02/17/2025 3:47 PM CDT Dean Pineda MD LAB BLOOD ORDERABLES Final Result TA THOMAS ([place]) 1 [facility] [place] [address] * Magnesium (02/17/2025 3:44 PM CDT) Magnesium 2.2 1.4 - 2.5 mg/dL Blood 02/17/2025 3:44 PM CDT 02/17/2025 3:47 PM CDT Dean Pineda MD LAB BLOOD ORDERABLES Final Result Performing Organization Address [facility] Co de Phone Number TA THOMAS ([place]) 1 [facility] [place] [address] * (ABNORMAL) Comprehensive metabolic panel (02/17/2025 3:44 PM CDT) Sodium 136 135 - 145 mmol/L Potassium, pl 5.2(H) 3.3 - 4.9 mmol/L [facility] ([place]) Chloride 100 97 - 110 mmol/L [facility] ([place]) CO2 22 22 - 32 mmol/L [facility] ([place]) Anion gap 14 2 - 15 mmol/L [facility] BUN 38(H) 6 - 25 mg/dL [facility] ([place]) Creatinine 1.71(H) 0.60 - 1.10 mg/dL [facility] ([place]) Glucose 155 70 - 199 mg/dL [facility] ([place]) [...] Current interpretive data was last revised 2022. Calcium 8.8 8.5 - 10.3 mg/dL [facility] ([place]) Bilirubin, total 0.6 0.1 - 1.2 mg/dL [facility] ([place]) Protein, pl 7.3 6.5 - 8.5 g/dL [facility] ([place]) Albumin 3.9 3.5 - 5.0 g/dL [facility] ([place]) Alk phos 88 40 - 130 Units/L [facility] ([place]) ALT 10 7 - 45 Units/L [facility] ([place]) AST 15 10 - 45 Units/L [facility] ([place]) Blood 02/17/2025 3:44 PM CDT 02/17/2025 3:47 PM CDT Dean Pineda MD LAB BLOOD ORDERABLES Final Result Performing Organization Address [facility] de Phone Number [facility] ([place]) 1 [facility] Department [place] [address] * ECG 12 lead (02/17/2025 3:26 PM CDT) 02/17/2025 3:26 PM CDT Narrative [facility] - 02/17/2025 5:21 PM CDT Vent Rate: 24 bpm RR Interval: 2482 msec UT Interval: 198 msec QRS Duration: 154 msec QT Interval: 623 msec QTC Interval: 412 msec P-R-T [place]: -58 - -16 - 125 degrees IMPRESSION: ECTOPIC ATRIAL BRADYCARDIA, possible complete heart block with occasional paced beat LEFT BUNDLE BRANCH BLOCK [120+ ms QRS DURATION, 80+ ms Q/S IN V1/V2, 85+ ms R IN I/aVL/V5/V6] PROLONGED QT INTERVAL CRITICAL TEST RESULT No change from prior EKG Electronically Signed By: Alvaro Wan MD Dean Pineda MD ECG ORDERABLES Final Resul t Performing Organization Address [facility] Co de Phone Number [facility] [employer] [facility] * (ABNORMAL) Protime-INR (02/08/2025 1:49 PM CDT) PT 41.2(H) 9.7 - 13.0 sec Comment:Testing performed by : [facility], [address] [place] [address]., [address] INR 3.71(H) 0.90 - 1.20 TA THOMAS ([place]) Comment: Interpretive data Oral anticoagulant therapeutic ranges: Venous thromboembolism prophylaxis or treatment: 2.0-3.0 CARDIOLOGY Standard range: 2.0-3.0 High-intensity range: 2.5-3.5 Refer to indication-specific guidelines for appropriate target ranges for prosthetic heart valve replacement. Current interpretive data was last revised on 2019. Testing performed by: [facility], [address] [place] [address]., [address] Blood 02/08/2025 1:49 PM CDT 02/08/2025 4:08 PM CDT us Khris Webster MD LAB BLOOD ORDERABLES Final Res ult TA THOMAS ([place]) 1 [facility] Department [place] [address] * US Kidney Complete (01/30/2025 4:15 PM CDT) Anatomical Region Laterality Modality Kidney N/A Ultrasound 02/10/2025 4:41 PM CDT Narrative 02/10/2025 4:42 PM CDT EXAM DESCRIPTION: US KIDNEY COMPLETE REASON FOR STUDY: Elevated creatinine and BUN. Elevated BUN and creatinine TECHNIQUE: Ultrasound of the kidneys and urinary bladder was performed with grayscale imaging. COMPARISON: Renal ultrasound 04/16/2010 FINDINGS: RIGHT KIDNEY: The right kidney measures 8.3 cm in length. There is no hydronephrosis. There is increased renal cortical echogenicity. There is a simple appearing 8 mm cyst. LEFT KIDNEY: The left kidney measures 8.7 cm in length. There is no hydronephrosis. There is normal cortical echogenicity. URINARY BLADDER: The urinary bladder, as visualized, appears unremarkable. The ureteral jets are not visualized. OTHER: No other additional findings. IMPRESSION: 1. No hydronephrosis. 2. Evidence of chronic medical renal disease. THIS IS AN ELECTRONICALLY VERIFIED FINAL REPORT 02/10/2025 4:42 PM - Electronically signed by Amol Smith M.D., JR: Report ID: [id number] Reading Location: [id number] Procedure Note Amol Smith MD - 02/10/2025 EXAM DESCRIPTION: US KIDNEY COMPLETE REASON FOR STUDY: Elevated creatinine and BUN. Elevated BUN and creatinine TECHNIQUE: Ultrasound of the kidneys and urinary bladder was performedwith grayscale imaging. COMPARISON: Renal ultrasound 04/16/2010 FINDINGS: RIGHT KIDNEY: The right kidney measures 8.3 cm in length. There is no hydronephrosis. There is increased renal cortical echogenicity. There el simple appearing 8 mm cyst. LEFT KIDNEY: The left kidney measures 8.7 cm in length. There is no hydronephrosis. There is normal cortical echogenicity. URINARY BLADDER: The urinary bladder, as visualized, appearsunremarkable. The ureteral jets are not visualized. OTHER: No other additional findings. IMPRESSION: 1. No hydronephrosis. 2. Evidence of chronic medical renal disease. THIS IS AN ELECTRONICALLY VERIFIED FINAL REPORT 02/10/2025 4:42 PM - Electronically signed by Amol Smith M.D. JR: Report ID: [id number] Reading Location: [place] [address] us Sammy Fabian MD IMG US PROCEDURES Final Resul t * (ABNORMAL) eGFR (01/30/2025 3:38 PM CDT) eGFR 45(L) >=60 mL/min/1. 73 m2 Comment: Interpretive Data [...] was last reviewed 2021. Testing performed by: [address] [address] Blood 01/30/2025 3:38 PM CDT 01/30/2025 8:52 PM CDT us Sammy Fabian MD LAB BLOOD ORDERABLES Final Re sult [address] Department [place] [address] * (ABNORMAL) Urinalysis reflex to microscopic (01/30/2025 3:38 PM CDT) Color, ur Straw Yellow Comment:Testing performed by : [address] [address] Clarity, ur Clear Clear TA Comment:Testing performed by : [address] [address] Specific gravity, ur 1.005 1.003 - 1.030 TA Comment:Testing performed by : [address] [address] pH, urine 6.5 TA Comment: Interpretive Data U rine pH is affected by diet, medications, systemic acid-base disturbances, and renal tubular function. pH may affect urinary stone formation. For example, urine pH below 6.0 may help reduce the tendency for calcium phosphate stones and pH greater than 6.0 may reduce the tendency for uric acid stone formation. Source: [facility] [employer] Current Interpretive Data was last revised on 2017 Testing performed by: [address] [address] Protein, ur ql Negative Negative [facility] Comment:Testing performed by : [address] [address] Glucose, ur ql Negative Negative [facility] Comment:Testing performed by : [address] [address] Ketones, ur Negative Negative [facility] Comment:Testing performed by : [address], [address] Bilirubin, ur Negative Negative [facility] CH Comment:Testing performed by : [address] [address] Blood, ur 1+(A) Negative [facility] Comment:Testing performed by : [address], [address] Urobilinogen, ur <2.0 <2.0 mg/dL [facility] Comment:Testing performed by : [address], [address] Nitrite, ur Negative Negative [facility] Comment:Testing performed by : [address], [address] Leukocyte esterase, ur Negative Negative [facility] CH Comment:Testing performed by : [address], [address] UA reflex comment Reflex to microscopic UA will be performed. [facility] Comment:Testing performed by : [address] [address] Urine 01/30/2025 3:38 PM CDT 01/30/2025 8:18 PM CDT us Sammy Fabian MD LAB URINE ORDERABLES Final Re sult [facility] [address] Department [place] [address] * Urinalysis, microscopic only (01/30/2025 3:38 PM CDT) WBC, ur 0-5 0 - 5 /HPF Comment:Testing performed by : [address], [address] RBC, ur 0-2 0 - 2 /HPF [facility] Comment:Testing performed by : [facility], [address] [place] [address]., [address] Epithelial cells, squamous, ur 1-5 0 - 5 /HPF [facility] Comment:Testing performed by : [facility], [address] [place] [address]., [address] Urine 01/30/2025 3:38 PM CDT 01/30/2025 8:18 PM CDT Sammy Fabian MD LAB URINE ORDERABLES Final Re sult Performing Organization Address [facility] Co de Phone Number [place] [phone] [facility] Department [place] [address] * Creatine kinase (CK), total (01/30/2025 3:38 PM CDT) CK 55 30 - 200 Units/L Comment: Collection date/time has been modified to: 15:38:00. Previous collection date/time: 12:40:56. Testing performed by: [address] [address] Blood 01/30/2025 3:38 PM CDT 01/31/2025 12:40 PM CDT Narrative [facility] - 02/08/2025 10:14 AM CDT Blood in the lab drawn yesterday Sammy Fabian MD LAB BLOOD ORDERABLES Edited R esult - Final Performing Organization Address [facility]/ZIP Co de Phone Number [facility] [address] [facility] [place] [address] * (ABNORMAL) Basic metabolic panel (01/30/2025 3:38 PM CDT) Sodium 136 135 - 145 mmol/L Comment:Testing performed by : [address] [address] Potassium, pl 4.8 3.3 - 4.9 mmol/L [facility] Comment:Testing performed by : [facility], [address] [place] [address]., [address] Chloride 100 97 - 110 mmol/L C[facility]ER Comment:Testing performed by : [address] [address] CO2 26 22 - 32 mmol/L C[facility] Comment:Testing performed by : [address] [address] Anion gap 10 2 - 15 mmol/L [facility] Comment:Testing performed by : [address] [address] BUN 33(H) 6 - 25 mg/dL [facility] Comment:Testing performed by : [address] [address] Creatinine 1.21(H) 0.60 - 1.10 mg/dL [facility] Comment:Testing performed by : [address] [address] Glucose 93 70 - 199 mg/dL [facility] Comment: Interpretive Data Fasting glucose >/= 126 [...] was last revised 2022. Testing performed by: [address] [address] Calcium 9.2 8.5 - 10.3 mg/dL [facility] Comment:Testing performed by : [address] [address] Blood 01/30/2025 3:38 PM CDT 01/30/2025 8:18 PM CDT us Sammy Fabian MD LAB BLOOD ORDERABLES Final Re sult [address] Department [place] [address] * (ABNORMAL) eGFR (01/23/2025 2:39 PM CDT) eGFR 36(L) >=60 mL/min/1. 73 m2 Comment: Interpretive Data [...] was last reviewed 2021. Testing performed by: [address] [address] Blood 01/23/2025 2:39 PM CDT 01/23/2025 8:54 PM CDT us Sammy Fabian MD LAB BLOOD ORDERABLES Final Re sult [address] Department [place] [address] * (ABNORMAL) Basic metabolic panel (01/23/2025 2:39 PM CDT) Pathologist [facility] Sodium 141 135 - 145 mmol/L Comment:Testing performed by : [address] [address] Potassium, pl 5.2(H) 3.3 - 4.9 mmol/L TA Comment:Testing performed by : [address] [address] Chloride 102 97 - 110 mmol/L TA Comment:Testing performed by : [address] [address] CO2 27 22 - 32 mmol/L [facility] Comment:Testing performed by : [address] [address] Anion gap 12 2 - 15 mmol/L [facility] Comment:Testing performed by : [address] [address] BUN 45(H) 6 - 25 mg/dL [facility] Comment:Testing performed by : [address] [address] Creatinine 1.46(H) 0.60 - 1.10 mg/dL [facility] Comment:Testing performed by : [address] [address] Glucose 120 70 - 199 mg/dL [facility] Comment: Interpretive Data Fasting glucose >/= 126 [...] was last revised 2022. Testing performed by: [address] [address] Calcium 9.7 8.5 - 10.3 mg/dL [facility] Comment:Testing performed by : [address] [address] Blood 01/23/2025 2:39 PM CDT 01/23/2025 8:54 PM CDT Sammy Fabian MD LAB BLOOD ORDERABLES Final Re sult TA Berto [facility] Department [place] [address] * (ABNORMAL) Protime-INR (01/12/2025 2:34 PM CDT) PT 25.8(H) 9.7 - 13.0 sec Comment:Testing performed by : [facility], [address] [place] [address]., [address] INR 2.35(H) 0.90 - 1.20 TA THOMAS ([place]) Comment: Interpretive data Oral anticoagulant therapeutic ranges: Venous thromboembolism prophylaxis or treatment: 2.0-3.0 CARDIOLOGY Standard range: 2.0-3.0 High-intensity range: 2.5-3.5 Refer to indication-specific guidelines for appropriate target ranges for prosthetic heart valve replacement. Current interpretive data was last revised on 2019. Testing performed by: [address], [address] Blood 01/12/2025 2:34 PM CDT 01/13/2025 10:43 AM CDT Khris Webster MD LAB BLOOD ORDERABLES Final Res ult TA THOMAS ([place]) 1 [facility] Department [place] [address] * (ABNORMAL) Protime-INR (12/29/2024 1:07 PM CDT) PT 28.1(H) 9.7 - 13.0 sec Comment:Testing performed by : [facility], [address] [place] [address]., [address] INR 2.55(H) 0.90 - 1.20 [facility] ([place]) Comment: Interpretive data Oral anticoagulant therapeutic ranges: Venous thromboembolism prophylaxis or treatment: 2.0-3.0 CARDIOLOGY Standard range: 2.0-3.0 High-intensity range: 2.5-3.5 Refer to indication-specific guidelines for appropriate target ranges for prosthetic heart valve replacement. Current interpretive data was last revised on 2019. Testing performed by: [address] [address] Blood 12/29/2024 1:07 PM CDT 12/29/2024 6:17 PM CDT us Khris Webster MD LAB BLOOD ORDERABLES Final Res ult TA THOMAS ([place]) 1 [facility] [place] [address] * (ABNORMAL) Albumin Creatinine Ratio, Urine (10/20/2024 1:53 PM CDT) Albumin Ur 47.4 mg/L Comment: Interpretive Data No reference range established. Current interpretive data was last revised 2018. Testing performed by: [facility], [address] [place] [address]., [address] Creatinine Ur 66.1 mg/dL [facility] ([place]) Comment: Interpretive Data No reference range established. Current interpretive data was last revised 2018. Testing performed by: [facility], [address] [place] [address]., [address] Albumin Creatinine Ratio, Ur 72(H) 1 - 29 mg/g [facility] ([place] Comment:Testing performed by : [facility], [address] [place] [address]., [address] Urine 10/20/2024 1:53 PM CDT 10/20/2024 6:58 PM CDT us Sammy Fabian MD LAB URINE ORDERABLES Final Re sult Performing Organization Address [facility] Co de Phone Number TA THOMAS ([place]) 1 [facility] [place] [address] * (ABNORMAL) Hemoglobin A1c (10/20/2024 1:53 PM CDT) Hgb A1C 6.6(H) 4.0 - 5.6 % Comment:Testing performed by : [address] [address] Estimated Average Glucose 143 mg/dL [facility] ([place]) Comment: The ADA recommends reporting an estimated Average Glucose (eAG) with all Hemoglobin A1c results using the equation derived from a study of 507 normal and diabetic adults. Minority populations were underrepresented and children were not included. (Diabetes Care 31:0580-0630, 2008). The eAG is not equivalent to a fasting glucose. Testing performed by: [facility], [address] [place] [address]., [address] Blood 10/20/2024 1:53 PM CDT 10/20/2024 6:58 PM CDT us Sammy Fabian MD LAB BLOOD ORDERABLES Final Re sult TA WILLIAM ([place]) 1 [facility] Department [place] [address] * Lipid panel (10/20/2024 1:53 PM CDT) [...] last revised on 2018. Testing performed by: [facility], [address] [place] [address]., [address] Triglycerides 66 <=149 mg/dL TA [facility] ([place]) [...] last revised on 2018. Testing performed by: [facility], [address] [place] [address]., [address] HDL 71 >=40 mg/dL TA Iqbal ([place]) [...] last revised on 2018. Testing performed by: [facility], [address] [place] [address]., [address] LDL, calculated 28 <=129 mg/dL TA THOMAS [...] NCEP Expert Panel. Circulation 2004;110:227 3. Ghulam Plasencia al. BRE Cardiol. 2019December 08;5(5):540-548. doi: 10.1001/jamacardio.2020.0013 Current Interpretive Data was last revised on 2024. Testing performed by: [facility], [address] [place] [address]., [address] Non-HDL Cholesterol 42 mg/dL [facility] ([place]) [...] last revised on 2018. Testing performed by: [facility], [address] [place] [address]., [address] Chol/HDL ratio 2 BHAVYA Cornelius WILLIAM ([place]) Comment:Testing performed by : [facility], [address] [place] [address]., [address] Blood 10/20/2024 1:53 PM CDT 10/20/2024 6:58 PM CDT us Sammy Fabian MD LAB BLOOD ORDERABLES Final Re sult TA [facility]OMAS ([place]) 1 [facility] Department of [employer] [place] [id number] * Dexa Axial Skeleton Bone Density 1 or 2 Site (05/06/2024 2:02 PM CDT) Anatomical Region Laterality Modality Body N/A Other 05/06/2024 9:52 PM CDT Narrative 05/06/2024 10:09 PM CDT EXAM DESCRIPTION: DEXA AXIAL SKELETON BONE DENSITY 1 OR MORE SITES REASON FOR STUDY: 78 y/o year old F with given history of: menopause screening [employer]/Model: [employer] (S/N [id number]) CLINICAL INFORMATION: Current height: 58.3 inches Maximum [...] Zach Barrios M.D. MF: DYLON Report ID: [id number] Reading Location: [place] [address] Procedure Note Zach Barrios MD - 05/06/2024 EXAM DESCRIPTION: DEXA AXIAL SKELETON BONE DENSITY 1 OR MORE SITES REASON FOR STUDY: 78 y/o year old F with given history of: menopause screening [employer]/Model: [employer] (S/N [id number]) CLINICAL INFORMATION: Current height: 58.3 inches Maximum [...] Zach Barrios M.D. MF: DYLON Report ID: [id number] Reading Location: [id number] Sammy Fabian MD IMG DXA PROCEDURES Final Resu lt from Last 3 Months or Most Recently Relevant to Health Maintenance Insurance COMMERCIAL GENERIC MEDICARE MEDICARE COMMERCIAL GENERIC MEDICARE [facility] MEDICARE [facility] INSURANCE MEDICARE COMMERCIAL GENERIC MEDICARE MEDICARE COMMERCIAL [facility] MEDICARE Advance Directives For more information, please contact: [phone] * Full Code (Latest Code Status on File) Date Activated Date Inactivated Comments 02/17/2025 7:43 PM 02/23/2025 6:10 PM * Full Code Date Activated Date Inactivated Comments 07/09/2020 3:57 PM 07/20/2020 4:29 PM * Full Code Date Activated Date Inactivated Comments 01/23/2020 4:22 PM 01/28/2020 4:33 PM Care Teams Assessment Coordinator Relationship Specialty Start Date End Date Sammy Fabian MD [address] [place] [address] PCP - General Internal Medicine 12/05/23 Khris Webster MD [address] [place] [address] Consulting Physician Cardiology 09/06/19 Aron Rodrigues MD [address] [place] [address] Surgeon Cardiothoracic Surgery 07/09/20 [place] [id number] [address] Consulting Physician Pulmonary Disease 05/23/20 Laura Renee MD [address] [place] [address] [employer] Mechanic Obstetrics and Gynecology 06/10/23 Marie Mendez MD [address] [place] [address] Consulting Physician Sleep Medicine 10/12/23 Marvin Isbell MD [address] [place] [address] Surgeon Anesthesiology 03/10/24
--- OUTSIDE RECORDS SUMMARY | 2025-03-31 19:17 | XMS_ITS | Encounter Summary ---
Author Organization [facility] Address [address] [place] [address] Phone Care Team Providers Care Field Service Tech Name Role Phone Ebenezer Lucas MD Primary Care Provider [phone] Frank Webster MD Unavailable [phone] Aron Rodrigues MD Unavailable Conor Lala MD Unavailable Laura Renee MD Unavailable Marie Mendez MD Unavailable Marvin Isbell MD Unavailable [phone] Lucille Tobin RN Unavailable Encounter Details Date Type Department Care Team (Late st Contact Info) Description 01/11/2024 Treatment [facility] Medicine Ophthalmology [facility] 3rd Floor [address] [place] [id number] Davina Hinds MD [address] [place] [address] [address] [place] [address] ERRONEOUS ENCOUNTER--DISREGARD (Primary Dx) Social [...] on file Legal Sex Female 9:25 AM 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 Gender Identity Not on file Sexual Orientation [...] soft Pupils Dilated, no dyscoria Care Teams Field Service Tech Relationship Specialty Start Date End Date Ebenezer Lucas MD [address] [place] [address] PCP - General Internal Medicine 12/05/23 Frank Webster MD [address] [place] [address] Consulting Physician Cardiology 09/06/19 Aron Rodrigues MD [address] [place] [address] Surgeon Cardiothoracic Surgery 07/09/20 [place] [id number] [address] [address] Consulting Physician Pulmonary Disease 05/23/20 Laura Renee MD [address] [place] [address] Promotions Representative Obstetrics and Gynecology 06/10/23 Marie Mendez MD [address] [place] [address] Consulting Physician Sleep Medicine 10/12/23 Marvin Isbell MD [address] [place] [address] Surgeon Anesthesiology 03/10/24 Lucille Tobin, RN [address] [place] [address] [place] [address] Supervisor Sawmill 02/24/25 03/29/25 documented as of this encounter
[2025-03-31 19:25] VITALS: BP 151/74; PULSE 74; RESP 16; TEMP 37; O2SAT 92
--- NOTE | 2025-03-31 19:36 | ED.FALL ---
HPI - Fall General Chief Complaint: Fall Stated Complaint: Fall Injury, Hand, Arm, Head, Knee Time Seen by Provider: 03/31/25 19:35 Source: patient and family Mode of arrival: ambulatory Limitations: no limitations History of Present Illness HPI Narrative: Dolly is an 79-year-old female patient presenting to the clinic today with complaints ground level fall. She reports she was going outside to pull weeds when she fell hit her head-abrasion/contusion to the right forehead, skin abrasion to the left anterior knee, and skin tear to her right forearm/wrist. Bleeding is controlled. Tetanus is up today. Denies any neck pain or any loss of consciousness. Does take Coumadin. Related Data Home Medications ?Medication ?Instructions ?Recorded ?Confirmed ?Last Taken ?Type amitriptyline 75 mg tablet 75 mg PO QHS 01/17/23 05/25/23 Unknown History atorvastatin 20 mg tablet 20 mg PO QPM 01/17/23 05/25/23 Unknown History citalopram 10 mg tablet 10 mg PO DAILY 01/17/23 05/25/23 Unknown History losartan 50 mg tablet 50 mg PO DAILY 01/17/23 05/25/23 Unknown History omeprazole 20 mg capsule,delayed 20 mg PO DAILY 01/17/23 05/25/23 Unknown History release ropinirole 0.5 mg tablet 0.5 mg PO QPM 01/17/23 05/25/23 Unknown History warfarin 2 mg tablet 1 mg PO DAILY 01/17/23 05/25/23 Unknown History ergocalciferol (vitamin D2) 1,250 1,250 mcg PO DIRECTED 05/25/23 05/25/23 Unknown History mcg (50,000 unit) capsule carvedilol 3.125 mg tablet mg 01/13/25 Unknown History furosemide 20 mg tablet mg 01/13/25 Unknown History metolazone 2.5 mg tablet mg 01/13/25 Unknown History ropinirole 0.25 mg tablet mg 01/13/25 Unknown History Allergies Allergy/AdvReac Type Severity Reaction Status Date / Time allopurinol Allergy Unknown Unknown Verified 03/31/25 19:24 codeine AdvReac Mild Itching Verified 01/13/25 19:21 Review of Systems Review of Systems: Pertinent positives per HPI. Patient denies any fever, chills, rash, visual changes, dizziness, cough, runny nose, sore throat, shortness of breath, chest pain, palpitations, nausea, vomiting, diarrhea, constipation, abdominal pain, or any urinary issues. PMFSH Comments At the time of my signature, I reviewed and agree with the nursing past medical, surgical, social, and family history. There is no relevant family history pertinent to the patient complaint. Exam Narrative: General: Well-developed, well nourished, in no apparent distress Head: Normocephalic, atraumatic Eyes: Pupils equally round and reactive to light bilaterally, EOM intact, sclera and conjunctive clear, no discharge, lids normal Ears: TMs intact and clear, ear canals clear, no drainage, grossly hearing normal. Nose: Nares patent, no discharge, no inflammation, no sinus tenderness. Mouth: Oropharynx without lesions or masses, good dentition, MMM. Tongue midline, even rise and fall of uvula Neck: Supple, trachea midline, no enlargement of anterior or posterior cervical nodes, no thyroid masses or goiter palpable. Cardio: Regular rate and rhythm, s1 and s2 normal, no murmur appreciated. Resp: Clear to auscultation bilaterally anteriorly and posteriorly, no rhonchi, rales, wheezing or rubs Musculoskeletal: No deformity, no cervical, thoracic, or lumbar pain to palpation, bruising and swelling noted to the right 1st metacarpal, tender to palpation over this area, limited range of motion due to pain, muscle strength strong and equal, peripheral pulse strong, no edema, no cyanosis, normal gait and station Neuro: Alert and oriented x4 with normal speech, no focal deficits. Integumentary: [place], warm, and dry, large skin tear laceration approximately 8 cm to the right dorsal forearm/wrist, small quarter-size skin abrasion to the left anterior knee Course Course Emergency Course: Portions of this record may have been created with voice recognition software. Level of Care: Express Care Visit Vital Signs Vital signs: Vital Signs Temperature 37.0 C 03/31/25 19: Pulse Rate 74 03/31/25 19: Respiratory Rate 16 03/31/25 19: Blood Pressure 151/74 H 03/31/25 19:25 Pulse Oximetry 92 03/31/25 19: Oxygen Delivery Room Air 03/31/25 19: Temperature 37.0 C 03/31/25 19:25 Pulse Rate 74 03/31/25 19:25 Respiratory Rate 16 03/31/25 19:25 Blood Pressure 151/74 H 03/31/25 19:25 Pulse Oximetry 92 03/31/25 19:25 Oxygen Delivery Room Air 03/31/25 19:25 Vital signs reviewed Transfer Transfered to: [facility] Transportation: Other (Private car-declined EMS) Transfer rationale: Higher level of care- Ground level fall-hit head-on Coumadin, skin tear to right forearm and wrist, right 1st metacarpal swelling and pain, abrasion to the left knee Accepting physician: Dr. Brown Transfer comments: Private car MDM - Fall MDM Narrative Medical decision making narrative: At the time of visit patient is resting comfortably on the exam table. Patient appears to be nontoxic. Complaints ground level fall. She reports she was going outside to pull weeds when she fell hit her head-abrasion/contusion to the right forehead, skin abrasion to the left anterior knee, and skin tear to her right forearm/wrist. Bleeding is controlled. Tetanus is up today. Denies any neck pain or any loss of consciousness. Does take Coumadin. Plan: Recommend transfer to the ER as patient is on Coumadin and fell et hit her head. Patient is agreeable to transfer. Would like to go to [facility] ER. Contacted Adrienne MORALEZ and Dr. Brown accepts patient for transfer Differential Diagnosis Differential diagnosis: Likely other (Ground level fall, anticoagulated state, head injury, subarachnoid hemorrhage, CVA, skin tear laceration to right forearm and wrist, abrasion, contusion, soft tissue injury, concussion) Discharge Plan Discharge Clinical Impression: Fall from ground level, Skin tear, Abrasion Head injury Qualifiers: Encounter type: initial encounter Qualified Code(s): S09.90XA - Unspecified injury of head, initial encounter Patient Disposition: Acute Care Hospital Condition: Stable Patient Language: Trinid[place] Prescriptions: No Action ergocalciferol (vitamin D2) 1,250 mcg (50,000 unit) capsule 1,250 mcg PO DIRECTED losartan 50 mg tablet 50 mg PO DAILY amitriptyline 75 mg tablet 75 mg PO QHS warfarin 2 mg tablet 1 mg PO DAILY omeprazole 20 mg capsule,delayed release(DR/EC) 20 mg PO DAILY atorvastatin 20 mg tablet 20 mg PO QPM citalopram 10 mg tablet 10 mg PO DAILY ropinirole 0.5 mg tablet 0.5 mg PO QPM metolazone 2.5 mg tablet carvedilol 3.125 mg tablet ropinirole 0.25 mg tablet furosemide 20 mg tablet Follow-up/Referrals: Lance,Ebenezer Dutton MD [Primary Care Provider, Unknown] Time of Disposition: 19:40 Quality NIHSS Nursing Documentation ED NIHSS nursing documentation: reviewed/agree
--- OUTSIDE RECORDS SUMMARY | 2025-04-24 19:00 | XMS_ITS | Clinical Summary ---
Author Organization Unknown Care Team Providers Care Turn Down Attendant Name Role Phone SAMMY FABIAN Unavailable Unavailable DHARMESH PHYSICAL THERAPIST, BRAD Unavailabl e Unavailable ODALYS STEEL SAMPLER, FRANCISCO J Unavail able Unavailable ROSEANNA REGISTERED NURSE, DEVI Unavailable Unavailable SUSAN OCCUPATIONAL THERAPIST, RADHA Unavailable Unavailable Payers Payer Name Policy Type Policy Number Effective Date Expira tion Date MEDICARE [place] - EPISODIC [id number] Problems Condition Name Condition Details Condition Category Status Onset Date Resolution Date Last Treatment Date Treating Clinician Comments ENCNTR FOR SURGICAL AFTCR FOLLOWING SURGERY ON THE CIRC SYS Active 02-23 00:00: 00 PRESENCE OF CARDIAC PACEMAKER Active 02-23 00:00: 00 ATRIOVENTRIC ULAR BLOCK, COMPLETE Active 08-10 00:00: 00 UNSPECIFIED ATRIAL FIBRILLATION Active 08-10 00:00: 00 GASTRO-ESOPH AGEAL REFLUX DISEASE WITHOUT ESOPHAGITIS Active 08-10 00:00: 00 ANEMIA, UNSPECIFIED Active 08-10 00:00: 00 HYPERTENSIVE HEART DISEASE WITH HEART FAILURE Active 08-10 00:00: 00 ACUTE ON CHRONIC SYSTOLIC (CONGESTIVE) HEART FAILURE Active 08-10 00:00: 00 RESTLESS LEGS SYNDROME Active 08-10 00:00: 00 INSOMNIA, UNSPECIFIED Active 08-10 00:00: 00 UNSPECIFIED MOOD [AFFECTIVE] DISORDER Active 08-10 00:00: 00 ANXIETY DISORDER, UNSPECIFIED Active 08-10 00:00: 00 DEPRESSION, UNSPECIFIED Active 08-10 00:00: 00 HYPERLIPIDEM IA, UNSPECIFIED Active 08-10 00:00: 00 ATHSCL HEART DISEASE OF [place] CORONARY ARTERY W/O ANG PCTRS Active 08-10 00:00: 00 SICK SINUS SYNDROME Active 08-10 00:00: 00 PARALYSIS OF VOCAL CORDS AND LARYNX, UNSPECIFIED Active 08-10 00:00: 00 SLEEP APNEA, UNSPECIFIED Active 08-10 00:00: 00 AGE-RELATED OSTEOPOROSIS W/O CURRENT PATHOLOGICAL FRACTURE Active 08-10 00:00: 00 UNSPECIFIED OSTEOARTHRIT IS, UNSPECIFIED SITE Active 08-10 00:00: 00 DEFICIENCY OF OTHER SPECIFIED B GROUP VITAMINS Active 08-10 00:00: 00 MIGRAINE, UNSP, NOT INTRACTABLE, WITHOUT STATUS MIGRAINOSUS Active 08-10 00:00: 00 OLD MYOCARDIAL INFARCTION Active 08-10 00:00: 00 PRESENCE OF CORONARY ANGIOPLASTY IMPLANT AND GRAFT Active 08-10 00:00: 00 PRSNL HX OF TIA (TIA), AND CEREB INFRC W/O RESID DEFICITS Active 08-10 00:00: 00 PERSONAL HISTORY OF NICOTINE DEPENDENCE Active 08-10 00:00: 00 MITOCHONDRIAL DISORDERS COUNSELOR (CURRENT) USE OF ORAL HYPOGLYCEMIC DRUGS Active 08-10 00:00: 00 MITOCHONDRIAL DISORDERS COUNSELOR (CURRENT) USE OF BISPHOSPHONA LEON Active 08-10 00:00: 00 MITOCHONDRIAL DISORDERS COUNSELOR (CURRENT) USE OF ANTICOAGULAN TS Active 08-10 00:00: 00 Allergies, Adverse Reactions, Alerts Allergy Name Allergy Type Status Severity Reaction(s) Onset Date Inactive Date Treating Clinician Comments DICLOFENAC Propensity to adverse reactions Active 02-24 10:54: 07 MONTELUKAST Propensity to adverse reactions Active 02-24 10:54: 19 ALLOPURINOL Propensity to adverse reactions Active 02-24 10:54: 28 AMLODIPINE Propensity to adverse reactions Active 02-24 10:54: 37 HYDROCODONE Propensity to adverse reactions Active 02-24 10:54: 54 Medications Ordered Medication Name Filled Medication Name Start Date Stop Date Current Medication? Ordering Clinician Indication Dosage Frequency Signature (SIG) Comments Components albuterol sulfate HFA 90 mcg/actuati on aerosol inhaler 02-25 00:00: 00 Yes [id number] WHEEZING 2 puff EVERY 6 HOURS 2 puff EVERY 6 HOURS (route: inhalation ) Med Classific ation: Respirato ry Therapy Agents amitriptyli ne 75 mg tablet 02-25 00:00: 00 Yes [id number] MIGRAINE PREVENTION 1 tablet AT BEDTIME 1 tablet AT BEDTIME (route: oral) Med Classific ation: Central Nervous System Agents atorvastati n 20 mg tablet 02-25 00:00: 00 Yes [id number] HLD 1 tablet ONCE DAILY 1 tablet ONCE DAILY (route: oral) Med Classific ation: Cardiovas cular Therapy Agents biotin 2,500 mcg capsule 02-25 00:00: 00 Yes [id number] SUPPLEMENT 1 capsule ONCE DAILY 1 capsule ONCE DAILY (route: oral) Med Classific ation: Electroly te Balance-N utritiona l Products calcium 600 mg (as carbonate)- vitamin D3 5 mcg (200 unit) tablet 02-25 00:00: 00 Yes [id number] SUPPLEMENT 1 tablet ONCE DAILY 1 tablet ONCE DAILY (route: oral) Med Classific ation: Electroly te Balance-N utritiona l Products citalopram 10 mg tablet 02-25 00:00: 00 Yes [id number] ANXIETY/ DEPRESSION 1 tablet ONCE DAILY 1 tablet ONCE DAILY (route: oral) Med Classific ation: Central Nervous System Agents cyanocobala min (vit B-12) 1,000 mcg tablet 02-25 00:00: 00 Yes [id number] LOW B12 1 tablet ONCE DAILY 1 tablet ONCE DAILY (route: oral) Med Classific ation: Electroly te Balance-N utritiona l Products Farxiga 10 mg tablet 02-25 00:00: 00 Yes [id number] HF 1 tablet ONCE DAILY 1 tablet ONCE DAILY (route: oral) Med Classific ation: Endocrine furosemide 20 mg tablet 02-25 00:00: 00 Yes [id number] DIURETIC 1 tablet ONCE DAILY 1 tablet ONCE DAILY (route: oral) Med Classific ation: Cardiovas cular Therapy Agents melatonin 5 mg tablet 02-25 00:00: 00 Yes [id number] INSOMNIA 1 tablet AT BEDTIME 1 tablet AT BEDTIME (route: oral) Med Classific ation: Central Nervous System Agents Miralax 17 gram/dose oral powder 02-25 00:00: 00 Yes [id number] CONSTIPATIO N 17 gram ONCE DAILY 17 gram ONCE DAILY (route: oral) Med Classific ation: Gastroint estinal Therapy Agents omeprazole 20 mg capsule,del ayed release 02-25 00:00: 00 Yes [id number] GERD 1 capsule ONCE DAILY 1 capsule ONCE DAILY (route: oral) Med Classific ation: Gastroint estinal Therapy Agents Pain Reliever (acetaminop hen) 500 mg tablet 02-25 00:00: 00 Yes [id number] PAIN 2 tablet EVERY 8 HOURS 2 tablet EVERY 8 HOURS (route: oral) Med Classific ation: Analgesic , Anti-infl ammatory or Antipyret ic Prolia 60 mg/mL subcutaneou s syringe 02-25 00:00: 00 Yes [id number] OSTEOPOROSI S 1 mL DIRECTED 1 mL DIRECTED (route: subcutaneo us) Med Classific ation: Endocrine ropinirole 0.25 mg tablet 02-25 00:00: 00 Yes [id number] RLS 2 tablet AT BEDTIME 2 tablet AT BEDTIME (route: oral) Med Classific ation: Central Nervous System Agents warfarin 2 mg tablet 02-25 00:00: 00 Yes [id number] PREVENT BLOOD CLOTS 1.5 tablet ONCE DAILY 1.5 tablet ONCE DAILY (route: oral) Med Classific ation: Hematolog ical Agents Weekly-D 1,250 mcg (50,000 unit) capsule 02-25 00:00: 00 Yes [id number] LOW VIT D 1 capsule WEEKLY 1 capsule WEEKLY (route: oral) Med Classific ation: Electroly te Balance-N utritiona l Products isosorbide mononitrate ER 30 mg tablet,exte nded release 24 hr 03-10 00:00: 00 Yes [id number] TO CONTROL HYPERTENSIO N 1 tablet ONCE DAILY 1 tablet ONCE DAILY (route: oral) Alternate Route: BY MOUTH. Med Classific ation: Cardiovas cular Therapy Agents Immunizations Ordered Immunization Name Filled Immunization Name Date Status Comments Refusal Reason PNEUMOCOCCAL (PPV), PPV 2023-09-04 00:00:00 Vital Signs Vital Name Observation Time Observation Value Commen ts Temperature 2025-03-29 12:52:00.000 97.9 [degF] Temperature 2025-03-24 09:24:00.000 98 [degF] Temperature 2025-03-21 13:19:00.000 97.5 [degF] Temperature 2025-03-15 11:20:00.000 97.6 [degF] Temperature 2025-03-09 15:25:00.000 97.9 [degF] Temperature 2025-03-09 11:31:00.000 97.8 [degF] Temperature 2025-03-06 09:54:00.000 98 [degF] Temperature 2025-03-03 13:48:00.000 97.2 [degF] Temperature 2025-02-27 12:32:00.000 97.2 [degF] Temperature 2025-02-25 12:24:00.000 97.4 [degF] BMI (%) 2025-02-25 12:24:00.000 25 kg/m2 Height 2025-02-25 12:24:00.000 60 [in_us] Pulse 2025-03-29 12:52:00.000 67 /min Pulse 2025-03-24 09:24:00.000 62 /min Pulse 2025-03-21 13:19:00.000 64 /min Pulse 2025-03-15 11:20:00.000 64 /min Pulse 2025-03-09 15:25:00.000 78 /min Pulse 2025-03-09 11:31:00.000 68 /min Pulse 2025-03-06 09:54:00.000 70 /min Pulse 2025-03-03 13:48:00.000 68 /min Pulse 2025-02-27 12:32:00.000 68 /min Pulse 2025-02-25 12:24:00.000 74 /min O2 Saturation (%) 2025-03-29 12:52:00.000 96 % O2 Saturation (%) 2025-03-24 09:24:00.000 98 % O2 Saturation (%) 2025-03-21 13:19:00.000 95 % O2 Saturation (%) 2025-03-15 11:20:00.000 92 % O2 Saturation (%) 2025-03-09 15:25:00.000 98 % O2 Saturation (%) 2025-03-09 11:31:00.000 95 % O2 Saturation (%) 2025-03-06 09:54:00.000 96 % O2 Saturation (%) 2025-03-03 13:48:00.000 98 % O2 Saturation (%) 2025-02-27 12:32:00.000 92 % O2 Saturation (%) 2025-02-25 12:24:00.000 92 % Respirations 2025-03-29 12:52:00.000 16 /min Respirations 2025-03-24 09:24:00.000 20 /min Respirations 2025-03-21 13:19:00.000 18 /min Respirations 2025-03-15 11:20:00.000 20 /min Respirations 2025-03-09 15:25:00.000 20 /min Respirations 2025-03-09 11:31:00.000 19 /min Respirations 2025-03-06 09:54:00.000 20 /min Respirations 2025-03-03 13:48:00.000 18 /min Respirations 2025-02-27 12:32:00.000 16 /min Respirations 2025-02-25 12:24:00.000 18 /min Weight (lbs) 2025-03-24 09:24:00.000 132 [lb_av] Weight (lbs) 2025-03-09 15:25:00.000 132 [lb_av] Weight (lbs) 2025-03-03 13:50:00.000 132 [lb_av] Weight (lbs) 2025-02-25 12:24:00.000 130 [lb_av] Systolic Blood Pressure 2025-03-29 12:52:00.000 116 mm [Hg] Systolic Blood Pressure 2025-03-24 09:24:00.000 140 mm [Hg] Systolic Blood Pressure 2025-03-21 13:19:00.000 132 mm [Hg] Systolic Blood Pressure 2025-03-15 11:20:00.000 140 mm [Hg] Systolic Blood Pressure 2025-03-09 15:25:00.000 150 mm [Hg] Systolic Blood Pressure 2025-03-09 11:31:00.000 116 mm [Hg] Systolic Blood Pressure 2025-03-06 09:54:00.000 112 mm [Hg] Systolic Blood Pressure 2025-03-03 13:48:00.000 144 mm [Hg] Systolic Blood Pressure 2025-02-27 12:32:00.000 120 mm [Hg] Systolic Blood Pressure 2025-02-25 12:24:00.000 130 mm [Hg] Diastolic Blood Pressure 2025-03-29 12:52:00.000 62 mm [Hg] Diastolic Blood Pressure 2025-03-24 09:24:00.000 62 mm [Hg] Diastolic Blood Pressure 2025-03-21 13:19:00.000 78 mm [Hg] Diastolic Blood Pressure 2025-03-15 11:20:00.000 78 mm [Hg] Diastolic Blood Pressure 2025-03-09 15:25:00.000 70 mm [Hg] Diastolic Blood Pressure 2025-03-09 11:31:00.000 64 mm [Hg] Diastolic Blood Pressure 2025-03-06 09:54:00.000 68 mm [Hg] Diastolic Blood Pressure 2025-03-03 13:48:00.000 72 mm [Hg] Diastolic Blood Pressure 2025-02-27 12:32:00.000 70 mm [Hg] Diastolic Blood Pressure 2025-02-25 12:24:00.000 80 mm [Hg] Plan of Treatment Planned Activity Planned Date Details Comments Future Scheduled Test THE [facility] TIFYING PHYSICIAN, ASSOCIATED PHYSICIAN, NPP OR PA WITHIN THE SAME GROUP MAY APPROVE AND SIGN THE ORDER (ON ANY PAGE) ATTESTING THAT THE COMPREHENSIVE OUTCOME ASSESSMENTS, EVALUATIONS, AND HOME HEALTH CERTIFICATION PLANS SUPPORT HOMEBOUND STATUS. HOME HEALTH WEB-PORTAL DOCUMENTATION ACCESSED BY THE PHYSICIAN MUST BE INCORPORATED INTO THE MEDICAL RECORD TO CORROBORATE THE PHYSICIAN, NPP, OR PAS F2F ENCOUNTER TO SUPPORT ELIGIBILITY FOR HOME HEALTH SERVICES. [code = THE CERTIFYING PHYSICIAN, ASSOCIATED PHYSICIAN, NPP OR PA WITHIN THE SAME GROUP MAY APPROVE AND SIGN THE ORDER (ON ANY PAGE) ATTESTING THAT THE COMPREHENSIVE OUTCOME ASSESSMENTS, EVALUATIONS, AND HOME HEALTH CERTIFICATION PLANS SUPPORT HOMEBOUND STATUS. HOME HEALTH WEB-PORTAL DOCUMENTATION ACCESSED BY THE PHYSICIAN MUST BE INCORPORATED INTO THE MEDICAL RECORD TO CORROBORATE THE PHYSICIAN, NPP, OR PAS F2F ENCOUNTER TO SUPPORT ELIGIBILITY FOR HOME HEALTH SERVICES.] Future Scheduled Test EACH ORDER ED IN-HOME OR TELEHEALTH VISIT, THE SKILLED NURSE WILL CONDUCT A COMPREHENSIVE ASSESSMENT INCLUDING VITAL SIGNS, PAIN, SAFETY, MENTAL/COGNITIVE/PSYCHOSOCIAL STATUS, MED MANAGEMENT, NUTRITION, SKIN INTEGRITY, PRESSURE ULCER PREVENTION, AND PATIENT/CAREGIVER ABILITY TO SUPPORT ORDERED CARE. SKILLED NURSE WILL INSTRUCT ON DISEASE PROCESS, MED MGMT., FALL PREVENTION AND SAFETY, INFECTION CONTROL AND PREVENTION, WARNING SIGNS, ADDRESS RESULTS OUTSIDE OF ORDERED PARAMETERS LISTED ON CARE PLAN, AND COORDINATE DISCHARGE WITH THE TREATING PROVIDER. MAY ACCEPT ORDERS FROM THE FOLLOWING PROVIDER(S) WHO WILL BE CONSULTING ON THE CERTIFIED CARE PLAN: SAMMY FABIAN PCP, JANIE CHRISTENSEN CARDIAC SURGEON, RICARDO CUBA CARDIOLOGY, KHRIS WIBAUX CARDIOLOGY, KALYANI COLEMAN, [facility] AND ANYONE COVERING IN SN ABSENCE. [code = EACH ORDERED IN-HOME OR TELEHEALTH VISIT, THE SKILLED NURSE WILL CONDUCT A COMPREHENSIVE ASSESSMENT INCLUDING VITAL SIGNS, PAIN, SAFETY, MENTAL/COGNITIVE/PSYCHOSOCIAL STATUS, MED MANAGEMENT, NUTRITION, SKIN INTEGRITY, PRESSURE ULCER PREVENTION, AND PATIENT/CAREGIVER ABILITY TO SUPPORT ORDERED CARE. SKILLED NURSE WILL INSTRUCT ON DISEASE PROCESS, MED MGMT., FALL PREVENTION AND SAFETY, INFECTION CONTROL AND PREVENTION, WARNING SIGNS, ADDRESS RESULTS OUTSIDE OF ORDERED PARAMETERS LISTED ON CARE PLAN, AND COORDINATE DISCHARGE WITH THE TREATING PROVIDER. MAY ACCEPT ORDERS FROM THE FOLLOWING PROVIDER(S) WHO WILL BE CONSULTING ON THE CERTIFIED CARE PLAN: SAMMY FABIAN PCP, JANIE CHRISTENSEN CARDIAC SURGEON, RICARDO CUBA CARDIOLOGY, KHRIS WIBAUX CARDIOLOGY, KALYANI OLIVEIRAHAM, [facility] AND ANYONE COVERING IN SN ABSENCE. ] Future Scheduled Test HOME HEALT H NURSE WILL TEACH THE PATIENT/CAREGIVER ABOUT WHAT IS AN ARRHYTHMIA, HOW TO CHECK OWN PULSE AND TRACK, SIGNS AND SYMPTOMS OF WHEN ARRYTHMIA OCCURS, AND WHAT WARNING SIGNS TO CALL THE AGENCY, PHYSICIAN OR 911. [code = HOME HEALTH NURSE WILL TEACH THE PATIENT/CAREGIVER ABOUT WHAT IS AN ARRHYTHMIA, HOW TO CHECK OWN PULSE AND TRACK, SIGNS AND SYMPTOMS OF WHEN ARRYTHMIA OCCURS, AND WHAT WARNING SIGNS TO CALL THE AGENCY, PHYSICIAN OR 911.] Future Scheduled Test HOME HEALT H NURSE WILL TEACH PATIENT/CAREGIVER ABOUT PACEMAKER PLACEMENT, HOW TO TAKE OWN PULSE AND BP TO TRACK ON A LOG, WHAT STRATEGIES TO USE TO AVOID RE-HOSPITALIZATIONS, AND WARNING SIGNS TO CALL THE AGENCY, PHYSICIAN, OR 911. [code = HOME HEALTH NURSE WILL TEACH PATIENT/CAREGIVER ABOUT PACEMAKER PLACEMENT, HOW TO TAKE OWN PULSE AND BP TO TRACK ON A LOG, WHAT STRATEGIES TO USE TO AVOID RE-HOSPITALIZATIONS, AND WARNING SIGNS TO CALL THE AGENCY, PHYSICIAN, OR 911.] Future Scheduled Test HOME HEALT H NURSE WILL TEACH PATIENT/CAREGIVER ABOUT HEART FAILURE, EDEMA, AND HOW TO WEIGH DAILY AT THE SAME TIME EVERY MORNING AFTER URINATING AND BEFORE BREAKFAST. INSTRUCT PATIENT TO CHECK FOR 2LBS. OF WEIGHT GAIN CAUSED BY INCREASED FLUID AND CONTACT THE PHYSICIAN IF 2LBS WEIGHT GAIN IN 1 DAY OR 5LBS WEIGHT GAIN IN 1 WEEK. HOME HEALTH RN TO TEACH PATIENT ABOUT WARNING SIGNS TO CONTACT THE AGENCY, PHYSICIAN, OR 911. MAY ADD 2 PRN VISITS PER MONTH FOR SIGNS/SYMPTOMS OF EXACERBATION SUCH INCREASED EDEMA, WEIGHT GAIN, SHORTNESS OF BREATH, OR FATIGUE. [code = HOME HEALTH NURSE WILL TEACH PATIENT/CAREGIVER ABOUT HEART FAILURE, EDEMA, AND HOW TO WEIGH DAILY AT THE SAME TIME EVERY MORNING AFTER URINATING AND BEFORE BREAKFAST. INSTRUCT PATIENT TO CHECK FOR 2LBS. OF WEIGHT GAIN CAUSED BY INCREASED FLUID AND CONTACT THE PHYSICIAN IF 2LBS WEIGHT GAIN IN 1 DAY OR 5LBS WEIGHT GAIN IN 1 WEEK. HOME HEALTH RN TO TEACH PATIENT ABOUT WARNING SIGNS TO CONTACT THE AGENCY, PHYSICIAN, OR 911. MAY ADD 2 PRN VISITS PER MONTH FOR SIGNS/SYMPTOMS OF EXACERBATION SUCH INCREASED EDEMA, WEIGHT GAIN, SHORTNESS OF BREATH, OR FATIGUE.] Future Scheduled Test SKILLED NU RSE/THERAPY TO ADMINISTER AND INSTRUCT PATIENT/CAREGIVER ON WOUND CARE TO LEFT CHEST SURGICAL INCISION PER CLEAN/ASEPTIC TECHNIQUE. POST OP DAY FIVE AND FOLLOWING MAY CLEAN WITH MILD SOAP AND WARM WATER. PAT DRY WITH DRY TOWEL OR ALLOW TO AIR DRY. LEAVE OPEN TO AIR AND MONITOR DAILY FOR SIGNS AND SYMPTOMS OF INFECTION TO REPORT. DISCONTINUE WOUND ASSESSMENT WHEN WOUND HEALS. PATIENT/CAREGIVER TO PERFORM WOUND ASSESSMENT IN AGENCY ABSENCE AFTER APPROPRIATE RETURN DEMONSTRATION. [code = SKILLED NURSE/THERAPY TO ADMINISTER AND INSTRUCT PATIENT/CAREGIVER ON WOUND CARE TO LEFT CHEST SURGICAL INCISION PER CLEAN/ASEPTIC TECHNIQUE. POST OP DAY FIVE AND FOLLOWING MAY CLEAN WITH MILD SOAP AND WARM WATER. PAT DRY WITH DRY TOWEL OR ALLOW TO AIR DRY. LEAVE OPEN TO AIR AND MONITOR DAILY FOR SIGNS AND SYMPTOMS OF INFECTION TO REPORT. DISCONTINUE WOUND ASSESSMENT WHEN WOUND HEALS. PATIENT/CAREGIVER TO PERFORM WOUND ASSESSMENT IN AGENCY ABSENCE AFTER APPROPRIATE RETURN DEMONSTRATION. ] Future Scheduled Test SKILLED NU RSE TO OBSERVE AND ASSESS PATIENT WITH GENERALIZED DEPRESSION AND TEACH DEPRESSIVE SYMPTOMS. [code = SKILLED NURSE TO OBSERVE AND ASSESS PATIENT WITH GENERALIZED DEPRESSION AND TEACH DEPRESSIVE SYMPTOMS.] Future Scheduled Test SKILLED NU RSE TO ASSESS PATIENT WITH ANXIETY DISORDER AND TEACH SYMPTOMS OF ANXIETY. [code = SKILLED NURSE TO ASSESS PATIENT WITH ANXIETY DISORDER AND TEACH SYMPTOMS OF ANXIETY.] Future Scheduled Test SKILLED NU RSE TO INSTRUCT PATIENT/CAREGIVER ON WHAT IS HYPERTENSION, HOW TO CHECK HIS/HER BLOOD PRESSURE, AND STRATEGIES TO USE TO CONTROL BLOOD PRESSURE SUCH MONITORING BP, MONITORING WEIGHTS, ENGAGING IN PHYSICAL ACTIVITY AIMING FOR 150 MINUTES SPREAD THROUGHOUT THE WEEK. [code = SKILLED NURSE TO INSTRUCT PATIENT/CAREGIVER ON WHAT IS HYPERTENSION, HOW TO CHECK HIS/HER BLOOD PRESSURE, AND STRATEGIES TO USE TO CONTROL BLOOD PRESSURE SUCH MONITORING BP, MONITORING WEIGHTS, ENGAGING IN PHYSICAL ACTIVITY AIMING FOR 150 MINUTES SPREAD THROUGHOUT THE WEEK.] Future Scheduled Test HOME HEALT H NURSE WILL ASSESS FOR COMPLICATIONS RELATED TO ANEMIA AND INSTRUCT PATIENT/CAREGIVER ABOUT CAUSES, PRESCRIBED TREATMENT, AND SIGNS/SYMPTOMS TO REPORT. [code = HOME HEALTH NURSE WILL ASSESS FOR COMPLICATIONS RELATED TO ANEMIA AND INSTRUCT PATIENT/CAREGIVER ABOUT CAUSES, PRESCRIBED TREATMENT, AND SIGNS/SYMPTOMS TO REPORT.] Future Scheduled Test HOME HEALT H NURSE WILL ASSESS FOR COMPLICATIONS RELATED TO ANTICOAGULATION USE AND INSTRUCT PATIENT/CAREGIVER ABOUT PRECAUTIONS TO FOLLOW AND SIGNS/SYMPTOMS TO REPORT. [code = HOME HEALTH NURSE WILL ASSESS FOR COMPLICATIONS RELATED TO ANTICOAGULATION USE AND INSTRUCT PATIENT/CAREGIVER ABOUT PRECAUTIONS TO FOLLOW AND SIGNS/SYMPTOMS TO REPORT.] Future Scheduled Test PHYSICAL T HERAPIST TO EVALUATE AND TREAT [code = PHYSICAL THERAPIST TO EVALUATE AND TREAT] Future Scheduled Test OCCUPATION AL THERAPIST TO EVALUATE AND TREAT [code = OCCUPATIONAL THERAPIST TO EVALUATE AND TREAT] Goal Patient Goal - SOC: STAY OUT OF THE HOSPITAL, TRY NOT TO BE SICK Goal Provider Goal - PATIENT/CAREGIVER WILL DEMONSTRATE AND ADHERE TO WEIGHING DAILY WITH THE USE OF TRACKING LOG. PATIENT WILL VERBALIZE WAYS TO MONITOR FLUID OVERLOAD FROM OWN QUALITY OF SLEEP, EDEMA, TIGHT-FITTING CLOTHES, QUALITY OF BREATHING, AND CHANGES IN FEELING MORE TIRED OR WEEK BY THE END OF HOME HEALTH SERVICES. Goal Provider Goal - PATIENT/CAREGIVER WILL INDEPENDENTLY DEMONSTRATE HOW TO CHECK HIS/HER OWN BP AND VERBALIZE WHAT STRATEGIES CAN ASSIST TO CONTROL BLOOD PRESSURE. Goal Provider Goal - BY THE END OF HOME HEALTH SERVICES, PATIENT/CAREGIVER WILL DEMONSTRATE HOW TO TAKE THEIR OWN PULSE AND VERBALIZE WHAT WARNING SIGNS TO CALL THE PHYSICIAN OR 911 BY THE END OF HOME HEALTH SERVICES. Goal Provider Goal - PATIENT/CAREGIVER WILL DEMONSTRATE HOW TO TAKE AND TRACK OWN PULSE AND BLOOD PRESSURE. PATIENT/CAREGIVER WILL VERBALIZE AN UNDERSTANDING OF THE CARDIAC PROCEDURE, WHAT POST-SURGERY STRATEGIES SHOULD BE FOLLOWED TO AVOID COMPLICATIONS, PROPER MD FOLLOW-UP, AND WARNING SIGNS TO CALL THE PHYSICIAN OR 911 BY THE END OF HOME HEALTH SERVICES. Goal Provider Goal - PATIENT/CAREGIVER WILL DEMONSTRATE APPROPRIATE INCISIONAL CARE. INCISION / SUTURE LINE IMPROVE EVIDENCED BY DECREASE IN SIZE / DRAINAGE OF WOUND, NO SIGNS AND SYMPTOMS OF INFECTION, DECREASED PAIN, HEALING IS PROGRESSING BY EOE Goal Provider Goal - PATIENT/CAREGIVER WILL VERBALIZE UNDERSTANDING OF ANTICOAGULATION COMPLICATIONS TO REPORT AND PRECAUTIONS TO FOLLOW BY END OF HOME HEALTH SERVICES. Goal Provider Goal - PATIENT/CAREGIVER WILL VERBALIZE UNDERSTANDING OF THE CAUSES OF ANEMIA, SIGNS/SYMPTOMS TO REPORT, AND ADHERENCE TO PRESCRIBED TREATMENT BY END OF HOME HEALTH SERVICES. Goal Provider Goal - PATIENT/CAREGIVER WILL VERBALIZE UNDERSTANDING OF THE CONTRIBUTING FACTORS AND SYMPTOMS OF ANXIETY. Goal Provider Goal - PATIENT/CAREGIVER WILL VERBALIZE UNDERSTANDING OF THE CONTRIBUTING FACTORS AND SYMPTOMS OF DEPRESSION. Goal Provider Goal - PATIENT WILL BE FREE OF FALLS AND HOSPITALIZATIONS THROUGHOUT EPISODE OF CARE. PATIENT/CAREGIVER WILL UNDERSTAND AND ADHERE TO ORDERED DIET. PATIENT/CAREGIVER WILL INDEPENDENTLY MANAGE MEDICATIONS, UNDERSTAND ANY CHANGES, SIDE EFFECTS TO REPORT BY PATIENT AND CAREGIVER. PATIENT WILL BE FREE OF INFECTION AND UNDERSTAND MEASURES OF PREVENTION. PATIENT/CAREGIVER WILL COLLABORATE WITH SKILLED NURSE TO DEVELOP POC AT SOC AND ON AN ONGOING BASIS UPDATES ARE NEEDED. UNDERSTAND PROGRESS MADE/DISCHARGE PLANNING. ADDITIONAL ORDERS WILL BE RECEIVED FROM ALTERNATE PHYSICIANS IN A TIMELY MANNER. Goal Provider Goal - A PLAN OF CARE WILL BE ESTABLISHED THAT MEETS ALL PATIENT'S RESIDENTIAL NEEDS AND COUNTER SIGNED BY PHYSICIAN. Encounters Start Date/Time End Date/Time Encounter Type Admission Type Attending Clinicians Care Facility Care Department Encounter ID Discharge Date Discharge Status Discharge Condition Discharge Reason Percent Goals Met 2025-02-25 00:00:00 2025-04-25 00:00:00 Outpatient NEW ADMISSION DEVI CONDON [facility] [id number]
== END 2025-03-31 19:48 | disposition short-term general hospital (02) ==
PROVIDERS: Emergency Provider Nurse Practitioner Family; PCP Internal Medicine Infectious Disease
DX: S51.811A Laceration without foreign body of right forearm, initial encounter (principal); S80.212A Abrasion, left knee, initial encounter; S09.90XA Unspecified injury of head, initial encounter; W18.30XA Fall on same level, unspecified, initial encounter; Z79.01 Long term (current) use of anticoagulants; I48.91 Unspecified atrial fibrillation; I10 Essential (primary) hypertension; E78.00 Pure hypercholesterolemia, unspecified; K21.9 Gastro-esophageal reflux disease without esophagitis; Z95.5 Presence of coronary angioplasty implant and graft; F41.9 Anxiety disorder, unspecified; F32.A Depression, unspecified
CPT/HCPCS: 99212; G0463